=== PATIENT | male | born 1960 | race Caucasian/White ===

== ENCOUNTER 2017-08-16 15:59 | Inpatient (IN) | payer BC, SELFPAY ==
[2017-08-16] MEDS ORDERED: Ondansetron HCl/PF 4 MG/2 ML Vial IVP PRN (16:16)
[2017-08-16] MEDS ORDERED: Ondansetron ODT 4 MG TAB PO PRN (16:16)
[2017-08-16] MEDS ORDERED: Acetaminophen 325 MG TAB PO PRN (16:16)
[2017-08-16] MEDS ORDERED: traMADol HCl 50 MG TAB PO PRN (16:29)
[2017-08-16 16:44] VITALS: BMI 27.8
[2017-08-16] MEDS ORDERED: Allopurinol 300 MG TAB PO SCH (16:45)
[2017-08-16 17:27] LABS: ALT (SGPT) 14 U/L (8-55); AST (SGOT) 11 U/L (5-34); Alkaline Phosphatase 70 U/L (40-150); Anion Gap 10 mmol/L (10-20); BUN (Urea Nitrogen) 19 mg/dL (8.4-25.7); Bilirubin, Total 0.4 mg/dL (0.2-1.2); Calc. Creatinine Clearance 154 mL/min (70-130); Calcium 9.1 mg/dL (7.8-10.44); Carbon Dioxide 24 mmol/L (22-29); Chloride 107 mmol/L (98-107); Estimated GFR-MDRD Greater than 90; Globulin 2.1 g/dL (2.4-3.5); LDH 180 U/L (125-220)
[2017-08-16] MEDS: Dexamethasone 4 mg/ml Vial SLOW IVP SCH ×2 (17:39→23:33)
[2017-08-16] MEDS ORDERED: DOXORUBICIN SLOW IVP SCH (18:45)
[2017-08-16] MEDS ORDERED: Palonosetron HCl 0.25 MG in Sodium Chloride 0.9% 50 ML IVPB SCH (18:45)
[2017-08-16] MEDS ORDERED: diphenhydrAMINE 50 MG/ML VIAL IVP SCH (18:45)
[2017-08-16] MEDS ORDERED: Acetaminophen 500 MG TAB PO SCH (18:45)
[2017-08-16] MEDS ORDERED: VINCRISTINE SULFATE IVP SCH (18:45)
[2017-08-16] MEDS ORDERED: Dexamethasone 10 MG in Sodium Chloride 0.9% 50 ML IVPB SCH (18:45)
[2017-08-16] MEDS ORDERED: SODIUM CHLORIDE 0.9% IVPB SCH ×2 (19:30)
[2017-08-16] MEDS ORDERED: CYCLOPHOSPHAMIDE IVPB SCH (19:30)
[2017-08-16] MEDS ORDERED: RITUXIMAB IVPB SCH (19:30)
[2017-08-16] MEDS ORDERED: vinCRIStine Sulfate 2 MG in Sodium Chloride 0.9% 50 ML IVPB SCH (19:45)
--- NOTE | 2017-08-16 20:15 | HP-2 ---
RESIDENT PHYSICIAN: William Harley MD ATTENDING PHYSICIAN: Elton Griffin M.D. PRIMARY CARE PHYSICIAN: None/City call. DATE OF ADMISSION: 08/16/2017 CHIEF COMPLAINT: Back pain and paresthesias. HISTORY OF PRESENT ILLNESS: Mr. Townsend is a previously healthy 56-year-old male, who initia lly presented to [facility] on 08/13/2017 with back pain and progressive paresth esias of bilateral lower extremities extending into the lower thoracic region for the past week. Th e patient also complained of increasing difficulty walking over the past day prior to admission. Th e patient denies any bowel or bladder incontinence or other neurological symptoms. The patient is n ot a direct transfer to [facility] due to an expansile lesion found on T6 with biopsy by Neurosu rgery confirming diffuse large B cell lymphoma, requiring urgent oncological evaluation and treatmen t to prevent further neurological progression. Oncology service is not available at [facility]. Dr. Rust is aware of the case. PAST MEDICAL HISTORY: Transverse myelitis diagnosed in 2010, which later resolved and hypertension. PAST SURGICAL HISTORY: Unremarkable other than left hand surgery. FAMILY HISTORY: Noncontributory. ALLERGIES: No known drug allergies. MEDICATIONS: 1. Amlodipine 10 mg daily. 2. Aspirin 81 mg daily. SOCIAL HISTORY: The patient is and admits to drinking 2 beers per day for the past 40 years , denies smoking or illicit drug use. REVIEW OF SYSTEMS: Ten point review of systems including general, eyes, ENT, respiratory, CV, GI, G U, skin, musculoskeletal, and neuro all negative except for those pertinent positives listed above i n HPI. PHYSICAL EXAMINATION: VITAL SIGNS: Temperature 98.6, respiratory rate 20, heart rate 73, blood pressure 145/86, oxygen sa turation 94% on room air. Weight was 273 pounds. GENERAL: No acute distress. Awake, alert, and oriented x4. EYES: EOMI, pupils equally round and reactive to light and accommodation, nonicteric. ENT: Mucous membranes moist. Oropharynx is clear. CARDIOVASCULAR: Regular rate and rhythm, no murmurs, gallops or rubs. Pulses equal bilaterally. RESPIRATORY: Clear to auscultation bilaterally, no wheezes, rales or rhonchi, nonlabored. ABDOMEN: Nontender, nondistended. No guarding or rebound. EXTREMITIES: No edema. Equal movements bilaterally. SKIN: No rash or ulcer. No palpable lesions. NEUROLOGIC: Cranial nerves II through XII intact. There was a 4/5 symmetrical weakness in both low er extremities, mild patellar hyperreflexia, bilateral upgoing Babinski, no obvious sensory changes to light touch and pinprick. PSYCHIATRIC: Mood and affect appropriate. Judgment and insight intact. LABORATORY DATA: From 08/16/2017, BMP showed sodium of 139, potassium 2.7, chloride 107, bicarbonat e 25, BUN 18, creatinine 0.9, glucose 136, calcium 8.6. His globulin from previous lab draw several days ago was 2.9. We will repeat CMP. CBC from 08/15/2017 showed a white count 10.3, hemoglobin 1 3.9, hematocrit 40 and platelets 161. IMAGING: CT abdomen and pelvis from [facility] showed mesenteric lymphadenopath y, minimal pelvic lymphadenopathy, multiple splenic masses and splenomegaly, lytic bone lesion of T6 . MRI of the thoracic spine showed an expansile lesion involving the anterior and posterior aspects of T6. MRI of the cervical and lumbar spines were normal and MRI brain was negative. ASSESSMENT AND PLAN: This is a 56-year-old male with: 1. Large B cell lymphoma with spinal cord involvement. Oncology consulted, we will initiate chemot herapy tomorrow. Also, checking SPEP, UPEP, CMP, LDH, and beta 2 microglobulin per Oncology recomme ndations. We will eventually need PET scan and additional tumor markers according to Dr. Rust. Continue high dose steroids and we will also start allopurinol. Tylenol and tramadol for pain reli ef. The patient is currently resting comfortably. 2. Hypertension. Continue amlodipine. 3. Alcohol abuse. ASE protocol. 4. Hyperglycemia, likely secondary to steroids. The patient is overweight. We consider checking A 1c and care versus outpatient. 5. Deep venous thrombosis prophylaxis, Lovenox. 6. Gastrointestinal prophylaxis with PPI. DISPOSITION AND LENGTH OF HOSPITAL STAY: Home; 2 days. Symptomatic medications will be provided. History and physical exam as well as management discussed with Dr. Griffin.
--- NOTE | 2017-08-16 21:06 | CON ---
DATE OF CONSULTATION: 08/16/2017 REASON FOR CONSULTATION: Malignant lymphoma. HISTORY: This is a 56-year-old male, who was in his usual state of health approximately 2 weeks ago. Then, he started to have back pain, which gradually became worse. He developed weaknes s in his lower extremities about a week ago. He was able to go back to work to this week Friday, t rodo being Friday. Subsequently, he was admitted to [facility], where he had CT scan of abdomen and pelv is with IV contrast. It showed marked mesenteric lymphadenopathy also with a small periaortic and a ortocaval lymphadenopathy and minimal lymphadenopathy. The size of mesenteric lymph nodes not menti oned. It also showed questionable lymphadenopathy at the confluence of inferior vena cava and right atrium. The spleen was enlarged, size not given. There were hypodense lesions in the spleen measu ring up to 4.3 cm. These were not felt to be cystic in nature. Cystic lesions were noted in the li bailee. MRI of the thoracic spine without contrast showed an expansile mass involving T6 vertebral bod y extending down both pedicles and into the transverse process. It was causing severe central canal stenosis. There was also expansion of the mass into bilateral T6-T7 neural foramina, causing sever e bilateral neural foraminal stenosis. The patient underwent a biopsy of the T6 mass on 08/14/2017. This has been interpreted as diffuse large B cell lymphoma, positive for CD20. The patient denies night sweats, fever, and weight loss. He gives history of hypertension as starting four years ago. He also gives history of transverse myelitis in the remote past. At the present time, the patient 's main complaint is numbness in both legs and motor weakness, slightly more pronounced on the left. He ambulates with a walker. The bladder and bowel functions are maintained. The patient complain s of a subjective level of sensory loss around T6-T7 segment and below. CURRENT MEDICATIONS: Amlodipine 10 mg p.o. daily and aspirin 81 mg p.o. daily. PAST MEDICAL HISTORY: Positive for hypertension. He also gives history of myelitis in 2010. This was associated with numbness and loss of bladder and bowel function. It was felt to be of viral iris ology. FAMILY HISTORY: Positive for hypertension and CHF. Mother also has rheumatoid arthritis. PERSONAL AND SOCIAL HISTORY: The patient drinks two beers every day for the past 40 years. He does not smoke or does not use recreational drugs. DRUGS WITH ADVERSE EFFECT: None. REVIEW OF SYSTEMS: As mentioned in the history of present illness. PHYSICAL EXAMINATION: GENERAL: The patient appears appropriate for his age and is alert and oriented. VITAL SIGNS: Height 6 feet 1 inch, weight 211 pounds. Body surface area 2.22. Temperature 98.6, p ulse 73, respirations 20, and blood pressure 145/86. HEENT: Unremarkable. LYMPH NODE: Not palpable in cervical, supraclavicular, axillary or inguinal area. CHEST: Clear to percussion and auscultation. HEART: Regular rhythm. S1 and S2. ABDOMEN: No palpable hepatosplenomegaly. No other masses felt. Bowel sounds normal. EXTREMITIES: Without pedal edema. NEUROLOGIC: The patient has some motor weakness involving both lower extremities. Babinski sign is positive. Deep tendon reflexes are diminished. I could not elicit a sensory level objectively, th ough the patient says there is sensory impairment below around T6 level. ASSESSMENT AND RECOMMENDATIONS: This patient has large cell diffuse lymphoma, I believe he will hav e stage IV disease. His CBC and chemistries are acceptable and for the most part within normal limi ts. LDH is normal. I had discussed the case with Dr. García, and for now, we have started to procee d with chemotherapy on an urgent basis, trying to preserve and improve his neurologic function. I a m hoping the molecular studies reports will be back during the next few weeks. However, his treatme nt needs to be started soon. Echocardiogram will be done next week. We will start CHOP reduction t omorrow. I discussed the side effects and benefits of this regimen including the cardiac toxicity, skin extravasation, neuropathy, neutropenic fever, nausea, vomiting, hair loss, etc. Thanks very much for allowing me to participate in this patient's care.
[2017-08-16] MEDS ORDERED: Dexamethasone 20 MG in Sodium Chloride 0.9% 50 ML IVPB SCH (23:15)
[2017-08-17] MEDS: Dexamethasone 4 mg/ml Vial SLOW IVP SCH ×4 (05:46→23:36)
--- NOTE | 2017-08-17 06:33 | PDOC.FM ---
- Subjective Subjective: Patient doing well this AM. No significant overnight events. Patient denies any pain this AM. Pain well controlled with tramadol and tylenol. Answered questions regarding course of action. - Objective MAR Reviewed: Yes Vital Signs & Weight: Vital Signs (12 hours) Temp Pulse Resp BP BP Pulse Ox 08/17/17 05:59 98.0 F 69 16 131/79 08/16/17 23:39 97.8 F 62 18 131/86 98 08/16/17 20:00 98.3 F 70 18 167/91 H 96 Weight Weight 95.708 kg I&O: 08/15/17 08/16/17 08/17/17 06:59 06:59 06:59 Intake Total 240 Output Total 875 Balance -635 Result Diagrams: 08/16/17 16:56 <Shyla Cummins - Last Filed: 08/17/17 07:56> - Objective Vital Signs & Weight: Vital Signs (12 hours) Temp Pulse Resp BP Pulse Ox 08/17/17 08:00 97.4 F L 64 18 08/17/17 07:17 97.4 F L 64 18 138/64 98 08/17/17 05:59 98.0 F 69 16 131/79 08/16/17 23:39 97.8 F 62 18 131/86 98 Weight Weight 211 lb I&O: 08/16/17 08/17/17 08/18/17 06:59 06:59 06:59 Intake Total 240 Output Total 875 Balance -635 Result Diagrams: 08/16/17 16:56 <Elton Griffin - Last Filed: 08/17/17 10:02> Phys Exam - Physical Examination Constitutional: NAD HEENT: moist MMs, sclera anicteric Neck: supple, full ROM Respiratory: no wheezing, no rales, no rhonchi, clear to auscultation bilateral Cardiovascular: RRR, no significant murmur Gastrointestinal: soft, non-tender, no distention, positive bowel sounds Musculoskeletal: no edema, pulses present Weakness in LE's bilaterally. Psychiatric: normal affect, A&O x 3 Skin: no rash, normal turgor, cap refill <2 seconds <Shyla Cummins - Last Filed: 08/17/17 07:56> Dx/Plan (1) Large B-cell lymphoma Code(s): C85.10 - UNSPECIFIED B-CELL LYMPHOMA, UNSPECIFIED SITE Status: Acute (2) Spinal cord compression due to malignant neoplasm metastatic to spine Code(s): G95.20 - UNSPECIFIED CORD COMPRESSION; C79.51 - SECONDARY MALIGNANT NEOPLASM OF BONE Status: Acute (3) Hypertension Code(s): I10 - ESSENTIAL (PRIMARY) HYPERTENSION Status: Acute (4) Overweight (BMI 25.0-29.9) Code(s): E66.3 - OVERWEIGHT Status: Acute (5) H/O ETOH abuse Code(s): Z87.898 - PERSONAL HISTORY OF OTHER SPECIFIED CONDITIONS Status: Acute - Plan Plan: 56 year old male with newly diagnosed large B cell lymphoma (08/13/2017), presents with back pain and difficulty walkin. Newly diagnosed large B cell lymphoma (likely stage IV): CD [address] abdomen/pelvis shows lytic bone lesion of T6, mesenteric lymphadenopathy, minimal pelvis LAD, multiple splenic masses and splenomegaly, and hepatic cysts. Dr. Rust, Oncologist, consulted. He has spoken with Dr. García. Urgent chemotherapy is being initiatedj to improve and preserve neurologic function. Plans for CHOP reduction today. Pending B2 microglobulin, serum electrophoresis, protein electrophoresis per oncology recommendations. Pain control with tramadol and tylenol. Continue high dose steroids and allopurinol. Echo to be performed next week per oncology. 2. T6 lytic lesion with spinal cord compression with neurologic dysfunction: 2/ 2 to B cell lymphoma. Biopsy done on 08/14/2017. Continue high dose steroids and allopurinol. Pain control with tramadol and tylenol. Urgent chemotherapy. Oncology recommendations appreciated. 3. HTN: Continue amlodipine. BP this AM 131/79. Continue to monitor. 4. Hx of EtOH abuse: ASE protocol 5. Overweight: BMI 27.8 6. DVT ppx: lovenox 7. GI ppx: PPI <Shyla Cummins - Last Filed: 08/17/17 07:56> Attending Addendum - Attending Addendum I personally evaluated the patient and discussed the management with Dr. Cummins I agree with the History, Examination, Assessment and Plan documented above with any addition or exceptions noted below. Stable neuro exam overnight. He still has numbness in his legs, mild weakness at the hips and upgoing toe on the right. He starts chemo today <Elton Griffin - Last Filed: 08/17/17 10:02>
[2017-08-17] MEDS ORDERED: Aspirin 81 mg Enteric Coated Tablet PO SCH (09:00)
[2017-08-17] MEDS ORDERED: Allopurinol 300 MG TAB PO SCH (09:00)
[2017-08-17] MEDS: Amlodipine 5 MG TAB PO SCH (10:05)
[2017-08-17] MEDS: Enoxaparin Sodium 40 MG/0.4 ML SYRINGE SC SCH (10:06)
[2017-08-18 04:26] VITALS: TEMP 97.8
[2017-08-18 05:31] LABS: #Lymphocytes 0.3 thou/uL (1.20-3.40); #Monocytes 0.2 thou/uL (0.11-0.59); #Neutrophils 7.7 thou/uL (1.40-6.50); %Eosinophils 0.2 % (0.0-10.0); %Lymphocytes 3.2 % (21.0-51.0); %Monocytes 2.3 % (0.0-10.0); Hematocrit 43.1 % (42.0-52.0); Mean Platelet Volume 7.7 fL (7.4-10.4); Red Blood Cell (RBC) Count 4.65 mill/uL (4.70-6.10); White Blood Cell (WBC) Count 8.1 thou/uL (4.8-10.8)
--- NOTE | 2017-08-18 06:06 | PDOC.FM ---
- Subjective Subjective: Pt feels well today after his first round of chemo yesterday. Reports minimal nausea/vomiting. He has a strong appetite. He denies changes in his lower leg neuro symptoms. There were no acute events over night. - Objective MAR Reviewed: Yes Vital Signs & Weight: Vital Signs (12 hours) Temp Pulse Resp BP Pulse Ox 08/18/17 04:25 97.8 F 61 18 129/60 95 08/18/17 00:00 97.9 F 76 18 136/74 99 08/17/17 20:00 98 F 73 18 95 08/17/17 19:56 98 F 73 18 130/73 95 Weight Weight 95.708 kg I&O: 08/16/17 08/17/17 08/18/17 06:59 06:59 06:59 Intake Total 240 240 Output Total 875 1350 Balance -635 -1110 Result Diagrams: 08/18/17 05:21 08/18/17 05:21 <Bradley Pierson - Last Filed: 08/18/17 06:04> - Objective Vital Signs & Weight: Vital Signs (12 hours) Temp Pulse Resp BP BP Pulse Ox 08/18/17 09:29 65 137/85 08/18/17 08:00 97.8 F 61 18 08/18/17 04:25 97.8 F 61 18 129/60 95 08/18/17 00:00 97.9 F 76 18 136/74 99 Weight Weight 95.708 kg I&O: 08/17/17 08/18/17 08/19/17 06:59 06:59 06:59 Intake Total 240 240 Output Total 875 1350 Balance -635 -1110 Result Diagrams: 08/18/17 05:21 08/18/17 05:21 <Francia Ho - Last Filed: 08/18/17 10:45> Phys Exam - Physical Examination Constitutional: NAD HEENT: moist MMs Neck: full ROM Respiratory: clear to auscultation bilateral Cardiovascular: RRR, no significant murmur Gastrointestinal: soft, non-tender, no distention, positive bowel sounds Musculoskeletal: no edema 4/5 strength in hip flexion b/l Psychiatric: normal affect, A&O x 3 Skin: no rash <Bradley Pierson - Last Filed: 08/18/17 06:04> Dx/Plan (1) Large B-cell lymphoma Code(s): C85.10 - UNSPECIFIED B-CELL LYMPHOMA, UNSPECIFIED SITE Status: Acute (2) Spinal cord compression due to malignant neoplasm metastatic to spine Code(s): G95.20 - UNSPECIFIED CORD COMPRESSION; C79.51 - SECONDARY MALIGNANT NEOPLASM OF BONE Status: Acute (3) Hypertension Code(s): I10 - ESSENTIAL (PRIMARY) HYPERTENSION Status: Chronic Qualifiers: Hypertension type: essential hypertension Qualified Code(s): I10 - Essential (primary) hypertension (4) Overweight (BMI 25.0-29.9) Code(s): E66.3 - OVERWEIGHT Status: Chronic (5) H/O ETOH abuse Code(s): Z87.898 - PERSONAL HISTORY OF OTHER SPECIFIED CONDITIONS Status: Chronic - Plan Plan: 56 year old male with newly diagnosed large B cell lymphoma (08/13/2017), presents with back pain and difficulty walkin. Newly diagnosed large B cell lymphoma (likely stage IV): CD [address] abdomen/pelvis shows lytic bone lesion of T6, mesenteric lymphadenopathy, minimal pelvis LAD, multiple splenic masses and splenomegaly, and hepatic cysts. Dr. Rust, Oncologist, consulted. He has spoken with Dr. García. Urgent chemotherapy was started yesterday improve and preserve neurologic function. Plans for CHOP reduction today. Pending B2 microglobulin, serum electrophoresis, protein electrophoresis per oncology recommendations. Pain control with tramadol and tylenol. Continue high dose steroids and allopurinol. Echo to be performed next week per oncology. Uric acid is currently not concerning for tumor lysis syndrome. Provide n/v control prn 2. T6 lytic lesion with spinal cord compression with neurologic dysfunction: 2/ 2 to B cell lymphoma. Biopsy done on 08/14/2017. Continue high dose steroids and allopurinol. Pain control with tramadol and tylenol. Urgent chemotherapy. No changes in status today. Continue to monitor for symptom progression 3. HTN: Continue amlodipine. BP this AM 131/79. Continue to monitor. 4. Hx of EtOH abuse: ASE protocol 5. Overweight: BMI 27.8 6. DVT ppx: lovenox and SCD 7. GI ppx: PPI <Bradley Pierson - Last Filed: 08/18/17 06:04> Attending Addendum - Attending Addendum I personally evaluated the patient and discussed the management with Dr. Pierson. I agree with the History, Examination, Assessment and Plan documented above with any addition or exceptions noted below. The patient is feeling well this morning. Tolerating chemo so far. We will continue supportive care. Order echo today as pt is being treated with doxarubicin. Will also consult pt. <Francia Ho - Last Filed: 08/18/17 10:45>
[2017-08-18] MEDS ORDERED: Allopurinol 300 MG TAB PO SCH (09:00)
[2017-08-18] MEDS ORDERED: Dexamethasone 10 MG/ML VIAL SLOW IVP SCH (09:00)
[2017-08-18] MEDS: Amlodipine 5 MG TAB PO SCH (09:29)
[2017-08-18 09:32] VITALS: BP 137/85
[2017-08-18] MEDS: Enoxaparin Sodium 40 MG/0.4 ML SYRINGE SC SCH (09:32)
--- NOTE | 2017-08-18 14:26 | CON ---
DATE OF CONSULTATION: 08/18/2017 REASON FOR CONSULTATION: Mr. Townsend is a 56-year-old gentleman, who appears to have been diagnosed wi th at least a stage 3 diffuse large B-cell lymphoma. This was causing spinal cord compression at th e T6 vertebral body. HISTORY OF PRESENT ILLNESS: Mr. Townsend states that he has been having pain in the back and chest for about 2 weeks. He was seen in the [facility] and was placed on prednisone, and actually had imp rovement in his symptoms. However, as the prednisone tapered, the symptoms recurred, and he was sub sequently admitted to [facility]. He had a cardiac workup, which was negative, and he was discharged. About a week ago, this past Friday, he began having some numbness in his l egs. By Friday, he was having difficulty walking. He was subsequently admitted to [facility]. While there, he had workup and evaluation. He had a previous history of transvers e myelitis, and therefore, an MRI of the cervical, thoracic, lumbar spine was obtained. This showed a mass lesion, primarily involving the T6 vertebral body, which appeared to be causing spinal cord compression. He was placed on dexamethasone. He was seen by Dr. Barron in Neurosurgery. The pat ient was felt to be stable. Primarily, he had paresthesias in the lower extremities. He did not haney ve any bowel or bladder problems. Therefore, he underwent a CT-guided biopsy of the T6 vertebral nelly dy. Final pathology returned as a diffuse large B-cell lymphoma. He did have a CT scan of the ches t, abdomen, and pelvis performed. This showed a markedly mesenteric lymphadenopathy. There was als o hypodensities in the liver, which were felt to be cysts. The spleen was enlarged with multiple hy podense lesions, which were not felt to be cysts. There was no pelvic adenopathy. There were some small paraaortic and aortocaval lymph nodes. He did not have any mediastinal adenopathy. Because o f his spinal cord compression and because of not having Oncology services at [facility], he was subsequently transferred to [place] for workup and treatment. He was seen by Dr. Rust. He was started on chemotherapy with R-CHOP with his first cycle of chemotherapy complete d yesterday. I am seeing him today at Dr. Rust's request. He does feel like the numbness is im proving. He is no longer having any back pain. His walking is still fairly shaky and he must walk with assistance. He denies any enlarged lymph nodes. He has no fever, night sweats, or weight loss . He had no difficulties with his chemotherapy. He voices no other complaints. PAST MEDICAL HISTORY: 1. Hypertension. 2. Transverse myelitis in 2010, which subsequently resolved with steroids and antibiotics. 3. Left hand surgery for tendon repair from trauma. 4. He denies other medical or surgical problems. MEDICATIONS: Amlodipine and aspirin. ALLERGIES: No known medical allergies. FAMILY HISTORY: His dad had lung cancer. He also had a sister with lung cancer. There is no other family history of malignancy. There is no family history of lymphoma. SOCIAL HISTORY: He is and his is in the room with him. He has no cigarette or alcohol use. He does drink approximately 2 alcoholic beverages per day. He works for an [employer]. REVIEW OF SYSTEMS: The patient is having no chest pain. He is having no bowel or bladder symptoms. Remainder of 12 system review of system is otherwise negative. PHYSICAL EXAMINATION: VITAL SIGNS: Height 6 feet 1 inch, weight 211 pounds, blood pressure is 137/85, pulse is 65, respir ations are 18, temperature is 97.8, and O2 saturation is 95%. GENERAL: He is alert and oriented and in no apparent distress. He is well-developed and well-ortega shed. Karnofsky performance status is an 80%. HEENT: Pupils are equal, round, and reactive to light. Extraocular movements are intact. ENT: Or al cavity, oropharynx normal without lesion or erythema. Palate elevates symmetrically. Gingiva is intact. There is no enlargement of Waldeyer's ring. NECK: Supple, without preauricular, submandibular, cervical, or supraclavicular adenopathy. No thy romegaly. Larynx is midline. LUNGS: Breathing nonlabored. Clear to auscultation and percussion. HEART: Regular rate and rhythm without murmur. No lower extremity edema. Radial and pedal pulses are good. BACK: No tenderness on fist percussion of the spine. LYMPHATICS: No axillary or inguinal adenopathy. ABDOMEN: Bowel sounds present. Soft, nontender, nondistended, without mass or hepatosplenomegaly. Liver percusses to a normal size. SKIN: Without rash or purpura. NEUROLOGIC: Cranial nerves II-XII grossly intact. Motor strength is 5/5 in both upper and lower ex tremities in all muscle groups tested. Gait was not tested. Sensory exam was not tested. RADIOLOGIC: MRI of the thoracic spine at [facility] was personally reviewed. A gain, he has a contrast-enhancing mass lesion causing spinal cord compression, which is quite tight primarily at the T6 vertebral body level. Chest x-ray showed no lesion. I was unable to review the CT of the chest, abdomen, and pelvis, which showed marked mesenteric adenopathy and multiple small paraaortic lymph nodes. There was no additional evidence of adenopathy. He did have multiple lesio ns in the spleen. LABORATORY DATA: CBC revealed a white blood cell count of 8100 with hemoglobin of 15.1, hematocrit of 43.1, platelet count of 154,000. Chemistry group showed normal electrolytes. Globulin was 2.1. Creatinine was normal. ASSESSMENT: Mr. Townsend is a 56-year-old gentleman with what appears to be at least a clinical stage 3 AE, diffuse large B-cell lymphoma. He has involvement of the T6 vertebral body, spleen, and mesente liz and paraaortic lymph nodes. He has completed his first cycle of chemotherapy with R-CHOP. PLAN: I had a long discussion with Mr. Townsend and his regarding his diagnosis, prognosis, progno stic factors, and treatment options. I have also discussed the case with Dr. Barron. Neurologica lly, he is stable. Primarily, his problem is of paresthesias. This seems to be improving since his chemo was started. His leg strength is quite good. He is able to ambulate with assistance. I hav e discussed the case with Dr. Rust. I am in agreement with him starting chemotherapy. At the p resent time, I would recommend holding off on radiation therapy as his lesion should shrink fairly r apidly with chemotherapy. This should allow him to remain neurologically intact. If the patient we re to decline in neurological status, then we could intervene with radiation therapy. I would recom mend, after he completes his chemotherapy, that he be treated with radiation therapy to the T6 verte bral body area. He informs me that Dr. Rust is planning 6 cycles of chemotherapy. Thus, after his sixth cycle of R-CHOP, I would recommend radiation therapy to the thoracic spine region. It villanueva s seem that lymphomatous lesions involving the bone are better controlled with combined modality the rapy, which is the reason for the recommendation. The logistics of radiation as well as the benefit s and risks of treatment were discussed. Side effects would include but not be limited to skin reac tion, fatigue, lower blood counts, difficulty or pain with swallowing, weight loss, and small risk o f damage to his heart or spinal cord or other structures which receive radiation therapy. Time was taken to answer all of their questions. He is tentatively agreeable to proceed with radiation as re commended to him. I would recommend that the patient return to see me again after his chemotherapy is completed. He will likely be discharged soon. I did inform the patient and his that should he decline neurologically that he go to the emergency room or seek medical attention as soon as pos yue. I do not anticipate this will happen, but strongly advised them to watch for neurological de terioration. Thank you for this interesting consultation.
--- NOTE | 2017-08-18 14:27 | DIS-2 ---
DATE OF ADMISSION: 08/16/2017 DATE OF DISCHARGE: 08/18/2017 RESIDENT: Bradley Pierson D.O. ADMITTING ATTENDING: Elton Griffin M.D. DISCHARGE ATTENDING: Francia Ho M.D. CONSULTATIONS: Dr. Jemima Rust, Oncology. PROCEDURES: None. PRIMARY DIAGNOSIS: Large B cell lymphoma. SECONDARY DIAGNOSES: Spinal cord compression secondary to malignancy, hypertension and a history of alcohol abuse. DISCONTINUED MEDICATIONS: None. DISCHARGE MEDICATIONS: Allopurinol 300 mg p.o. daily, prednisone 100 mg every day, Zofran ODT 8 mg q.8h. p.r.n. nausea, vomiting, Compazine 20 mg p.o. p.r.n. nausea and vomiting. HOSPITAL COURSE: The patient was admitted from outside facility for a newly diagnosed B cell lymphoma that was causing lower extremity neurological symptoms. Specifically, the patient had decreased strength in hip flexion bilaterally with no other neurological symptoms, weakness. Muscle strength in hip flexion was consistently 4/5. This did not improve or worsen during hospitalization. While admitted the patient was started on chemotherapy to include doxorubicin. The patient had an echo done within the last week, therefore another echo was not indicated to establish baseline cardiac function. The patient tolerated the chemotherapy well and did not have significant nausea and vomiting and was able to eat. Per Oncology the patient was good to be discharged. He will follow up outpatient and will continue multiple rounds of chemotherapy as an outpatient. DISPOSITION: Stable. DISCHARGE INSTRUCTIONS: 1. Location: Home. 2. Diet: Regular. 3. Activity p.r.n. 4. Follow up 08/21/2017 with Oncology and within 1 week with primary care physician. LUCIEN
[2017-08-19 14:26] LABS: A/G Ratio 1.3 (0.7-1.7); Albumin 3.5 g/dL (2.9-4.4); Alpha 1 0.2 g/dL (0.0-0.4); Alpha 2 0.8 g/dL (0.4-1.0); Beta 0.9 g/dL (0.7-1.3); Gamma 0.6 g/dL (0.4-1.8); Globulin, Total 2.6 g/dL (2.2-3.9); M-Spike Not Observed g/dL (Not Observed)
[2017-08-21 08:19] LABS: Beta-Ur 26.6 % (.); Protein, Urine 8.2 mg/dL (Not Estab.)
== END 2017-08-18 15:10 | disposition home or self-care (01) | DRG 841 ==
LOC: ONC 15:59
PROVIDERS: ADMIT Internal Medicine; ATTEND Internal Medicine
DX: C85.10 Unspecified B-cell lymphoma, unspecified site (principal); C79.51 Secondary malignant neoplasm of bone; G95.29 Other cord compression; I10 Essential (primary) hypertension; Z79.82 Long term (current) use of aspirin; F10.10 Alcohol abuse, uncomplicated; R73.9 Hyperglycemia, unspecified; T38.0X5A Adverse effect of glucocorticoids and synthetic analogues, initial encounter; R20.2 Paresthesia of skin; E66.3 Overweight; Z68.27 Body mass index [BMI] 27.0-27.9, adult
CPT/HCPCS: 36415; 80053; 82232; 82947; 83615; 84165; 84166; 84550; 85025; A4216; J1100; J1200; J1453; J1650; J2469; J2505; J7050; J9000; J9070; J9310; J9370

== ENCOUNTER 2017-09-02 10:57 | Inpatient (IN) | payer BC ==
[2017-09-02] MEDS ORDERED: Mag-Al 1200 mg/1200 mg/30 ML UDCUP PO PRN (11:14)
[2017-09-02] MEDS ORDERED: Acetaminophen 325 MG TAB PO PRN (11:14)
[2017-09-02] MEDS ORDERED: Ondansetron ODT 4 MG TAB PO PRN (11:14)
[2017-09-02] MEDS ORDERED: Calcium Carbonate 500 MG ChewTAB PO PRN (11:14)
[2017-09-02] MEDS ORDERED: Meropenem 1 GM in Sodium Chloride 0.9% 100 ML IVPB SCH (11:15)
[2017-09-02] MEDS ORDERED: Vancomycin HCl 1 GM in Premix Bag 1 BAG IVPB SCH (11:15)
[2017-09-02] MEDS: Sodium Chloride 0.9% 1,000 ML IV SCH (12:27)
[2017-09-02 12:53] LABS: White Blood Cell (WBC) Count 27.6 thou/uL (4.8-10.8)
[2017-09-02 13:04] LABS: ALT (SGPT) 14 U/L (8-55); AST (SGOT) 7 U/L (5-34); Alkaline Phosphatase 97 U/L (40-150); Anion Gap 17 mmol/L (10-20); BUN (Urea Nitrogen) 23 mg/dL (8.4-25.7); Bilirubin, Total 0.8 mg/dL (0.2-1.2); Calc. Creatinine Clearance 98 mL/min (70-130); Calcium 8.7 mg/dL (7.8-10.44); Carbon Dioxide 21 mmol/L (22-29); Chloride 95 mmol/L (98-107); Estimated GFR-MDRD 70; Globulin 2.6 g/dL (2.4-3.5); Magnesium 2.3 mg/dL (1.6-2.6); Phosphorus 3.7 mg/dL (2.3-4.7); Protein, Total 5.7 g/dL (6.0-8.3)
[2017-09-02 13:07] LABS: Band 33 % (5-11); Mean Platelet Volume 8.4 fL (7.4-10.4); Neutrophil 57 % (42-75); Reactive Lymphocytes 4 % (0-10); Vacuoles SLIGHT
[2017-09-02] MEDS: Vancomycin HCl 1.5 GM in Sodium Chloride 0.9% 250 ML 300 ML IVPB SCH (13:28)
[2017-09-02] MEDS: MEROPENEM 1 GM/50 ML 1 GM in Premix Bag 1 BAG IVPB SCH ×2 (13:53→20:34)
[2017-09-02] MEDS ORDERED: ACYCLOVIR SODIUM IVPB SCH (14:00)
[2017-09-02] MEDS ORDERED: Lidocaine 1% (PF) 30 ML VIAL ONE (14:23)
[2017-09-02] MEDS ORDERED: Lidocaine 1% w/Epinephrine 1:200K 30 ML VIAL FS ONE (14:45)
--- NOTE | 2017-09-02 15:42 | CON ---
DATE OF CONSULTATION: 09/02/2017 REASON FOR CONSULTATION: Skin lesions. HISTORY OF PRESENT ILLNESS: A 57-year-old recently diagnosed with B cell lymphoma with involvement of the spine and abdominal lymphadenopathy, has received 1 course of Rituxan and CHOP and now has developed progressively worsening necrotizing skin lesions and he is admitted for management. Low- grade fever. No headaches, no visual symptoms, sore throat, odynophagia, dysphagia, no dyspnea, no cough, no chest pain, no abdominal pain, no genitourinary symptoms, persisting paresthesias and numbness in lower extremities, which results from the spinal lesion. PAST MEDICAL HISTORY: Transverse myelitis in 2010 which resolved, hypertension and B-cell lymphoma. PAST SURGICAL HISTORY: Left hand surgery. FAMILY HISTORY: Noncontributory. ALLERGIES: None. MEDICATIONS: Norvasc and aspirin and currently on meropenem and vancomycin. SOCIAL HISTORY: , drinks 2 beers per day. Never a smoker. PHYSICAL EXAMINATION: VITAL SIGNS: T-max 99.7, blood pressure 130/80, pulse 125, respirations 20, and O2 sat 97%. SKIN: Shows areas of necrotic ulcerations that ranged from the size of a small pimple to a larger oval-shaped ecthyma gangrenosum-like lesion in the abdominal area with infiltrated borders and erythema. He has 5 or 6 of those lesions spread out in different stages of development as one on the face which is smaller. No lymphadenopathy. HEENT: Ocular movements are conjugate. Sclerae are white. Pupils are equal and reactive. Oral cavity normal. Numerous teeth in place. Oral candidiasis. NECK: Supple, no jugular vein distention. LUNGS: Clear to auscultation and percussion. HEART: S1, S2, regular rate. No S3 or S4. ABDOMEN: Soft, not distended or tender. No ascites, no organomegaly or bladder distention. EXTREMITIES: No joint inflammatory activity. Pulses are 1+ in dorsalis pedis. Moves all extremities equally. Strength is pretty good in lower extremities. NEUROLOGIC: Cognitive function appears to be intact. LABORATORY DATA: We have labs from 08/18/2017 with WBC count 8.1, hemoglobin 15 , the creatinine was 0.89. Liver profile normal. LDH 343. Today's labs are still pending. ASSESSMENT: 1. B-cell lymphoma, undergoing R-CHOP. 2. 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 DISCUSSION: Differential diagnoses includes gram-negative paul infection with bacteremia including Pseudomonas aeruginosa, MRSA, filamentous fungi including Aspergillus, Fusarium or Rhizopus. Finally, herpes simplex can infrequently be associated with ecthyma gangrenosum-like lesions. We will add Voriconazole and acyclovir to current regimen, request for a punch biopsy, submission to pathology and microbiology. The patient has also oral candidiasis which will be managed by the Voriconazole. LUCIEN
--- NOTE | 2017-09-02 16:24 | OP ---
DATE OF PROCEDURE: 09/02/2017 PREOPERATIVE DIAGNOSES: B-cell lymphoma, undergoing CHOP therapy with new gangrenosum-like lesions on the abdomen. POSTOPERATIVE DIAGNOSES: B-cell lymphoma, undergoing CHOP therapy with new gangrenosum-like lesions on the abdomen. PROCEDURE: Skin biopsy punch x2 for pathology and for tissue culture. SURGEON: Pancho Lopez M.D. ANESTHESIA: Local. ESTIMATED BLOOD LOSS: Minimal. COMPLICATIONS: None. SPECIMEN: 1. Punch biopsy sent to path for pathology. 2. Second sent to micro for tissue culture. TECHNIQUE: Abdomen on the lateral edge of one of these large gangrenosum-like lesions, the skin is prepped and draped in a sterile fashion. Local anesthetic was infiltrated under the skin. A full t hickness biopsy of the skin was performed x2 on the edge and one was sent to path for pathology and the other sent to micro for tissue culture. The wounds were closed using a Prolene suture. The pat ient tolerated the procedure well. Sutures will have to be removed in 1 week. They can follow up i n my office for that.
[2017-09-02 16:32] LABS: Bilirubin Negative (Negative); Blood, Urine Moderate (Negative); Glucose, Urine (Dipstick) 500 mg/dL (Negative); Ketone, Urine Negative (Negative); Nitrite Positive (Negative); Protein, Urine (Dipstick) 30 mg/dL (Neg-Trace); Urobilinogen 0.2 mg/dL (0.2-1.0)
[2017-09-02 16:34] LABS: Squamous Epithelial None Seen HPF (0-3); WBC/HPF 21-50 HPF (0-3)
[2017-09-02 16:49] LABS: Bacteria/HPF 2+ HPF (None Seen); Hyaline Casts/LPF 4-6 HYALINE CAST LPF (0-3 Hyaline)
[2017-09-02] MEDS ORDERED: Lorazepam 1 MG TAB PO PRN (17:16)
--- NOTE | 2017-09-02 17:23 | CON ---
DATE OF CONSULTATION: 09/02/2017 REASON FOR CONSULTATION: Diffuse large B cell lymphoma. HISTORY OF PRESENT ILLNESS: Mr. Townsend is a 57-year-old male who was diagnosed with stage I VA diffuse large B cell lymphoma with involvement of the abdominal lymph nodes, spleen and T6. He i nitially presented with weakness and numbness in bilateral lower extremities. The patient received his first round of chemotherapy with R-CHOP on 08/17/2017. He was given Neulasta on 08/18/2017. He presented for followup on 08/28/2017. He was still complaining of numbness and weakness in both hi s lower extremities. He had preserved bowel and bladder function. He did have yeast in his oral ca vity, which was treated with nystatin. He had an area on his lower abdomen, of 2 pimple-like lesion s. He was given Cipro, which he completed. Today he presented to our facility for treatment. His states that his rash has gotten worse. On examination, he had lesions on his abdomen and chest , groin, arm and face with significant erythema. The patient's states that his temperature was as high as 101 this morning. He was admitted to this facility for further evaluation of his skin e ruption. He denies any complaints at this time. No chest pain or shortness of breath. No abdomina l pain or dysuria. He is taking p.o. without any problems. No fever at this time. PAST MEDICAL HISTORY: 1. Recently diagnosed stage IV diffuse large B-cell lymphoma. 2. Hypertension. PAST SURGICAL HISTORY: 1. T6 biopsy. 2. Wrist surgery. ALLERGIES: No known drug allergies. HOME MEDICATIONS: 1. Cipro 500 mg b.i.d. 2. Nystatin 100,000 units q.i.d. 3. Allopurinol 300 mg daily. 4. Amlodipine 10 mg daily. 5. Aspirin 81 mg daily. 6. Prednisone 10 mg daily. FAMILY HISTORY: Noncontributory. SOCIAL HISTORY: , lives with his spouse. No smoker, social drinker. No illicit drug use. REVIEW OF SYSTEMS: A 12 point review of systems negative except for noted in HPI. PHYSICAL EXAMINATION: VITAL SIGNS: Temperature is 99.7, pulse is 125, respiratory rate 20, BP is 131/83, 97% on room air. GENERAL: Well-developed, well-nourished male in no acute distress. HEENT: Normocephalic, atraumatic. Pupils equal and reactive to light. NECK: Supple. CARDIOVASCULAR: Regular rate and rhythm. LUNGS: Clear to auscultation. ABDOMEN: Soft, nontender, bowel sounds are positive. EXTREMITIES: No clubbing, cyanosis or edema. SKIN: He has erythematous rash with areas of necrosis on his abdomen, chest, face, groin and arm. NEUROLOGIC: Left leg weakness. PSYCHIATRIC: The patient is alert and oriented and appropriate. PERTINENT LABORATORY AND X-RAYS: Current WBC is 27.6, hemoglobin 15.5, hematocrit 46, platelet coun t is 99,000. He has got 57% neutrophils, 33% bands, 3% lymphocytes. Sodium 129, potassium 4.1, chlo ride 95, CO2 is 21, BUN is 23, creatinine 1.08. Lactic acid 3.2, calcium 8.7, phosphorus 3.7, magne sium 2.3, total bilirubin is 0.8, AST 7, ALT 14, alkaline phosphatase is 97. C-reactive protein is 26.72, serum total protein 5.7, albumin 3.1, globulin 2.6. IMPRESSION: 1. Diffuse large B cell lymphoma status post chemotherapy with R-CHOP on 08/17/2017. 2. Skin eruptions with areas of erythema and necrosis. DISCUSSION: Dr. Mendez has been consulted and has started him on antifungal medication. His chemoth erapy will be held today. Dr. Lopez has been consulted for a punch biopsy. We will follow his spital course closely, once diagnosis has been made and treatment has been started, he will need a ediPort for chemotherapy and may receive his second cycle of R-CHOP prior to discharge. Thank you for the consult.
[2017-09-02 20:08] LABS: Hemoglobin A1c 5.5 % (4.0-6.0)
--- NOTE | 2017-09-02 20:18 | HP ---
DATE OF ADMISSION: 09/02/2017 PRIMARY CARE PHYSICIAN: The patient follows Dr. Rust for newly diagnosed lymphoma. CHIEF COMPLAINT: Skin rash. HISTORY OF PRESENT ILLNESS: The patient is a 56-year-old male who was diagnosed with lymphoma last month. He underwent MRI of the thoracic spine that showed expansile lesion involving the anterior a nd posterior aspect of the T6 per previous H\T\P. He was placed on high dose of steroids. He was d ischarged on 08/18/2017. He received R-CHOP chemotherapy on 08/17/2017 with Neulasta on the next da y. He followed up by Dr. Rust last week and was still complaining of numbness and weakness in b ilateral lower extremities without any bladder or bowel function problem. He was also started on ny statin for oral candidiasis. The patient had 2 pimple like lesions on the abdomen that progressively got worse over the last 2 we eks. Today, he was seen by Dr. Rust and was noted to have blackish appearance along with new le luz for which he was sent to the hospital as a direct admit. The patient denies any fever or chill s. No trauma or insect bite reported. He denies any nausea, vomiting, diarrhea, constipation, ches t pain, or syncope. PAST MEDICAL HISTORY: 1. Recent diagnosis of large B cell lymphoma with spinal cord compression. 2. Hypertension. 3. History of alcohol abuse. 4. History of transverse myelitis in 2010. PAST SURGICAL HISTORY: Left hand surgery. ALLERGIES: No known drug allergies. FAMILY HISTORY: Negative for premature coronary artery disease or malignancy. CURRENT HOME MEDICATIONS: The patient is currently on ciprofloxacin 500 mg b.i.d. to be completed t . Dexamethasone 4 mg p.o. t.i.d., to be completed today, nystatin mouthwash, Zofran, aspirin 81 mg daily, and amlodipine 10 mg daily. SOCIAL HISTORY: The patient drinks alcohol more or less on a daily basis. Denies any smoking or dr ug use. REVIEW OF SYSTEMS: The following complete review of systems was negative, unless otherwise mentione d in the HPI or below: Constitutional: Weight loss or gain, ability to conduct usual activities. Skin: Rash, itching. Eyes: Double vision, pain. ENT/Mouth: Nose bleeding, neck stiffness, pain, tenderness. Cardiovascular: Palpitations, dyspnea on exertion, orthopnea. Respiratory: Shortness of breath, wheezing, cough, hemoptysis, fever or night sweats. Gastrointestinal: Poor appetite, abdominal pain, heartburn, nausea, vomiting, constipation, or diar billie. Genitourinary: Urgency, frequency, dysuria, nocturia. Musculoskeletal: Pain, swelling. Neurologic/Psychiatric: Anxiety, depression. Allergy/Immunologic: Skin rash, bleeding tendency. PHYSICAL EXAMINATION: VITAL SIGNS: Temperature 99.7 with pulse rate of 125, respiration 20, blood pressure of 131/83 with O2 saturation 97% on room air. GENERAL: A 57-year-old male in no apparent distress. HEENT: Head, atraumatic and normocephalic. Sclerae are anicteric. Moist mucous membrane, no oral lesion. NECK: Supple, no JVD, no carotid bruit. LUNGS: Clear to auscultation bilaterally. HEART: S1, S2 present. Regular rate and rhythm. No murmur, rubs, or gallops appreciated. ABDOMEN: Soft and nontender, bowel sounds present. EXTREMITIES: No edema or calf tenderness. NEUROLOGIC: Grossly nonfocal. No new focal deficit. LYMPH NODES: No palpable lymph nodes in the neck. SKIN EXAMINATION: Showed necrotic ulceration of various sizes. He has two lesions on the abdomen. There is also 1 lesion on his face and right upper chest. He has total of 6-7 lesions overall. Th e lesion on the abdomen has necrotic appearance with dressing present. PSYCHIATRIC: Alert, awake, and oriented x3. LABORATORY AND X-RAY FINDINGS: CBC showed WBC 27.6 with hemoglobin 15.5, hematocrit 46, and platele t 99. Chemistries showed sodium 129, potassium 4.1, chloride 95, bicarbonate 21, BUN 23, creatinine 1.08, glucose of 259, and lactic acid of 3.2. CRP of 26.7, albumin 3.1. Urinalysis showed 21-50 W BCs with 2+ bacteria. IMPRESSION AND PLAN: 1. Sepsis with acute organ dysfunction. 2. Multiple skin lesions of unclear etiology. 3. Urinary tract infection. 4. Lactic acidosis. 5. Hyponatremia. 6. Mild protein-calorie malnutrition. 7. Elevated inflammatory markers. 8. Hyperglycemia, probably secondary to steroids, rule out diabetes mellitus type 2. 9. Thrombocytopenia, probably secondary to chemotherapy. 10. Metabolic acidosis, probably secondary to elevated lactate. 11. History of alcohol use. 12. Hypertension. PLAN: The patient will be monitored in the Oncology unit. Infectious Disease will be consulted. W e will empirically start on vancomycin and meropenem. IV hydration. We will repeat lactic acid in a.m. Thiamine, folic acid, due to history of alcohol use. Blood culture, urine cultures have been sent. We will check hemoglobin A1c. Vancomycin level monitoring. We will consult physical therapy , occupational therapy due to recent spinal cord compression. Plan of care was discussed with the patient. He stated understanding. We will discontinue steroids per Dr. Rust.
[2017-09-02] MEDS: Docusate 100 MG CAP PO SCH (20:41)
[2017-09-02] MEDS: Nystatin 500,000 UNITS/5 ML UDCUP SSW SCH (20:41)
[2017-09-02] MEDS: VORICONAZOLE IVPB SCH (20:45)
[2017-09-02] MEDS: SODIUM CHLORIDE 0.9% IVPB SCH (20:45)
[2017-09-02] MEDS ORDERED: SODIUM CHLORIDE 0.9% IVPB SCH (21:00)
[2017-09-02] MEDS ORDERED: VORICONAZOLE IVPB SCH (21:00)
[2017-09-03] MEDS: Vancomycin HCl 1.5 GM in Sodium Chloride 0.9% 250 ML 300 ML IVPB SCH ×2 (01:14→13:40)
[2017-09-03] MEDS: Sodium Chloride 0.9% 1,000 ML IV SCH ×2 (03:33→14:18)
[2017-09-03] MEDS: MEROPENEM 1 GM/50 ML 1 GM in Premix Bag 1 BAG IVPB SCH ×3 (03:59→21:40)
[2017-09-03 04:25] LABS: ALT (SGPT) 11 U/L (8-55); AST (SGOT) 7 U/L (5-34); Alkaline Phosphatase 76 U/L (40-150); Anion Gap 11 mmol/L (10-20); BUN (Urea Nitrogen) 23 mg/dL (8.4-25.7); Bilirubin, Total 0.6 mg/dL (0.2-1.2); Calc. Creatinine Clearance 98 mL/min (70-130); Calcium 8.1 mg/dL (7.8-10.44); Carbon Dioxide 23 mmol/L (22-29); Chloride 96 mmol/L (98-107); Estimated GFR-MDRD 70; Globulin 2.4 g/dL (2.4-3.5); Protein, Total 4.9 g/dL (6.0-8.3)
[2017-09-03 04:52] LABS: Band 27 % (5-11); Hematocrit 42.6 % (42.0-52.0); Mean Platelet Volume 8.2 fL (7.4-10.4); Neutrophil 64 % (42-75); Red Blood Cell (RBC) Count 4.51 mill/uL (4.70-6.10); White Blood Cell (WBC) Count 22.6 thou/uL (4.8-10.8)
[2017-09-03] MEDS: Ondansetron HCl/PF 4 MG/2 ML Vial IVP PRN (05:37)
[2017-09-03] MEDS: Docusate 100 MG CAP PO SCH ×2 (09:10→21:41)
[2017-09-03] MEDS: Cyanocobalamin (Vitamin B-12) 1,000 MCG TAB PO SCH (09:10)
[2017-09-03] MEDS: Multivit, Therapeutic 1 TAB PO SCH (09:10)
[2017-09-03] MEDS: Nystatin 500,000 UNITS/5 ML UDCUP SSW SCH ×4 (09:10→21:41)
[2017-09-03] MEDS: Folic Acid 1 MG TAB PO SCH (09:10)
[2017-09-03] MEDS: SODIUM CHLORIDE 0.9% IVPB SCH ×2 (10:01→21:41)
[2017-09-03] MEDS: VORICONAZOLE IVPB SCH ×2 (10:01→21:41)
[2017-09-03 14:42] LABS: Anion Gap 12 mmol/L (10-20); BUN (Urea Nitrogen) 27 mg/dL (8.4-25.7); Calc. Creatinine Clearance 89 mL/min (70-130); Calcium 8.2 mg/dL (7.8-10.44); Carbon Dioxide 24 mmol/L (22-29); Chloride 96 mmol/L (98-107); Estimated GFR-MDRD 63
--- NOTE | 2017-09-03 15:23 | PDOC.PN ---
- Subjective Encounter Start Date: 09/03/17 Encounter Start Time: 13:00 Patient seen and examined. No new complaints. No overnight events. Testicular swelling since yesterday. - Objective Resuscitation Status: Resuscitation Status FULL:Full Resuscitation MAR Reviewed: Yes Vital Signs & Weight: Vital Signs (12 hours) Temp Pulse Pulse Pulse Resp BP BP 09/03/17 12:00 98.5 F 105 H 20 09/03/17 07:50 113 H 108 H 122/73 134/82 09/03/17 06:53 97.4 F L 80 20 BP Pulse Ox 09/03/17 12:00 115/74 94 L 09/03/17 07:50 09/03/17 06:53 107/61 94 L Weight Admit Weight 207 lb Weight 207 lb I&O: 09/02/17 09/03/17 09/04/17 06:59 06:59 06:59 Intake Total 3940 Output Total 800 Balance 3140 Result Diagrams: 09/03/17 03:46 09/03/17 14:06 Phys Exam - Physical Examination Constitutional: NAD Respiratory: no wheezing, no rales, no rhonchi Cardiovascular: RRR, no significant murmur, no rub no heaves/pulsations Gastrointestinal: soft, non-tender, no distention, positive bowel sounds testicular swelling, minimal tenderness, no erythema Musculoskeletal: no edema Neurological: moves all 4 limbs Psychiatric: A&O x 3 Dx/Plan - Plan IMPRESSION AND PLAN: 1. Sepsis with acute organ dysfunction. Blood culture negative. 2. Multiple skin lesions of unclear etiology. Staph in culture. 3. Urinary tract infection. E coli 4. Lactic acidosis. 3.1 today 5. Hyponatremia - hypotonic 6. Mild protein-calorie malnutrition. 7. Elevated inflammatory markers. 8. Hyperglycemia. A1c negative. 9. Thrombocytopenia, probably secondary to chemotherapy. 10. Metabolic acidosis due to elevated lactate. 11. History of alcohol use. 12. Hypertension. 13. Testicular swelling PLAN: * Cont wound care/IV Atbx * Cont IVF * AM labs * Cortisol level in AM * Cont PT/OT * Encourage ambulation * Testicular ultrasound Review of Systems - Review of Systems Constitutional: negative: Fever, Chills, Sweats, Weakness, Malaise, Other Respiratory: negative: Cough, Dry, Shortness of Breath, Hemoptysis, SOB with Excertion, Pleuritic Pain, Sputum, Wheezing Cardiovascular: negative: Chest Pain, Palpitations, Orthopnea, Paroxysmal Noc. Dyspnea, Edema, Light Headedness Genitourinary: negative: Dysuria, Frequency, Incontinence, Hematuria, Retention - Medications/Allergies Allergies/Adverse Reactions: Allergies Allergy/AdvReac Type Severity Reaction Status Date / Time No Known Allergies Allergy Verified 09/02/17 12:10 Medications: Current Medications Acetaminophen (Tylenol) 650 mg PO Q4H PRN PRN Reason: Headache/Fever or Pain Hydrocodone Bitart/Acetaminophen (Sartell 5/325) 1 tab PO Q4H PRN PRN Reason: Severe Pain (7-10) Al Hydroxide/Mg Hydroxide (Maalox) 30 ml PO Q6H PRN PRN Reason: Heartburn or Indigestion Calcium Carbonate (Tums) 1,000 mg PO Q4H PRN PRN Reason: Heartburn or Indigestion Cyanocobalamin (Vitamin B-12) 1,000 mcg PO DAILY [facility] Last Admin: 09/03/17 09:10 Dose: 1,000 mcg Docusate Sodium (Colace) 100 mg PO BID [facility] Last Admin: 09/03/17 09:10 Dose: 100 mg Folic Acid (Folvite) 1 mg PO DAILY [facility] Last Admin: 09/03/17 09:10 Dose: 1 mg Sodium Chloride (Normal Saline 0.9%) 1,000 mls @ 70 mls/hr IV .[id number] [facility] Last Admin: 09/03/17 14:18 Dose: 1,000 mls Meropenem 1 gm/ Device 50 mls @ 100 mls/hr IVPB 0400,1200,2000 [facility] Last Admin: 09/03/17 12:30 Dose: 50 mls Vancomycin HCl 1.5 gm/ Sodium (Chloride) 300 mls @ 200 mls/hr IVPB 0100,1300 [facility] Last Admin: 09/03/17 13:40 Dose: 300 mls Voriconazole 400 mg/ Sodium (Chloride) 250 mls @ 125 mls/hr IVPB Q12HR [facility] PRN Reason: Protocol Lorazepam (Ativan) 1 mg PO Q4H PRN PRN Reason: ASE >=9 Magnesium Hydroxide (Milk Of Magnesium) 30 ml PO DAILYPRN PRN PRN Reason: Constipation Miscellaneous Medication (Pharmacy To Dose) 0 each IVPB ASDIR PRN PRN Reason: Pharmacy to Dose VANCOMYCIN Multivitamins (Theragran) 1 tab PO DAILY [facility] Last Admin: 09/03/17 09:10 Dose: 1 tab Nystatin (Mycostatin) 500,000 units SSW QID [facility] Last Admin: 09/03/17 14:18 Dose: 500,000 units Ondansetron HCl (Zofran Odt) 4 mg PO Q6H PRN PRN Reason: Nausea/Vomiting Ondansetron HCl (Zofran) 4 mg IVP Q6H PRN PRN Reason: Nausea/Vomiting Last Admin: 09/03/17 05:37 Dose: 4 mg Pantoprazole Sodium (Protonix) 40 mg PO DAILY [facility] Last Admin: 09/03/17 09:10 Dose: 40 mg Senna (Senokot) 2 tab PO HSPRN PRN PRN Reason: Constipation Thiamine HCl (Thiamine) 100 mg PO DAILY [facility] Last Admin: 09/03/17 09:10 Dose: 100 mg
--- NOTE | 2017-09-03 17:55 | ULT ---
SCROTAL ULTRASOUND 09/03/17 INDICATION: Scrotal swelling with redness and pain. TECHNIQUE: John scale, color doppler and vascular duplex was performed of the scrotum. FINDINGS: The right testicle measures 4.4 x 3.4 x 3.1 cm. The left testicle measures 4.7 x 2.7 x 3 cm. No hydr ocele is evident. The epididymi appear within normal limits. There is bilateral scrotal wall thicken ing with increased hyperemia. IMPRESSION: Findings consistent with scrotal cellulitis. POS: [facility]
[2017-09-03 20:09] LABS: Osmolality, Urine 641 mOsm/kg (300-900)
[2017-09-03 20:17] LABS: Sodium, Urine 27 mmol/L (Not Available)
[2017-09-04 00:28] LABS: Vancomycin, Trough 11.6 ug/mL
[2017-09-04] MEDS: Vancomycin HCl 1.75 GM in Sodium Chloride 0.9% 500 ML IVPB SCH ×2 (01:14→13:18)
[2017-09-04 04:15] LABS: #Lymphocytes 0.8 thou/uL (1.20-3.40); #Neutrophils 14.2 thou/uL (1.40-6.50); %Eosinophils 0.2 % (0.0-10.0); %Lymphocytes 5.2 % (21.0-51.0); %Monocytes 6.2 % (0.0-10.0); Hematocrit 37.7 % (42.0-52.0); Mean Platelet Volume 8.2 fL (7.4-10.4); Red Blood Cell (RBC) Count 3.99 mill/uL (4.70-6.10)
[2017-09-04 04:44] LABS: Anion Gap 13 mmol/L (10-20); BUN (Urea Nitrogen) 22 mg/dL (8.4-25.7); Calc. Creatinine Clearance 111 mL/min (70-130); Calcium 7.9 mg/dL (7.8-10.44); Carbon Dioxide 22 mmol/L (22-29); Chloride 98 mmol/L (98-107); Estimated GFR-MDRD 81
[2017-09-04] MEDS: MEROPENEM 1 GM/50 ML 1 GM in Premix Bag 1 BAG IVPB SCH ×2 (06:02→12:42)
--- NOTE | 2017-09-04 07:01 | PRG ---
DATE OF SERVICE: 09/03/2017 [place] HISTORY: Mr. Townsend is feeling about the same. No headaches, no cough or sputum production, no chest pain, no abdominal pain or diarrhea. Lesions are about the same. Biopsy has been completed. PHYSICAL EXAMINATION: VITAL SIGNS: He has been afebrile. Other vital signs are not remarkable except for O2 sats around 92%. SKIN: Shows the same lesions, about the same appearance as previously except for the biopsy site. LUNGS: Clear. HEART: S1, S2, regular rate. ABDOMEN: Soft, not distended. EXTREMITIES: Moves all extremities equally. Cognitive function appears to be intact. LABORATORY DATA: White cell count is down to 22.6, hemoglobin 14, platelets 110,000 with 27% bands. Chemistry: Sodium 129, glucose 153, cortisol 15. Microbiology with Staphylococcus aureus isolate d from swab sample and abdominal tissue sample. Urine culture with E. coli. ASSESSMENT AND DISCUSSION: B cell lymphoma, undergoing chemotherapy with gangrinosum possibly secon isa to Staphylococcus aureus. Continue current antimicrobials until we have the results of the pat hology and final culture results. Discontinue acyclovir.
[2017-09-04] MEDS: Folic Acid 1 MG TAB PO SCH (09:22)
[2017-09-04] MEDS: Cyanocobalamin (Vitamin B-12) 1,000 MCG TAB PO SCH (09:22)
[2017-09-04] MEDS: SODIUM CHLORIDE 0.9% IVPB SCH (09:22)
[2017-09-04] MEDS: Docusate 100 MG CAP PO SCH ×2 (09:22→19:53)
[2017-09-04] MEDS: Multivit, Therapeutic 1 TAB PO SCH (09:22)
[2017-09-04] MEDS: VORICONAZOLE IVPB SCH (09:22)
[2017-09-04] MEDS: Nystatin 500,000 UNITS/5 ML UDCUP SSW SCH ×4 (09:22→19:53)
[2017-09-04] MEDS: Sodium Chloride 0.9% 1,000 ML IV SCH ×2 (09:29→18:10)
--- NOTE | 2017-09-04 14:16 | PDOC.PN ---
- Subjective Encounter Start Date: 09/04/17 Encounter Start Time: 13:00 Patient seen and examined. Nauseas. No overnight events - Objective Resuscitation Status: Resuscitation Status FULL:Full Resuscitation MAR Reviewed: Yes Vital Signs & Weight: Vital Signs (12 hours) Temp Pulse Resp BP Pulse Ox 09/04/17 12:00 97.8 F 117 H 18 110/65 93 L 09/04/17 08:00 97.7 F 98 20 112/74 92 L Weight Admit Weight 207 lb Weight 207 lb I&O: 09/03/17 09/04/17 09/05/17 06:59 06:59 06:59 Intake Total 3940 1610 400 Output Total 800 1400 325 Balance 3140 210 75 Result Diagrams: 09/04/17 03:28 09/04/17 03:28 Phys Exam - Physical Examination Constitutional: NAD Respiratory: no wheezing, no rhonchi Cardiovascular: RRR, no rub Gastrointestinal: soft, non-tender, positive bowel sounds Musculoskeletal: no edema Dx/Plan - Plan DVT proph w/SCDs IMPRESSION AND PLAN: 1. Sepsis with acute organ dysfunction. Blood culture negative. On Vancomycin/ Meropenem/Voriconazole. Acyclovir dced. 2. Multiple skin lesions of unclear etiology. Staph in culture. on Atbx 3. Urinary tract infection. E coli 4. Lactic acidosis. improved 5. Hyponatremia - hypotonic 6. Mild protein-calorie malnutrition. 7. Elevated inflammatory markers. 8. Hyperglycemia. A1c negative. 9. Thrombocytopenia, probably secondary to chemotherapy. 10. Metabolic acidosis due to elevated lactate. 11. History of alcohol use. 12. Hypertension. 13. Testicular swelling - Ultrasound c/w Scrotal cellulitis PLAN: * Antiemetic PRN * Cont IVF @ 70 ml/hr * AM labs * Cont PT/OT * Encourage ambulation * Cont wound care/IV Atbx * ID following * Cont to monitor Review of Systems - Review of Systems Respiratory: negative: Cough, Dry, Shortness of Breath, Hemoptysis, SOB with Excertion, Pleuritic Pain, Sputum, Wheezing Gastrointestinal: Nausea, Vomiting. negative: Abdominal Pain, Diarrhea, Constipation, Melena, Hematochezia - Medications/Allergies Allergies/Adverse Reactions: Allergies Allergy/AdvReac Type Severity Reaction Status Date / Time No Known Allergies Allergy Verified 09/02/17 12:10 Medications: Current Medications Acetaminophen (Tylenol) 650 mg PO Q4H PRN PRN Reason: Headache/Fever or Pain Hydrocodone Bitart/Acetaminophen (Lithia 5/325) 1 tab PO Q4H PRN PRN Reason: Severe Pain (7-10) Al Hydroxide/Mg Hydroxide (Maalox) 30 ml PO Q6H PRN PRN Reason: Heartburn or Indigestion Calcium Carbonate (Tums) 1,000 mg PO Q4H PRN PRN Reason: Heartburn or Indigestion Cyanocobalamin (Vitamin B-12) 1,000 mcg PO DAILY [facility] Last Admin: 09/04/17 09:22 Dose: 1,000 mcg Docusate Sodium (Colace) 100 mg PO BID [facility] Last Admin: 09/04/17 09:22 Dose: 100 mg Folic Acid (Folvite) 1 mg PO DAILY [facility] Last Admin: 09/04/17 09:22 Dose: 1 mg Sodium Chloride (Normal Saline 0.9%) 1,000 mls @ 70 mls/hr IV .[id number] [facility] Last Admin: 09/04/17 09:29 Dose: Not Given Meropenem 1 gm/ Device 50 mls @ 100 mls/hr IVPB 0400,1200,2000 [facility] Last Admin: 09/04/17 12:42 Dose: 50 mls Voriconazole 400 mg/ Sodium (Chloride) 250 mls @ 125 mls/hr IVPB Q12HR [facility] PRN Reason: Protocol Last Admin: 09/04/17 09:22 Dose: 250 mls Vancomycin HCl 1.75 gm/ Sodium (Chloride) 500 mls @ 250 mls/hr IVPB 0100,1300 [facility] Last Admin: 09/04/17 13:18 Dose: 500 mls Lorazepam (Ativan) 1 mg PO Q4H PRN PRN Reason: ASE >=9 Magnesium Hydroxide (Milk Of Magnesium) 30 ml PO DAILYPRN PRN PRN Reason: Constipation Miscellaneous Medication (Pharmacy To Dose) 0 each IVPB ASDIR PRN PRN Reason: Pharmacy to Dose VANCOMYCIN Multivitamins (Theragran) 1 tab PO DAILY [facility] Last Admin: 09/04/17 09:22 Dose: 1 tab Nystatin (Mycostatin) 500,000 units SSW QID [facility] Last Admin: 09/04/17 12:41 Dose: 500,000 units Ondansetron HCl (Zofran Odt) 4 mg PO Q6H PRN PRN Reason: Nausea/Vomiting Last Admin: 09/04/17 13:49 Dose: 4 mg Ondansetron HCl (Zofran) 4 mg IVP Q6H PRN PRN Reason: Nausea/Vomiting Last Admin: 09/03/17 05:37 Dose: 4 mg Pantoprazole Sodium (Protonix) 40 mg PO DAILY [facility] Last Admin: 09/04/17 09:22 Dose: 40 mg Senna (Senokot) 2 tab PO HSPRN PRN PRN Reason: Constipation Thiamine HCl (Thiamine) 100 mg PO DAILY [facility] Last Admin: 09/04/17 09:22 Dose: 100 mg
[2017-09-04] MEDS ORDERED: Cefepime 2 GM in Sodium Chloride 0.9% 100 ML IVPB SCH (16:00)
[2017-09-04] MEDS: Cefepime 2 GM, Syringe 2.5 ML in Sterile Water 10 ML SLOW IVP SCH (16:45)
[2017-09-04] MEDS ORDERED: Nitroglycerin 0.4 MG TAB (25 Tab Bottle) PO PRN (17:09)
[2017-09-04] MEDS ORDERED: Aspirin 325 MG TAB PO SCH (17:15)
[2017-09-04] MEDS ORDERED: Diltiazem 125 MG in Sodium Chloride 0.9% 100 ML IVPB SCH (17:45)
[2017-09-04 18:02] LABS: Anion Gap 15 mmol/L (10-20); BUN (Urea Nitrogen) 22 mg/dL (8.4-25.7); BUN/Creatinine Ratio 24.44; Calc. Creatinine Clearance 117 mL/min (70-130); Carbon Dioxide 22 mmol/L (22-29); Chloride 98 mmol/L (98-107); Estimated GFR-MDRD 86; Phosphorus 2.6 mg/dL (2.3-4.7)
[2017-09-04 18:08] LABS: Troponin I 0.011 ng/mL (< 0.028)
[2017-09-04] MEDS ORDERED: Dronedarone HCl 400 MG TAB PO SCH (18:30)
--- NOTE | 2017-09-04 18:35 | CON ---
DATE OF SERVICE: 09/04/2017 REASON FOR CONSULTATION: Atrial fibrillation. HISTORY OF PRESENT ILLNESS: Mr. Townesnd is a pleasant 57-year-old white gentleman who comes to the [facility] for possible skin infection. He was diagnosed recently with B cell lymphoma and was started o n R-CHOP chemotherapy on 08/17/2017 with Neulasta on the next day. Follows up with Dr. Rust for this. He comes in as he was about to get a second dose and it was noted he had several areas in hi s body that seemed to be small areas of abscesses or cellulitis, so he was referred to the hospital for this. A biopsy of one of these lesions showed MSSA present on them. He also had a urinary tract infection apparently. He was admitted and placed on IV antibiotics; earlier today, his vital signs were checked and it was noted that his heart rate was irregular in 160 beats per minute, so he had a n EKG done and was found to be in A. fib with RVR, so Cardiology is being consulted for further eval uation of this. Currently, Mr. Townsend does not feel his A. fib or his RVR. He just feels numb all ov er the place since chemotherapy started. PAST MEDICAL HISTORY: 1. Large B cell lymphoma diagnosed recently. There is mild spinal cord compression from this. 2. Hypertension. 3. Alcohol abuse in the past. 4. Transverse myelitis in 2010. PAST SURGICAL HISTORY: Left hand surgery. OUTPATIENT MEDICATIONS: Include, 1. Cipro 500 mg b.i.d. 2. Dexamethasone 4 mg p.o. t.i.d. 3. Nystatin mouthwash. 4. Zofran. 5. Aspirin 81 a day. 6. Amlodipine 10 mg a day. Both dexamethasone and ciprofloxacin were finished on 09/02/2017. ALLERGIES: No known drug allergies. FAMILY HISTORY: Noncontributory. SOCIAL HISTORY: Drinks alcohol on a daily basis. No tobacco or drug use. REVIEW OF SYSTEMS: A 12-point review of systems was done and is all negative unless stated in the h istory of present illness. PHYSICAL EXAMINATION: VITAL SIGNS: Temperature 99.1, pulse 156, respiratory rate 20, satting 94% on 2 liters, blood press ure 127/89. GENERAL: Awake, alert, oriented x3, in no distress. HEENT: Normocephalic, atraumatic. NECK: Supple. LUNGS: Clear. CARDIOVASCULAR: S1, S2. Heart rate is in 160s, irregularly irregular. No murmurs or rubs. ABDOMEN: Soft, positive bowel sounds. There are several skin lesions. EXTREMITIES: No edema. Several skin lesions suggestive of cellulitis. LABORATORY WORK: Reviewed. CBC with a white count of 27 on admission down to 16, hemoglobin of 13, hematocrit of 37, platelet count of 135. Coags: D-dimer was high. Chemistry with a sodium of 130 , potassium is 4.7, normal BUN and creatinine, glucose of 126, lactic acid was 1.4, albumin of 2.4. Cortisol of 115. UA was cloudy with positive nitrite, moderate amount of blood, and 2+ bacteria. Vanc trough has been measured. EKG was reviewed, atrial fibrillation with RVR. ASSESSMENT AND PLAN: Atrial fibrillation with rapid ventricular response, new onset. We will plan on doing full anticoagulation at this time. We will start diltiazem drip and Multaq at 400 mg twice a day. We will get an echocardiogram which is already pending. We will plan on doing a GUERITA cardio version tomorrow if he remains in atrial fibrillation in the morning. I spoke with him at length ab out the risks and benefits of the procedure, both GUERITA and cardioversion, and he agrees to proceed. Thank you for letting us participate in the care of your patient. We will continue to follow.
[2017-09-04] MEDS: Senokot 8.6 MG TAB PO PRN (19:55)
[2017-09-04] MEDS: Enoxaparin Sodium 100 MG/ML SYRINGE SC SCH (19:56)
[2017-09-04 21:38] LABS: Troponin I 0.011 ng/mL (< 0.028)
[2017-09-05] MEDS: Cefepime 2 GM, Syringe 2.5 ML in Sterile Water 10 ML SLOW IVP SCH ×3 (01:49→16:35)
[2017-09-05 05:56] LABS: #Lymphocytes 0.6 thou/uL (1.20-3.40); #Monocytes 1.1 thou/uL (0.11-0.59); #Neutrophils 10.6 thou/uL (1.40-6.50); %Basophils 0.1 % (0.0-1.0); %Eosinophils 0.2 % (0.0-10.0); %Lymphocytes 4.7 % (21.0-51.0); Hematocrit 37.1 % (42.0-52.0); Mean Platelet Volume 7.5 fL (7.4-10.4); Red Blood Cell (RBC) Count 3.92 mill/uL (4.70-6.10); White Blood Cell (WBC) Count 12.4 thou/uL (4.8-10.8)
[2017-09-05 06:27] LABS: ALT (SGPT) 29 U/L (8-55); AST (SGOT) 23 U/L (5-34); Alkaline Phosphatase 78 U/L (40-150); Anion Gap 15 mmol/L (10-20); BUN (Urea Nitrogen) 20 mg/dL (8.4-25.7); Bilirubin, Total 0.5 mg/dL (0.2-1.2); Calc. Creatinine Clearance 129 mL/min (70-130); Calcium 7.9 mg/dL (7.8-10.44); Carbon Dioxide 20 mmol/L (22-29); Chloride 101 mmol/L (98-107); Estimated GFR-MDRD Greater than 90; Globulin 2.5 g/dL (2.4-3.5); Phosphorus 3.3 mg/dL (2.3-4.7); Protein, Total 4.8 g/dL (6.0-8.3)
[2017-09-05] MEDS ORDERED: Dronedarone HCl 400 MG TAB PO SCH (08:00)
[2017-09-05] MEDS: Nystatin 500,000 UNITS/5 ML UDCUP SSW SCH ×4 (08:16→20:19)
[2017-09-05] MEDS: Docusate 100 MG CAP PO SCH ×2 (08:16→20:19)
[2017-09-05] MEDS: Aspirin 325 MG TAB PO SCH (08:16)
[2017-09-05] MEDS: Folic Acid 1 MG TAB PO SCH (08:17)
[2017-09-05] MEDS: Cyanocobalamin (Vitamin B-12) 1,000 MCG TAB PO SCH (08:17)
[2017-09-05] MEDS: Enoxaparin Sodium 100 MG/ML SYRINGE SC SCH ×2 (08:18→20:19)
[2017-09-05] MEDS: Sodium Chloride 0.9% 1,000 ML IV SCH ×2 (08:18→20:40)
[2017-09-05] MEDS: Multivit, Therapeutic 1 TAB PO SCH (08:19)
[2017-09-05] MEDS ORDERED: Propofol 200 MG/20 ML VIAL ONE (10:53)
[2017-09-05] MEDS ORDERED: Diprivan 20 ML ONE (11:10)
[2017-09-05] MEDS: Amiodarone HCl 450 MG in Dextrose 5% in Water 250 ML IVPB SCH ×2 (14:07)
--- NOTE | 2017-09-05 14:19 | OP ---
DATE OF PROCEDURE: 09/05/2017 PROCEDURES PERFORMED: Discontinue cardioversion. SUMMARY: Mr. Gaspar was brought to the tachycardic area for planned cardioversion. After GUERITA was pe rformed and ruled out any thrombus, the pads were positioned. The anesthesiology department provide d sedation for the patient. Please see their notes for details. After adequate sedation was achiev ed, one single 100 joules synchronized shock was delivered successfully converting him from rapid at rial fibrillation into sinus rhythm. Patient tolerated the procedure well. RECOMMENDATIONS: 1. Continue full anticoagulation for at least 6 weeks. 2. Continue Multaq.
--- NOTE | 2017-09-05 14:30 | ECHO ---
TRANSESOPHAGEAL ECHOCARDIOGRAM: DATE OF SERVICE: 09/05/17 Transesophageal echo was performed for preparation of cardioversion. Patient has atrial fibrillation . The anesthesia department provided sedation for the patient. Please see their notes for details. After adequate sedation was achieved, the transesophageal probe was inserted into the patient's mout h and into the esophagus without issues. Multiplanar views were then obtained. FINDINGS: Left ventricle appears to be normal size. Systolic function low normal at 50% with no major regional wall motion abnormalities. Left atrium is mildly dilated. Left atrial appendage is a small appendag e with reduced velocities, but no evidence of thrombus or masses. Right ventricle is normal size with normal systolic function. Right atrium is mildly dilated with no mass or thrombus. Intraatrial septum has a small patent lew en ovale with mostly left to right shunting. Intraatrial septum has lipomatous hypertrophy as well. Mitral valve is structurally normal. There is mild MR. No stenosis. Tricuspid valve is structurally normal. There is moderate TR. No stenosis. Pulmonary valve is structurally normal. There is mild PI. No stenosis. Aortic valve is tricuspid. No stenosis or regurgitation. No vegetations on any of the valvular struc tures. Thoracic aorta is with mild atherosclerotic disease. CONCLUSIONS: 1. Low normal systolic function, ejection fraction of 50%. 2. Biatrial enlargement. 3. Mild MR. 4. Moderate TR. 5. Small patent foramen ovale with mostly left to right shunting. 6. No evidence of mass or thrombus in left atrial appendage.
[2017-09-05 14:58] LABS: ALT (SGPT) 26 U/L (8-55); AST (SGOT) 19 U/L (5-34); Alkaline Phosphatase 75 U/L (40-150); Bilirubin, Direct 0.3 mg/dL (0.1-0.3); Bilirubin, Total 0.5 mg/dL (0.2-1.2); Magnesium 2.3 mg/dL (1.6-2.6); Protein, Total 4.7 g/dL (6.0-8.3)
--- NOTE | 2017-09-05 15:09 | PDOC.PN ---
- Subjective Encounter Start Date: 09/05/17 Encounter Start Time: 15:00 Subjective: f/u for sepsis and necrotic skin lesions on Cefepime 2gm IV q8h. Wound -: cx with staph spp. S/P Cardioversion with return to SR. - Objective Resuscitation Status: Resuscitation Status FULL:Full Resuscitation MAR Reviewed: Yes Vital Signs & Weight: Vital Signs (12 hours) Temp Pulse Resp BP Pulse Ox 09/05/17 12:35 98.2 F 102 H 18 110/72 97 09/05/17 08:00 97.8 F 100 16 96 09/05/17 07:42 97.8 F 100 16 105/66 96 09/05/17 07:02 97 09/05/17 06:03 98.5 F 127 H 16 108/66 97 Weight Admit Weight 207 lb Weight 207 lb I&O: 09/04/17 09/05/17 09/06/17 06:59 06:59 06:59 Intake Total 1610 1670.9 Output Total 1400 1375 Balance 210 295.9 Result Diagrams: 09/05/17 05:16 09/05/17 14:32 Additional Labs: Microbiology 09/02/17 15:50 Abdomen - Wound Bacterial Culture - Final Staphylococcus aureus 09/02/17 15:50 Abdomen - Tissue Bacterial Culture - Final Staphylococcus aureus 09/02/17 15:30 Urine clean catch Urine Culture - Final Escherichia coli 09/02/17 12:33 Venous blood - Left Hand Blood Culture - Preliminary NO GROWTH AT 48 HOURS 09/02/17 12:33 Venous blood - Left Arm Blood Culture - Preliminary NO GROWTH AT 48 HOURS Radiology Reviewed by me: Yes (GUERITA - EF 50%, Mod TR, BETY, small PFO) EKG Reviewed by me: Yes (Tele - SR) Phys Exam - Physical Examination Constitutional: NAD HEENT: PERRLA Neck: no JVD, supple Respiratory: no wheezing Cardiovascular: RRR Gastrointestinal: soft, non-tender, no distention, positive bowel sounds Musculoskeletal: no edema, pulses present Neurological: normal sensation, moves all 4 limbs Psychiatric: A&O x 3 Skin: normal turgor, cap refill <2 seconds Dx/Plan (1) Sepsis with acute organ dysfunction Code(s): A41.9 - SEPSIS, UNSPECIFIED ORGANISM; R65.20 - SEVERE SEPSIS WITHOUT SEPTIC SHOCK Status: Acute Comment: Improved, continue Cefepime 2gm IV q8h (2) Ecthyma gangrenosum Code(s): 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 coli UTI Code(s): N39.0 - URINARY TRACT INFECTION, SITE NOT SPECIFIED; B96.20 - UNSP ESCHERICHIA COLI THE CAUSE OF DISEASES CLASSD ELSWHR Status: Acute Comment: E. coli on Ucx, continue supportive care - Plan continue antibiotics, PT/OT, social media project manager, DVT proph w/SCDs Stable currently -: Continue Cefepime 2gm IV q12h -: Local WCT -: Continue Lovenox 100mg SC BID -: AM lab: CBC, TSH * .
[2017-09-05] MEDS ORDERED: Sodium Chloride 0.9% 10 ML ONE (20:16)
[2017-09-06] MEDS: Amiodarone HCl 450 MG in Dextrose 5% in Water 250 ML IVPB SCH ×6 (00:52→16:52)
[2017-09-06] MEDS: Cefepime 2 GM, Syringe 2.5 ML in Sterile Water 10 ML SLOW IVP SCH ×4 (00:53→23:48)
[2017-09-06] MEDS: Multivit, Therapeutic 1 TAB PO SCH (09:22)
[2017-09-06] MEDS: Enoxaparin Sodium 100 MG/ML SYRINGE SC SCH ×2 (09:22→21:18)
[2017-09-06] MEDS: Aspirin 325 MG TAB PO SCH (09:22)
[2017-09-06] MEDS: Cyanocobalamin (Vitamin B-12) 1,000 MCG TAB PO SCH (09:22)
[2017-09-06] MEDS: Nystatin 500,000 UNITS/5 ML UDCUP SSW SCH ×4 (09:22→21:19)
[2017-09-06] MEDS: Folic Acid 1 MG TAB PO SCH (09:22)
[2017-09-06] MEDS: Docusate 100 MG CAP PO SCH ×2 (09:23→21:19)
[2017-09-06] MEDS: Milk Of Magnesia 30 ML UDCUP PO PRN (09:23)
--- NOTE | 2017-09-06 12:40 | PDOC.CTH ---
Cardiology Progress Note - Objective Vital Signs Temp Pulse Resp BP BP Pulse Ox 09/06/17 10:58 95 09/06/17 07:25 97.6 F 127 H 20 126/65 94 L 09/06/17 04:15 133 H 18 132/78 95 09/06/17 01:09 94 L Admit Weight 207 lb Weight 207 lb 09/05/17 09/06/17 09/07/17 06:59 06:59 06:59 Intake Total 1670.9 3744.5 Output Total 1375 1730 Balance 295.9 2014.5 - Labs Result Diagrams: 09/05/17 05:16 09/05/17 14:32 Troponin/CKMB Troponin I 0.011 ng/mL (< 0.028) 09/04/17 21:04 - Assessment/Plan 1. Afib with RVR - 2. 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 coli UTI Code(s): N39.0 - URINARY TRACT INFECTION, SITE NOT SPECIFIED; B96.20 - UNSP ESCHERICHIA COLI THE CAUSE OF DISEASES CLASSD ELSWHR Status: Acute Comment: E. coli on Ucx, continue supportive care - Plan continue antibiotics, PT/OT, social science teacher, DVT proph w/SCDs Stable currently -: Continue Cefepime 2gm IV q12h -: Local WCT -: Continue Lovenox 100mg SC BID -: AM lab: CBC, TSH
--- NOTE | 2017-09-06 12:48 | PDOC.CTH ---
<Laura Banuelos - Last Filed: 09/06/17 12:42> Cardiology Progress Note - Subjective The Pt was seen and examined. No overnight events. No cardiac complaints. S/ p GUERITA and cardioversion on 09/05/17, converted back to SR during the procedure; however, his HR was back to Afib with HR > 100 when he was back to the floor per Tele record; Now on Amio drip - Objective Vital Signs Temp Pulse Resp BP BP Pulse Ox 09/06/17 10:58 95 09/06/17 07:25 97.6 F 127 H 20 126/65 94 L 09/06/17 04:15 133 H 18 132/78 95 09/06/17 01:09 94 L Admit Weight 207 lb Weight 207 lb 09/05/17 09/06/17 09/07/17 06:59 06:59 06:59 Intake Total 1670.9 3744.5 Output Total 1375 1730 Balance 295.9 2014.5 - Physical Examination General/Neuro: alert & oriented x3 Neck: no JVD present Lungs: CTA Heart: other: (Irregular) Abdomen: soft Extremities: other: (1+ edema in BLE) - Telemetry Telemetry Rhythm: Afib with HR 120-130s - Labs Result Diagrams: 09/05/17 05:16 09/05/17 14:32 Troponin/CKMB Troponin I 0.011 ng/mL (< 0.028) 09/04/17 21:04 - Assessment/Plan 1. Afib with RVR - s/p GUERITA with cardioversion on 09/05/17; However, per Tele record, he has been Afib with HR > 100 since he was back to the floor yesterday ; on Amiodaron 0.5mg/min, ASA and Lovenox 100mg BID; Start Dig IV push 0.5mg now , 0.25mg q6h x2, then 0.125mg PO daily; cont. monitor on tele 2. Sepsis with acute organ dysfunction - on IV antibiotic; managed by PCP 3. HTN - stable with current medication; cont. monitor 4. E. coli UTI - on IV antibiotic; managed by PCP 5. Large B-cell lymphoma - Resume chemotherapy as outpt MAR reviewed Review of Systems - Review of Systems Constitutional: reports: no symptoms reported EENTM: reports: no symptoms reported Respiratory: reports: no symptoms reported Cardiac (ROS): reports: no symptoms reported ABD/GI: reports: no symptoms reported : reports: no symptoms reported Musculoskeletal: reports: no symptoms reported Skin: reports: no symptoms reported Neurological: reports: no symptoms reported <Dominique Earl - Last Filed: 09/06/17 20:35> Cardiology Progress Note - Objective Vital Signs Temp Pulse Resp BP Pulse Ox 09/06/17 19:37 142 H 09/06/17 16:00 98.5 F 111 H 20 105/79 97 09/06/17 12:56 127 H 09/06/17 10:58 95 Admit Weight 207 lb Weight 207 lb 09/05/17 09/06/17 09/07/17 06:59 06:59 06:59 Intake Total 1670.9 3744.5 Output Total 1375 1730 Balance 295.9 2014.5 - Labs Result Diagrams: 09/05/17 05:16 09/05/17 14:32 Troponin/CKMB Troponin I 0.011 ng/mL (< 0.028) 09/04/17 21:04 - Assessment/Plan Pt. was seen and eval. by me. I agree with the A/P by the REAL ESTATE ATTORNEY. he says that the abd. wall cellulitis is improving. He remains in Afib. Exam; irreg./irreg.
[2017-09-06] MEDS: Sodium Chloride 0.9% 1,000 ML IV SCH (12:56)
[2017-09-06] MEDS ORDERED: Digoxin 0.5 MG/2 ML AMP SLOW IVP SCH (13:00)
--- NOTE | 2017-09-06 17:16 | PDOC.PN ---
- Subjective Encounter Start Date: 09/06/17 Encounter Start Time: 17:00 Subjective: f/u for sepsis on Cefepime with multiple skin lesions showing typical -: staph spp. UTI noted with low colony count E. coli but multi-drug -: resistance. Also recurrent A-fib RVR post CV on Amio and Digoxin - Objective Resuscitation Status: Resuscitation Status FULL:Full Resuscitation MAR Reviewed: Yes Vital Signs & Weight: Vital Signs (12 hours) Temp Pulse Resp BP Pulse Ox 09/06/17 12:56 127 H 09/06/17 10:58 95 09/06/17 07:25 97.6 F 127 H 20 126/65 94 L Weight Admit Weight 207 lb Weight 207 lb I&O: 09/05/17 09/06/17 09/07/17 06:59 06:59 06:59 Intake Total 1670.9 3744.5 Output Total 1375 1730 Balance 295.9 2014.5 Result Diagrams: 09/05/17 05:16 09/05/17 14:32 Additional Labs: Microbiology 09/02/17 15:50 Abdomen - Wound Bacterial Culture - Final Staphylococcus aureus 09/02/17 15:50 Abdomen - Tissue Bacterial Culture - Final Staphylococcus aureus 09/02/17 15:30 Urine clean catch Urine Culture - Final Escherichia coli 09/02/17 12:33 Venous blood - Left Hand Blood Culture - Preliminary NO GROWTH AT 48 HOURS 09/02/17 12:33 Venous blood - Left Arm Blood Culture - Preliminary NO GROWTH AT 48 HOURS EKG Reviewed by me: Yes (Tele - A-fib with RVR in 120's) Phys Exam - Physical Examination Constitutional: NAD HEENT: PERRLA, oral pharynx no lesions Neck: no JVD, supple Respiratory: no wheezing Cardiovascular: irregular Gastrointestinal: soft, non-tender, no distention, positive bowel sounds Musculoskeletal: no edema, pulses present Neurological: normal sensation, moves all 4 limbs Psychiatric: A&O x 3 Deviation from normal: multiple erythematous skin lesions Skin: normal turgor, cap refill <2 seconds Dx/Plan (1) Sepsis with acute organ dysfunction Code(s): A41.9 - SEPSIS, UNSPECIFIED ORGANISM; R65.20 - SEVERE SEPSIS WITHOUT SEPTIC SHOCK Status: Acute Comment: Improved, continue Cefepime 2gm IV q8h (2) Ecthyma gangrenosum Code(s): L08.0 - PYODERMA Status: Acute Comment: Staph on wound cx, continue Cefepime (3) Atrial fibrillation Code(s): I48.91 - UNSPECIFIED ATRIAL FIBRILLATION Status: Acute Qualifiers: Atrial fibrillation type: paroxysmal Qualified Code(s): I48.0 - Paroxysmal atrial fibrillation Comment: s/p GUERITA with cardioversion with recurrence of A-fib, Amiodarone gtt and Digoxin for rate control, Lovenox 100mg SC BID (4) Large B-cell lymphoma Code(s): C85.10 - UNSPECIFIED B-CELL LYMPHOMA, UNSPECIFIED SITE Status: Acute Comment: Resume chemotherapy as outpt (5) E. coli UTI Code(s): N39.0 - URINARY TRACT INFECTION, SITE NOT SPECIFIED; B96.20 - UNSP ESCHERICHIA COLI THE CAUSE OF DISEASES CLASSD ELSWHR Status: Acute Comment: E. coli on Ucx but multi-drug resistance, ? carrier state, follow clinically - Plan continue antibiotics, case management social worker, out of bed/ambulate, DVT proph w/SCDs Continue Amiodarone gtt -: Digoxin IV for rate control -: Continue Lovenox 100mg sc BID -: Continue Cefepime 2gm IV q8h -: Continue IVF NS 70ml/h * AM lab: BMP, CBC
[2017-09-06] MEDS: Digoxin 0.5 MG/2 ML AMP SLOW IVP SCH (19:37)
[2017-09-06] MEDS: Senokot 8.6 MG TAB PO PRN (21:19)
[2017-09-07] MEDS: Digoxin 0.5 MG/2 ML AMP SLOW IVP SCH (01:45)
[2017-09-07] MEDS: Sodium Chloride 0.9% 1,000 ML IV SCH ×2 (03:46→21:48)
[2017-09-07 06:19] LABS: Band 9 % (5-11); Hematocrit 34.6 % (42.0-52.0); Mean Platelet Volume 6.8 fL (7.4-10.4); Neutrophil 80 % (42-75); Red Blood Cell (RBC) Count 3.62 mill/uL (4.70-6.10)
[2017-09-07 06:35] LABS: Anion Gap 12 mmol/L (10-20); BUN (Urea Nitrogen) 12 mg/dL (8.4-25.7); Calc. Creatinine Clearance 151 mL/min (70-130); Calcium 7.7 mg/dL (7.8-10.44); Carbon Dioxide 24 mmol/L (22-29); Chloride 101 mmol/L (98-107); Estimated GFR-MDRD Greater than 90
--- NOTE | 2017-09-07 08:09 | PDOC.PN ---
- Subjective Encounter Start Date: 09/07/17 Encounter Start Time: 08:50 Subjective: Patient without complaints. No pain from stomach abscesses. No dysuria. - Objective Resuscitation Status: Resuscitation Status FULL:Full Resuscitation MAR Reviewed: Yes Vital Signs & Weight: Vital Signs (12 hours) Temp Pulse Resp BP Pulse Ox 09/07/17 07:19 98.3 F 118 H 19 127/71 09/07/17 01:45 99 09/07/17 00:00 98 F 99 18 94 L 09/06/17 23:55 98.8 F 120 H 20 137/77 94 L Weight Admit Weight 207 lb Weight 207 lb I&O: 09/06/17 09/07/17 09/08/17 06:59 06:59 06:59 Intake Total 3744.5 1279 Output Total 1730 Balance 2014.5 1279 Result Diagrams: 09/07/17 05:51 09/07/17 05:51 Phys Exam - Physical Examination Constitutional: NAD HEENT: moist MMs Respiratory: no wheezing, no rales, no rhonchi Cardiovascular: irregular mild tachycardia Gastrointestinal: soft, positive bowel sounds new cellulitis covering the entire right flank and up onto chest, indurated ? fluctuance, no drainage/ulceration, area is warm but not tender Neurological: non-focal, moves all 4 limbs Psychiatric: normal affect, A&O x 3 Dx/Plan (1) Sepsis with acute organ dysfunction Code(s): A41.9 - SEPSIS, UNSPECIFIED ORGANISM; R65.20 - SEVERE SEPSIS WITHOUT SEPTIC SHOCK Status: Acute Comment: Improved, continue Cefepime 2gm IV q8h (2) Ecthyma gangrenosum Code(s): L08.0 - PYODERMA Status: Acute Comment: Staph on wound cx- MSSA, continue Cefepime (3) Atrial fibrillation Code(s): I48.91 - UNSPECIFIED ATRIAL FIBRILLATION Status: Acute Qualifiers: Atrial fibrillation type: paroxysmal Qualified Code(s): I48.0 - Paroxysmal atrial fibrillation Comment: s/p GUERITA with cardioversion with recurrence of A-fib, Amiodarone gtt and Digoxin for rate control, Lovenox 100mg SC BID (4) Large B-cell lymphoma Code(s): C85.10 - UNSPECIFIED B-CELL LYMPHOMA, UNSPECIFIED SITE Status: Acute Comment: Resume chemotherapy as outpt (5) E. coli UTI Code(s): N39.0 - URINARY TRACT INFECTION, SITE NOT SPECIFIED; B96.20 - UNSP ESCHERICHIA COLI THE CAUSE OF DISEASES CLASSD ELSWHR Status: Acute Comment: E. coli on Ucx but multi-drug resistance, ? carrier state, follow clinically - Plan cont current plan of care, continue antibiotics, PT/OT Concern with spreading infection on appropriate antibiotics. U/S to -: check for drainable fluid collection. WBC stable and no fever. -: Discussed with Dr. Mendez. With his overall clinical improvement will -: hold on abx expansion for now. Surgical consult if there is a developing -: abscess. * .
[2017-09-07] MEDS: Digoxin 0.125 MG TAB PO SCH (09:26)
[2017-09-07] MEDS: Cefepime 2 GM, Syringe 2.5 ML in Sterile Water 10 ML SLOW IVP SCH ×2 (09:26→16:46)
[2017-09-07] MEDS: Docusate 100 MG CAP PO SCH ×2 (09:27→21:48)
[2017-09-07] MEDS: Aspirin 325 MG TAB PO SCH (09:27)
[2017-09-07] MEDS: Cyanocobalamin (Vitamin B-12) 1,000 MCG TAB PO SCH (09:27)
[2017-09-07] MEDS: Folic Acid 1 MG TAB PO SCH (09:27)
[2017-09-07] MEDS: Enoxaparin Sodium 100 MG/ML SYRINGE SC SCH ×2 (09:27→15:41)
[2017-09-07] MEDS: Nystatin 500,000 UNITS/5 ML UDCUP SSW SCH ×4 (09:27→21:48)
[2017-09-07] MEDS: Multivit, Therapeutic 1 TAB PO SCH (09:30)
[2017-09-07] MEDS: Milk Of Magnesia 30 ML UDCUP PO PRN (09:30)
--- NOTE | 2017-09-07 10:41 | ULT ---
RIGHT FLANK SOFT TISSUE ULTRASOUND: COMPARISON: None. HISTORY: Cellulitis and fluid collection in the right flank. Evaluate for abscess. TECHNIQUE: Multiplanar, dykes scale, and color Doppler images were obtained in a targeted ultrasound of the righ t flank soft tissues. FINDINGS: There is a complex fluid collection in the right flank soft tissues. There is debris moving within this fluid collection. This collection measures approximately 13.8 x 4.2 x 2.0 cm in size. IMPRESSION: Complex fluid collection in the right flank likely represents an abscess. POS: H
[2017-09-07 10:49] LABS: Hematocrit 32.1 % (42.0-52.0)
[2017-09-07] MEDS: Amiodarone HCl 450 MG in Dextrose 5% in Water 250 ML IVPB SCH ×2 (10:56)
--- NOTE | 2017-09-07 14:16 | PDOC.CTH ---
<Laura Banuelos - Last Filed: 09/07/17 14:18> Cardiology Progress Note - Subjective The pt was seen and examined. No overnight events. No cardiac complaints. His HR has been > 100, Asymptomatic - Objective Vital Signs Temp Pulse Resp BP Pulse Ox 09/07/17 12:47 98.3 F 116 H 20 118/75 94 L 09/07/17 07:19 98.3 F 118 H 19 127/71 94 L Admit Weight 207 lb Weight 207 lb 09/06/17 09/07/17 09/08/17 06:59 06:59 06:59 Intake Total 3744.5 1279 Output Total 1730 Balance 2014.5 1279 - Physical Examination General/Neuro: alert & oriented x3 Neck: no JVD present Lungs: CTA (diminished at bases) Heart: other: (Irregular) Abdomen: soft Extremities: other: - Telemetry Telemetry Rhythm: Afib 110-140s - Labs Result Diagrams: 09/07/17 10:13 09/07/17 05:51 Troponin/CKMB Troponin I 0.011 ng/mL (< 0.028) 09/04/17 21:04 - Assessment/Plan 1. Afib with RVR - s/p GUERITA with cardioversion on 09/05/17; However, per Tele record, he has been Afib with HR > 100; on Amiodaron 0.5mg/min, ASA, Lovenox 100mg BID, Dig 0.125mg PO daily; cont. monitor on tele 2. Sepsis with acute organ dysfunction - on IV antibiotic; managed by PCP 3. HTN - stable with current medication; cont. monitor 4. E. coli UTI - on IV antibiotic; managed by PCP 5. Large B-cell lymphoma - Resume chemotherapy as outpt 6. Rt ABD abscess - ABD U/s today showed large debris filled with fluid; General surgery consult by PCP; NPO MAR reviewed Review of Systems - Review of Systems Constitutional: reports: no symptoms reported EENTM: reports: no symptoms reported Respiratory: reports: no symptoms reported Cardiac (ROS): reports: no symptoms reported ABD/GI: reports: no symptoms reported : reports: no symptoms reported Musculoskeletal: reports: no symptoms reported Skin: reports: no symptoms reported Neurological: reports: no symptoms reported <Dominique Earl - Last Filed: 09/07/17 23:25> Cardiology Progress Note - Objective Vital Signs Temp Pulse Resp BP Pulse Ox 09/07/17 16:43 98.5 F 125 H 18 123/80 96 09/07/17 12:47 98.3 F 116 H 20 118/75 94 L Admit Weight 207 lb Weight 207 lb 09/06/17 09/07/17 09/08/17 06:59 06:59 06:59 Intake Total 3744.5 1279 1450 Output Total 1730 Balance 2014.5 1279 1450 - Labs Result Diagrams: 09/07/17 10:13 09/07/17 05:51 Troponin/CKMB Troponin I 0.011 ng/mL (< 0.028) 09/04/17 21:04 - Assessment/Plan Pt. seen and eval. by me. I agree with the A/P by the PRESSURE WASHER. i spoke to Dr. Devine and advised that we stop the lovenox prior to surgical drainage of the abd. wall abcess. The lovenox should be resumed after surgery soon as possible.
--- NOTE | 2017-09-07 17:11 | CON ---
DATE OF CONSULTATION: 09/07/2017 GENERAL SURGERY CONSULTATION CHIEF COMPLAINT: Abdominal wall abscess. HISTORY OF PRESENT ILLNESS: This is a 57-year-old male who is being treated for lymphoma with chemo therapy. He was treated with high dose of steroids for spinal involvement. He developed sepsis as well as atrial fibrillation with rapid ventricular response. He is fully anticoagulated for that. PAST MEDICAL HISTORY: Lymphoma, hypertension, alcohol abuse, history of transverse myelitis. PAST SURGICAL HISTORY: Left hand surgery. ALLERGIES: No known drug allergies. FAMILY HISTORY: Coronary artery disease. MEDICATIONS: Include Cipro, dexamethasone, nystatin, Zofran, aspirin, amlodipine, and vancomycin. SOCIAL HISTORY: Drinks alcohol daily. PHYSICAL EXAMINATION: VITAL SIGNS: Temperature 98.3, pulse 116, blood pressure 118/75. He is a little lethargic, but he is awake. HEENT: Unremarkable. LUNGS: Clear. HEART: Irregularly irregular. His entire right flank is cellulitis with a large 15 cm area of fluc tuance. LABORATORY AND X-RAY FINDINGS: His white count 12, H\T\H 11 and 34, platelet count 290. Electrolyt es are fine. Ultrasound shows a complex fluid mass in this area. ASSESSMENT: Flank abscess. PLAN: Recommend I\T\D, because he is fully anticoagulated. I discussed this case with Dr. Earl in Cardiology. She said that would be fine to go ahead and stopper Lovenox tonight, so we can do it fi rst thing in the morning.
[2017-09-08] MEDS: Cefepime 2 GM, Syringe 2.5 ML in Sterile Water 10 ML SLOW IVP SCH ×3 (01:33→16:18)
[2017-09-08 05:43] LABS: #Lymphocytes 0.5 thou/uL (1.20-3.40); #Monocytes 0.3 thou/uL (0.11-0.59); #Neutrophils 7.9 thou/uL (1.40-6.50); %Eosinophils 0.5 % (0.0-10.0); %Lymphocytes 5.8 % (21.0-51.0); %Monocytes 3.8 % (0.0-10.0); Hematocrit 28.9 % (42.0-52.0); Mean Platelet Volume 6.3 fL (7.4-10.4); Red Blood Cell (RBC) Count 3.05 mill/uL (4.70-6.10); White Blood Cell (WBC) Count 8.7 thou/uL (4.8-10.8)
[2017-09-08 06:12] LABS: Anion Gap 14 mmol/L (10-20); BUN (Urea Nitrogen) 12 mg/dL (8.4-25.7); Calc. Creatinine Clearance 158 mL/min (70-130); Calcium 7.4 mg/dL (7.8-10.44); Carbon Dioxide 21 mmol/L (22-29); Chloride 102 mmol/L (98-107); Estimated GFR-MDRD Greater than 90
[2017-09-08] MEDS: Amiodarone HCl 450 MG in Dextrose 5% in Water 250 ML IVPB SCH ×4 (06:17→21:58)
--- NOTE | 2017-09-08 08:05 | PDOC.PN ---
- Subjective Encounter Start Date: 09/08/17 Encounter Start Time: 11:20 Subjective: Patient had I&D abdominal wall abscess. Doing well since. Pain -: well controlled. On O2 since surgery, but sating well so can d/c. - Objective Resuscitation Status: Resuscitation Status FULL:Full Resuscitation MAR Reviewed: Yes Vital Signs & Weight: Vital Signs (12 hours) Temp Pulse Resp BP Pulse Ox 09/08/17 07:52 100.9 F H 123 H 18 94 L 09/08/17 07:10 100.9 F H 123 H 18 125/65 94 L 09/08/17 04:19 96 09/08/17 04:00 98.0 F 107 H 18 108/55 L 93 L 09/08/17 00:00 128 H 18 122/70 Weight Admit Weight 207 lb Weight 207 lb I&O: 09/07/17 09/08/17 09/09/17 06:59 06:59 06:59 Intake Total 1279 2489 Balance 1279 2489 Result Diagrams: 09/08/17 05:27 09/08/17 05:27 Phys Exam - Physical Examination Constitutional: NAD HEENT: moist MMs Respiratory: no wheezing, no rales, no rhonchi Cardiovascular: no significant murmur, irregular Gastrointestinal: soft, positive bowel sounds Neurological: non-focal, moves all 4 limbs Psychiatric: normal affect, A&O x 3 Deviation from normal: right abd wall with dressing in place, cellulitis surrounding looks slightl -: improved. Dx/Plan (1) Sepsis with acute organ dysfunction Code(s): A41.9 - SEPSIS, UNSPECIFIED ORGANISM; R65.20 - SEVERE SEPSIS WITHOUT SEPTIC SHOCK Status: Acute Comment: Improved, continue Cefepime 2gm IV q8h (2) Ecthyma gangrenosum Code(s): L08.0 - PYODERMA Status: Acute Comment: Staph on wound cx- MSSA, continue Cefepime (3) Atrial fibrillation Code(s): I48.91 - UNSPECIFIED ATRIAL FIBRILLATION Status: Acute Qualifiers: Atrial fibrillation type: paroxysmal Qualified Code(s): I48.0 - Paroxysmal atrial fibrillation Comment: s/p GUERITA with cardioversion with recurrence of A-fib, Amiodarone gtt and Digoxin for rate control, Lovenox 100mg SC BID (4) Large B-cell lymphoma Code(s): C85.10 - UNSPECIFIED B-CELL LYMPHOMA, UNSPECIFIED SITE Status: Acute Comment: Resume chemotherapy as outpt (5) E. coli UTI Code(s): N39.0 - URINARY TRACT INFECTION, SITE NOT SPECIFIED; B96.20 - UNSP ESCHERICHIA COLI THE CAUSE OF DISEASES CLASSD ELSWHR Status: Acute Comment: E. coli on Ucx but multi-drug resistance, ? carrier state, follow clinically (6) Abscess or cellulitis of flank Code(s): BDJ4240 - Status: Acute Comment: Plan for surgery 09/08/2017 - Plan cont current plan of care, continue antibiotics, speech therapy, out of bed/ ambulate Lovenox on hold for surgery * . - Discharge Day Encounter end time: 11:35
[2017-09-08] MEDS ORDERED: Fentanyl 100 MCG/2 ML VIAL ONE (08:36)
[2017-09-08] MEDS ORDERED: Lidocaine 1% PF 5 ML VIAL ONE (08:48)
[2017-09-08] MEDS ORDERED: Propofol 200 MG/20 ML VIAL ONE (08:48)
[2017-09-08] MEDS ORDERED: PHENYLEPHRINE-NS 100 MCG/ML 10 ML SYRINGE ONE (08:48)
[2017-09-08] MEDS ORDERED: Ondansetron HCl/PF 4 MG/2 ML Vial ONE (08:48)
[2017-09-08] MEDS ORDERED: Promethazine HCl 25 MG/ML VIAL SLOW IVP PRN (09:15)
[2017-09-08] MEDS ORDERED: Ondansetron HCl/PF 4 MG/2 ML Vial IVP PRN (09:15)
[2017-09-08] MEDS ORDERED: Promethazine HCl 25 MG/ML VIAL IM PRN (09:15)
--- NOTE | 2017-09-08 11:25 | OP ---
PREOPERATIVE DIAGNOSIS: Abdominal wall abscess. SURGEON: Bradley Devine M.D. PROCEDURE PERFORMED: Incision and drainage of abdominal wall abscess. INDICATIONS: The patient is a 57-year-old male with lymphoma who went into atrial fibrillation, has been on full anticoagulation and developed cellulitis with fluid collection of the right abdominal wall. FINDINGS: Infected hematoma right abdominal wall/flank, approximately 15 x 20 cm. PROCEDURE IN DETAIL: After informed consent was obtained, patient was taken to the operating room a nd given general endotracheal anesthesia. He was placed in the supine position. His abdomen and fl ank were prepped and draped in the usual fashion. A transverse incision was performed with release of cloudy serosanguineous fluid. This was sent for culture. Loculations were broken up digitally. Then, the cavity was irrigated with the pulse slag wheeler. Hemostasis achieved with electrocautery a s well as Tyler powder, packed damp to dry with Betadine gauze. Sterile bandage applied. The una ent tolerated the procedure well and transferred to recovery in good condition. Sponge and needle c ount verified correct x2.
[2017-09-08] MEDS: Multivit, Therapeutic 1 TAB PO SCH (11:36)
[2017-09-08] MEDS: Sodium Chloride 0.9% 1,000 ML IV SCH ×2 (11:36→21:57)
[2017-09-08] MEDS: Folic Acid 1 MG TAB PO SCH (11:36)
[2017-09-08] MEDS: Nystatin 500,000 UNITS/5 ML UDCUP SSW SCH ×4 (11:36→21:58)
[2017-09-08] MEDS: Digoxin 0.125 MG TAB PO SCH (11:36)
[2017-09-08] MEDS: Aspirin 325 MG TAB PO SCH (11:37)
[2017-09-08] MEDS: Docusate 100 MG CAP PO SCH ×2 (11:37→21:58)
[2017-09-08] MEDS: Cyanocobalamin (Vitamin B-12) 1,000 MCG TAB PO SCH (11:37)
[2017-09-08] MEDS: Milk Of Magnesia 30 ML UDCUP PO PRN (11:37)
--- NOTE | 2017-09-08 11:57 | PDOC.CTH ---
Cardiology Progress Note - Subjective He had surgery earlier today. He had draining of his abdominal abscess. he is still in afib HR in the 100-120's. - Objective Vital Signs Temp Pulse Resp BP BP Pulse Ox 09/08/17 11:36 115 H 09/08/17 10:25 97.5 F L 115 H 18 126/72 94 L 09/08/17 07:52 100.9 F H 123 H 18 94 L 09/08/17 07:10 100.9 F H 123 H 18 125/65 94 L 09/08/17 04:19 96 09/08/17 04:00 98.0 F 107 H 18 108/55 L 93 L 09/08/17 00:00 128 H 18 122/70 Admit Weight 207 lb Weight 207 lb 09/07/17 09/08/17 09/09/17 06:59 06:59 06:59 Intake Total 1279 2489 Balance 1279 2489 - Physical Examination General/Neuro: alert & oriented x3, NAD Neck: no JVD present Lungs: unlabored respirations Heart: other: (Irreg) Abdomen: NT/ND Extremities: + edema B (1+) - Telemetry Telemetry Rhythm: Afib HR 100-120 - Labs Result Diagrams: 09/08/17 05:27 09/08/17 05:27 Troponin/CKMB Troponin I 0.011 ng/mL (< 0.028) 09/04/17 21:04 - Assessment/Plan 1. Afib RVR. 2. Multiple Skin abscess 3. Abdominal abscess 4. Sepsis. 5. Large B cell lymphoma. PLAN: - Continue Rate control strategy. - Continue Amio drip and digoxin. - Will start low dose BB. - Continue full dose Lovenox after deemed safe by surgery. Probably later this evening.
[2017-09-08] MEDS ORDERED: ISOVUE-370 76%-LOCM 1 ML ONE (15:46)
--- NOTE | 2017-09-08 17:44 | PRG ---
DATE OF SERVICE: 09/08/2017 SUBJECTIVE: Patient had I\T\D of the lateral aspect, which seem to have consisted of an abscess the pubic area; however, has not been done yet. He denies chest pain. No abdominal pain. No genitourinary symptoms. OBJECTIVE: VITAL SIGNS: His T-max is 100.9, blood pressure 126/72, pulse 115, respiratory rate 18 and O2 sat 94%. GENERAL: Awake a little bit diaphoretic. Ocular movements are conjugate. LUNGS: Clear. CARDIOVASCULAR: S1 and S2, regular rate. No crackles. ABDOMEN: Soft, not distended. The right area packed after the I\T\D procedure. The right side of the pubic area is quite indurated and swollen with erythema extending to the scrotal tissue and he probably has an abscess there as well. Microbiology has been noted with MSSA. LABORATORY DATA: White cell count 8.7, hemoglobin 9.6 and platelets 286. Creatinine 0.67. ASSESSMENT AND DISCUSSION: B cell lymphoma, undergoing chemotherapy with ecthyma gangrinosum secondary to methicillin-sensitive Staphylococcus aureus. Continue cefepime. Scan pubic area, probably it has a fluid collection and needs to be incision and drained there to by surgery as well. MTDD
--- NOTE | 2017-09-08 21:57 | CT ---
CT ABDOMEN AND PELVIS WITH IV AND ORAL CONTRAST: History: Abdominal pain. Large skin wound. Abscess. FINDINGS: A small amount of bilateral pleural fluid and bibasilar atelectasis are apparent. Hyperdense stones are present within the dependent portion of the gallbladder lumen. Lobulated cysts are noted within the liver parenchyma. The spleen measures up to 16.2 cm in length. A very irregular shaded soft tiss ue density mass centered at the central mesentery measures up to 10.1 cm length x 7.6 cm width by 4. 7 cm depth. It is just deep to the superior mesenteric and abuts and partially compresses the duoden um. It is separate from the body of the pancreas but abuts the uncinate process of the pancreas. Sli ghtly enlarged lymph nodes are scattered throughout the central mesentery. Large open skin wound is present at the right lateral abdominal wall. Some inflammation extends mercy g the lower right abdominal wall, although no focal fluid collections are apparent. The swelling ext ends into the right inguinal canal and involves the scrotum. IMPRESSION: 1. Large central mesenteric mass as detailed above. Neoplasm is a primary concern. This could arise from the central abdominal lymph nodes/adenopathy, the uncinate process of the pancreas, or some oth er source of neoplastic process. Its location is not well amendable to percutaneous sampling. If non -invasive evaluation were needed, endoscopic ultrasound could probably visualize the lesion. 2. Cholelithiasis. 3. Moderate splenomegaly. 4. Large skin wound at the right lateral abdomen with inflammation extending inferiorly to the level of the scrotum. No well-defined abscess collection is apparent. POS: [facility]
[2017-09-09] MEDS: Cefepime 2 GM, Syringe 2.5 ML in Sterile Water 10 ML SLOW IVP SCH ×3 (00:24→17:53)
[2017-09-09 05:48] LABS: #Eosinphils 0.1 thou/uL (0.0-0.7); #Lymphocytes 0.4 thou/uL (1.20-3.40); #Monocytes 0.3 thou/uL (0.11-0.59); #Neutrophils 6.3 thou/uL (1.40-6.50); %Basophils 0.5 % (0.0-1.0); %Eosinophils 0.9 % (0.0-10.0); %Lymphocytes 5.9 % (21.0-51.0); %Monocytes 3.9 % (0.0-10.0); Hematocrit 26.9 % (42.0-52.0); Mean Platelet Volume 6.6 fL (7.4-10.4); Red Blood Cell (RBC) Count 2.77 mill/uL (4.70-6.10); White Blood Cell (WBC) Count 7.1 thou/uL (4.8-10.8)
[2017-09-09 05:55] LABS: PTT 25.6 SEC (22.9-36.1); Prothrombin Time 15.5 SEC (12.0-14.7)
[2017-09-09 06:11] LABS: Anion Gap 13 mmol/L (10-20); BUN (Urea Nitrogen) 11 mg/dL (8.4-25.7); Calc. Creatinine Clearance 168 mL/min (70-130); Calcium 7.3 mg/dL (7.8-10.44); Carbon Dioxide 21 mmol/L (22-29); Chloride 104 mmol/L (98-107); Estimated GFR-MDRD Greater than 90
[2017-09-09 08:04] LABS: Hematocrit 27.1 % (42.0-52.0)
[2017-09-09] MEDS: Nystatin 500,000 UNITS/5 ML UDCUP SSW SCH ×4 (09:53→20:46)
[2017-09-09] MEDS: Multivit, Therapeutic 1 TAB PO SCH (09:54)
[2017-09-09] MEDS: Aspirin 325 MG TAB PO SCH (09:54)
[2017-09-09] MEDS: Docusate 100 MG CAP PO SCH ×2 (09:54→20:41)
[2017-09-09] MEDS: Cyanocobalamin (Vitamin B-12) 1,000 MCG TAB PO SCH (09:54)
[2017-09-09] MEDS: Folic Acid 1 MG TAB PO SCH (09:54)
[2017-09-09] MEDS: Digoxin 0.125 MG TAB PO SCH (09:58)
--- NOTE | 2017-09-09 10:17 | PDOC.PN ---
- Subjective Encounter Start Date: 09/09/17 Encounter Start Time: 10:20 Subjective: no fever, no pain, no complaints this AM - Objective Resuscitation Status: Resuscitation Status FULL:Full Resuscitation MAR Reviewed: Yes Vital Signs & Weight: Vital Signs (12 hours) Temp Pulse Resp BP Pulse Ox 09/09/17 09:58 133 H 09/09/17 07:43 97.6 F 105 H 18 93 L 09/09/17 07:34 97.6 F 105 H 18 112/67 93 L 09/09/17 04:00 97.9 F 113 H 18 90/53 L 94 L Weight Admit Weight 207 lb Weight 207 lb I&O: 09/08/17 09/09/17 09/10/17 06:59 06:59 06:59 Intake Total 2489 1173 Balance 2489 1173 Result Diagrams: 09/09/17 07:49 09/09/17 05:36 Phys Exam - Physical Examination Constitutional: NAD HEENT: moist MMs Respiratory: no wheezing, no rales, no rhonchi Cardiovascular: RRR, no significant murmur Gastrointestinal: soft, positive bowel sounds wound vac in place on left flank, suprapubic with red, indurated cellulitis Musculoskeletal: no edema Neurological: non-focal, moves all 4 limbs Psychiatric: normal affect, A&O x 3 Dx/Plan (1) Sepsis with acute organ dysfunction Code(s): A41.9 - SEPSIS, UNSPECIFIED ORGANISM; R65.20 - SEVERE SEPSIS WITHOUT SEPTIC SHOCK Status: Acute Comment: Improved, continue Cefepime 2gm IV q8h (2) Ecthyma gangrenosum Code(s): L08.0 - PYODERMA Status: Acute Comment: Staph on wound cx- MSSA, continue Cefepime (3) Atrial fibrillation Code(s): I48.91 - UNSPECIFIED ATRIAL FIBRILLATION Status: Acute Qualifiers: Atrial fibrillation type: paroxysmal Qualified Code(s): I48.0 - Paroxysmal atrial fibrillation Comment: s/p GUERITA with cardioversion with recurrence of A-fib, Amiodarone gtt and Digoxin for rate control, Lovenox 100mg SC BID (4) Large B-cell lymphoma Code(s): C85.10 - UNSPECIFIED B-CELL LYMPHOMA, UNSPECIFIED SITE Status: Acute Comment: Resume chemotherapy as outpt (5) E. coli UTI Code(s): N39.0 - URINARY TRACT INFECTION, SITE NOT SPECIFIED; B96.20 - UNSP ESCHERICHIA COLI THE CAUSE OF DISEASES CLASSD ELSWHR Status: Acute Comment: E. coli on Ucx but multi-drug resistance, ? carrier state, follow clinically (6) Abscess or cellulitis of flank Code(s): [id number] - Status: Acute Comment: S/P I&D with large abscess cavity washed out and packed - Plan cont current plan of care, continue antibiotics no suprapubic fluid collection on CT * . - Discharge Day Encounter end time: 10:50
[2017-09-09] MEDS: Sodium Chloride 0.9% 1,000 ML IV SCH (13:31)
--- NOTE | 2017-09-09 19:40 | PDOC.CTH ---
Cardiology Progress Note - Subjective No new issues or concerns. HR still in the 110's. - Objective Vital Signs Temp Pulse Resp BP BP Pulse Ox 09/09/17 15:46 98.1 F 106 H 20 122/61 93 L 09/09/17 12:10 98.5 F 125 H 18 117/67 93 L 09/09/17 09:58 133 H 09/09/17 07:43 97.6 F 105 H 18 93 L Admit Weight 207 lb Weight 207 lb 09/08/17 09/09/17 09/10/17 06:59 06:59 06:59 Intake Total 2489 1173 Balance 2489 1173 - Physical Examination General/Neuro: alert & oriented x3, NAD Neck: no JVD present Lungs: unlabored respirations Heart: other: (Irreg) Abdomen: NT/ND Extremities: + edema B (none) - Telemetry Telemetry Rhythm: Afib HR 100-120 - Labs Result Diagrams: 09/09/17 07:49 09/09/17 05:36 Troponin/CKMB Troponin I 0.011 ng/mL (< 0.028) 09/04/17 21:04 - Assessment/Plan 1. Afib RVR. 2. Multiple Skin abscess 3. Abdominal abscess 4. Sepsis. 5. Large B cell lymphoma. PLAN: - Continue Rate control strategy. - Continue Amio drip and digoxin. - BB not goven due to borderline low BP. - Continue full dose Lovenox.
[2017-09-10] MEDS: Cefepime 2 GM, Syringe 2.5 ML in Sterile Water 10 ML SLOW IVP SCH ×3 (00:33→17:07)
[2017-09-10 05:23] LABS: Digoxin 0.51 ng/mL (0.8-2.0)
[2017-09-10] MEDS: Sodium Chloride 0.9% 1,000 ML IV SCH ×2 (06:00→21:27)
--- NOTE | 2017-09-10 08:14 | PDOC.PN ---
- Subjective Encounter Start Date: 09/10/17 Encounter Start Time: 08:40 Subjective: No complaints. No pain from rash. Not gotten out of bed yet. - Objective Resuscitation Status: Resuscitation Status FULL:Full Resuscitation MAR Reviewed: Yes Vital Signs & Weight: Vital Signs (12 hours) Temp Pulse Resp BP Pulse Ox 09/10/17 04:00 98.1 F 96 20 128/71 92 L 09/10/17 00:00 98.0 F 117 H 22 H 130/63 92 L Weight Admit Weight 207 lb Weight 207 lb I&O: 09/09/17 09/10/17 09/11/17 06:59 06:59 06:59 Intake Total 1173 3073 Output Total 200 Balance 1173 2873 Result Diagrams: 09/09/17 07:49 09/09/17 05:36 Phys Exam - Physical Examination Constitutional: NAD HEENT: moist MMs Respiratory: no wheezing, no rales, no rhonchi Cardiovascular: RRR Gastrointestinal: soft, positive bowel sounds wound vac in place, redness of abd skin improved Neurological: non-focal, moves all 4 limbs Psychiatric: normal affect, A&O x 3 Dx/Plan (1) Sepsis with acute organ dysfunction Code(s): A41.9 - SEPSIS, UNSPECIFIED ORGANISM; R65.20 - SEVERE SEPSIS WITHOUT SEPTIC SHOCK Status: Acute Comment: Improved, continue Cefepime 2gm IV q8h (2) Ecthyma gangrenosum Code(s): L08.0 - PYODERMA Status: Acute Comment: Staph on wound cx- MSSA, continue Cefepime (3) Atrial fibrillation Code(s): I48.91 - UNSPECIFIED ATRIAL FIBRILLATION Status: Acute Qualifiers: Atrial fibrillation type: paroxysmal Qualified Code(s): I48.0 - Paroxysmal atrial fibrillation Comment: s/p GUERITA with cardioversion with recurrence of A-fib, Amiodarone gtt and Digoxin for rate control, Lovenox 100mg SC BID (4) Large B-cell lymphoma Code(s): C85.10 - UNSPECIFIED B-CELL LYMPHOMA, UNSPECIFIED SITE Status: Acute Comment: Resume chemotherapy as outpt (5) E. coli UTI Code(s): N39.0 - URINARY TRACT INFECTION, SITE NOT SPECIFIED; B96.20 - UNSP ESCHERICHIA COLI THE CAUSE OF DISEASES CLASSD ELSWHR Status: Acute Comment: E. coli on Ucx but multi-drug resistance, ? carrier state, follow clinically (6) Abscess or cellulitis of flank Code(s): [id number] - Status: Acute Comment: S/P I&D with large abscess cavity washed out and packed, wound vac in place - Plan cont current plan of care, continue antibiotics, PT/OT, DVT proph w/SCDs Resume Lovenox when safe per Surgery and Cards. * . - Discharge Day Encounter end time: 08:55
[2017-09-10] MEDS: Aspirin 325 MG TAB PO SCH (08:55)
[2017-09-10] MEDS: Digoxin 0.125 MG TAB PO SCH (08:55)
[2017-09-10] MEDS: Nystatin 500,000 UNITS/5 ML UDCUP SSW SCH ×4 (08:56→21:26)
[2017-09-10] MEDS: Multivit, Therapeutic 1 TAB PO SCH (08:56)
[2017-09-10] MEDS: Cyanocobalamin (Vitamin B-12) 1,000 MCG TAB PO SCH (08:56)
[2017-09-10] MEDS: Folic Acid 1 MG TAB PO SCH (08:56)
[2017-09-10] MEDS: Docusate 100 MG CAP PO SCH ×2 (08:56→21:26)
--- NOTE | 2017-09-10 17:16 | PDOC.CTH ---
Cardiology Progress Note - Subjective No new issues. He converted to sinus rhythm earlier today. - Objective Vital Signs Temp Pulse Pulse Pulse Resp BP BP 09/10/17 14:30 85 89 135/71 147/75 H 09/10/17 11:40 98.4 F 80 16 09/10/17 08:59 98.7 F 89 16 09/10/17 08:55 96 09/10/17 08:00 98.4 F 80 16 BP BP Pulse Ox 09/10/17 14:30 09/10/17 11:40 133/75 09/10/17 08:59 139/69 93 L 09/10/17 08:55 09/10/17 08:00 Admit Weight 207 lb Weight 207 lb 09/09/17 09/10/17 09/11/17 06:59 06:59 06:59 Intake Total 1173 3073 Output Total 200 Balance 1173 2873 - Physical Examination General/Neuro: alert & oriented x3, NAD Neck: no JVD present Lungs: unlabored respirations Heart: RRR Abdomen: NT/ND Extremities: + edema B (1+) - Telemetry Telemetry Rhythm: NSR - Labs Result Diagrams: 09/09/17 07:49 09/09/17 05:36 Troponin/CKMB Troponin I 0.011 ng/mL (< 0.028) 09/04/17 21:04 - Assessment/Plan 1. Afib RVR, now in sinus. 2. Multiple Skin abscess 3. Abdominal abscess 4. Sepsis. 5. Large B cell lymphoma. PLAN: - Continue Amio drip today and switch to PO in the morning. - Continue full dose Lovenox, will switch to Eliquis 5mg BID before discharge.
[2017-09-10] MEDS: CEFAZOLIN/Water 2 GM/20 ML SYRINGE SLOW IVP SCH (20:07)
[2017-09-10] MEDS: Enoxaparin Sodium 100 MG/ML SYRINGE SC SCH (21:26)
[2017-09-10] MEDS: Amiodarone HCl 450 MG in Dextrose 5% in Water 250 ML IVPB SCH ×2 (21:27)
[2017-09-11] MEDS: CEFAZOLIN/Water 2 GM/20 ML SYRINGE SLOW IVP SCH ×3 (04:49→17:15)
[2017-09-11 05:03] LABS: #Eosinphils 0.2 thou/uL (0.0-0.7); #Lymphocytes 0.4 thou/uL (1.20-3.40); #Monocytes 0.2 thou/uL (0.11-0.59); #Neutrophils 3.9 thou/uL (1.40-6.50); %Basophils 0.4 % (0.0-1.0); %Eosinophils 3.5 % (0.0-10.0); %Monocytes 4.7 % (0.0-10.0); Mean Platelet Volume 6.1 fL (7.4-10.4); Red Blood Cell (RBC) Count 2.67 mill/uL (4.70-6.10); White Blood Cell (WBC) Count 4.7 thou/uL (4.8-10.8)
[2017-09-11 05:15] LABS: Anion Gap 10 mmol/L (10-20); BUN (Urea Nitrogen) 9 mg/dL (8.4-25.7); Calc. Creatinine Clearance 170 mL/min (70-130); Calcium 7.7 mg/dL (7.8-10.44); Carbon Dioxide 25 mmol/L (22-29); Chloride 105 mmol/L (98-107); Estimated GFR-MDRD Greater than 90
--- NOTE | 2017-09-11 07:59 | PRG ---
DATE OF SERVICE: 09/10/2017 HISTORY: Mr. Townsend is feeling better, more alert. No diaphoresis, no chest pain, no abdominal pain. Still with pain on the side along the area of the I&D, i.e. incision and debridement. Voiding witho ut difficulty. He is able to move all extremities with some limitation. PHYSICAL EXAMINATION: VITAL SIGNS: T-max of 98.8, blood pressure 130/70, pulse 84. GENERAL: Awake and alert. LUNGS: Clear. HEART: S1, S2, regular rate. ABDOMEN: The area of lateral I&D, i.e. incision and debridement in the lateral flank region with neg ative pressure dressing and along the lower lateral aspect of the abdomen going towards the groin the re is area of quite prominent inflammatory change. At the center, there is more softening suggestive of its turning to an abscess. He is able to move all extremities equally. Does not have a [place] ca theter. LABORATORY DATA: White cell count 4.7, hemoglobin 8.7, platelets 307 and chemistry which is fairly u nremarkable except for calcium 7.7. All the microbiology with MSSA identified. ASSESSMENT AND DISCUSSION: B cell lymphoma, undergoing chemotherapy with quite severe Methicillin-se nsitive Staphylococcus aureus infection would be in the skin and subcutaneous tissues with abscess fo rmation as well as the ecthyma gangrenosum. Switch him to cefazolin 3 times a day. Discontinue cefe pime. May need further I&D of the groin area on the right side.
[2017-09-11 08:28] LABS: Hematocrit 25.6 % (42.0-52.0)
[2017-09-11] MEDS: Enoxaparin Sodium 100 MG/ML SYRINGE SC SCH ×2 (09:58→21:05)
[2017-09-11] MEDS: Nystatin 500,000 UNITS/5 ML UDCUP SSW SCH ×4 (09:59→21:04)
[2017-09-11] MEDS: Multivit, Therapeutic 1 TAB PO SCH (09:59)
[2017-09-11] MEDS: Cyanocobalamin (Vitamin B-12) 1,000 MCG TAB PO SCH (09:59)
[2017-09-11] MEDS: Digoxin 0.125 MG TAB PO SCH (09:59)
[2017-09-11] MEDS: Amiodarone 200 MG TAB PO SCH ×2 (09:59→21:04)
[2017-09-11] MEDS: Aspirin 325 MG TAB PO SCH (09:59)
[2017-09-11] MEDS: Folic Acid 1 MG TAB PO SCH (10:00)
[2017-09-11] MEDS: Docusate 100 MG CAP PO SCH ×3 (10:00→21:04)
[2017-09-11] MEDS: Sodium Chloride 0.9% 1,000 ML IV SCH ×3 (13:04→17:15)
--- NOTE | 2017-09-11 15:04 | PDOC.PN ---
- Subjective Encounter Start Date: 09/11/17 Encounter Start Time: 14:58 Patient seen and examined. No new complaints. No overnight events. Wound vac +. No new complaints. No fever/chills. - Objective Resuscitation Status: Resuscitation Status FULL:Full Resuscitation MAR Reviewed: Yes Vital Signs & Weight: Vital Signs (12 hours) Temp Pulse Resp BP BP Pulse Ox 09/11/17 11:30 98.3 F 84 18 138/78 95 09/11/17 09:59 86 09/11/17 08:00 98.4 F 84 18 145/78 H 95 09/11/17 04:00 98.2 F 84 18 138/77 90 L Weight Admit Weight 207 lb Weight 207 lb I&O: 09/10/17 09/11/17 09/12/17 06:59 06:59 06:59 Intake Total 3073 1670 Output Total 200 Balance 2873 1670 Result Diagrams: 09/11/17 08:05 09/11/17 04:24 EKG Reviewed by me: Yes (Tele SR) Phys Exam - Physical Examination Constitutional: NAD Respiratory: no wheezing, no rhonchi Cardiovascular: RRR, no rub Gastrointestinal: soft, non-tender, no distention, positive bowel sounds Wound Vac + Musculoskeletal: no edema Neurological: non-focal, moves all 4 limbs Dx/Plan - Plan IMPRESSION AND PLAN: 1. Sepsis with acute organ dysfunction due to skin abscesses. Blood culture negative. 2. Multiple skin lesions of unclear etiology. Staph in culture. on Atbx 3. ?Urinary tract infection. E coli - completed Atbx 4. Afib with RVR - s/p GUERITA CV - on Amiodarone/Anticoagulation 5. Hyponatremia - hypotonic 6. Mild protein-calorie malnutrition. 7. Elevated inflammatory markers. 8. Hyperglycemia. A1c negative. 9. Thrombocytopenia, probably secondary to chemotherapy. 10. Metabolic acidosis due to elevated lactate. 11. History of alcohol use. 12. Hypertension. 13. Testicular swelling - Ultrasound c/w ?Scrotal cellulitis 14. Lactic acidosis. improved 15. h/o Lymphoma PLAN: * Cont IVF @ 30 ml/hr * Cont wound care/IV Atbx * AM labs * Cont PT/OT * Encourage ambulation * ID/Cardio following * Cont to monitor * Change ASA to 81 mg Review of Systems - Review of Systems Constitutional: negative: Fever, Chills, Sweats, Weakness, Malaise, Other Respiratory: negative: Cough, Dry, Shortness of Breath, Hemoptysis, SOB with Excertion, Pleuritic Pain, Sputum, Wheezing Cardiovascular: negative: Chest Pain, Palpitations, Orthopnea, Paroxysmal Noc. Dyspnea, Edema, Light Headedness, Other Gastrointestinal: negative: Nausea, Vomiting, Abdominal Pain, Diarrhea, Constipation, Melena, Hematochezia, Other Genitourinary: negative: Dysuria, Frequency, Incontinence, Hematuria, Retention , Other - Medications/Allergies Allergies/Adverse Reactions: Allergies Allergy/AdvReac Type Severity Reaction Status Date / Time No Known Allergies Allergy Verified 09/02/17 12:10 Medications: Current Medications Acetaminophen (Tylenol) 650 mg PO Q4H PRN PRN Reason: Headache/Fever or Pain Hydrocodone Bitart/Acetaminophen ([place] 5/325) 1 tab PO Q4H PRN PRN Reason: Severe Pain (7-10) Al Hydroxide/Mg Hydroxide (Maalox) 30 ml PO Q6H PRN PRN Reason: Heartburn or Indigestion Amiodarone HCl (Cordarone) 400 mg PO BID [facility] Last Admin: 09/11/17 09:59 Dose: 400 mg Aspirin (Aspirin) 325 mg PO DAILY [facility] Last Admin: 09/11/17 09:59 Dose: 325 mg Calcium Carbonate (Tums) 1,000 mg PO Q4H PRN PRN Reason: Heartburn or Indigestion Cefazolin Sodium (Ancef) 2 gm SLOW IVP 0200,1000,1800 [facility] Last Admin: 09/11/17 10:01 Dose: 2 gm Cyanocobalamin (Vitamin B-12) 1,000 mcg PO DAILY [facility] Last Admin: 09/11/17 09:59 Dose: 1,000 mcg Digoxin (Lanoxin) 0.125 mg PO QAM [facility] Last Admin: 09/11/17 09:59 Dose: 0.125 mg Docusate Sodium (Colace) 100 mg PO BID [facility] Last Admin: 09/11/17 10:03 Dose: 100 mg Enoxaparin Sodium (Lovenox) 100 mg SC 0900,2100 [facility] Last Admin: 09/11/17 09:58 Dose: 100 mg Folic Acid (Folvite) 1 mg PO DAILY [facility] Last Admin: 09/11/17 10:00 Dose: 1 mg Sodium Chloride (Normal Saline 0.9%) 1,000 mls @ 70 mls/hr IV .[id number] [facility] Last Admin: 09/11/17 13:06 Dose: Not Given Lorazepam (Ativan) 1 mg PO Q4H PRN PRN Reason: ASE >=9 Last Admin: 09/06/17 21:19 Dose: 1 mg Magnesium Hydroxide (Milk Of Magnesium) 30 ml PO DAILYPRN PRN PRN Reason: Constipation Last Admin: 09/08/17 11:37 Dose: 30 ml Multivitamins (Theragran) 1 tab PO DAILY [facility] Last Admin: 09/11/17 09:59 Dose: 1 tab Nitroglycerin (Nitrostat) 0.4 mg PO Q5MIN PRN PRN Reason: Chest Pain Nystatin (Mycostatin) 500,000 units SSW QID [facility] Last Admin: 09/11/17 13:05 Dose: 500,000 units Ondansetron HCl (Zofran Odt) 4 mg PO Q6H PRN PRN Reason: Nausea/Vomiting Last Admin: 09/04/17 13:49 Dose: 4 mg Ondansetron HCl (Zofran) 4 mg IVP Q6H PRN PRN Reason: Nausea/Vomiting Last Admin: 09/03/17 05:37 Dose: 4 mg Pantoprazole Sodium (Protonix) 40 mg PO DAILY [facility] Last Admin: 09/11/17 09:59 Dose: 40 mg Senna (Senokot) 2 tab PO HSPRN PRN PRN Reason: Constipation Last Admin: 09/06/17 21:19 Dose: 2 tab Thiamine HCl (Thiamine) 100 mg PO DAILY [facility] Last Admin: 09/11/17 10:01 Dose: 100 mg
[2017-09-12] MEDS: CEFAZOLIN/Water 2 GM/20 ML SYRINGE SLOW IVP SCH ×3 (03:43→18:05)
[2017-09-12] MEDS: Enoxaparin Sodium 100 MG/ML SYRINGE SC SCH ×2 (10:11→21:28)
[2017-09-12] MEDS: Aspirin 81 mg Enteric Coated Tablet PO SCH (10:11)
[2017-09-12] MEDS: Docusate 100 MG CAP PO SCH ×2 (10:11→21:28)
[2017-09-12] MEDS: Folic Acid 1 MG TAB PO SCH (10:11)
[2017-09-12] MEDS: Milk Of Magnesia 30 ML UDCUP PO PRN (10:11)
[2017-09-12] MEDS: Digoxin 0.125 MG TAB PO SCH (10:11)
[2017-09-12] MEDS: Amiodarone 200 MG TAB PO SCH ×2 (10:11→21:28)
[2017-09-12] MEDS: Nystatin 500,000 UNITS/5 ML UDCUP SSW SCH ×4 (10:11→21:28)
[2017-09-12] MEDS: Cyanocobalamin (Vitamin B-12) 1,000 MCG TAB PO SCH (10:12)
[2017-09-12] MEDS: Multivit, Therapeutic 1 TAB PO SCH (10:12)
[2017-09-12] MEDS: Sodium Chloride 0.9% 1,000 ML IV SCH ×2 (15:55→22:36)
--- NOTE | 2017-09-12 16:58 | PDOC.PN ---
- Subjective Encounter Start Date: 09/12/17 Encounter Start Time: 09:00 Patient seen and examined. No new complaints. No overnight events. No new fever/ chills. Appetite ok. - Objective Resuscitation Status: Resuscitation Status FULL:Full Resuscitation MAR Reviewed: Yes Vital Signs & Weight: Vital Signs (12 hours) Temp Pulse Pulse Pulse Resp BP BP 09/12/17 16:00 98.6 F 95 20 09/12/17 14:20 97 97 136/79 138/79 09/12/17 12:00 98.6 F 97 16 09/12/17 08:25 90 89 138/78 144/81 H 09/12/17 08:10 99.0 F 89 18 09/12/17 08:00 99.0 F 89 18 BP Pulse Ox 09/12/17 16:00 138/75 96 09/12/17 14:20 09/12/17 12:00 122/64 93 L 09/12/17 08:25 09/12/17 08:10 93 L 09/12/17 08:00 148/74 H 93 L Weight Admit Weight 207 lb Weight 216 lb 12.8 oz I&O: 09/11/17 09/12/17 09/13/17 06:59 06:59 06:59 Intake Total 1670 2020 Output Total 60 Balance 1670 1960 Result Diagrams: 09/13/17 04:34 09/13/17 04:34 EKG Reviewed by me: Yes (Tele SR) Phys Exam - Physical Examination Constitutional: NAD Respiratory: no wheezing, no rhonchi Cardiovascular: RRR, no rub Gastrointestinal: soft, non-tender, positive bowel sounds Neurological: moves all 4 limbs Dx/Plan - Plan IMPRESSION AND PLAN: 1. Sepsis with acute organ dysfunction due to skin abscesses. Blood culture negative. 2. Multiple skin lesions of unclear etiology. Staph in culture. on Atbx - s/p I & D, ID following 3. ?Urinary tract infection. E coli - completed Atbx 4. Afib with RVR - s/p GUERITA CV - on Amiodarone/Anticoagulation - failed CV with multaq 5. Hyponatremia - hypotonic - improving 6. Mild protein-calorie malnutrition. 7. Elevated inflammatory markers. 8. Hyperglycemia. A1c negative. 9. Thrombocytopenia, probably secondary to chemotherapy. 10. Metabolic acidosis due to elevated lactate. 11. History of alcohol use. 12. Hypertension. 13. Testicular swelling - Ultrasound c/w ?Scrotal cellulitis 14. Lactic acidosis. improved 15. h/o Lymphoma PLAN: * Cont wound care/IV Atbx * AM labs * DC planning - prob C * Cont PT/OT * Encourage ambulation * ID/Cardio/Surg following * Cont current meds as below Review of Systems - Review of Systems Respiratory: negative: Cough, Dry, Shortness of Breath, Hemoptysis, SOB with Excertion, Pleuritic Pain, Sputum, Wheezing Cardiovascular: negative: Chest Pain, Palpitations, Orthopnea, Paroxysmal Noc. Dyspnea, Edema, Light Headedness, Other Gastrointestinal: negative: Nausea, Vomiting, Abdominal Pain, Diarrhea, Constipation, Melena, Hematochezia, Other - Medications/Allergies Allergies/Adverse Reactions: Allergies Allergy/AdvReac Type Severity Reaction Status Date / Time No Known Allergies Allergy Verified 09/02/17 12:10 Medications: Current Medications Acetaminophen (Tylenol) 650 mg PO Q4H PRN PRN Reason: Headache/Fever or Pain Hydrocodone Bitart/Acetaminophen ([place] 5/325) 1 tab PO Q4H PRN PRN Reason: Severe Pain (7-10) Al Hydroxide/Mg Hydroxide (Maalox) 30 ml PO Q6H PRN PRN Reason: Heartburn or Indigestion Amiodarone HCl (Cordarone) 400 mg PO BID [facility] Last Admin: 09/12/17 10:11 Dose: 400 mg Aspirin (Ecotrin) 81 mg PO DAILY [facility] Last Admin: 09/12/17 10:11 Dose: 81 mg Calcium Carbonate (Tums) 1,000 mg PO Q4H PRN PRN Reason: Heartburn or Indigestion Cefazolin Sodium (Ancef) 2 gm SLOW IVP 0200,1000,1800 [facility] Last Admin: 09/12/17 10:11 Dose: 2 gm Cyanocobalamin (Vitamin B-12) 1,000 mcg PO DAILY [facility] Last Admin: 09/12/17 10:12 Dose: 1,000 mcg Digoxin (Lanoxin) 0.125 mg PO QAM [facility] Last Admin: 09/12/17 10:11 Dose: 0.125 mg Docusate Sodium (Colace) 100 mg PO BID [facility] Last Admin: 09/12/17 10:11 Dose: 100 mg Enoxaparin Sodium (Lovenox) 100 mg SC 0900,2100 [facility] Last Admin: 09/12/17 10:11 Dose: 100 mg Folic Acid (Folvite) 1 mg PO DAILY [facility] Last Admin: 09/12/17 10:11 Dose: 1 mg Sodium Chloride (Normal Saline 0.9%) 1,000 mls @ 30 mls/hr IV .Q24H [facility] Last Admin: 09/12/17 15:55 Dose: Not Given Magnesium Hydroxide (Milk Of Magnesium) 30 ml PO DAILYPRN PRN PRN Reason: Constipation Last Admin: 09/12/17 10:11 Dose: 30 ml Multivitamins (Theragran) 1 tab PO DAILY [facility] Last Admin: 09/12/17 10:12 Dose: 1 tab Nitroglycerin (Nitrostat) 0.4 mg PO Q5MIN PRN PRN Reason: Chest Pain Nystatin (Mycostatin) 500,000 units SSW QID [facility] Last Admin: 09/12/17 13:11 Dose: 500,000 units Ondansetron HCl (Zofran Odt) 4 mg PO Q6H PRN PRN Reason: Nausea/Vomiting Last Admin: 09/04/17 13:49 Dose: 4 mg Ondansetron HCl (Zofran) 4 mg IVP Q6H PRN PRN Reason: Nausea/Vomiting Last Admin: 09/03/17 05:37 Dose: 4 mg Pantoprazole Sodium (Protonix) 40 mg PO DAILY [facility] Last Admin: 09/12/17 10:12 Dose: 40 mg Senna (Senokot) 2 tab PO HSPRN PRN PRN Reason: Constipation Last Admin: 09/06/17 21:19 Dose: 2 tab Thiamine HCl (Thiamine) 100 mg PO DAILY [facility] Last Admin: 09/12/17 10:11 Dose: 100 mg
--- NOTE | 2017-09-12 19:00 | ULT ---
ULTRASOUND SOFT TISSUE FOR ABSCESS 09/12/17 HISTORY: Abscess. COMPARISON: Ultrasound from 09/07/17. FINDINGS: There is a complex area of fluid within the right inguinal region. It is not well defined. This is no t encapsulated. IMPRESSION: Complex fluid collection in the right inguinal area which is not well encapsulated and likely represe nts phlegmonous fluid. POS: RODY
[2017-09-13] MEDS: CEFAZOLIN/Water 2 GM/20 ML SYRINGE SLOW IVP SCH ×3 (01:35→17:56)
[2017-09-13 04:52] LABS: #Eosinphils 0.1 thou/uL (0.0-0.7); #Lymphocytes 0.6 thou/uL (1.20-3.40); #Monocytes 0.3 thou/uL (0.11-0.59); #Neutrophils 3.3 thou/uL (1.40-6.50); %Eosinophils 2.1 % (0.0-10.0); %Lymphocytes 13.9 % (21.0-51.0); %Monocytes 5.9 % (0.0-10.0); Mean Platelet Volume 5.8 fL (7.4-10.4); Red Blood Cell (RBC) Count 2.59 mill/uL (4.70-6.10); White Blood Cell (WBC) Count 4.2 thou/uL (4.8-10.8)
[2017-09-13 05:05] LABS: ALT (SGPT) 25 U/L (8-55); AST (SGOT) 36 U/L (5-34); Alkaline Phosphatase 84 U/L (40-150); Anion Gap 10 mmol/L (10-20); BUN (Urea Nitrogen) 10 mg/dL (8.4-25.7); Bilirubin, Total 0.5 mg/dL (0.2-1.2); Calc. Creatinine Clearance 160 mL/min (70-130); Calcium 7.9 mg/dL (7.8-10.44); Carbon Dioxide 24 mmol/L (22-29); Chloride 106 mmol/L (98-107); Estimated GFR-MDRD Greater than 90; Globulin 2.3 g/dL (2.4-3.5); Magnesium 2.1 mg/dL (1.6-2.6); Protein, Total 4.8 g/dL (6.0-8.3)
[2017-09-13] MEDS: Amiodarone 200 MG TAB PO SCH ×2 (09:38→20:41)
[2017-09-13] MEDS: Cyanocobalamin (Vitamin B-12) 1,000 MCG TAB PO SCH (09:38)
[2017-09-13] MEDS: HYDROcodone/Acetaminophen 5/325 mg Tablet PO PRN (09:38)
[2017-09-13] MEDS: Aspirin 81 mg Enteric Coated Tablet PO SCH (09:38)
[2017-09-13] MEDS: Digoxin 0.125 MG TAB PO SCH (09:38)
[2017-09-13] MEDS: Folic Acid 1 MG TAB PO SCH (09:39)
[2017-09-13] MEDS: Enoxaparin Sodium 100 MG/ML SYRINGE SC SCH ×2 (09:39→20:42)
[2017-09-13] MEDS: Docusate 100 MG CAP PO SCH ×2 (09:39→20:41)
[2017-09-13] MEDS: Multivit, Therapeutic 1 TAB PO SCH (09:39)
[2017-09-13] MEDS: Nystatin 500,000 UNITS/5 ML UDCUP SSW SCH ×4 (09:40→20:42)
--- NOTE | 2017-09-13 11:17 | PRG ---
DATE OF SERVICE: 09/13/2017 SUBJECTIVE: Mr. Townsend is feeling okay today. No chest pain or pressure. He is afebrile. PHYSICAL EXAMINATION: VITAL SIGNS: His blood pressure is 128/75, pulse is 87 and it is regular. LUNGS: Clear. CARDIAC: Normal S1, normal S2. ABDOMEN: Soft, nontender. EXTREMITIES: There is no edema. ASSESSMENT: 1. Paroxysmal atrial fibrillation, maintaining sinus rhythm. 2. Staph infection being treated with antibiotics. PLAN: 1. Continue loading with amiodarone. Consider reducing the dose probably Friday. 2. He is on Lovenox, to be changed to Eliquis when he goes home.
--- NOTE | 2017-09-13 19:03 | PDOC.PN ---
- Subjective Encounter Start Date: 09/13/17 Encounter Start Time: 09:30 Patient seen and examined. No new complaints. No overnight events. No fever/ chills. - Objective Resuscitation Status: Resuscitation Status FULL:Full Resuscitation MAR Reviewed: Yes Vital Signs & Weight: Vital Signs (12 hours) Temp Pulse Resp BP Pulse Ox 09/13/17 15:20 97.8 F 82 24 H 127/79 91 L 09/13/17 12:20 96.0 F L 92 18 118/66 94 L 09/13/17 07:45 98.0 F 84 18 128/75 93 L Weight Admit Weight 207 lb Weight 212 lb I&O: 09/12/17 09/13/17 09/14/17 06:59 06:59 06:59 Intake Total 2019 1851 1250 Output Total 60 25 Balance 1959 1826 1250 Result Diagrams: 09/13/17 04:34 09/13/17 04:34 EKG Reviewed by me: Yes (Tele SR) Phys Exam - Physical Examination Constitutional: NAD Respiratory: no wheezing, no rhonchi Cardiovascular: RRR, no rub Gastrointestinal: soft, non-tender, positive bowel sounds wound vac + Musculoskeletal: no edema Neurological: moves all 4 limbs Dx/Plan - Plan IMPRESSION: 1. Sepsis with acute organ dysfunction due to skin abscesses. Blood culture negative. 2. Multiple skin lesions of unclear etiology. Staph in culture. on Atbx - s/p I & D, ID/surgery following 3. ?Urinary tract infection. E coli - completed Atbx 4. Afib with RVR - s/p GUERITA CV - on Amiodarone/Anticoagulation - failed CV with multaq, Cardiology following 5. Hyponatremia - hypotonic - improving 6. Mild protein-calorie malnutrition. 7. Elevated inflammatory markers. 8. Hyperglycemia. A1c negative. 9. Thrombocytopenia, probably secondary to chemotherapy. 10. Metabolic acidosis due to elevated lactate. 11. History of alcohol use. 12. Hypertension. 13. Testicular swelling - Ultrasound c/w ?Scrotal cellulitis (less likely) 14. Lactic acidosis. resolved 15. h/o Lymphoma PLAN: * Cont wound care/IV Atbx * Home Wound Vac arranged * Will d/w Surg if patient needs ?groin abscess drained * DC planning - C * Cont PT/OT * Encourage ambulation * Cont current meds as below Review of Systems - Review of Systems Respiratory: negative: Cough, Dry, Shortness of Breath, Hemoptysis, SOB with Excertion, Pleuritic Pain, Sputum, Wheezing Cardiovascular: negative: Chest Pain, Palpitations, Orthopnea, Paroxysmal Noc. Dyspnea, Edema, Light Headedness - Medications/Allergies Allergies/Adverse Reactions: Allergies Allergy/AdvReac Type Severity Reaction Status Date / Time No Known Allergies Allergy Verified 09/02/17 12:10 Medications: Current Medications Acetaminophen (Tylenol) 650 mg PO Q4H PRN PRN Reason: Headache/Fever or Pain Hydrocodone Bitart/Acetaminophen ([place] 5/325) 1 tab PO Q4H PRN PRN Reason: Severe Pain (7-10) Last Admin: 09/13/17 09:38 Dose: 1 tab Al Hydroxide/Mg Hydroxide (Maalox) 30 ml PO Q6H PRN PRN Reason: Heartburn or Indigestion Amiodarone HCl (Cordarone) 400 mg PO BID [facility] Last Admin: 09/13/17 09:38 Dose: 400 mg Aspirin (Ecotrin) 81 mg PO DAILY [facility] Last Admin: 09/13/17 09:38 Dose: 81 mg Calcium Carbonate (Tums) 1,000 mg PO Q4H PRN PRN Reason: Heartburn or Indigestion Cefazolin Sodium (Ancef) 2 gm SLOW IVP 0200,1000,1800 [facility] Last Admin: 09/13/17 17:56 Dose: 2 gm Cyanocobalamin (Vitamin B-12) 1,000 mcg PO DAILY [facility] Last Admin: 09/13/17 09:38 Dose: 1,000 mcg Digoxin (Lanoxin) 0.125 mg PO QAM [facility] Last Admin: 09/13/17 09:38 Dose: 0.125 mg Docusate Sodium (Colace) 100 mg PO BID [facility] Last Admin: 09/13/17 09:39 Dose: 100 mg Enoxaparin Sodium (Lovenox) 100 mg SC 0900,2100 [facility] Last Admin: 09/13/17 09:39 Dose: 100 mg Folic Acid (Folvite) 1 mg PO DAILY [facility] Last Admin: 09/13/17 09:39 Dose: 1 mg Sodium Chloride (Normal Saline 0.9%) 1,000 mls @ 30 mls/hr IV .Q24H [facility] Last Admin: 09/12/17 22:36 Dose: 1,000 mls Magnesium Hydroxide (Milk Of Magnesium) 30 ml PO DAILYPRN PRN PRN Reason: Constipation Last Admin: 09/12/17 10:11 Dose: 30 ml Multivitamins (Theragran) 1 tab PO DAILY [facility] Last Admin: 09/13/17 09:39 Dose: 1 tab Nitroglycerin (Nitrostat) 0.4 mg PO Q5MIN PRN PRN Reason: Chest Pain Nystatin (Mycostatin) 500,000 units SSW QID [facility] Last Admin: 09/13/17 17:56 Dose: 500,000 units Ondansetron HCl (Zofran Odt) 4 mg PO Q6H PRN PRN Reason: Nausea/Vomiting Last Admin: 09/04/17 13:49 Dose: 4 mg Ondansetron HCl (Zofran) 4 mg IVP Q6H PRN PRN Reason: Nausea/Vomiting Last Admin: 09/03/17 05:37 Dose: 4 mg Pantoprazole Sodium (Protonix) 40 mg PO DAILY [facility] Last Admin: 09/13/17 09:39 Dose: 40 mg Senna (Senokot) 2 tab PO HSPRN PRN PRN Reason: Constipation Last Admin: 09/06/17 21:19 Dose: 2 tab Thiamine HCl (Thiamine) 100 mg PO DAILY [facility] Last Admin: 09/13/17 09:39 Dose: 100 mg
--- NOTE | 2017-09-13 20:01 | PRG ---
DATE OF SERVICE: 09/13/2017 Mr. Townsend states that he is feeling okay. His VAC is in place. He denies any significant pain in slade t area. He has some swelling and induration in his right groin and mons area as well as his upper th igh, but he denies any pain in that area. It is indurated and firm but not fluctuant. There is no si gnificant erythema. An ultrasound was performed at that area. The radiologist feels that this repre sents phlegmon rather than abscess. We are going to continue with antibiotics and observation for no w. If he becomes fluctuance, I and D may be necessary. Currently, however, he is afebrile with norm al white count and he is nontender.
[2017-09-14] MEDS: CEFAZOLIN/Water 2 GM/20 ML SYRINGE SLOW IVP SCH ×3 (02:41→17:43)
[2017-09-14] MEDS: Enoxaparin Sodium 100 MG/ML SYRINGE SC SCH ×3 (09:30→20:46)
[2017-09-14] MEDS: Aspirin 81 mg Enteric Coated Tablet PO SCH (09:30)
[2017-09-14] MEDS: Cyanocobalamin (Vitamin B-12) 1,000 MCG TAB PO SCH (09:30)
[2017-09-14] MEDS: Nystatin 500,000 UNITS/5 ML UDCUP SSW SCH ×4 (09:30→20:33)
[2017-09-14] MEDS: Digoxin 0.125 MG TAB PO SCH (09:31)
[2017-09-14] MEDS: Multivit, Therapeutic 1 TAB PO SCH (09:31)
[2017-09-14] MEDS: Docusate 100 MG CAP PO SCH ×2 (09:31→20:34)
[2017-09-14] MEDS: Amiodarone 200 MG TAB PO SCH ×2 (09:31→20:34)
[2017-09-14] MEDS: Folic Acid 1 MG TAB PO SCH (09:31)
[2017-09-14] MEDS: Milk Of Magnesia 30 ML UDCUP PO PRN (09:37)
--- NOTE | 2017-09-14 10:23 | PDOC.PN ---
- Subjective Encounter Start Date: 09/14/17 Encounter Start Time: 08:15 -: old records requested/rev pt is very weak, no fever, present bedside Patient seen and examined. No overnight events - Objective Resuscitation Status: Resuscitation Status FULL:Full Resuscitation MAR Reviewed: Yes Vital Signs & Weight: Vital Signs (12 hours) Temp Pulse Resp BP Pulse Ox 09/14/17 08:58 97.4 F L 89 20 123/69 94 L 09/14/17 04:00 98.0 F 89 20 123/74 92 L Weight Admit Weight 207 lb Weight 209 lb 1.6 oz I&O: 09/13/17 09/14/17 09/15/17 06:59 06:59 06:59 Intake Total 1851 2041 Output Total 25 Balance 1826 2041 Result Diagrams: 09/13/17 04:34 09/13/17 04:34 EKG Reviewed by me: Yes Phys Exam - Physical Examination Constitutional: NAD HEENT: PERRLA, moist MMs, sclera anicteric Neck: no JVD, supple Respiratory: no wheezing, no rales, no rhonchi Cardiovascular: RRR, no significant murmur, no rub Gastrointestinal: soft, non-tender, no distention, positive bowel sounds dressing and wound vac Musculoskeletal: no edema, pulses present Neurological: non-focal, normal sensation Lymphatic: no nodes Psychiatric: normal affect, A&O x 3 Skin: no rash, normal turgor Dx/Plan (1) Abscess or cellulitis of flank Code(s): [id number] - Status: Acute Comment: (2) Atrial fibrillation Code(s): I48.91 - UNSPECIFIED ATRIAL FIBRILLATION Status: Acute Qualifiers: Atrial fibrillation type: paroxysmal Qualified Code(s): I48.0 - Paroxysmal atrial fibrillation Comment: (3) E. 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 - PYODERMA Status: Acute Comment: Staph on wound cx- MSSA, continue Cefazolin (5) Sepsis with acute organ dysfunction Code(s): A41.9 - SEPSIS, UNSPECIFIED ORGANISM; R65.20 - SEVERE SEPSIS WITHOUT SEPTIC SHOCK Status: Acute Comment: (6) H/O ETOH abuse Code(s): Z87.898 - PERSONAL HISTORY OF OTHER SPECIFIED CONDITIONS Status: Chronic (7) H/O lymphoma Code(s): Z85.79 - [facility], HEMATPOETC & REL TISS Status: Chronic (8) Hypertension Code(s): I10 - ESSENTIAL (PRIMARY) HYPERTENSION Status: Chronic Qualifiers: Hypertension type: essential hypertension Qualified Code(s): I10 - Essential (primary) hypertension (9) Overweight (BMI 25.0-29.9) Code(s): E66.3 - OVERWEIGHT Status: Chronic (10) Protein-calorie malnutrition, mild Code(s): E44.1 - MILD PROTEIN-CALORIE MALNUTRITION Status: Chronic (11) Hyponatremia Code(s): E87.1 - HYPO-OSMOLALITY AND HYPONATREMIA Status: Resolved (12) Lactic acidosis Code(s): E87.2 - ACIDOSIS Status: Resolved (13) Thrombocytopenia Code(s): D69.6 - THROMBOCYTOPENIA, UNSPECIFIED Status: Resolved - Plan cont current plan of care, plan discussed w/ family, continue antibiotics, PT/OT , renal social worker * continue ancef * wound care * social work for discharge planning * may need rehab/snu * continue current medical care * medication reviewed as below * symptomatic treatment * discussed with . Review of Systems - Review of Systems Constitutional: Weakness. negative: Fever, Chills, Sweats, Malaise, Other ENT: negative: Ear Pain, Ear Discharge, Nose Pain, Nose Discharge, Nose Congestion, Mouth Pain, Mouth Swelling, Throat Pain, Throat Swelling, Other Respiratory: negative: Cough, Dry, Shortness of Breath, Hemoptysis, SOB with Excertion, Pleuritic Pain, Sputum, Wheezing Cardiovascular: negative: Chest Pain, Palpitations, Orthopnea, Paroxysmal Noc. Dyspnea, Edema, Light Headedness, Other Gastrointestinal: negative: Nausea, Vomiting, Abdominal Pain, Diarrhea, Constipation, Melena, Hematochezia, Other Genitourinary: negative: Dysuria, Frequency, Incontinence, Hematuria, Retention , Other Musculoskeletal: negative: Neck Pain, Shoulder Pain, Arm Pain, Back Pain, Hand Pain, Leg Pain, Foot Pain, Other Skin: negative: Rash, Lesions, Surya, Bruising, Other - Medications/Allergies Allergies/Adverse Reactions: Allergies Allergy/AdvReac Type Severity Reaction Status Date / Time No Known Allergies Allergy Verified 09/02/17 12:10 Medications: Current Medications Acetaminophen (Tylenol) 650 mg PO Q4H PRN PRN Reason: Headache/Fever or Pain Hydrocodone Bitart/Acetaminophen ([place] 5/325) 1 tab PO Q4H PRN PRN Reason: Severe Pain (7-10) Last Admin: 09/13/17 09:38 Dose: 1 tab Al Hydroxide/Mg Hydroxide (Maalox) 30 ml PO Q6H PRN PRN Reason: Heartburn or Indigestion Amiodarone HCl (Cordarone) 400 mg PO BID [facility] Last Admin: 09/14/17 09:31 Dose: 400 mg Aspirin (Ecotrin) 81 mg PO DAILY [facility] Last Admin: 09/14/17 09:30 Dose: 81 mg Calcium Carbonate (Tums) 1,000 mg PO Q4H PRN PRN Reason: Heartburn or Indigestion Cefazolin Sodium (Ancef) 2 gm SLOW IVP 0200,1000,1800 [facility] Last Admin: 09/14/17 09:30 Dose: 2 gm Cyanocobalamin (Vitamin B-12) 1,000 mcg PO DAILY [facility] Last Admin: 09/14/17 09:30 Dose: 1,000 mcg Digoxin (Lanoxin) 0.125 mg PO QAM [facility] Last Admin: 09/14/17 09:31 Dose: 0.125 mg Docusate Sodium (Colace) 100 mg PO BID [facility] Last Admin: 09/14/17 09:31 Dose: 100 mg Enoxaparin Sodium (Lovenox) 100 mg SC 0900,2100 [facility] Last Admin: 09/14/17 09:30 Dose: 100 mg Folic Acid (Folvite) 1 mg PO DAILY [facility] Last Admin: 09/14/17 09:31 Dose: 1 mg Sodium Chloride (Normal Saline 0.9%) 1,000 mls @ 30 mls/hr IV .Q24H [facility] Last Admin: 09/12/17 22:36 Dose: 1,000 mls Magnesium Hydroxide (Milk Of Magnesium) 30 ml PO DAILYPRN PRN PRN Reason: Constipation Last Admin: 09/14/17 09:37 Dose: 30 ml Multivitamins (Theragran) 1 tab PO DAILY [facility] Last Admin: 09/14/17 09:31 Dose: 1 tab Nitroglycerin (Nitrostat) 0.4 mg PO Q5MIN PRN PRN Reason: Chest Pain Nystatin (Mycostatin) 500,000 units SSW QID [facility] Last Admin: 09/14/17 09:30 Dose: 500,000 units Ondansetron HCl (Zofran Odt) 4 mg PO Q6H PRN PRN Reason: Nausea/Vomiting Last Admin: 09/04/17 13:49 Dose: 4 mg Ondansetron HCl (Zofran) 4 mg IVP Q6H PRN PRN Reason: Nausea/Vomiting Last Admin: 09/03/17 05:37 Dose: 4 mg Pantoprazole Sodium (Protonix) 40 mg PO DAILY [facility] Last Admin: 09/14/17 09:31 Dose: 40 mg Senna (Senokot) 2 tab PO HSPRN PRN PRN Reason: Constipation Last Admin: 09/06/17 21:19 Dose: 2 tab Thiamine HCl (Thiamine) 100 mg PO DAILY [facility] Last Admin: 09/14/17 09:31 Dose: 100 mg
--- NOTE | 2017-09-14 14:50 | EKG ---
Test Reason : Blood Pressure : / mmHG Vent. Rate : 134 BPM Atrial Rate : 125 BPM P-R Int : 000 ms QRS Dur : 084 ms QT Int : 280 ms P-R-T Axes : 000 023 021 degrees QTc Int : 418 ms Atrial fibrillation with rapid ventricular response Nonspecific T wave abnormality Abnormal ECG No previous ECGs available Confirmed by MICAELA ROBERTS (2) on 09/14/2017 2:49:48 PM Referred By: MARY Confirmed By:MICAELA ROBERTS
--- NOTE | 2017-09-14 14:53 | EKG ---
Test Reason : POST CARDIOVERSION Blood Pressure : / mmHG Vent. Rate : 107 BPM Atrial Rate : 092 BPM P-R Int : 000 ms QRS Dur : 088 ms QT Int : 338 ms P-R-T Axes : 000 014 -05 degrees QTc Int : 451 ms Atrial fibrillation with rapid ventricular response Cannot rule out Inferior infarct , age undetermined Abnormal ECG When compared with ECG of 04-SEP-2017 17:13, (Unconfirmed) No significant change was found Confirmed by MICAELA ROBERTS (2) on 09/14/2017 2:53:03 PM Referred By: JEAN-PIERRE Confirmed By:MICAELA ROBERTS
[2017-09-14] MEDS: Sodium Chloride 0.9% 1,000 ML IV SCH (16:31)
[2017-09-15] MEDS: CEFAZOLIN/Water 2 GM/20 ML SYRINGE SLOW IVP SCH ×3 (02:39→17:30)
[2017-09-15 05:08] LABS: #Eosinphils 0.1 thou/uL (0.0-0.7); #Lymphocytes 0.9 thou/uL (1.20-3.40); #Monocytes 0.3 thou/uL (0.11-0.59); #Neutrophils 3.3 thou/uL (1.40-6.50); %Basophils 0.2 % (0.0-1.0); %Eosinophils 1.5 % (0.0-10.0); %Lymphocytes 20.1 % (21.0-51.0); %Monocytes 7.2 % (0.0-10.0); Hematocrit 22.3 % (42.0-52.0); Mean Platelet Volume 6.1 fL (7.4-10.4); Red Blood Cell (RBC) Count 2.41 mill/uL (4.70-6.10); White Blood Cell (WBC) Count 4.6 thou/uL (4.8-10.8)
[2017-09-15 05:17] LABS: ALT (SGPT) 48 U/L (8-55); AST (SGOT) 53 U/L (5-34); Alkaline Phosphatase 86 U/L (40-150); Anion Gap 10 mmol/L (10-20); BUN (Urea Nitrogen) 16 mg/dL (8.4-25.7); Bilirubin, Total 0.5 mg/dL (0.2-1.2); Calc. Creatinine Clearance 155 mL/min (70-130); Carbon Dioxide 25 mmol/L (22-29); Chloride 105 mmol/L (98-107); Estimated GFR-MDRD Greater than 90; Globulin 2.1 g/dL (2.4-3.5); Protein, Total 4.7 g/dL (6.0-8.3)
[2017-09-15] MEDS: Amiodarone 200 MG TAB PO SCH ×2 (09:53→20:52)
[2017-09-15] MEDS: Aspirin 81 mg Enteric Coated Tablet PO SCH (09:53)
[2017-09-15] MEDS: Nystatin 500,000 UNITS/5 ML UDCUP SSW SCH ×4 (09:54→20:53)
[2017-09-15] MEDS: Folic Acid 1 MG TAB PO SCH (09:54)
[2017-09-15] MEDS: Docusate 100 MG CAP PO SCH ×2 (09:54→20:52)
[2017-09-15] MEDS: Cyanocobalamin (Vitamin B-12) 1,000 MCG TAB PO SCH (09:54)
[2017-09-15] MEDS: Multivit, Therapeutic 1 TAB PO SCH (09:54)
[2017-09-15] MEDS: Digoxin 0.125 MG TAB PO SCH (09:54)
[2017-09-15] MEDS: Enoxaparin Sodium 100 MG/ML SYRINGE SC SCH ×2 (09:55→20:53)
--- NOTE | 2017-09-15 10:24 | PDOC.PN ---
- Subjective Encounter Start Date: 09/15/17 Encounter Start Time: 09:00 Patient seen and examined. No new complaints. No overnight events - Objective Resuscitation Status: Resuscitation Status FULL:Full Resuscitation MAR Reviewed: Yes Vital Signs & Weight: Vital Signs (12 hours) Temp Pulse Resp BP Pulse Ox 09/15/17 08:00 96.9 F L 94 20 118/71 93 L 09/15/17 04:00 97.8 F 83 20 120/69 94 L Weight Admit Weight 207 lb Weight 209 lb 9.6 oz I&O: 09/14/17 09/15/17 09/16/17 06:59 06:59 06:59 Intake Total 2041 2075 Balance 2041 2075 Result Diagrams: 09/15/17 04:45 09/15/17 04:45 Phys Exam - Physical Examination Constitutional: NAD HEENT: PERRLA, moist MMs, sclera anicteric Neck: no JVD, supple Respiratory: no wheezing, no rales, no rhonchi Cardiovascular: RRR, no significant murmur, no rub Gastrointestinal: soft, non-tender, no distention, positive bowel sounds Musculoskeletal: no edema, pulses present Neurological: non-focal, normal sensation Lymphatic: no nodes Psychiatric: normal affect Skin: no rash, normal turgor Dx/Plan (1) Abscess or cellulitis of flank Code(s): [id number] - Status: Acute Comment: (2) Atrial fibrillation Code(s): I48.91 - UNSPECIFIED ATRIAL FIBRILLATION Status: Acute Qualifiers: Atrial fibrillation type: paroxysmal Qualified Code(s): I48.0 - Paroxysmal atrial fibrillation Comment: (3) E. 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 - PYODERMA Status: Acute Comment: Staph on wound cx- MSSA, continue Cefazolin (5) Sepsis with acute organ dysfunction Code(s): A41.9 - SEPSIS, UNSPECIFIED ORGANISM; R65.20 - SEVERE SEPSIS WITHOUT SEPTIC SHOCK Status: Acute Comment: (6) H/O ETOH abuse Code(s): Z87.898 - PERSONAL HISTORY OF OTHER SPECIFIED CONDITIONS Status: Chronic (7) H/O lymphoma Code(s): Z85.79 - PRSNL HX OF [facility] OF LYMPHOID, HEMATPOETC & REL TISS Status: Chronic (8) Hypertension Code(s): I10 - ESSENTIAL (PRIMARY) HYPERTENSION Status: Chronic Qualifiers: Hypertension type: essential hypertension Qualified Code(s): I10 - Essential (primary) hypertension (9) Overweight (BMI 25.0-29.9) Code(s): E66.3 - OVERWEIGHT Status: Chronic (10) Protein-calorie malnutrition, mild Code(s): E44.1 - MILD PROTEIN-CALORIE MALNUTRITION Status: Chronic (11) Hyponatremia Code(s): E87.1 - HYPO-OSMOLALITY AND HYPONATREMIA Status: Resolved (12) Lactic acidosis Code(s): E87.2 - ACIDOSIS Status: Resolved (13) Thrombocytopenia Code(s): D69.6 - THROMBOCYTOPENIA, UNSPECIFIED Status: Resolved - Plan cont current plan of care, continue antibiotics, PT/OT, social service agency director * medication reviewed as below * symptomatic treatment. * possible plan for I & D today * pt is interested in SNU placement and agreed * paper work done in chart * continue ancef * wound care * social work for discharge planning * stable Review of Systems - Review of Systems Constitutional: Weakness. negative: Fever, Chills, Sweats, Malaise, Other ENT: negative: Ear Pain, Ear Discharge, Nose Pain, Nose Discharge, Nose Congestion, Mouth Pain, Mouth Swelling, Throat Pain, Throat Swelling, Other Respiratory: negative: Cough, Dry, Shortness of Breath, Hemoptysis, SOB with Excertion, Pleuritic Pain, Sputum, Wheezing Cardiovascular: negative: Chest Pain, Palpitations, Orthopnea, Paroxysmal Noc. Dyspnea, Edema, Light Headedness, Other Gastrointestinal: negative: Nausea, Vomiting, Abdominal Pain, Diarrhea, Constipation, Melena, Hematochezia, Other Genitourinary: negative: Dysuria, Frequency, Incontinence, Hematuria, Retention , Other Musculoskeletal: negative: Neck Pain, Shoulder Pain, Arm Pain, Back Pain, Hand Pain, Leg Pain, Foot Pain, Other Skin: negative: Rash, Lesions, Surya, Bruising, Other - Medications/Allergies Allergies/Adverse Reactions: Allergies Allergy/AdvReac Type Severity Reaction Status Date / Time No Known Allergies Allergy Verified 09/02/17 12:10 Medications: Current Medications Acetaminophen (Tylenol) 650 mg PO Q4H PRN PRN Reason: Headache/Fever or Pain Hydrocodone Bitart/Acetaminophen ([place] 5/325) 1 tab PO Q4H PRN PRN Reason: Severe Pain (7-10) Last Admin: 09/13/17 09:38 Dose: 1 tab Al Hydroxide/Mg Hydroxide (Maalox) 30 ml PO Q6H PRN PRN Reason: Heartburn or Indigestion Amiodarone HCl (Cordarone) 400 mg PO BID [facility] Last Admin: 09/15/17 09:53 Dose: 400 mg Aspirin (Ecotrin) 81 mg PO DAILY [facility] Last Admin: 09/15/17 09:53 Dose: 81 mg Calcium Carbonate (Tums) 1,000 mg PO Q4H PRN PRN Reason: Heartburn or Indigestion Cefazolin Sodium (Ancef) 2 gm SLOW IVP 0200,1000,1800 [facility] Last Admin: 09/15/17 09:54 Dose: 2 gm Cyanocobalamin (Vitamin B-12) 1,000 mcg PO DAILY [facility] Last Admin: 09/15/17 09:54 Dose: 1,000 mcg Digoxin (Lanoxin) 0.125 mg PO QAM [facility] Last Admin: 09/15/17 09:54 Dose: 0.125 mg Docusate Sodium (Colace) 100 mg PO BID [facility] Last Admin: 09/15/17 09:54 Dose: 100 mg Enoxaparin Sodium (Lovenox) 100 mg SC 0900,2100 [facility] Last Admin: 09/15/17 09:55 Dose: Not Given Folic Acid (Folvite) 1 mg PO DAILY [facility] Last Admin: 09/15/17 09:54 Dose: 1 mg Sodium Chloride (Normal Saline 0.9%) 1,000 mls @ 30 mls/hr IV .Q24H [facility] Last Admin: 09/14/17 16:31 Dose: 1,000 mls Magnesium Hydroxide (Milk Of Magnesium) 30 ml PO DAILYPRN PRN PRN Reason: Constipation Last Admin: 09/14/17 09:37 Dose: 30 ml Multivitamins (Theragran) 1 tab PO DAILY [facility] Last Admin: 09/15/17 09:54 Dose: 1 tab Nitroglycerin (Nitrostat) 0.4 mg PO Q5MIN PRN PRN Reason: Chest Pain Nystatin (Mycostatin) 500,000 units SSW QID [facility] Last Admin: 09/15/17 09:54 Dose: 500,000 units Ondansetron HCl (Zofran Odt) 4 mg PO Q6H PRN PRN Reason: Nausea/Vomiting Last Admin: 09/04/17 13:49 Dose: 4 mg Ondansetron HCl (Zofran) 4 mg IVP Q6H PRN PRN Reason: Nausea/Vomiting Last Admin: 09/03/17 05:37 Dose: 4 mg Pantoprazole Sodium (Protonix) 40 mg PO DAILY [facility] Last Admin: 09/15/17 09:54 Dose: 40 mg Senna (Senokot) 2 tab PO HSPRN PRN PRN Reason: Constipation Last Admin: 09/06/17 21:19 Dose: 2 tab Thiamine HCl (Thiamine) 100 mg PO DAILY [facility] Last Admin: 09/15/17 09:54 Dose: 100 mg
[2017-09-15] MEDS ORDERED: Fentanyl 250 MCG/5 ML VIAL ONE (12:33)
[2017-09-15] MEDS ORDERED: Propofol 500 MG/50 ML VIAL ONE (12:35)
[2017-09-15] MEDS ORDERED: Lidocaine 1% PF 5 ML VIAL ONE (12:51)
[2017-09-15] MEDS ORDERED: Propofol 200 MG/20 ML VIAL ONE (12:51)
[2017-09-15] MEDS ORDERED: Morphine Sulfate 2 MG/ML SYRINGE SLOW IVP PRN (13:31)
[2017-09-15] MEDS ORDERED: HYDROmorphone 2 MG/ML VIAL SLOW IVP PRN (13:31)
[2017-09-15] MEDS ORDERED: Promethazine HCl 25 MG/ML VIAL IM PRN (13:31)
[2017-09-15] MEDS ORDERED: Meperidine HCl/PF 25 MG/ML VIAL SLOW IVP PRN (13:31)
[2017-09-15] MEDS ORDERED: Ondansetron HCl/PF 4 MG/2 ML Vial IVP PRN (13:31)
[2017-09-15] MEDS ORDERED: Promethazine HCl 25 MG/ML VIAL SLOW IVP PRN (13:31)
--- NOTE | 2017-09-15 14:08 | OP ---
PREOPERATIVE DIAGNOSIS: Right groin abscess. SURGEON: Bradley Devine M.D. PROCEDURE PERFORMED: Incision and drainage. INDICATIONS: This is a 57-year-old male who is immunosuppressed from cancer, who has had a Staph inf ection of the right flank recently drained, who has developed an increasing induration and swelling o f the right groin. FINDINGS: Quite a bit of old hematoma purulent fluid sent for culture. It communicated to the other incision extended down into his inguinal canal. DESCRIPTION OF PROCEDURE: After informed consent was obtained, the patient was taken to the operatin g room and given general endotracheal anesthesia. His flank and abdomen were prepped and draped in t he usual fashion. A transverse inguinal incision was performed. The subcu divided sharply. There w as old clot. Cultures were obtained. This old clot was removed. The clot extended into the inguina l canal, which was also removed digitally. Then, the wound was thoroughly irrigated with pulse irrig ator. Hemostasis achieved with electrocautery. Then, the wound care folks came in to reinstall the wound VAC. The patient tolerated the procedure well and transferred to recovery in good condition.
[2017-09-15] MEDS: Sodium Chloride 0.9% 1,000 ML IV SCH (15:41)
--- NOTE | 2017-09-15 21:42 | PRG ---
DATE OF SERVICE: 09/15/2017 SUBJECTIVE: The patient has large cell diffuse lymphoma. He had one cycle of chemotherapy with redu ction and CHOP where subsequently he developed cellulitis with ecthyma gangrenosum and abscess. He h ad one of the abscesses drained today. The patient has aggressive lymphoma and he is overdue for the treatment. Today, he says he does not have numbness or tingling in his left lower extremity anymore . I would like to give him at least reduction before he goes home. He cannot receive a chemotherapy that is likely to cause neutropenia. So, chemotherapy will have to be on hold until infection is we ll under control. However, he can receive reduction. So, I will discuss the situation with his othe r physicians tomorrow and if possible transfer him to oncology floor where hopefully I will be able t o give him reduction on Friday. Patient already has atrial fibrillation. Reduction can cause arr hythmia, though it is an uncommon event.
[2017-09-16] MEDS: CEFAZOLIN/Water 2 GM/20 ML SYRINGE SLOW IVP SCH ×3 (02:10→17:17)
[2017-09-16] MEDS: Aspirin 81 mg Enteric Coated Tablet PO SCH (08:51)
[2017-09-16] MEDS: Folic Acid 1 MG TAB PO SCH (08:51)
[2017-09-16] MEDS: Multivit, Therapeutic 1 TAB PO SCH (08:51)
[2017-09-16] MEDS: Amiodarone 200 MG TAB PO SCH ×2 (08:51→20:33)
[2017-09-16] MEDS: Cyanocobalamin (Vitamin B-12) 1,000 MCG TAB PO SCH (08:51)
[2017-09-16] MEDS: Docusate 100 MG CAP PO SCH ×2 (08:51→20:35)
[2017-09-16] MEDS: Digoxin 0.125 MG TAB PO SCH (08:52)
[2017-09-16] MEDS: Nystatin 500,000 UNITS/5 ML UDCUP SSW SCH ×4 (08:52→20:33)
[2017-09-16] MEDS: Enoxaparin Sodium 100 MG/ML SYRINGE SC SCH ×2 (08:52→20:34)
--- NOTE | 2017-09-16 10:19 | PRG ---
DATE OF SERVICE: 09/16/2017 SUBJECTIVE: The patient was seen and examined at bedside. He has not much complaints to offer. His appetite is fair. He visited with Dr. Rust last night and he is going to be moved to oncology [facility] today to get reduction treatment by Dr. Rust. OBJECTIVE: VITAL SIGNS: Blood pressure is 126/75, pulse is 85, temperature 98.4, O2 saturation is 94%, and resp iratory rate is 17. HEENT: Eyes; PERRLA. Conjunctivae pinkish. Oral mucosa is moist. NECK: Supple. LUNGS: Clear. HEART: S1, S2 normal, no S3, no S4, no murmur. ABDOMEN: He has a small area with purulent drainage in the umbilical area and there is a VAC dressin g in the right lower abdomen in place. EXTREMITIES: No clubbing, cyanosis or edema. NEUROLOGIC: He is alert and oriented x4. There is no motor deficits. Cranial nerves are intact. LABORATORY DATA: None today. Bacterial culture of the right groin showed moderate WBCs seen, no epi thelial cells, RBCs present. No organisms seen. IMPRESSION: 1. Methicillin sensitive Staphylococcal abscess and cellulitis of flank, status post incision and dr beth. A vacuum dressing is in place, managed by Dr. Devine. 2. Atrial fibrillation, status post cardioversion and currently on amiodarone in sinus rhythm. 3. Escherichia coli urinary tract infection. 4. Ecthyma gangrenosum. 5. Sepsis with acute organ dysfunction. 6. History of alcohol abuse. 7. History of diffuse large cell lymphoma. 8. Hypertension. PLAN: Move him to Oncology Floor for a reduction therapy by Dr. Rust today. He will be set up f or tomorrow. Will continue his Ancef for now, will continue his wound care. We will contact Dr. Boyd os regarding his further recommendation for IV antibiotic therapy. We will continue his amiodarone a nd digoxin to control his heart rhythm and will continue PUD prophylaxis with Protonix.
[2017-09-16 12:25] VITALS: BMI 26.3
[2017-09-16] MEDS ORDERED: Iopamidol 370 76% 75 ML VIAL FS ONE (14:01)
[2017-09-16] MEDS: Sodium Chloride 0.9% 1,000 ML IV SCH (15:24)
--- NOTE | 2017-09-16 15:47 | SPC ---
LEFT UPPER EXTREMITY PICC LINE: HISTORY: Patient in need of long-term IV antibiotics. RADIATION DOSIMETRY: One minute of fluoroscopy and a DAP of 1.15 uGy*^cm2. TECHNIQUE: Informed consent was obtained from the patient. Through the left arm IV, the left basilic vein was l ocalized using fluoroscopy. The overlying skin was prepped and draped in the usual sterile manner. A 1% Lidocaine solution was used to anesthetize the overlying soft tissues. A small dermatotomy was made. The left basilic vein was accessed. An 0.018 wire was placed. A [place] sheath was placed o bailee the wire. A PICC line was cut to 48 cm, distal tip placed over the wire into the SVC/right atria l junction. IMPRESSION: Successful placement of a left upper extremity PICC line. POS: ENOCH
--- NOTE | 2017-09-16 16:02 | PRG ---
DATE OF SERVICE: 09/16/2017 SUBJECTIVE: Mr. Townsend is finally feeling better. No headaches, no respiratory symptoms, or abdominal pain. [id number] pain in the areas of surgical debridement. OBJECTIVE: Afebrile. Other vital signs not remarkable. The patient has previously noted skin lesion s, which are improving. The extensive area of phlegmon in the right side of the abdomen and groin wi th negative pressure dressing. Moves his all extremities. Trace edema. Cognitive function is intac t. More alert. Better spirits. LABORATORY DATA: White cell count 4.6, hemoglobin 7.7, platelets 282. Neutrophil percentage down to 71%. Sodium 136, creatinine 0.69, albumin 2.6. ASSESSMENT AND DISCUSSION: B-cell lymphoma on chemotherapy with methicillin-sensitive Staphylococcus aureus infection with multiple sites of skin involvement with abscess formation anywhere from small to large areas of phlegmon and abscess formation, status post surgical debridement. The patient to sweetie rubio on IV therapy with either cefazolin or Rocephin for another 2 weeks approximately.
[2017-09-17] MEDS: CEFAZOLIN/Water 2 GM/20 ML SYRINGE SLOW IVP SCH ×3 (02:29→17:00)
[2017-09-17 04:12] LABS: #Eosinphils 0.1 thou/uL (0.0-0.7); #Monocytes 0.3 thou/uL (0.11-0.59); #Neutrophils 2.7 thou/uL (1.40-6.50); %Basophils 0.5 % (0.0-1.0); %Eosinophils 1.5 % (0.0-10.0); %Lymphocytes 24.7 % (21.0-51.0); %Monocytes 8.2 % (0.0-10.0); Hematocrit 21.6 % (42.0-52.0); Mean Platelet Volume 6.4 fL (7.4-10.4); Red Blood Cell (RBC) Count 2.36 mill/uL (4.70-6.10); White Blood Cell (WBC) Count 4.1 thou/uL (4.8-10.8)
[2017-09-17 04:19] LABS: Calc. Creatinine Clearance 150 mL/min (70-130); Estimated GFR-MDRD Greater than 90
[2017-09-17] MEDS: Digoxin 0.125 MG TAB PO SCH (08:32)
[2017-09-17] MEDS: Nystatin 500,000 UNITS/5 ML UDCUP SSW SCH ×4 (08:32→20:39)
[2017-09-17] MEDS: HYDROcodone/Acetaminophen 5/325 mg Tablet PO PRN (08:32)
[2017-09-17] MEDS: Enoxaparin Sodium 100 MG/ML SYRINGE SC SCH ×2 (08:33→20:39)
[2017-09-17] MEDS: Folic Acid 1 MG TAB PO SCH (08:33)
[2017-09-17] MEDS: Docusate 100 MG CAP PO SCH ×2 (08:33→20:38)
[2017-09-17] MEDS: Multivit, Therapeutic 1 TAB PO SCH (08:33)
[2017-09-17] MEDS: Aspirin 81 mg Enteric Coated Tablet PO SCH (08:33)
[2017-09-17] MEDS: Cyanocobalamin (Vitamin B-12) 1,000 MCG TAB PO SCH (08:33)
[2017-09-17] MEDS ORDERED: Acetaminophen 500 MG TAB PO SCH (09:30)
[2017-09-17] MEDS ORDERED: RITUXIMAB IVPB SCH ×2 (09:30→09:45)
[2017-09-17] MEDS ORDERED: SODIUM CHLORIDE IVPB SCH ×2 (09:30→09:45)
[2017-09-17] MEDS ORDERED: diphenhydrAMINE 50 MG, Admixture Fee 1 EACH in Sodium Chloride 0.9% 50 ML IVPB SCH (09:30)
[2017-09-17] MEDS ORDERED: ADMIXTURE FEE IVPB SCH ×2 (09:30→09:45)
--- NOTE | 2017-09-17 11:44 | PDOC.PN ---
- Subjective Encounter Start Date: 09/17/17 Encounter Start Time: 07:00 Patient seen and examined. No new complaints. No overnight events - Objective Resuscitation Status: Resuscitation Status FULL:Full Resuscitation MAR Reviewed: Yes Vital Signs & Weight: Vital Signs (12 hours) Temp Pulse Resp BP Pulse Ox 09/17/17 08:32 87 09/17/17 08:00 97.9 F 87 22 H 97 09/17/17 07:45 97.9 F 87 22 H 122/70 97 09/17/17 04:00 96.1 F L 85 16 120/63 92 L Weight Admit Weight 207 lb Weight 199 lb 6.4 oz I&O: 09/16/17 09/17/17 09/18/17 06:59 06:59 06:59 Intake Total 1320 997 250 Balance 1320 997 250 Result Diagrams: 09/17/17 03:39 09/17/17 03:39 Phys Exam - Physical Examination Constitutional: NAD HEENT: PERRLA, moist MMs, sclera anicteric Neck: no JVD, supple Respiratory: no wheezing, no rales, no rhonchi Cardiovascular: RRR, no significant murmur, no rub Gastrointestinal: soft, non-tender, no distention, positive bowel sounds wound vac in place Musculoskeletal: no edema, pulses present Neurological: non-focal, normal sensation, moves all 4 limbs Psychiatric: normal affect, A&O x 3 Skin: no rash, normal turgor Dx/Plan (1) Abscess or cellulitis of flank Code(s): [id number] - Status: Acute Comment: s/p I & D (2) Atrial fibrillation Code(s): I48.91 - UNSPECIFIED ATRIAL FIBRILLATION Status: Acute Qualifiers: Atrial fibrillation type: paroxysmal Qualified Code(s): I48.0 - Paroxysmal atrial fibrillation Comment: (3) E. 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 - PYODERMA Status: Acute Comment: Staph on wound cx- MSSA, continue Cefazolin (5) Sepsis with acute organ dysfunction Code(s): A41.9 - SEPSIS, UNSPECIFIED ORGANISM; R65.20 - SEVERE SEPSIS WITHOUT SEPTIC SHOCK Status: Acute Comment: (6) H/O ETOH abuse Code(s): Z87.898 - PERSONAL HISTORY OF OTHER SPECIFIED CONDITIONS Status: Chronic (7) H/O lymphoma Code(s): Z85.79 - PRSNL HX OF [facility] NEOPLM OF LYMPHOID, HEMATPOETC & REL TISS Status: Chronic (8) Hypertension Code(s): I10 - ESSENTIAL (PRIMARY) HYPERTENSION Status: Chronic Qualifiers: Hypertension type: essential hypertension Qualified Code(s): I10 - Essential (primary) hypertension (9) Overweight (BMI 25.0-29.9) Code(s): E66.3 - OVERWEIGHT Status: Chronic (10) Protein-calorie malnutrition, mild Code(s): E44.1 - MILD PROTEIN-CALORIE MALNUTRITION Status: Chronic (11) Hyponatremia Code(s): E87.1 - HYPO-OSMOLALITY AND HYPONATREMIA Status: Resolved (12) Lactic acidosis Code(s): E87.2 - ACIDOSIS Status: Resolved (13) Thrombocytopenia Code(s): D69.6 - THROMBOCYTOPENIA, UNSPECIFIED Status: Resolved - Plan cont current plan of care, continue antibiotics, social problems specialist * today plan for reduction chemotherapy, may take 8 hours * today after chemotherapy, will monitor in hospital * pt needs 2 more week iv antibiotics * pt will need placement for that * telephonic nurse case manager is working on that * paper work done for discharge process * medication reviewed as below * symptomatic treatment. * continue cefazolin * wound care Review of Systems - Review of Systems ENT: negative: Ear Pain, Ear Discharge, Nose Pain, Nose Discharge, Nose Congestion, Mouth Pain, Mouth Swelling, Throat Pain, Throat Swelling, Other Respiratory: negative: Cough, Dry, Shortness of Breath, Hemoptysis, SOB with Excertion, Pleuritic Pain, Sputum, Wheezing Cardiovascular: negative: Chest Pain, Palpitations, Orthopnea, Paroxysmal Noc. Dyspnea, Edema, Light Headedness, Other Gastrointestinal: negative: Nausea, Vomiting, Abdominal Pain, Diarrhea, Constipation, Melena, Hematochezia, Other Genitourinary: negative: Dysuria, Frequency, Incontinence, Hematuria, Retention , Other Musculoskeletal: negative: Neck Pain, Shoulder Pain, Arm Pain, Back Pain, Hand Pain, Leg Pain, Foot Pain, Other - Medications/Allergies Allergies/Adverse Reactions: Allergies Allergy/AdvReac Type Severity Reaction Status Date / Time No Known Allergies Allergy Verified 09/02/17 12:10 Medications: Current Medications Acetaminophen (Tylenol) 650 mg PO Q4H PRN PRN Reason: Headache/Fever or Pain Acetaminophen (Tylenol) 1,000 mg PO ASDIR [facility] Stop: 09/17/17 21:00 Last Admin: 09/17/17 10:27 Dose: 1,000 mg Hydrocodone Bitart/Acetaminophen ([place] 5/325) 1 tab PO Q4H PRN PRN Reason: Severe Pain (7-10) Last Admin: 09/17/17 08:32 Dose: 1 tab Al Hydroxide/Mg Hydroxide (Maalox) 30 ml PO Q6H PRN PRN Reason: Heartburn or Indigestion Amiodarone HCl (Cordarone) 400 mg PO BID [facility] Aspirin (Ecotrin) 81 mg PO DAILY [facility] Last Admin: 09/17/17 08:33 Dose: 81 mg Calcium Carbonate (Tums) 1,000 mg PO Q4H PRN PRN Reason: Heartburn or Indigestion Cefazolin Sodium (Ancef) 2 gm SLOW IVP 0200,1000,1800 [facility] Last Admin: 09/17/17 10:26 Dose: 2 gm Cyanocobalamin (Vitamin B-12) 1,000 mcg PO DAILY [facility] Last Admin: 09/17/17 08:33 Dose: 1,000 mcg Digoxin (Lanoxin) 0.125 mg PO QAM [facility] Last Admin: 09/17/17 08:32 Dose: 0.125 mg Docusate Sodium (Colace) 100 mg PO BID [facility] Last Admin: 09/17/17 08:33 Dose: 100 mg Enoxaparin Sodium (Lovenox) 100 mg SC 0900,2100 [facility] Last Admin: 09/17/17 08:33 Dose: 100 mg Folic Acid (Folvite) 1 mg PO DAILY [facility] Last Admin: 09/17/17 08:33 Dose: 1 mg Sodium Chloride (Normal Saline 0.9%) 1,000 mls @ 30 mls/hr IV .Q24H [facility] Last Admin: 09/16/17 15:24 Dose: Not Given Diphenhydramine HCl 50 mg/Miscellaneous Medication 1 each/ Sodium Chloride 51 mls @ 153 mls/hr IVPB ONE [facility] Stop: 09/17/17 21:00 Last Admin: 09/17/17 10:26 Dose: 51 mls Rituximab 850 mg/Miscellaneous Medication 1 each/ Sodium Chloride 585 mls @ 0 mls/hr IVPB ONE MARNI PRN Reason: As Directed Stop: 09/17/17 21:00 Magnesium Hydroxide (Milk Of Magnesium) 30 ml PO DAILYPRN PRN PRN Reason: Constipation Last Admin: 09/14/17 09:37 Dose: 30 ml Multivitamins (Theragran) 1 tab PO DAILY [facility] Last Admin: 09/17/17 08:33 Dose: 1 tab Nitroglycerin (Nitrostat) 0.4 mg PO Q5MIN PRN PRN Reason: Chest Pain Nystatin (Mycostatin) 500,000 units SSW QID [facility] Last Admin: 09/17/17 08:32 Dose: 500,000 units Ondansetron HCl (Zofran Odt) 4 mg PO Q6H PRN PRN Reason: Nausea/Vomiting Last Admin: 09/04/17 13:49 Dose: 4 mg Ondansetron HCl (Zofran) 4 mg IVP Q6H PRN PRN Reason: Nausea/Vomiting Last Admin: 09/03/17 05:37 Dose: 4 mg Pantoprazole Sodium (Protonix) 40 mg PO DAILY [facility] Last Admin: 09/17/17 08:33 Dose: 40 mg Senna (Senokot) 2 tab PO HSPRN PRN PRN Reason: Constipation Last Admin: 09/06/17 21:19 Dose: 2 tab Sodium Chloride (Flush - Normal Saline) 10 ml IVF Q12HR [facility] Last Admin: 09/17/17 08:34 Dose: Not Given Sodium Chloride (Flush - Normal Saline) 10 ml IVF PRN PRN PRN Reason: Saline Flush Thiamine HCl (Thiamine) 100 mg PO DAILY [facility] Last Admin: 09/17/17 08:33 Dose: 100 mg
[2017-09-17] MEDS: Sodium Chloride 0.9% 1,000 ML IV SCH (17:11)
[2017-09-17] MEDS: Amiodarone 200 MG TAB PO SCH (20:39)
[2017-09-18] MEDS: CEFAZOLIN/Water 2 GM/20 ML SYRINGE SLOW IVP SCH ×3 (01:46→17:00)
[2017-09-18 04:27] LABS: #Eosinphils 0.2 thou/uL (0.0-0.7); #Monocytes 0.4 thou/uL (0.11-0.59); #Neutrophils 2.5 thou/uL (1.40-6.50); %Basophils 0.3 % (0.0-1.0); %Eosinophils 3.9 % (0.0-10.0); %Lymphocytes 25.6 % (21.0-51.0); %Monocytes 9.4 % (0.0-10.0); Hematocrit 21.6 % (42.0-52.0); Mean Platelet Volume 6.3 fL (7.4-10.4); Red Blood Cell (RBC) Count 2.34 mill/uL (4.70-6.10); White Blood Cell (WBC) Count 4.1 thou/uL (4.8-10.8)
[2017-09-18] MEDS: Nystatin 500,000 UNITS/5 ML UDCUP SSW SCH ×4 (08:55→21:07)
[2017-09-18] MEDS: Multivit, Therapeutic 1 TAB PO SCH (08:55)
[2017-09-18] MEDS: Cyanocobalamin (Vitamin B-12) 1,000 MCG TAB PO SCH (08:55)
[2017-09-18] MEDS: Digoxin 0.125 MG TAB PO SCH (08:55)
[2017-09-18] MEDS: Folic Acid 1 MG TAB PO SCH (08:55)
[2017-09-18] MEDS: Docusate 100 MG CAP PO SCH ×2 (08:55→20:51)
[2017-09-18] MEDS: Aspirin 81 mg Enteric Coated Tablet PO SCH (08:56)
[2017-09-18] MEDS: Amiodarone 200 MG TAB PO SCH ×2 (08:56→20:50)
[2017-09-18] MEDS: Enoxaparin Sodium 100 MG/ML SYRINGE SC SCH ×2 (08:56→20:57)
--- NOTE | 2017-09-18 10:54 | PDOC.PN ---
- Subjective Encounter Start Date: 09/18/17 Encounter Start Time: 07:10 Patient seen and examined. No new complaints. No overnight events - Objective Resuscitation Status: Resuscitation Status FULL:Full Resuscitation MAR Reviewed: Yes Vital Signs & Weight: Vital Signs (12 hours) Temp Pulse Pulse Resp BP BP BP 09/18/17 08:55 83 09/18/17 07:20 98.3 F 83 20 132/71 09/18/17 03:37 98.1 F 85 16 127/73 09/18/17 01:18 98.1 F 80 80 18 126/66 126/66 Pulse Ox 09/18/17 08:55 09/18/17 07:20 97 09/18/17 03:37 95 09/18/17 01:18 Weight Admit Weight 207 lb Weight 199 lb 6.4 oz I&O: 09/17/17 09/18/17 09/19/17 06:59 06:59 06:59 Intake Total 997 1250 Balance 997 1250 Result Diagrams: 09/18/17 04:00 09/17/17 03:39 Phys Exam - Physical Examination Constitutional: NAD HEENT: PERRLA, moist MMs, sclera anicteric Neck: no JVD, supple Respiratory: no wheezing, no rales, no rhonchi Cardiovascular: RRR, no significant murmur, no rub Gastrointestinal: soft, non-tender, no distention, positive bowel sounds wound vac in place Musculoskeletal: no edema, pulses present Neurological: non-focal, normal sensation Lymphatic: no nodes Psychiatric: normal affect, A&O x 3 Skin: no rash, normal turgor Dx/Plan (1) Abscess or cellulitis of flank Code(s): [id number] - Status: Acute Comment: s/p I & D (2) Atrial fibrillation Code(s): I48.91 - UNSPECIFIED ATRIAL FIBRILLATION Status: Acute Qualifiers: Atrial fibrillation type: paroxysmal Qualified Code(s): I48.0 - Paroxysmal atrial fibrillation Comment: (3) E. 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 - PYODERMA Status: Acute Comment: Staph on wound cx- MSSA, continue Cefazolin (5) Sepsis with acute organ dysfunction Code(s): A41.9 - SEPSIS, UNSPECIFIED ORGANISM; R65.20 - SEVERE SEPSIS WITHOUT SEPTIC SHOCK Status: Acute Comment: (6) H/O ETOH abuse Code(s): Z87.898 - PERSONAL HISTORY OF OTHER SPECIFIED CONDITIONS Status: Chronic (7) H/O lymphoma Code(s): Z85.79 - PRSNL [facility] NEOPLM OF LYMPHOID, HEMATPOETC & REL TISS Status: Chronic (8) Hypertension Code(s): I10 - ESSENTIAL (PRIMARY) HYPERTENSION Status: Chronic Qualifiers: Hypertension type: essential hypertension Qualified Code(s): I10 - Essential (primary) hypertension (9) Overweight (BMI 25.0-29.9) Code(s): E66.3 - OVERWEIGHT Status: Chronic (10) Protein-calorie malnutrition, mild Code(s): E44.1 - MILD PROTEIN-CALORIE MALNUTRITION Status: Chronic (11) Hyponatremia Code(s): E87.1 - HYPO-OSMOLALITY AND HYPONATREMIA Status: Resolved (12) Lactic acidosis Code(s): E87.2 - ACIDOSIS Status: Resolved (13) Thrombocytopenia Code(s): D69.6 - THROMBOCYTOPENIA, UNSPECIFIED Status: Resolved - Plan cont current plan of care, continue antibiotics, PT/OT, social services counselor * continue wound care * continue iv antibiotics * will need swing bed * medication reviewed as below * symptomatic treatment. Review of Systems - Review of Systems ENT: negative: Ear Pain, Ear Discharge, Nose Pain, Nose Discharge, Nose Congestion, Mouth Pain, Mouth Swelling, Throat Pain, Throat Swelling, Other Respiratory: negative: Cough, Dry, Shortness of Breath, Hemoptysis, SOB with Excertion, Pleuritic Pain, Sputum, Wheezing Cardiovascular: negative: Chest Pain, Palpitations, Orthopnea, Paroxysmal Noc. Dyspnea, Edema, Light Headedness, Other Gastrointestinal: negative: Nausea, Vomiting, Abdominal Pain, Diarrhea, Constipation, Melena, Hematochezia, Other Genitourinary: negative: Dysuria, Frequency, Incontinence, Hematuria, Retention , Other Musculoskeletal: negative: Neck Pain, Shoulder Pain, Arm Pain, Back Pain, Hand Pain, Leg Pain, Foot Pain, Other Skin: negative: Rash, Lesions, [place], Bruising, Other - Medications/Allergies Allergies/Adverse Reactions: Allergies Allergy/AdvReac Type Severity Reaction Status Date / Time No Known Allergies Allergy Verified 09/02/17 12:10 Medications: Current Medications Acetaminophen (Tylenol) 650 mg PO Q4H PRN PRN Reason: Headache/Fever or Pain Hydrocodone Bitart/Acetaminophen ([place] 5/325) 1 tab PO Q4H PRN PRN Reason: Severe Pain (7-10) Last Admin: 09/17/17 08:32 Dose: 1 tab Al Hydroxide/Mg Hydroxide (Maalox) 30 ml PO Q6H PRN PRN Reason: Heartburn or Indigestion Amiodarone HCl (Cordarone) 400 mg PO BID [facility] Last Admin: 09/18/17 08:56 Dose: 400 mg Aspirin (Ecotrin) 81 mg PO DAILY [facility] Last Admin: 09/18/17 08:56 Dose: 81 mg Calcium Carbonate (Tums) 1,000 mg PO Q4H PRN PRN Reason: Heartburn or Indigestion Cefazolin Sodium (Ancef) 2 gm SLOW IVP 0200,1000,1800 [facility] Last Admin: 09/18/17 01:46 Dose: 2 gm Cyanocobalamin (Vitamin B-12) 1,000 mcg PO DAILY [facility] Last Admin: 09/18/17 08:55 Dose: 1,000 mcg Digoxin (Lanoxin) 0.125 mg PO QAM [facility] Last Admin: 09/18/17 08:55 Dose: 0.125 mg Docusate Sodium (Colace) 100 mg PO BID [facility] Last Admin: 09/18/17 08:55 Dose: 100 mg Enoxaparin Sodium (Lovenox) 100 mg SC 0900,2100 [facility] Last Admin: 09/18/17 08:56 Dose: 100 mg Folic Acid (Folvite) 1 mg PO DAILY [facility] Last Admin: 09/18/17 08:55 Dose: 1 mg Sodium Chloride (Normal Saline 0.9%) 1,000 mls @ 30 mls/hr IV .Q24H [facility] Last Admin: 09/17/17 17:11 Dose: 1,000 mls Magnesium Hydroxide (Milk Of Magnesium) 30 ml PO DAILYPRN PRN PRN Reason: Constipation Last Admin: 09/14/17 09:37 Dose: 30 ml Multivitamins (Theragran) 1 tab PO DAILY [facility] Last Admin: 09/18/17 08:55 Dose: 1 tab Nitroglycerin (Nitrostat) 0.4 mg PO Q5MIN PRN PRN Reason: Chest Pain Nystatin (Mycostatin) 500,000 units SSW QID [facility] Last Admin: 09/18/17 08:55 Dose: 500,000 units Ondansetron HCl (Zofran Odt) 4 mg PO Q6H PRN PRN Reason: Nausea/Vomiting Last Admin: 09/04/17 13:49 Dose: 4 mg Ondansetron HCl (Zofran) 4 mg IVP Q6H PRN PRN Reason: Nausea/Vomiting Last Admin: 09/03/17 05:37 Dose: 4 mg Pantoprazole Sodium (Protonix) 40 mg PO DAILY [facility] Last Admin: 09/18/17 08:55 Dose: 40 mg Senna (Senokot) 2 tab PO HSPRN PRN PRN Reason: Constipation Last Admin: 09/06/17 21:19 Dose: 2 tab Sodium Chloride (Flush - Normal Saline) 10 ml IVF Q12HR [facility] Last Admin: 09/17/17 21:37 Dose: 10 ml Sodium Chloride (Flush - Normal Saline) 10 ml IVF PRN PRN PRN Reason: Saline Flush Thiamine HCl (Thiamine) 100 mg PO DAILY [facility] Last Admin: 09/18/17 08:55 Dose: 100 mg
[2017-09-18 20:18] LABS: Hematocrit 24.7 % (42.0-52.0)
[2017-09-18] MEDS ORDERED: Lidocaine 1% w/Epinephrine 1:200K 30 ML VIAL FS SCH (20:45)
[2017-09-18] MEDS: Sodium Chloride 0.9% 1,000 ML IV SCH (20:45)
--- NOTE | 2017-09-18 22:57 | HP ---
ROOM: 133 HISTORY OF PRESENT ILLNESS: Dale Townsend is a patient admitted by [facility] for lymphoma, on chemothe rapy with an open wound right groin. Apparently Wound Care saw him early this morning, removed the w ound VAC because of bleeding. They applied Surgicel on the wound. He continued to bleed all day. I was called late in the afternoon early evening to see the patient that he is bleeding. I arrived in the room and removed the dressings from the open wound right groin. There was oozing from the subcu taneous tissues superiorly. A 3-0 Monocryl [id number] suture was placed. In the medial corner, there was some oozing. Silver nitrate was applied. Surgicel applied. Gauze dressings applied. He mostasis gained. Plan would be to reapply the wound VAC in the morning of Friday. Continue wound ca re, call if needed.
[2017-09-19] MEDS: CEFAZOLIN/Water 2 GM/20 ML SYRINGE SLOW IVP SCH ×3 (01:40→16:33)
--- NOTE | 2017-09-19 02:25 | OP ---
DATE OF PROCEDURE: 09/18/2017 PREOPERATIVE DIAGNOSES: Open wound right groin bleeding, wound VAC has been applied, previously nilsa nieto abscess by Dr. Villarreal. POSTOPERATIVE DIAGNOSES: Open wound right groin bleeding, wound VAC has been applied, previously dra fletcher abscess by Dr. Villarreal. PROCEDURE: Suture ligation of bleeding points, right groin wound. SURGEON: Dale Zamudio M.D. ANESTHESIA: None. DESCRIPTION OF PROCEDURE: At the patient's bedside in the oncology floor, the dressings were removed . This wound has been bleeding all day long and I was called late in the afternoon, early evening. There was bleeding from a focus superiorly mid wound in the subcutaneous tissues and a [id number] suture of 3-0 Monocryl was applied. Silver nitrate was applied to the medial corner bleeding point s. Surgicel and gauze dressings applied. The patient tolerated the procedure well.
[2017-09-19 04:38] LABS: #Eosinphils 0.1 thou/uL (0.0-0.7); #Lymphocytes 1.3 thou/uL (1.20-3.40); #Monocytes 0.4 thou/uL (0.11-0.59); #Neutrophils 2.7 thou/uL (1.40-6.50); %Basophils 0.2 % (0.0-1.0); %Eosinophils 1.4 % (0.0-10.0); %Lymphocytes 28.9 % (21.0-51.0); %Monocytes 9.7 % (0.0-10.0); Hematocrit 24.7 % (42.0-52.0); Mean Platelet Volume 6.4 fL (7.4-10.4); Red Blood Cell (RBC) Count 2.68 mill/uL (4.70-6.10); White Blood Cell (WBC) Count 4.5 thou/uL (4.8-10.8)
[2017-09-19 04:56] LABS: Calc. Creatinine Clearance 145 mL/min (70-130); Estimated GFR-MDRD Greater than 90
[2017-09-19] MEDS: Aspirin 81 mg Enteric Coated Tablet PO SCH (09:00)
[2017-09-19] MEDS: Nystatin 500,000 UNITS/5 ML UDCUP SSW SCH ×4 (09:00→22:13)
[2017-09-19] MEDS: Digoxin 0.125 MG TAB PO SCH (09:01)
[2017-09-19] MEDS: Folic Acid 1 MG TAB PO SCH (09:01)
[2017-09-19] MEDS: Docusate 100 MG CAP PO SCH ×2 (09:01→22:12)
[2017-09-19] MEDS: Cyanocobalamin (Vitamin B-12) 1,000 MCG TAB PO SCH (09:01)
[2017-09-19] MEDS: Amiodarone 200 MG TAB PO SCH ×2 (09:01→22:12)
[2017-09-19] MEDS: Multivit, Therapeutic 1 TAB PO SCH (09:01)
[2017-09-19] MEDS: Apixaban 5 MG TAB PO SCH ×2 (09:37→22:14)
--- NOTE | 2017-09-19 11:39 | PDOC.PN ---
- Subjective Encounter Start Date: 09/19/17 Encounter Start Time: 06:45 last night pt had bleeding at wound vac site, required packing, this morning pt has no bleeding - Objective Resuscitation Status: Resuscitation Status FULL:Full Resuscitation MAR Reviewed: Yes Vital Signs & Weight: Vital Signs (12 hours) Temp Pulse Resp BP Pulse Ox 09/19/17 09:01 84 09/19/17 08:00 97.4 F L 84 20 94 L 09/19/17 07:15 97.4 F L 84 20 125/68 94 L 09/19/17 04:00 98.3 F 85 16 127/76 98 Weight Admit Weight 207 lb Weight 199 lb 6.4 oz I&O: 09/18/17 09/19/17 09/20/17 06:59 06:59 06:59 Intake Total 1250 1320 Output Total 275 Balance 1250 1045 Result Diagrams: 09/19/17 04:21 09/19/17 04:21 Phys Exam - Physical Examination Constitutional: NAD HEENT: PERRLA, moist MMs, sclera anicteric Neck: no JVD, supple Respiratory: no wheezing, no rales, no rhonchi Cardiovascular: RRR, no significant murmur, no rub Gastrointestinal: soft, non-tender, no distention, positive bowel sounds Musculoskeletal: no edema, pulses present wound vac in place Neurological: non-focal, normal sensation Lymphatic: no nodes Psychiatric: normal affect, A&O x 3 Skin: no rash, normal turgor Dx/Plan (1) Abscess or cellulitis of flank Code(s): [id number] - Status: Acute Comment: s/p I & D (2) Atrial fibrillation Code(s): I48.91 - UNSPECIFIED ATRIAL FIBRILLATION Status: Acute Qualifiers: Atrial fibrillation type: paroxysmal Qualified Code(s): I48.0 - Paroxysmal atrial fibrillation Comment: (3) E. 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 - PYODERMA Status: Acute Comment: Staph on wound cx- MSSA, continue Cefazolin (5) Sepsis with acute organ dysfunction Code(s): A41.9 - SEPSIS, UNSPECIFIED ORGANISM; R65.20 - SEVERE SEPSIS WITHOUT SEPTIC SHOCK Status: Acute Comment: (6) H/O ETOH abuse Code(s): Z87.898 - PERSONAL HISTORY OF OTHER SPECIFIED CONDITIONS Status: Chronic (7) H/O lymphoma Code(s): Z85.79 - PRSNL HX OF [facility] NEOPLM OF LYMPHOID, HEMATPOETC & REL TISS Status: Chronic (8) Hypertension Code(s): I10 - ESSENTIAL (PRIMARY) HYPERTENSION Status: Chronic Qualifiers: Hypertension type: essential hypertension Qualified Code(s): I10 - Essential (primary) hypertension (9) Overweight (BMI 25.0-29.9) Code(s): E66.3 - OVERWEIGHT Status: Chronic (10) Protein-calorie malnutrition, mild Code(s): E44.1 - MILD PROTEIN-CALORIE MALNUTRITION Status: Chronic (11) Hyponatremia Code(s): E87.1 - HYPO-OSMOLALITY AND HYPONATREMIA Status: Resolved (12) Lactic acidosis Code(s): E87.2 - ACIDOSIS Status: Resolved (13) Thrombocytopenia Code(s): D69.6 - THROMBOCYTOPENIA, UNSPECIFIED Status: Resolved - Plan cont current plan of care, continue antibiotics, PT/OT, manager social work * will recheck H & H at 12 noon * hold anticoagulant due to bleeding * when bleeding stop and stable H & H, will start elliquis * await placement * will monitor today * medication reviewed as below * symptomatic treatment. Review of Systems - Review of Systems Constitutional: negative: Fever, Chills, Sweats, Weakness, Malaise, Other ENT: negative: Ear Pain, Ear Discharge, Nose Pain, Nose Discharge, Nose Congestion, Mouth Pain, Mouth Swelling, Throat Pain, Throat Swelling, Other Respiratory: negative: Cough, Dry, Shortness of Breath, Hemoptysis, SOB with Excertion, Pleuritic Pain, Sputum, Wheezing Cardiovascular: negative: Chest Pain, Palpitations, Orthopnea, Paroxysmal Noc. Dyspnea, Edema, Light Headedness, Other Gastrointestinal: negative: Nausea, Vomiting, Abdominal Pain, Diarrhea, Constipation, Melena, Hematochezia, Other Genitourinary: negative: Dysuria, Frequency, Incontinence, Hematuria, Retention , Other Musculoskeletal: negative: Neck Pain, Shoulder Pain, Arm Pain, Back Pain, Hand Pain, Leg Pain, Foot Pain, Other Skin: negative: Rash, Lesions, [place], Bruising, Other - Medications/Allergies Allergies/Adverse Reactions: Allergies Allergy/AdvReac Type Severity Reaction Status Date / Time No Known Allergies Allergy Verified 09/02/17 12:10 Medications: Current Medications Acetaminophen (Tylenol) 650 mg PO Q4H PRN PRN Reason: Headache/Fever or Pain Hydrocodone Bitart/Acetaminophen ([place] 5/325) 1 tab PO Q4H PRN PRN Reason: Severe Pain (7-10) Last Admin: 09/17/17 08:32 Dose: 1 tab Al Hydroxide/Mg Hydroxide (Maalox) 30 ml PO Q6H PRN PRN Reason: Heartburn or Indigestion Amiodarone HCl (Cordarone) 400 mg PO BID [facility] Last Admin: 09/19/17 09:01 Dose: 400 mg Apixaban (Eliquis) 5 mg PO BID [facility] Last Admin: 09/19/17 09:37 Dose: Not Given Aspirin (Ecotrin) 81 mg PO DAILY [facility] Last Admin: 09/19/17 09:00 Dose: 81 mg Calcium Carbonate (Tums) 1,000 mg PO Q4H PRN PRN Reason: Heartburn or Indigestion Cefazolin Sodium (Ancef) 2 gm SLOW IVP 0200,1000,1800 [facility] Last Admin: 09/19/17 09:00 Dose: 2 gm Cyanocobalamin (Vitamin B-12) 1,000 mcg PO DAILY [facility] Last Admin: 09/19/17 09:01 Dose: 1,000 mcg Digoxin (Lanoxin) 0.125 mg PO QAM [facility] Last Admin: 09/19/17 09:01 Dose: 0.125 mg Docusate Sodium (Colace) 100 mg PO BID [facility] Last Admin: 09/19/17 09:01 Dose: 100 mg Folic Acid (Folvite) 1 mg PO DAILY [facility] Last Admin: 09/19/17 09:01 Dose: 1 mg Sodium Chloride (Normal Saline 0.9%) 1,000 mls @ 30 mls/hr IV .Q24H [facility] Last Admin: 09/18/17 20:45 Dose: 1,000 mls Magnesium Hydroxide (Milk Of Magnesium) 30 ml PO DAILYPRN PRN PRN Reason: Constipation Last Admin: 09/14/17 09:37 Dose: 30 ml Multivitamins (Theragran) 1 tab PO DAILY [facility] Last Admin: 09/19/17 09:01 Dose: 1 tab Nitroglycerin (Nitrostat) 0.4 mg PO Q5MIN PRN PRN Reason: Chest Pain Nystatin (Mycostatin) 500,000 units SSW QID [facility] Last Admin: 09/19/17 09:00 Dose: 500,000 units Ondansetron HCl (Zofran Odt) 4 mg PO Q6H PRN PRN Reason: Nausea/Vomiting Last Admin: 09/04/17 13:49 Dose: 4 mg Ondansetron HCl (Zofran) 4 mg IVP Q6H PRN PRN Reason: Nausea/Vomiting Last Admin: 09/03/17 05:37 Dose: 4 mg Pantoprazole Sodium (Protonix) 40 mg PO DAILY [facility] Last Admin: 09/19/17 09:01 Dose: 40 mg Senna (Senokot) 2 tab PO HSPRN PRN PRN Reason: Constipation Last Admin: 09/06/17 21:19 Dose: 2 tab Sodium Chloride (Flush - Normal Saline) 10 ml IVF Q12HR [facility] Last Admin: 09/18/17 20:58 Dose: Not Given Sodium Chloride (Flush - Normal Saline) 10 ml IVF PRN PRN PRN Reason: Saline Flush Thiamine HCl (Thiamine) 100 mg PO DAILY [facility] Last Admin: 09/19/17 09:01 Dose: 100 mg
[2017-09-19 12:26] LABS: Hematocrit 26.2 % (42.0-52.0)
[2017-09-19] MEDS: Sodium Chloride 0.9% 1,000 ML IV SCH (22:15)
[2017-09-20] MEDS: CEFAZOLIN/Water 2 GM/20 ML SYRINGE SLOW IVP SCH ×3 (02:19→17:40)
[2017-09-20 05:16] LABS: #Eosinphils 0.1 thou/uL (0.0-0.7); #Lymphocytes 1.4 thou/uL (1.20-3.40); #Monocytes 0.5 thou/uL (0.11-0.59); #Neutrophils 2.6 thou/uL (1.40-6.50); %Basophils 0.3 % (0.0-1.0); %Eosinophils 1.7 % (0.0-10.0); %Lymphocytes 30.6 % (21.0-51.0); Hematocrit 23.5 % (42.0-52.0); Mean Platelet Volume 6.3 fL (7.4-10.4); Red Blood Cell (RBC) Count 2.56 mill/uL (4.70-6.10); White Blood Cell (WBC) Count 4.5 thou/uL (4.8-10.8)
[2017-09-20] MEDS: Docusate 100 MG CAP PO SCH ×2 (08:50→20:37)
[2017-09-20] MEDS: Amiodarone 200 MG TAB PO SCH ×3 (08:50→20:36)
[2017-09-20] MEDS: Apixaban 5 MG TAB PO SCH ×2 (08:50→20:35)
[2017-09-20] MEDS: Multivit, Therapeutic 1 TAB PO SCH (08:50)
[2017-09-20] MEDS: Nystatin 500,000 UNITS/5 ML UDCUP SSW SCH ×4 (08:50→20:35)
[2017-09-20] MEDS: Digoxin 0.125 MG TAB PO SCH (08:50)
[2017-09-20] MEDS: Aspirin 81 mg Enteric Coated Tablet PO SCH (08:50)
[2017-09-20] MEDS: Cyanocobalamin (Vitamin B-12) 1,000 MCG TAB PO SCH (08:50)
[2017-09-20] MEDS: Folic Acid 1 MG TAB PO SCH (08:50)
[2017-09-20] MEDS: Ferrous Sulfate 325 MG TAB PO SCH ×2 (09:06→17:40)
--- NOTE | 2017-09-20 11:24 | PDOC.PN ---
- Subjective Encounter Start Date: 09/20/17 Encounter Start Time: 07:20 no further bleeding from wound, H & H stable overall, no fever, weak - Objective Resuscitation Status: Resuscitation Status FULL:Full Resuscitation MAR Reviewed: Yes Vital Signs & Weight: Vital Signs (12 hours) Temp Pulse Resp BP BP Pulse Ox 09/20/17 08:50 98.1 F 78 18 119/75 94 L 09/20/17 05:08 98.0 F 70 16 113/70 Weight Admit Weight 207 lb Weight 199 lb 6.4 oz I&O: 09/19/17 09/20/17 09/21/17 06:59 06:59 06:59 Intake Total 1320 2100 Output Total 275 500 Balance 1045 1600 Result Diagrams: 09/20/17 05:00 09/19/17 04:21 Phys Exam - Physical Examination Constitutional: NAD HEENT: PERRLA, moist MMs, sclera anicteric Neck: no JVD, supple Respiratory: no wheezing, no rales, no rhonchi Cardiovascular: RRR, no significant murmur, no rub Gastrointestinal: soft, non-tender, no distention, positive bowel sounds wound vac in place in groin Musculoskeletal: no edema, pulses present Neurological: non-focal, normal sensation, moves all 4 limbs Lymphatic: no nodes Psychiatric: normal affect Skin: no rash, normal turgor Dx/Plan (1) Abscess or cellulitis of flank Code(s): [id number] - Status: Acute Comment: s/p I & D (2) Atrial fibrillation Code(s): I48.91 - UNSPECIFIED ATRIAL FIBRILLATION Status: Acute Qualifiers: Atrial fibrillation type: paroxysmal Qualified Code(s): I48.0 - Paroxysmal atrial fibrillation Comment: (3) E. 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 - PYODERMA Status: Acute Comment: Staph on wound cx- MSSA, continue Cefazolin (5) Sepsis with acute organ dysfunction Code(s): A41.9 - SEPSIS, UNSPECIFIED ORGANISM; R65.20 - SEVERE SEPSIS WITHOUT SEPTIC SHOCK Status: Acute Comment: (6) H/O ETOH abuse Code(s): Z87.898 - PERSONAL HISTORY OF OTHER SPECIFIED CONDITIONS Status: Chronic (7) H/O lymphoma Code(s): Z85.79 - PRSNL HX OF [facility] OF LYMPHOID, HEMATPOETC & REL TISS Status: Chronic (8) Hypertension Code(s): I10 - ESSENTIAL (PRIMARY) HYPERTENSION Status: Chronic Qualifiers: Hypertension type: essential hypertension Qualified Code(s): I10 - Essential (primary) hypertension (9) Overweight (BMI 25.0-29.9) Code(s): E66.3 - OVERWEIGHT Status: Chronic (10) Protein-calorie malnutrition, mild Code(s): E44.1 - MILD PROTEIN-CALORIE MALNUTRITION Status: Chronic (11) Hyponatremia Code(s): E87.1 - HYPO-OSMOLALITY AND HYPONATREMIA Status: Resolved (12) Lactic acidosis Code(s): E87.2 - ACIDOSIS Status: Resolved (13) Thrombocytopenia Code(s): D69.6 - THROMBOCYTOPENIA, UNSPECIFIED Status: Resolved (14) Anemia due to acute blood loss Code(s): D62 - ACUTE POSTHEMORRHAGIC ANEMIA Status: Acute - Plan cont current plan of care, plan discussed w/ family, continue antibiotics, PT/OT , adoption social worker * continue cefazolin * medication reviewed as below * symptomatic treatment * wound care * H & H stable, may need to restart elliquis * await placement. * add ferrous sulfate Review of Systems - Review of Systems Constitutional: Weakness. negative: Fever, Chills, Sweats, Malaise, Other Respiratory: negative: Cough, Dry, Shortness of Breath, Hemoptysis, SOB with Excertion, Pleuritic Pain, Sputum, Wheezing Cardiovascular: negative: Chest Pain, Palpitations, Orthopnea, Paroxysmal Noc. Dyspnea, Edema, Light Headedness, Other Gastrointestinal: negative: Nausea, Vomiting, Abdominal Pain, Diarrhea, Constipation, Melena, Hematochezia, Other Genitourinary: negative: Dysuria, Frequency, Incontinence, Hematuria, Retention , Other Musculoskeletal: negative: Neck Pain, Shoulder Pain, Arm Pain, Back Pain, Hand Pain, Leg Pain, Foot Pain, Other Skin: negative: Rash, Lesions, Surya, Bruising, Other - Medications/Allergies Allergies/Adverse Reactions: Allergies Allergy/AdvReac Type Severity Reaction Status Date / Time No Known Allergies Allergy Verified 09/02/17 12:10 Medications: Current Medications Acetaminophen (Tylenol) 650 mg PO Q4H PRN PRN Reason: Headache/Fever or Pain Hydrocodone Bitart/Acetaminophen ([place] 5/325) 1 tab PO Q4H PRN PRN Reason: Severe Pain (7-10) Last Admin: 09/17/17 08:32 Dose: 1 tab Al Hydroxide/Mg Hydroxide (Maalox) 30 ml PO Q6H PRN PRN Reason: Heartburn or Indigestion Amiodarone HCl (Cordarone) 400 mg PO BID [facility] Last Admin: 09/20/17 08:50 Dose: 400 mg Apixaban (Eliquis) 5 mg PO BID [facility] Last Admin: 09/20/17 08:50 Dose: 5 mg Aspirin (Ecotrin) 81 mg PO DAILY [facility] Last Admin: 09/20/17 08:50 Dose: 81 mg Calcium Carbonate (Tums) 1,000 mg PO Q4H PRN PRN Reason: Heartburn or Indigestion Cefazolin Sodium (Ancef) 2 gm SLOW IVP 0200,1000,1800 [facility] Last Admin: 09/20/17 08:51 Dose: 2 gm Cyanocobalamin (Vitamin B-12) 1,000 mcg PO DAILY [facility] Last Admin: 09/20/17 08:50 Dose: 1,000 mcg Digoxin (Lanoxin) 0.125 mg PO QAM [facility] Last Admin: 09/20/17 08:50 Dose: 0.125 mg Docusate Sodium (Colace) 100 mg PO BID [facility] Last Admin: 09/20/17 08:50 Dose: 100 mg Ferrous Sulfate (Feosol) 325 mg PO BID-WM [facility] Last Admin: 09/20/17 09:06 Dose: 325 mg Folic Acid (Folvite) 1 mg PO DAILY [facility] Last Admin: 09/20/17 08:50 Dose: 1 mg Sodium Chloride (Normal Saline 0.9%) 1,000 mls @ 30 mls/hr IV .Q24H [facility] Last Admin: 09/19/17 22:15 Dose: 1,000 mls Magnesium Hydroxide (Milk Of Magnesium) 30 ml PO DAILYPRN PRN PRN Reason: Constipation Last Admin: 09/14/17 09:37 Dose: 30 ml Multivitamins (Theragran) 1 tab PO DAILY [facility] Last Admin: 09/20/17 08:50 Dose: 1 tab Nitroglycerin (Nitrostat) 0.4 mg PO Q5MIN PRN PRN Reason: Chest Pain Nystatin (Mycostatin) 500,000 units SSW QID [facility] Last Admin: 09/20/17 08:50 Dose: 500,000 units Ondansetron HCl (Zofran Odt) 4 mg PO Q6H PRN PRN Reason: Nausea/Vomiting Last Admin: 09/04/17 13:49 Dose: 4 mg Ondansetron HCl (Zofran) 4 mg IVP Q6H PRN PRN Reason: Nausea/Vomiting Last Admin: 09/03/17 05:37 Dose: 4 mg Pantoprazole Sodium (Protonix) 40 mg PO DAILY [facility] Last Admin: 09/20/17 08:50 Dose: 40 mg Senna (Senokot) 2 tab PO HSPRN PRN PRN Reason: Constipation Last Admin: 09/06/17 21:19 Dose: 2 tab Sodium Chloride (Flush - Normal Saline) 10 ml IVF Q12HR [facility] Last Admin: 09/20/17 09:06 Dose: 10 ml Sodium Chloride (Flush - Normal Saline) 10 ml IVF PRN PRN PRN Reason: Saline Flush Thiamine HCl (Thiamine) 100 mg PO DAILY [facility] Last Admin: 09/20/17 08:51 Dose: 100 mg
[2017-09-20] MEDS: Sodium Chloride 0.9% 1,000 ML IV SCH (20:38)
[2017-09-21] MEDS: CEFAZOLIN/Water 2 GM/20 ML SYRINGE SLOW IVP SCH ×3 (03:14→18:37)
[2017-09-21] MEDS: Sodium Chloride 0.9% 1,000 ML IV SCH (03:14)
[2017-09-21 04:38] LABS: Hematocrit 23.9 % (42.0-52.0)
[2017-09-21 05:17] LABS: Calc. Creatinine Clearance 141 mL/min (70-130); Estimated GFR-MDRD Greater than 90
[2017-09-21] MEDS: Nystatin 500,000 UNITS/5 ML UDCUP SSW SCH ×4 (08:13→20:32)
[2017-09-21] MEDS: Ferrous Sulfate 325 MG TAB PO SCH ×2 (08:13→16:33)
[2017-09-21] MEDS: Apixaban 5 MG TAB PO SCH ×2 (08:13→20:32)
[2017-09-21] MEDS: Aspirin 81 mg Enteric Coated Tablet PO SCH (08:13)
[2017-09-21] MEDS: Cyanocobalamin (Vitamin B-12) 1,000 MCG TAB PO SCH (08:14)
[2017-09-21] MEDS: Multivit, Therapeutic 1 TAB PO SCH (08:14)
[2017-09-21] MEDS: Amiodarone 200 MG TAB PO SCH ×2 (08:14→20:32)
[2017-09-21] MEDS: Docusate 100 MG CAP PO SCH ×2 (08:14→20:33)
[2017-09-21] MEDS: Digoxin 0.125 MG TAB PO SCH (08:14)
[2017-09-21] MEDS: Folic Acid 1 MG TAB PO SCH (08:14)
--- NOTE | 2017-09-21 11:48 | PDOC.PN ---
- Subjective Encounter Start Date: 09/21/17 Encounter Start Time: 07:10 Patient seen and examined. No new complaints. No overnight events - Objective Resuscitation Status: Resuscitation Status FULL:Full Resuscitation MAR Reviewed: Yes Vital Signs & Weight: Vital Signs (12 hours) Temp Pulse Resp BP BP Pulse Ox 09/21/17 08:47 98.2 F 86 20 95 09/21/17 08:14 86 09/21/17 08:00 98.2 F 86 20 120/67 95 09/21/17 04:00 98 F 84 18 120/68 96 09/21/17 00:35 124/64 09/21/17 00:00 98.5 F 89 18 96 Weight Admit Weight 207 lb Weight 199 lb 6.4 oz I&O: 09/20/17 09/21/17 09/22/17 06:59 06:59 06:59 Intake Total 2100 2440 Output Total 500 550 Balance 1600 1890 Result Diagrams: 09/21/17 04:30 09/21/17 04:30 Phys Exam - Physical Examination Constitutional: NAD HEENT: PERRLA, moist MMs, sclera anicteric Neck: no JVD, supple Respiratory: no wheezing, no rales, no rhonchi Cardiovascular: RRR, no significant murmur, no rub Gastrointestinal: soft, non-tender, no distention wound with dressing Musculoskeletal: no edema, pulses present Neurological: non-focal, normal sensation, moves all 4 limbs Psychiatric: normal affect, A&O x 3 Skin: no rash, normal turgor Dx/Plan (1) Abscess or cellulitis of flank Code(s): [id number] - Status: Acute Comment: s/p I & D (2) Atrial fibrillation Code(s): I48.91 - UNSPECIFIED ATRIAL FIBRILLATION Status: Acute Qualifiers: Atrial fibrillation type: paroxysmal Qualified Code(s): I48.0 - Paroxysmal atrial fibrillation Comment: (3) E. 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 - PYODERMA Status: Acute Comment: Staph on wound cx- MSSA, continue Cefazolin (5) Sepsis with acute organ dysfunction Code(s): A41.9 - SEPSIS, UNSPECIFIED ORGANISM; R65.20 - SEVERE SEPSIS WITHOUT SEPTIC SHOCK Status: Acute Comment: (6) H/O ETOH abuse Code(s): Z87.898 - PERSONAL HISTORY OF OTHER SPECIFIED CONDITIONS Status: Chronic (7) H/O lymphoma Code(s): Z85.79 - PRSNL HX OF [facility] OF LYMPHOID, HEMATPOETC & REL TISS Status: Chronic (8) Hypertension Code(s): I10 - ESSENTIAL (PRIMARY) HYPERTENSION Status: Chronic Qualifiers: Hypertension type: essential hypertension Qualified Code(s): I10 - Essential (primary) hypertension (9) Overweight (BMI 25.0-29.9) Code(s): E66.3 - OVERWEIGHT Status: Chronic (10) Protein-calorie malnutrition, mild Code(s): E44.1 - MILD PROTEIN-CALORIE MALNUTRITION Status: Chronic (11) Hyponatremia Code(s): E87.1 - HYPO-OSMOLALITY AND HYPONATREMIA Status: Resolved (12) Lactic acidosis Code(s): E87.2 - ACIDOSIS Status: Resolved (13) Thrombocytopenia Code(s): D69.6 - THROMBOCYTOPENIA, UNSPECIFIED Status: Resolved - Plan cont current plan of care, continue antibiotics, PT/OT, professor of social work * pt is going to finish iv antibiotics next week * but given wound and weakness, still he will benefit from placement * medication reviewed as below * symptomatic treatment * continue cefazolin * stable medically * he does not have any further bleeding, so we can start elliquis. Review of Systems - Review of Systems ENT: negative: Ear Pain, Ear Discharge, Nose Pain, Nose Discharge, Nose Congestion, Mouth Pain, Mouth Swelling, Throat Pain, Throat Swelling, Other Respiratory: negative: Cough, Dry, Shortness of Breath, Hemoptysis, SOB with Excertion, Pleuritic Pain, Sputum, Wheezing Cardiovascular: negative: Chest Pain, Palpitations, Orthopnea, Paroxysmal Noc. Dyspnea, Edema, Light Headedness, Other Gastrointestinal: negative: Nausea, Vomiting, Abdominal Pain, Diarrhea, Constipation, Melena, Hematochezia, Other Genitourinary: negative: Dysuria, Frequency, Incontinence, Hematuria, Retention , Other Musculoskeletal: negative: Neck Pain, Shoulder Pain, Arm Pain, Back Pain, Hand Pain, Leg Pain, Foot Pain, Other - Medications/Allergies Allergies/Adverse Reactions: Allergies Allergy/AdvReac Type Severity Reaction Status Date / Time No Known Allergies Allergy Verified 09/02/17 12:10 Medications: Current Medications Acetaminophen (Tylenol) 650 mg PO Q4H PRN PRN Reason: Headache/Fever or Pain Hydrocodone Bitart/Acetaminophen ([place] 5/325) 1 tab PO Q4H PRN PRN Reason: Severe Pain (7-10) Last Admin: 09/17/17 08:32 Dose: 1 tab Al Hydroxide/Mg Hydroxide (Maalox) 30 ml PO Q6H PRN PRN Reason: Heartburn or Indigestion Amiodarone HCl (Cordarone) 400 mg PO BID [facility] Last Admin: 09/21/17 08:14 Dose: 400 mg Apixaban (Eliquis) 5 mg PO BID [facility] Last Admin: 09/21/17 08:13 Dose: 5 mg Aspirin (Ecotrin) 81 mg PO DAILY [facility] Last Admin: 09/21/17 08:13 Dose: 81 mg Calcium Carbonate (Tums) 1,000 mg PO Q4H PRN PRN Reason: Heartburn or Indigestion Cefazolin Sodium (Ancef) 2 gm SLOW IVP 0200,1000,1800 [facility] Last Admin: 09/21/17 11:24 Dose: 2 gm Cyanocobalamin (Vitamin B-12) 1,000 mcg PO DAILY [facility] Last Admin: 09/21/17 08:14 Dose: 1,000 mcg Digoxin (Lanoxin) 0.125 mg PO QAM [facility] Last Admin: 09/21/17 08:14 Dose: 0.125 mg Docusate Sodium (Colace) 100 mg PO BID [facility] Last Admin: 09/21/17 08:14 Dose: 100 mg Ferrous Sulfate (Feosol) 325 mg PO BID[facility] Last Admin: 09/21/17 08:13 Dose: 325 mg Folic Acid (Folvite) 1 mg PO DAILY [facility] Last Admin: 09/21/17 08:14 Dose: 1 mg Sodium Chloride (Normal Saline 0.9%) 1,000 mls @ 30 mls/hr IV .Q24H [facility] Last Admin: 09/21/17 03:14 Dose: 1,000 mls Magnesium Hydroxide (Milk Of Magnesium) 30 ml PO DAILYPRN PRN PRN Reason: Constipation Last Admin: 09/14/17 09:37 Dose: 30 ml Multivitamins (Theragran) 1 tab PO DAILY [facility] Last Admin: 09/21/17 08:14 Dose: 1 tab Nitroglycerin (Nitrostat) 0.4 mg PO Q5MIN PRN PRN Reason: Chest Pain Nystatin (Mycostatin) 500,000 units SSW QID [facility] Last Admin: 09/21/17 08:13 Dose: 500,000 units Ondansetron HCl (Zofran Odt) 4 mg PO Q6H PRN PRN Reason: Nausea/Vomiting Last Admin: 09/04/17 13:49 Dose: 4 mg Ondansetron HCl (Zofran) 4 mg IVP Q6H PRN PRN Reason: Nausea/Vomiting Last Admin: 09/03/17 05:37 Dose: 4 mg Pantoprazole Sodium (Protonix) 40 mg PO DAILY [facility] Last Admin: 09/21/17 08:14 Dose: 40 mg Senna (Senokot) 2 tab PO HSPRN PRN PRN Reason: Constipation Last Admin: 09/06/17 21:19 Dose: 2 tab Sodium Chloride (Flush - Normal Saline) 10 ml IVF Q12HR [facility] Last Admin: 09/21/17 08:21 Dose: 10 ml Sodium Chloride (Flush - Normal Saline) 10 ml IVF PRN PRN PRN Reason: Saline Flush Thiamine HCl (Thiamine) 100 mg PO DAILY [facility] Last Admin: 09/21/17 08:14 Dose: 100 mg
[2017-09-22] MEDS: CEFAZOLIN/Water 2 GM/20 ML SYRINGE SLOW IVP SCH ×3 (02:50→17:29)
[2017-09-22] MEDS: Sodium Chloride 0.9% 1,000 ML IV SCH (02:55)
[2017-09-22] MEDS: Aspirin 81 mg Enteric Coated Tablet PO SCH (09:25)
[2017-09-22] MEDS: Apixaban 5 MG TAB PO SCH ×2 (09:25→20:51)
[2017-09-22] MEDS: Docusate 100 MG CAP PO SCH ×2 (09:25→20:51)
[2017-09-22] MEDS: Folic Acid 1 MG TAB PO SCH (09:25)
[2017-09-22] MEDS: Ferrous Sulfate 325 MG TAB PO SCH ×2 (09:25→17:23)
[2017-09-22] MEDS: Multivit, Therapeutic 1 TAB PO SCH (09:25)
[2017-09-22] MEDS: Cyanocobalamin (Vitamin B-12) 1,000 MCG TAB PO SCH (09:25)
[2017-09-22] MEDS: Nystatin 500,000 UNITS/5 ML UDCUP SSW SCH ×4 (09:26→20:50)
[2017-09-22] MEDS: Amiodarone 200 MG TAB PO SCH ×2 (09:26→20:50)
--- NOTE | 2017-09-22 09:39 | PDOC.PN ---
- Subjective Encounter Start Date: 09/22/17 Encounter Start Time: 09:35 Subjective: f/u for abscess of R flank/groin post I&D complicated with bleeding episode -: s/p 2u PRBC's total and H/H stable. Receiving wound care with wound vac. -: Receiving Cefazolin 2gm IV q8h. - Objective Resuscitation Status: Resuscitation Status FULL:Full Resuscitation MAR Reviewed: Yes Vital Signs & Weight: Vital Signs (12 hours) Temp Pulse Resp BP Pulse Ox 09/22/17 04:00 98.1 F 81 16 124/72 94 L 09/21/17 23:33 99.4 F 87 20 118/70 97 Weight Admit Weight 207 lb Weight 199 lb 6.4 oz I&O: 09/21/17 09/22/17 09/23/17 06:59 06:59 06:59 Intake Total 2440 2340 Output Total 550 700 Balance 1890 1640 Result Diagrams: 09/21/17 04:30 09/21/17 04:30 Additional Labs: Microbiology 09/15/17 13:20 Groin - Swab Bacterial Culture - Final 09/15/17 13:20 Groin - Swab Anaerobic Culture - Final Staphylococcus aureus 09/08/17 09:06 Abdomen - Abscess Bacterial Culture - Final 09/08/17 09:06 Abdomen - Abscess Anaerobic Culture - Final Staphylococcus aureus 09/02/17 15:50 Abdomen - Wound Bacterial Culture - Final Staphylococcus aureus 09/02/17 15:50 Abdomen - Tissue Bacterial Culture - Final Staphylococcus aureus 09/02/17 15:30 Urine clean catch Urine Culture - Final Escherichia coli 09/02/17 12:33 Venous blood - Left Hand Blood Culture - Preliminary NO GROWTH AT 48 HOURS 09/02/17 12:33 Venous blood - Left Arm Blood Culture - Preliminary NO GROWTH AT 48 HOURS Laboratory Tests 09/10/17 09/18/17 09/19/17 04:41 20:11 04:21 Hgb 8.3 L 8.0 L Digoxin 0.51 L 09/19/17 09/20/17 11:48 05:00 Hgb 8.7 L 7.8 L Digoxin Phys Exam - Physical Examination Constitutional: NAD HEENT: PERRLA Neck: no JVD, supple Respiratory: no wheezing, clear to auscultation bilateral Cardiovascular: RRR Gastrointestinal: soft, non-tender, no distention, positive bowel sounds Musculoskeletal: no edema, pulses present Neurological: normal sensation, moves all 4 limbs Psychiatric: A&O x 3 Deviation from normal: Large RLQ and groin wound with wound vac in place, minimal erythema, + firmness of margins particularly distal wound Dx/Plan (1) Sepsis with acute organ dysfunction Code(s): A41.9 - SEPSIS, UNSPECIFIED ORGANISM; R65.20 - SEVERE SEPSIS WITHOUT SEPTIC SHOCK Status: Acute Comment: (2) Ecthyma gangrenosum Code(s): L08.0 - PYODERMA Status: Acute Comment: Staph on wound cx- MSSA, continue Cefazolin for about 2 weeks (3) Atrial fibrillation Code(s): I48.91 - UNSPECIFIED ATRIAL FIBRILLATION Status: Acute Qualifiers: Atrial fibrillation type: paroxysmal Qualified Code(s): I48.0 - Paroxysmal atrial fibrillation Comment: SR with current rate control, continue Amiodarone and Digoxin, check Digoxin level today (4) Large B-cell lymphoma Code(s): C85.10 - UNSPECIFIED B-CELL LYMPHOMA, UNSPECIFIED SITE Status: Deleted Comment: reduction therapy per medical oncology (5) E. coli UTI Code(s): N39.0 - URINARY TRACT INFECTION, SITE NOT SPECIFIED; B96.20 - UNSP ESCHERICHIA COLI THE CAUSE OF DISEASES CLASSD ELSWHR Status: Resolved Comment: - Plan plan discussed w/ family, continue antibiotics, PT/OT, social services analyst Stable overall -: Continue local WCT with wound vac -: Continue Cefazolin 2gm IV q8h -: CM assisting with Rehab options -: AM Labs: BMP, H/H * Check Digoxin level today
[2017-09-22 10:45] LABS: Digoxin 0.32 ng/mL (0.8-2.0)
[2017-09-22] MEDS ORDERED: HYDROcodone/Acetaminophen 5/325 mg Tablet PO PRN (14:49)
[2017-09-22] MEDS: Digoxin 0.125 MG TAB PO SCH (17:23)
[2017-09-22] MEDS: Ondansetron HCl/PF 4 MG/2 ML Vial IVP PRN (18:12)
[2017-09-23] MEDS: CEFAZOLIN/Water 2 GM/20 ML SYRINGE SLOW IVP SCH ×3 (01:47→17:24)
[2017-09-23] MEDS: Sodium Chloride 0.9% 1,000 ML IV SCH (02:43)
[2017-09-23 05:05] LABS: Hematocrit 24.8 % (42.0-52.0)
[2017-09-23 05:29] LABS: Calc. Creatinine Clearance 157 mL/min (70-130); Estimated GFR-MDRD Greater than 90
[2017-09-23] MEDS: Digoxin 0.125 MG TAB PO SCH (09:09)
[2017-09-23] MEDS: Amiodarone 200 MG TAB PO SCH ×2 (09:11→21:06)
[2017-09-23] MEDS: Docusate 100 MG CAP PO SCH ×2 (09:11→21:05)
[2017-09-23] MEDS: Aspirin 81 mg Enteric Coated Tablet PO SCH (09:11)
[2017-09-23] MEDS: Folic Acid 1 MG TAB PO SCH (09:11)
[2017-09-23] MEDS: Ferrous Sulfate 325 MG TAB PO SCH ×2 (09:11→17:24)
[2017-09-23] MEDS: Apixaban 5 MG TAB PO SCH ×2 (09:11→21:06)
[2017-09-23] MEDS: Cyanocobalamin (Vitamin B-12) 1,000 MCG TAB PO SCH (09:11)
[2017-09-23] MEDS: Multivit, Therapeutic 1 TAB PO SCH (09:12)
[2017-09-23] MEDS: Nystatin 500,000 UNITS/5 ML UDCUP SSW SCH ×4 (09:12→21:06)
--- NOTE | 2017-09-23 11:28 | PDOC.PN ---
- Subjective Encounter Start Date: 09/23/17 Encounter Start Time: 11:25 Subjective: f/u for R flank abscess s/p I&D with wound vac application. Receiving -: Cefazolin 2gm IV q8h and local wound care. Plan for rehab transfer but -: pending. No new complaints. - Objective Resuscitation Status: Resuscitation Status FULL:Full Resuscitation MAR Reviewed: Yes Vital Signs & Weight: Vital Signs (12 hours) Temp Pulse Resp BP BP Pulse Ox 09/23/17 09:09 78 09/23/17 08:00 98.8 F 78 20 95 09/23/17 07:50 98 F 83 20 131/74 95 09/22/17 23:38 98.6 F 87 16 119/59 L 97 Weight Admit Weight 207 lb Weight 199 lb 6.4 oz I&O: 09/22/17 09/23/17 09/24/17 06:59 06:59 06:59 Intake Total 2340 1800 360 Output Total 700 1140 Balance 1640 660 360 Result Diagrams: 09/23/17 04:45 09/23/17 04:45 Additional Labs: Microbiology 09/15/17 13:20 Groin - Swab Bacterial Culture - Final 09/15/17 13:20 Groin - Swab Anaerobic Culture - Final Staphylococcus aureus 09/08/17 09:06 Abdomen - Abscess Bacterial Culture - Final 09/08/17 09:06 Abdomen - Abscess Anaerobic Culture - Final Staphylococcus aureus 09/02/17 15:50 Abdomen - Wound Bacterial Culture - Final Staphylococcus aureus 09/02/17 15:50 Abdomen - Tissue Bacterial Culture - Final Staphylococcus aureus 09/02/17 15:30 Urine clean catch Urine Culture - Final Escherichia coli 09/02/17 12:33 Venous blood - Left Hand Blood Culture - Preliminary NO GROWTH AT 48 HOURS 09/02/17 12:33 Venous blood - Left Arm Blood Culture - Preliminary NO GROWTH AT 48 HOURS Laboratory Tests 09/10/17 09/18/17 09/19/17 04:41 20:11 04:21 Hgb 8.3 L 8.0 L Digoxin 0.51 L 09/19/17 09/20/17 09/22/17 11:48 05:00 09:46 Hgb 8.7 L 7.8 L Digoxin 0.32 L Phys Exam - Physical Examination Constitutional: NAD HEENT: PERRLA, oral pharynx no lesions Neck: no JVD, supple Respiratory: no wheezing, clear to auscultation bilateral Cardiovascular: RRR Gastrointestinal: soft, non-tender, no distention, positive bowel sounds Musculoskeletal: no edema, pulses present Neurological: normal sensation, moves all 4 limbs Psychiatric: A&O x 3 Deviation from normal: large wound vac of RLQ and groin region, + firmness of margins Skin: cap refill <2 seconds Dx/Plan (1) Sepsis with acute organ dysfunction Code(s): A41.9 - SEPSIS, UNSPECIFIED ORGANISM; R65.20 - SEVERE SEPSIS WITHOUT SEPTIC SHOCK Status: Resolved Comment: (2) Ecthyma gangrenosum Code(s): L08.0 - PYODERMA Status: Acute Comment: Staph on wound cx- MSSA, continue Cefazolin for 2 weeks (3) Atrial fibrillation Code(s): I48.91 - UNSPECIFIED ATRIAL FIBRILLATION Status: Acute Qualifiers: Atrial fibrillation type: paroxysmal Qualified Code(s): I48.0 - Paroxysmal atrial fibrillation Comment: SR with current rate control, continue Amiodarone and Digoxin (4) Large B-cell lymphoma Code(s): C85.10 - UNSPECIFIED B-CELL LYMPHOMA, UNSPECIFIED SITE Status: Deleted Comment: reduction therapy per medical oncology (5) E. coli UTI Code(s): N39.0 - URINARY TRACT INFECTION, SITE NOT SPECIFIED; B96.20 - UNSP ESCHERICHIA COLI THE CAUSE OF DISEASES CLASSD ELSWHR Status: Resolved Comment: (6) Physical deconditioning Code(s): R53.81 - OTHER MALAISE Status: Chronic Comment: Plan for rehab with PT/OT pending approval - Plan continue antibiotics, PT/OT, social work nurse, out of bed/ambulate, DVT proph w/ SCDs Stable overall -: Continue Cefazolin 2gm IV q8h -: Local wound care with wound vac changes 3x's/wk -: PT for mobilization -: CM assisting with rehab options * Saline Lock IVF * AM lab: H/H
[2017-09-24] MEDS: CEFAZOLIN/Water 2 GM/20 ML SYRINGE SLOW IVP SCH ×3 (01:25→18:03)
[2017-09-24] MEDS: Digoxin 0.125 MG TAB PO SCH (08:20)
[2017-09-24] MEDS: Folic Acid 1 MG TAB PO SCH (08:20)
[2017-09-24] MEDS: Ferrous Sulfate 325 MG TAB PO SCH ×2 (08:21→17:55)
[2017-09-24] MEDS: Apixaban 5 MG TAB PO SCH (08:21)
[2017-09-24] MEDS: Cyanocobalamin (Vitamin B-12) 1,000 MCG TAB PO SCH (08:21)
[2017-09-24] MEDS: Docusate 100 MG CAP PO SCH (08:21)
[2017-09-24] MEDS: Amiodarone 200 MG TAB PO SCH (08:21)
[2017-09-24] MEDS: Multivit, Therapeutic 1 TAB PO SCH (08:21)
[2017-09-24] MEDS: Aspirin 81 mg Enteric Coated Tablet PO SCH (08:21)
[2017-09-24] MEDS: Nystatin 500,000 UNITS/5 ML UDCUP SSW SCH ×3 (08:22→17:55)
--- NOTE | 2017-09-24 11:45 | PRG ---
DATE OF SERVICE: 09/23/2017 SUBJECTIVE: Feeling much better. No headaches, no respiratory symptoms. The inflammatory skin proc esses are markedly improved. Afebrile. Other vital signs are normal. Marked improvement in inflamm atory changes particularly in the lateral aspect of his abdominal and groin region. Still with negat amrita pressure dressing in place. OBJECTIVE: LUNGS: Clear. HEART: S1, S2. Regular rate. ABDOMEN: Soft. LABORATORY DATA: White cell count 4.5, hemoglobin 7.8, platelets 265. No new microbiology findings. ASSESSMENT AND DISCUSSION: B cell lymphoma on chemotherapy with methicillin-sensitive Staph aureus i nfection and multiple sites of the skin involvement with ecthyma gangrinosum as well as abscess forma tion, status post extensive surgical intervention on the right side as well as antimicrobial therapy. Patient will be completing treatment shortly and at this point, I would advise transition to oral K eflex 500 mg 3 times daily for another week to 10 days.
[2017-09-24 17:08] VITALS: BP 136/61; TEMP 98.3
--- NOTE | 2017-09-25 01:11 | DIS ---
DATE OF ADMISSION: 09/02/2017 DATE OF DISCHARGE: 09/24/2017 DISCHARGE DIAGNOSES: 1. Sepsis with acute organ dysfunction, resolved. 2. Right abdominal wall abscess with methicillin-sensitive Staphylococcus aureus, status post incisi on and drainage x3. 3. 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 4. Paroxysmal atrial fibrillation, status post direct current cardioversion with current anticoagula tion with Eliquis. 5. Large B cell lymphoma with CHOP therapy. 6. Urinary tract infection with Escherichia coli, multidrug resistant organism. 7. Physical deconditioning. CONSULTATIONS: Dr. Lopez, Dr. Villarreal, and Dr. Zamudio with General Surgery Service. Dr. Arie tobias with Infectious Disease Service. Dr. Rust with Medical Oncology Service. Dr. Antonio and Dr Valery Chisholm with Cardiology Service. PERTINENT LABORATORY AND X-RAY FINDINGS: Sodium ranged between 126-136, hemoglobin A1c 5.5, lactic a hoang level ranged between 1.4-3.2. Magnesium level 2.0. Phosphorus ranged between 2.6-3.3. TSH 0.82 . CBC showed a white blood cell count ranging between 4.1-27.6, hemoglobin ranged between 7.2-15.5. Blood cultures x2 from 09/02/2017 showed no growth at 5 days. Urine culture dated 09/02/2017 showed 10,000-25,000 colonies of E. coli multidrug resistant. Abdominal wall tissue culture showed methici llin-sensitive Staphylococcus aureus. HOSPITAL COURSE: The patient was initially admitted in the context of known large B cell lymphoma wi th current R-CHOP chemotherapy with Neulasta presenting with several lesions on the abdominal wall pr ogressive after receiving high dose steroid therapy. The patient underwent extensive evaluation incl uding punch biopsies of the lesions showing abscess changes with cellulitis. The patient underwent l ocal incision and drainage of the lesions with progression of the lesions along the right flank and a bdominal wall area extending into the groin. The patient needed 3 incision and drainage procedures t hroughout his hospital course secondarily to progression of the phlegmon and infectious process. The patient received broad spectrum IV antibiotic therapy throughout the hospital course and was evaluat ed by the Infectious Disease Service with guidance on antibiotic therapy. The patient was transition ed to Ancef 2 grams IV q.8 hours with recommendations to continue until 09/26/2017, transitioning to Keflex 500 mg t.i.d. for 7-10 days after discharge. The patient's hospital course was complicated du e to paroxysmal atrial fibrillation requiring Cardiology intervention including a direct current card ioversion procedure and placed on antiarrhythmic therapy and anticoagulation with Eliquis. The patie nt received local wound care after multiple incision and drainage procedures as outlined previously a s well as wound VAC therapy and wound care. Due to patient's overall clinical presentation, decondit ioning, and complexity of wound care, the patient was deemed an appropriate candidate for inpatient r ehabilitation. The patient was approved for transfer to [facility] facilit y on 09/24/2017. DISCHARGE MEDICATIONS: 1. Ancef 2 grams IV q.8 hours until 09/26/2017. 2. Keflex 500 mg 1 tablet p.o. t.i.d. x10 days to begin on 09/26/2017. 3. Amiodarone 400 mg p.o. b.i.d. 4. Eliquis 5 mg p.o. b.i.d. 5. Enteric coated aspirin 81 mg 1 tablet p.o. daily. 6. Vitamin B12 of 1000 mcg p.o. daily. 7. Digoxin 0.125 mg p.o. daily. 8. Ferrous sulfate 325 mg p.o. b.i.d. 9. Folic acid 1 mg p.o. daily. 10. Green 5/325 mg 1 tablet p.o. q.4-6 hours p.r.n. pain. 11. Multivitamin 1 tablet p.o. daily. 12. Protonix 40 mg 1 tablet p.o. daily. 13. Thiamine 100 mg p.o. daily. FOLLOWUP: The patient will follow up with his primary care provider, Dr. Dorman after discharge from [facility]. The patient will [facility] weeks after discharge. CONDITION ON DISCHARGE: Fair. ACTIVITY: Ad donna. Rolling walker with ambulation. DIET: Diet is regular. SUPPLEMENTATION: Rafa b.i.d., Ensure t.i.d. SPECIAL INSTRUCTIONS: Wound vacuum changes 3 times per week. CODE STATUS: FULL. DISPOSITION: Discharged to [facility] on 09/24/2017. Total time preparing and coordinating discharge is 35 minutes.
== END 2017-09-24 18:48 | DRG 854 ==
LOC: ONC 11:12 → 2NO 09-04 18:25 → ONC 09-16 23:26 → 3SW 09-20 08:15 → ONC 09-20 16:45
PROVIDERS: ADMIT Internal Medicine Medical Oncology; ATTEND Internal Medicine
PROC: 0HB7XZX Excision of Abdomen Skin, External Approach, Diagnostic (ICD-10-PCS; principal; 2017-09-02)
PROC: B24BZZ4 Ultrasonography of Heart with Aorta, Transesophageal (ICD-10-PCS; 2017-09-05)
PROC: 5A2204Z Restoration of Cardiac Rhythm, Single (ICD-10-PCS; 2017-09-05)
PROC: 0W9F0ZZ Drainage of Abdominal Wall, Open Approach (ICD-10-PCS; 2017-09-08)
PROC: 0Y950ZZ Drainage of Right Inguinal Region, Open Approach (ICD-10-PCS; 2017-09-15)
PROC: 02HV33Z Insertion of Infusion Device into Superior Vena Cava, Percutaneous Approach (ICD-10-PCS; 2017-09-16)
PROC: 30233N1 Transfusion of Nonautologous Red Blood Cells into Peripheral Vein, Percutaneous Approach (ICD-10-PCS; 2017-09-17)
PROC: 07L Lymphatic and Hemic Systems, Occlusion (ICD-10-PCS; 2017-09-18)
DX: A41.9 Sepsis, unspecified organism (principal); E87.2 Acidosis; C83.38 Diffuse large B-cell lymphoma, lymph nodes of multiple sites; B37.0 Candidal stomatitis; E44.1 Mild protein-calorie malnutrition; N39.0 Urinary tract infection, site not specified; E87.1 Hypo-osmolality and hyponatremia; D62 Acute posthemorrhagic anemia; L03.311 Cellulitis of abdominal wall; L02.211 Cutaneous abscess of abdominal wall; L02.214 Cutaneous abscess of groin; L76.22 Postprocedural hemorrhage of skin and subcutaneous tissue following other procedure; B96.20 Unspecified Escherichia coli [E. coli] as the cause of diseases classified elsewhere; D69.59 Other secondary thrombocytopenia; R65.20 Severe sepsis without septic shock; I10 Essential (primary) hypertension; Z68.26 Body mass index [BMI] 26.0-26.9, adult; R73.9 Hyperglycemia, unspecified; T45.1X5A Adverse effect of antineoplastic and immunosuppressive drugs, initial encounter; N50.89 Other specified disorders of the male genital organs; I48.0 Paroxysmal atrial fibrillation; F10.10 Alcohol abuse, uncomplicated; L08.0 Pyoderma; B95.61 Methicillin susceptible Staphylococcus aureus infection as the cause of diseases classified elsewhere; R53.81 Other malaise; E66.3 Overweight; Y83.8 Other surgical procedures as the cause of abnormal reaction of the patient, or of later complication, without mention of misadventure at the time of the procedure
CPT/HCPCS: 36415; 36430; 36569; 72193; 74160; 76705; 76870; 80048; 80053; 80162; 80202; 81001; 82248; 82533; 82565; 83036; 83605; 83615; 83735; 83930; 83935; 84100; 84300; 84443; 84484; 84550; 85007; 85014; 85018; 85025; 85027; 85049; 85379; 85610; 85652; 85730; 86140; 86850; 86900; 86901; 87040; 87070; 87077; 87086; 87186; 87205; 88305; 88312; 92960; 93005; 93010; 93306; 93312; 93976; 94760; A4216; C1751; G8978-GP-CI; G8978-GP-CJ; G8978-GP-CL; G8979-GP-CI; G8979-GP-CJ; G8980-GP-CI; G8987-GO-CI; G8987-GO-CJ; G8988-GO-CH; G8988-GO-CI; G8989-GO-CI; G8996-GN-CI; G8997-GN-CI; J0133; J0282; J0692; J1160; J1200; J1642; J1650; J2001; J2405; J2704; J3010; J3370; J3465; J7050; J7070; J9310; P9016; Q0162

== ENCOUNTER 2017-10-14 05:33 | Day surgery (SDC) | payer BC ==
[2017-10-13 12:04] VITALS: BMI 26.4
[2017-10-14] MEDS ORDERED: Fentanyl 100 MCG/2 ML VIAL ONE ×2 (06:21)
[2017-10-14] MEDS ORDERED: CEFAZOLIN/Water 2 GM/20 ML SYRINGE ONE (06:22)
[2017-10-14] MEDS ORDERED: Bupivacaine/Epinephrine 0.25% 30 ML VIAL ONE (06:32)
[2017-10-14] MEDS ORDERED: Lidocaine 2% PF 5 ML VIAL ONE (06:32)
[2017-10-14] MEDS ORDERED: Midazolam HCl 2 mg/2 ml Vial ONE (07:09)
--- NOTE | 2017-10-14 09:37 | RAD ---
CHEST 1 VIEW: Date: 10/14/17 HISTORY: MediPort placement. COMPARISON: None. FINDINGS: There is port catheter placement with tip at the superior SVC without complication. There is linear o pacity in the left upper lobe, although may be pleural in nature. Heart size is normal. IMPRESSION: Uncomplicated placement of a port catheter. POS: [facility]
[2017-10-14] MEDS ORDERED: PROPOFOL 200 MG/20 ML VIAL ONE (11:07)
[2017-10-14] MEDS ORDERED: Lidocaine 1% PF 5 ML VIAL ONE (11:07)
--- NOTE | 2017-10-14 16:37 | EKG ---
Test Reason : PREOP Blood Pressure : / mmHG Vent. Rate : 076 BPM Atrial Rate : 076 BPM P-R Int : 198 ms QRS Dur : 088 ms QT Int : 384 ms P-R-T Axes : 018 020 015 degrees QTc Int : 432 ms Normal sinus rhythm Nonspecific ST and T wave abnormality Abnormal ECG Confirmed by LYDIA GARCIA ([id number]) on 10/14/2017 4:37:12 PM Referred By: ERICKA Confirmed By:LYDIA GARCIA
--- NOTE | 2017-10-15 10:19 | OP ---
DATE OF SURGERY: 10/14/2017 PREOPERATIVE DIAGNOSIS: Lymphoma. POSTOPERATIVE DIAGNOSIS: Lymphoma. PROCEDURE PERFORMED: Tunneled central line with subcutaneous port (MediPort), CT injectable. SURGEON: Pancho Lopez M.D. ANESTHESIA: General. ESTIMATED BLOOD LOSS: Minimal. COMPLICATIONS: None. SPECIMEN: None. FINDINGS: Tip of the catheter was at the atriocaval junction. PROCEDURE IN DETAIL: The patient was taken to the operating room and placed supine on the table. Af ter sedation was obtained, his bilateral neck and chest was shaved, and draped in a sterile fashion. Local anesthetic infiltrated over the right internal jugular vein. Internal jugular vein was cannul ated using a 22-gauge finder needle followed by a Seldinger needle. Wire was passed under no tension into the superior vena cava under fluoroscopic guidance. A small snehal was made at the wire entrance site. A separate 3-cm incision was made in the right upper chest below the clavicle. Subcutaneous pocket made below the lower incision. Tubing for the MediPort tunneled from the inferior to the supe rior incision. Introducer sheath was placed over the wire into the superior vena cava under fluorosc opic guidance. The dilator and wire were removed. The end of the catheter was threaded into the she ath as the sheath was peeled away. The tip of the catheter was at the atrial caval junction. MediPo rt tubing was cut to fit the MediPort at the lower incision and connected to the MediPort. The MediP ort sewn to the chest wall in the subcutaneous pocket using Prolene. MediPort flushes and draws bloo d without difficulty. It is flushed with a heparin flush. All incisions were irrigated and closed u sing 3-0 Monocryl, 4-0 Monocryl, and Dermabond. The patient was en route to recovery in stable condi tion. All instrument counts, needle counts, and lap counts were correct.
== END 2017-10-14 09:03 | disposition home or self-care (01) ==
LOC: SDC 05:33
PROVIDERS: ATTEND Surgery
PROC: 02HV33Z Insertion of Infusion Device into Superior Vena Cava, Percutaneous Approach (ICD-10-PCS; principal; 2017-10-14)
DX: C85.90 Non-Hodgkin lymphoma, unspecified, unspecified site (principal); L02.91 Cutaneous abscess, unspecified; R03.0 Elevated blood-pressure reading, without diagnosis of hypertension; Z98.890 Other specified postprocedural states
CPT/HCPCS: 71010; 93005; 93010; C1788; J1642; J2001; J2250; J2704; J3010

== ENCOUNTER 2017-10-26 15:55 | Inpatient (IN) | payer BC ==
[2017-10-26] MEDS ORDERED: Piperacillin/Tazobactam 3.375 GM in Sodium Chloride 0.9% 100 ML IVPB SCH ×2 (18:00→23:59)
[2017-10-26] MEDS ORDERED: Acetaminophen 500 MG TAB ONE (18:01)
[2017-10-26 18:28] LABS: Bilirubin Negative (Negative); Blood, Urine Moderate (Negative); Clarity TURBID (Clear); Glucose, Urine (Dipstick) Negative (Negative); Leukocyte Large (Negative); Nitrite Positive (Negative); Protein, Urine (Dipstick) 100 mg/dL (Neg-Trace); Specific Gravity, Urine 1.014 (1.002-1.036)
[2017-10-26 18:29] LABS: Mean Corpuscular Hemoglobin 28.6 pg (27.0-31.0); Mean Corpuscular Volume 86.7 fl (80.0-94.0); Mean Platelet Volume 7.5 fL (7.4-10.4); Platelet Count 157 thou/uL (130-400); RBC Distribution Width 15.2 % (11.5-14.5); White Blood Cell (WBC) Count 6.4 thou/uL (4.8-10.8)
[2017-10-26 18:31] LABS: ALT (SGPT) 11 U/L (8-55); AST (SGOT) 12 U/L (5-34); Albumin 3.4 g/dL (3.5-5.0); Alkaline Phosphatase 70 U/L (40-150); Anion Gap 13 mmol/L (10-20); BUN (Urea Nitrogen) 10 mg/dL (8.4-25.7); Bilirubin, Total 0.6 mg/dL (0.2-1.2); Calc. Creatinine Clearance 0 mL/min (70-130); Calcium 8.9 mg/dL (7.8-10.44); Carbon Dioxide 24 mmol/L (22-29); Chloride 101 mmol/L (98-107); Estimated GFR-MDRD 80; Globulin 2.3 g/dL (2.4-3.5); Glucose 118 mg/dL (70-105); Potassium 3.4 mmol/L (3.5-5.1); Protein, Total 5.7 g/dL (6.0-8.3); Sodium 135 mmol/L (136-145)
[2017-10-26 18:31] LABS: Bacteria/HPF 4+ HPF (None Seen); Hyaline Casts/LPF 0-3 HYALINE CAST LPF (0-3 Hyaline); Pathc Cast-AUWi Flag 0.54 (0-2.49); RBC/HPF 21-50 HPF (0-3); Squamous Epithelial None Seen HPF (0-3)
[2017-10-26 18:34] LABS: Anisocytosis SLIGHT = 6-15 cells (100X) (0-5/hpf); Band 34 % (5-11); Lymphocytes 5 % (21-51); MDiff Complete? YES; Metamyelocyte 3 % (0-0); Monocytes 6 % (0-10); Myelocyte 2 % (0-0); Neutrophil 47 % (42-75); Ovalocytes SLIGHT = 2-5 cells (100X) (0-1/hpf); PLT Morphology Comment Appears Adequate; Polychromasia SLIGHT = 2-3 cells (100X) (0-2/hpf); Reactive Lymphocytes 2 % (0-10); Reflex for Review?? NO; Toxic Granulation MODERATE; Vacuoles SLIGHT
--- NOTE | 2017-10-26 18:34 | RAD ---
TWO AP VIEWS OF THE CHEST: INDICATIONS: Fever with history of cancer. COMPARISON: Prior exam dated 10/14/2017. FINDINGS: Cardiomegaly and right chest wall port is stable. Vascular calcifications of the aortic arch are sim ilar. No confluent air space opacity or pleural effusion is evident. The osseous structures appear similar to the recent comparison. There is a linear density overlying the midline, at the base, whic h may be external to the patient, related to clothing artifact. IMPRESSION: No acute cardiopulmonary abnormality. POS: [facility]
[2017-10-26 20:36] VITALS: BMI 26.1
[2017-10-27] MEDS ORDERED: Ondansetron ODT 4 MG TAB PO PRN (00:44)
[2017-10-27] MEDS ORDERED: HYDROcodone/Acetaminophen 5/325 mg Tablet PO PRN (00:44)
[2017-10-27] MEDS ORDERED: Acetaminophen 325 MG TAB PO PRN (00:44)
[2017-10-27] MEDS ORDERED: HYDROcodone/Acetaminophen 10/325 mg Tablet PO PRN (00:44)
[2017-10-27] MEDS ORDERED: Vancomycin HCl 1 GM in Premix Bag 1 BAG IVPB SCH (06:00)
[2017-10-27 06:14] LABS: Anion Gap 11 mmol/L (10-20); BUN (Urea Nitrogen) 8 mg/dL (8.4-25.7); Calc. Creatinine Clearance 117 mL/min (70-130); Calcium 8.5 mg/dL (7.8-10.44); Carbon Dioxide 26 mmol/L (22-29); Chloride 104 mmol/L (98-107); Estimated GFR-MDRD Greater than 90; Glucose 123 mg/dL (70-105); Potassium 3.3 mmol/L (3.5-5.1); Sodium 138 mmol/L (136-145)
[2017-10-27 06:31] LABS: Band 49 % (5-11); Hemoglobin 8.7 g/dL (14.0-18.0); Lymphocytes 14 % (21-51); MDiff Complete? YES; Mean Corpuscular HGB CONC 33.4 g/dL (32.0-36.0); Mean Corpuscular Hemoglobin 28.9 pg (27.0-31.0); Mean Corpuscular Volume 86.5 fl (80.0-94.0); Mean Platelet Volume 7.6 fL (7.4-10.4); Metamyelocyte 3 % (0-0); Monocytes 3 % (0-10); Neutrophil 29 % (42-75); PLT Morphology Comment Appears Adequate; Platelet Count 146 thou/uL (130-400); RBC Distribution Width 15.1 % (11.5-14.5); Red Blood Cell (RBC) Count 3.01 mill/uL (4.70-6.10); White Blood Cell (WBC) Count 5.2 thou/uL (4.8-10.8)
--- NOTE | 2017-10-27 07:28 | HP ---
DATE OF ADMISSION: 10/26/2017 TIME OF SERVICE: 2245 hours. CHIEF COMPLAINT: Fever. HISTORY OF PRESENT ILLNESS: Mr. Townsend is a pleasant 57-year-old gentleman diagnosed with large B cell lymphoma as starting chemotherapy back in July. With his first round, he received Rituxan, Cytoxan, vincristine, prednisone, Neulasta. He did well. Did not become neutropenic to his knowledge, but he has had intermittent fevers. He saw Dr. Rust in follow up recently and was told if he had any fevers of 101 or higher to come for further evaluation. The has been taking his temperature pretty regularly. He has gotten up in the 102 to 102.9 range. The fevers are very short limited and the patient is completely asymptomatic with it and he does not even know he is having them. After 102.9, they decided to come to the emergency department for evaluation. On arrival, he was afebrile. He has had no nausea, vomiting, or diarrhea, some loose stools, but no diarrhea. No chest pain or shortness of breath, no cough or sputum production. Denies any hematuria or dysuria. When talking about prostate symptoms, he states that he does have urinary urgency and nocturnal urinary frequency. He denies any difficulty starting a stream. In the emergency department, he was found to have a white blood cell count of 6400 with 81% granulocytes, 5% lymphocytes. He was admitted for neutropenic fever, though he is not neutropenic and is not currently having more fever. Remainder of his workup did show signs of urinary tract infection. He received vancomycin and Zosyn in the ER. Currently, he is feeling much better. PAST MEDICAL HISTORY: 1. Large B cell lymphoma, managed by Dr. Rust. 2. Atrial fibrillation, paroxysmal. PAST SURGICAL HISTORY: None. HOME MEDICATIONS: 1. Amiodarone 400 mg p.o. b.i.d. 2. Eliquis 5 mg p.o. b.i.d. 3. Digoxin 0.125 mg daily. 4. Iron sulfate 325 mg b.i.d. 5. Aspirin 81 mg daily. 6. Vitamin B12 of 1000 mcg daily. 7. Folate 1 mg p.o. daily. 8. Thiamine 100 mg daily. ALLERGIES: NKDA. FAMILY HISTORY: Negative for clotting or bleeding disorder. No immune dysfunction, no blood tumors. SOCIAL HISTORY: Negative for habits x3. He is . His accompanies him. Her name is April Townsend phone number is [phone] and she is a surrogate decision maker. We did discuss advance directives. He does wish to be a FULL CODE. REVIEW OF SYSTEMS: A 10-point review of systems was performed, negative for all other systems except stated as per HPI. DATABASE: We did go through his past history recently with cultures. He had a urine culture with E. coli that was resistant to beta-lactam and levofloxacin back in 09/02. He had an abdomen tissue with MSSA, a second abdomen abscess 6 days later with MSSA, and the third one 7 more days later on 09/15 that was MSSA as well. He has not had any MRSA. Flu swab screen tonight was negative. PHYSICAL EXAMINATION: VITAL SIGNS: Temperature 98.1, pulse 74, blood pressure 126/68, respiratory rate 18, satting 99% on room air. GENERAL: He is awake. He is alert. He is oriented x3, well-developed, well- nourished, white male who appears to be in zero distress. HEENT: Normocephalic, atraumatic. Pupils are equal, reactive to light bilaterally, mucous membranes are moist. He had no visible lesion, no thrush, no ulcers. NECK: Supple, without lymphadenopathy, JVD, or thyromegaly. There is no carotid upstrokes without bruits. LUNGS: Clear bilaterally. No wheezes, no rales, no rhonchi. Good air movements with symmetrical chest excursion. CARDIOVASCULAR: Normal S1, S2, no S3, S4. He is regular and normal cardiac. I do not appreciate murmurs. ABDOMEN: Soft, is nontender, nondistended. He has a right groin wound and a right hip nonhealing surgical wound from an abscess I&D back in August. There is still healing. Please see the nurse's documentation. EXTREMITIES: Show no cyanosis, no clubbing, no edema. He has got 2+ peripheral pulses in dorsalis pedis, posterior tibial, and radial arteries bilaterally. SKIN: Warm, moist, and well perfused without any other rashes or lesions. He has no new abscesses. NEUROLOGIC: Cranial nerves II-XII are grossly intact without any focal neurologic deficits. Normal speech and 5/5 strength. MUSCULOSKELETAL: Normal to inspection. There is no inflamed joints and no palpable joint effusions. LABORATORY AND X-RAY FINDINGS: Sodium 135, potassium 3.4, chloride 101, bicarbonate 24, BUN 10, creatinine is 0.96 and calcium of 8.6 with a sugar of 118. Liver functions are normal. Albumin is slightly low at 3.4. White blood cell count is 6.4, 47% granulocytes with 34% bands, 5% lymphocytes, and 2% reactive atypical lymphocytes. Hemoglobin is 10.0, hematocrit 30.3, and platelets 157,000. Flu screen was negative. Lactic acid normal at 0.8. Urinalysis showed 4+ bacteria, moderate blood, positive nitrite, large leukocyte esterase, 21-50 red cells and greater than 50 white blood cells. Chest x-ray showed no acute cardiopulmonary disease. ASSESSMENT AND PLAN: 1. Urinary tract infection. He had Escherichia coli before is fairly resistant. He was given Zosyn in the ER. His next dose is due at midnight. We will use cefepime. Given his E. coli resistance pattern before, and with Cefepime REBECCA of 4, I can get levels much better now in the urine with a renally excreted antibiotics such as cefepime. We will continue cefepime 1 gram q.12 hours and follow up on his cultures. 2. Fever. None here. Certainly it could be an effect of chemotherapy working on the lymphoma cells. Patient is asymptomatic, which is very reassuring to me. White blood cell count is normal. I do not think he has sepsis. Certainly does not have neutropenic fever. 3. Paroxysmal atrial fibrillation, currently in sinus rhythm. He is on amiodarone, digoxin, Eliquis. We will continue. 4. Large B cell lymphoma status post chemotherapy 5 days ago. Per the , she did believe he did get Neulasta with his last treatment. We will ask Dr. Rust [facility]. [facility]
[2017-10-27] MEDS ORDERED: Cefepime 1 GM in Sodium Chloride 0.9% 100 ML IVPB SCH (09:00)
[2017-10-27] MEDS ORDERED: FLU VACC QS2017-18 36 mo. & older 0.5 ML SYRINGE IM ONE (09:00)
[2017-10-27] MEDS: Ferrous Sulfate 325 MG TAB PO SCH ×2 (09:59→17:21)
[2017-10-27] MEDS: Apixaban 5 MG TAB PO SCH ×2 (09:59→21:24)
[2017-10-27] MEDS: Aspirin 81 mg Enteric Coated Tablet PO SCH (09:59)
[2017-10-27] MEDS: Cyanocobalamin (Vitamin B-12) 1,000 MCG TAB PO SCH (09:59)
[2017-10-27] MEDS: Amiodarone 200 MG TAB PO SCH ×2 (10:00→21:24)
[2017-10-27] MEDS: Famotidine 20 MG TAB PO SCH ×2 (10:00→21:24)
[2017-10-27] MEDS: Digoxin 0.125 MG TAB PO SCH (10:00)
[2017-10-27] MEDS: Cefepime 1 GM, Admixture Fee 1 EACH in Sterile Water 10 ML SLOW IVP SCH ×2 (10:01→21:27)
[2017-10-27] MEDS: Folic Acid 1 MG TAB PO SCH (10:01)
--- NOTE | 2017-10-27 13:02 | PDOC.PN ---
- Subjective Encounter Start Date: 10/27/17 Encounter Start Time: 12:00 Subjective: no sob, feels better - Objective Resuscitation Status: Resuscitation Status FULL:Full Resuscitation MAR Reviewed: Yes Vital Signs & Weight: Vital Signs (12 hours) Temp Pulse Resp BP Pulse Ox 10/27/17 10:00 81 10/27/17 07:52 99.5 F 81 20 95 10/27/17 07:15 99.5 F 81 20 119/62 95 Weight Weight 197 lb 15.602 oz Result Diagrams: 10/27/17 05:45 10/27/17 05:45 Phys Exam - Physical Examination HEENT: PERRLA, moist MMs Neck: no JVD, supple Respiratory: no wheezing, no rales Cardiovascular: RRR, no significant murmur Gastrointestinal: soft, non-tender, positive bowel sounds Musculoskeletal: no edema, pulses present Neurological: non-focal, moves all 4 limbs Psychiatric: A&O x 3 Dx/Plan (1) UTI (urinary tract infection) Status: Acute Qualifiers: Urinary tract infection type: acute cystitis Hematuria presence: without hematuria Qualified Code(s): N30.00 - Acute cystitis without hematuria (2) Anemia Code(s): D64.9 - ANEMIA, UNSPECIFIED Status: Chronic Qualifiers: Other causes of anemia: antineoplastic chemotherapy (3) Atrial fibrillation Code(s): I48.91 - UNSPECIFIED ATRIAL FIBRILLATION Status: Chronic Qualifiers: Atrial fibrillation type: paroxysmal Comment: SR with current rate control, continue Amiodarone and eliquis (4) H/O lymphoma Code(s): Z85.79 - [facility], HEMATPOETC & REL TISS Status: Chronic (5) Hypertension Code(s): I10 - ESSENTIAL (PRIMARY) HYPERTENSION Status: Chronic Qualifiers: Hypertension type: essential hypertension - Plan await urine cs -: prelim blood cs are -ve -: is on cefepime -: is amb in room -: at bedside, d/w current plan * . Review of Systems - Medications/Allergies Allergies/Adverse Reactions: Allergies Allergy/AdvReac Type Severity Reaction Status Date / Time No Known Allergies Allergy Verified 10/13/17 12:00 Medications: Current Medications Acetaminophen (Tylenol) 650 mg PO Q4H PRN PRN Reason: Headache/Fever or Pain Hydrocodone Bitart/Acetaminophen ([place]ord 10/325) 1 tab PO Q4H PRN PRN Reason: Severe Pain (7-10) Hydrocodone Bitart/Acetaminophen ([place]ord 5/325) 1 tab PO Q4H PRN PRN Reason: Moderate Pain (4-6) Amiodarone HCl (Cordarone) 400 mg PO BID [facility] Last Admin: 10/27/17 10:00 Dose: 400 mg Apixaban (Eliquis) 5 mg PO BID [facility] Last Admin: 10/27/17 09:59 Dose: 5 mg Aspirin (Ecotrin) 81 mg PO DAILY [facility] Last Admin: 10/27/17 09:59 Dose: 81 mg Cyanocobalamin (Vitamin B-12) 1,000 mcg PO DAILY [facility] Last Admin: 10/27/17 09:59 Dose: 1,000 mcg Digoxin (Lanoxin) 0.125 mg PO QAM [facility] Last Admin: 10/27/17 10:00 Dose: 0.125 mg Famotidine (Pepcid) 20 mg PO BID [facility] Last Admin: 10/27/17 10:00 Dose: 20 mg Ferrous Sulfate (Feosol) 325 mg PO BID[facility] Last Admin: 10/27/17 09:59 Dose: 325 mg Folic Acid (Folvite) 1 mg PO DAILY [facility] Last Admin: 10/27/17 10:01 Dose: 1 mg Cefepime HCl 1 gm/Miscellaneous Medication 1 each/ Sterile Water 10 mls @ 120 mls/hr SLOW IVP Q12HR [facility] Last Admin: 10/27/17 10:01 Dose: 10 mls Ondansetron HCl (Zofran Odt) 4 mg PO Q6H PRN PRN Reason: Nausea/Vomiting Sodium Chloride (Flush - Normal Saline) 10 ml IVF Q12HR [facility] Last Admin: 10/27/17 10:02 Dose: 10 ml Sodium Chloride (Flush - Normal Saline) 10 ml IVF PRN PRN PRN Reason: Saline Flush
[2017-10-28] MEDS ORDERED: Piperacillin/Tazobactam 3.375 GM in Sodium Chloride 0.9% 100 ML IVPB SCH (08:00)
[2017-10-28 08:20] LABS: #Lymphocytes 0.7 thou/uL (1.20-3.40); #Monocytes 0.4 thou/uL (0.11-0.59); #Neutrophils 3.3 thou/uL (1.40-6.50); %Basophils 0.3 % (0.0-1.0); %Eosinophils 0.3 % (0.0-10.0); %Lymphocytes 14.9 % (21.0-51.0); %Monocytes 9.9 % (0.0-10.0); %Neutrophils 74.6 % (42.0-75.0); Mean Corpuscular HGB CONC 34.2 g/dL (32.0-36.0); Mean Corpuscular Hemoglobin 29.4 pg (27.0-31.0); Mean Corpuscular Volume 86.2 fl (80.0-94.0); Mean Platelet Volume 7.8 fL (7.4-10.4); Platelet Count 188 thou/uL (130-400); RBC Distribution Width 15.1 % (11.5-14.5); Red Blood Cell (RBC) Count 3.07 mill/uL (4.70-6.10); White Blood Cell (WBC) Count 4.4 thou/uL (4.8-10.8)
[2017-10-28 08:30] LABS: Anion Gap 13 mmol/L (10-20); BUN (Urea Nitrogen) 8 mg/dL (8.4-25.7); Calc. Creatinine Clearance 128 mL/min (70-130); Calcium 8.8 mg/dL (7.8-10.44); Carbon Dioxide 26 mmol/L (22-29); Chloride 104 mmol/L (98-107); Estimated GFR-MDRD Greater than 90; Glucose 104 mg/dL (70-105); Potassium 3.6 mmol/L (3.5-5.1); Sodium 139 mmol/L (136-145)
[2017-10-28] MEDS: Amiodarone 200 MG TAB PO SCH (09:07)
[2017-10-28] MEDS: Ferrous Sulfate 325 MG TAB PO SCH (09:07)
[2017-10-28] MEDS: Digoxin 0.125 MG TAB PO SCH (09:09)
[2017-10-28] MEDS: Aspirin 81 mg Enteric Coated Tablet PO SCH (09:09)
[2017-10-28] MEDS: Famotidine 20 MG TAB PO SCH (09:09)
[2017-10-28] MEDS: Folic Acid 1 MG TAB PO SCH (09:09)
[2017-10-28] MEDS: Apixaban 5 MG TAB PO SCH (09:09)
[2017-10-28] MEDS: Cyanocobalamin (Vitamin B-12) 1,000 MCG TAB PO SCH (09:10)
--- NOTE | 2017-10-28 11:09 | CON ---
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 I last saw him in August when he presented with ecthyma gangrenosum associated with Staph ylococcus aureus infection. The infection was not bacteremic and the Staphylococcus aureus was methi cillin sensitive. The patient was treated for a protracted period of time and finally resolved. At this time, he comes in because of fever. He did not have any other symptoms, no congestion of nasal area. No cough, no myalgias, no abdominal pain, no dysuria, no headaches, no skin lesions. 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 FAMILY HISTORY: Noncontributory. ALLERGIES: None. CURRENT MEDICATIONS: Rudy, Cordarone, Eliquis, Ecotrin, Lanoxin, Pepcid, Folvite, Zosyn. PHYSICAL EXAMINATION: VITAL SIGNS: Have normalized. SKIN EXAM: Shows marked improvement in the previously noted skin abscesses. The one residual lesion in the abdominal area is getting better. Fully granulating. Peripheral IV access; he has a port ac cessed in the right subclavian location. HEENT: Ocular movements are conjugate. Oral cavity with numerous teeth with significant decay. LUNGS: Clear. HEART EXAM: Normal. ABDOMEN: Soft. Not distended. No bladder distention. GENITAL EXAM: Normal. EXTREMITIES: No joint inflammatory activity. Able to move extremities equally. NEUROLOGIC: Cognitive function appears to be intact. LABORATORY DATA: Urinalysis greater than 50 WBCs. WBC count 4.4, total neutrophil count around 2800 , and platelets are 188, hemoglobin 9, sodium 139, creatinine 0.79. Liver profile normal. Albumin 3 .4. Microbiology with E. coli with ESBL phenotype, although it is susceptible to trimethoprim sulfam ethoxazole. DISCUSSION: B-cell lymphoma with recent methicillin-sensitive Staph aureus skin abscesses and ecthym a gangrenosum, now presents with fever, has abnormal urinalysis, but no urinary tract symptoms. [facility] ultrasound of urinary tract bladder postvoid residual, may have prostatitis, eventually was trans itioned to oral Bactrim for discharge planning. Treat for about 2 weeks approximately. The patient had a negative influenza test. We will add respiratory virus PCR to make sure he did not have influe nza and he is not bacteremic.
--- NOTE | 2017-10-28 11:47 | PDOC.PN ---
- Subjective Encounter Start Date: 10/28/17 Encounter Start Time: 09:00 Subjective: feels better, is amb in room -: no cough or sob - Objective Resuscitation Status: Resuscitation Status FULL:Full Resuscitation MAR Reviewed: Yes Vital Signs & Weight: Vital Signs (12 hours) Temp Pulse Resp BP Pulse Ox 10/28/17 09:09 73 10/28/17 08:00 97.9 F 73 16 97 10/28/17 07:45 97.9 F 73 16 117/70 97 Weight Weight 197 lb 15.602 oz I&O: 10/27/17 10/28/17 10/29/17 06:59 06:59 06:59 Intake Total 955 Balance 955 Result Diagrams: 10/28/17 08:00 10/28/17 08:00 Phys Exam - Physical Examination HEENT: PERRLA, moist MMs Neck: no JVD, supple Respiratory: no wheezing, no rales Cardiovascular: RRR, no significant murmur Gastrointestinal: soft, non-tender, positive bowel sounds Musculoskeletal: no edema, pulses present Neurological: non-focal, moves all 4 limbs Psychiatric: A&O x 3 Dx/Plan (1) UTI (urinary tract infection) Status: Acute Qualifiers: Urinary tract infection type: acute cystitis Hematuria presence: without hematuria Qualified Code(s): N30.00 - Acute cystitis without hematuria (2) Anemia Code(s): D64.9 - ANEMIA, UNSPECIFIED Status: Chronic Qualifiers: Other causes of anemia: antineoplastic chemotherapy (3) Atrial fibrillation Code(s): I48.91 - UNSPECIFIED ATRIAL FIBRILLATION Status: Chronic Qualifiers: Atrial fibrillation type: paroxysmal Comment: SR with current rate control, continue Amiodarone and eliquis (4) H/O lymphoma Code(s): Z85.79 - PRSNL HX OF MALIG NEOPLM OF LYMPHOID, HEMATPOETC & REL TISS Status: Chronic (5) Hypertension Code(s): I10 - ESSENTIAL (PRIMARY) HYPERTENSION Status: Chronic Qualifiers: Hypertension type: essential hypertension - Plan hemostable -: d/w , pablo DS for 10 days -: may dc home if usg renal/bladder is normal * .
[2017-10-28 11:50] VITALS: BP 128/73; TEMP 97.8
--- NOTE | 2017-10-28 13:21 | ULT ---
RENAL ULTRASOUND: Date: 10-28-2017 Comparison: None. History: 57-year-old male undergoing evaluation for hydronephrosis, evaluate post void residual. Technique: Multiplanar grayscale sonographic imaging of the kidneys and urinary bladder obtained. FINDINGS: The right kidney measures 10.7 x 6.2 x 6.6 cm. The left kidney measures 11.9 x 5.8 x 6.2 cm. Pre void urinary bladder volume is 150 cc. Post void urinary bladder volume is 160 cc. The patient wa s unable to void during the exam. The spleen is enlarged, measuring at least 17.5 cm. There is a subtle echogenic focus in the midpole of the right kidney at the junction of the parenchym a and fat in the renal hilum. This could represent a small stone or artifact. No hydronephrosis or ma ss lesion noted on the right. There is a small parapelvic cyst on the left. There is no hydronephrosis, mass lesion, or stone assoc iated with the left kidney. IMPRESSION: 1. No evidence for hydronephrosis is seen on either side. 2. Splenomegaly. 3. The patient is unable to void, with a post void urinary bladder volume of 160 cc. POS: [facility]
--- NOTE | 2017-10-29 13:59 | DIS ---
DATE OF ADMISSION: 10/27/2017 DATE OF DISCHARGE: 10/28/2017 DISCHARGE DISPOSITION: To home. PRIMARY DISCHARGE DIAGNOSES: Urinary tract infection, chronic anemia on chemotherapy, chronic atrial fibrillation, history of lymphoma, history of B cell lymphoma, hypertension. PROCEDURES DONE DURING HOSPITALIZATION: Ultrasound of kidneys were done, which showed no evidence of hydronephrosis. There was splenomegaly. Postvoid urinary bladder volume was 160 mL. Urine culture grew E. coli sensitive to Bactrim and Macrobid, which is also sensitive to Zosyn, meropenem and cefoxitin. Blood cultures x2 no growth. Respiratory virus panel, PCR was negative for all the viruses. Discharge hemoglobin and hematocrit 9 and 26, platelet count 188, and MCV 86, white count of 4.4. Discharge BUN and creatinine is 8 and 0.7. Albumin is 3.4. INPATIENT CONSULT: Dr. Mendez for Infectious Disease. DISCHARGE MEDICATIONS: Eliquis 5 mg twice daily, amiodarone 400 mg twice daily , aspirin 81 mg daily, vitamin B12 1000 mcg daily, digoxin 0.125 mg p.o. daily, ferrous sulfate 325 mg twice daily, folic acid 1 mg daily, Bactrim double strength 1 tablet twice daily for 10 days. ALLERGIES: No known drug allergies. DISCHARGE PLAN: Patient to follow up with outpatient Urology in 2 weeks. He also needs to follow up with primary care physician in 1 week. BRIEF COURSE DURING HOSPITALIZATION: The patient initially got admitted on 10/2017 with complaints of fever. He has been getting chemotherapy for large B cell lymphoma from July. He had fever of 102.9 at home. Patient's UA was positive for urinary tract infection. He was pancultured and was placed on broad-spectrum antibiotics. His urine culture grew E. coli sensitive to sulfa and Macrobid. He has had consultation with Dr. Mendez in view of his E. coli resistant to multiple antibiotics and him being on chemotherapy. Per Dr. Mendez ' advice, he has been placed on Bactrim double strength 1 tab twice daily for period of 10 days. He has post-void residual of 160 mL and has been advised to follow up with Urology at the earliest appointment. He is otherwise hemodynamically stable, ambulating well, and has been wanting to go home from the time he got admitted. Please see a face to face documentation on [facility] for the day of discharge. [facility]
== END 2017-10-28 15:44 | disposition home or self-care (01) | DRG 690 ==
LOC: ERS 15:55 → ONC 20:15
PROVIDERS: ADMIT Internal Medicine; ATTEND Internal Medicine
DX: N39.0 Urinary tract infection, site not specified (principal); C85.20 Mediastinal (thymic) large B-cell lymphoma, unspecified site; I48.0 Paroxysmal atrial fibrillation; I10 Essential (primary) hypertension; D64.9 Anemia, unspecified; R50.9 Fever, unspecified; Z79.01 Long term (current) use of anticoagulants; Z92.21 Personal history of antineoplastic chemotherapy; Z86.19 Personal history of other infectious and parasitic diseases
CPT/HCPCS: 36415; 51701; 71010; 76770; 80048; 80053; 81003; 81015; 83605; 85025; 87040; 87077; 87086; 87186; 87633; 96365; 96367; A4216; J0692; J1642; J2543; J3370; J7050

== ENCOUNTER 2017-11-13 16:45 | Inpatient (IN) | payer BC ==
[2017-11-13 17:15] VITALS: BMI 24.5
[2017-11-13] MEDS ORDERED: hydrALAZINE 20 MG/ML VIAL SLOW IVP PRN (17:39)
[2017-11-13] MEDS ORDERED: Acetaminophen 325 MG TAB PO PRN (17:39)
[2017-11-13] MEDS ORDERED: HYDROcodone/Acetaminophen 5/325 mg Tablet PO PRN (17:39)
[2017-11-13] MEDS ORDERED: Vancomycin HCl 1 GM in Premix Bag 1 BAG IVPB SCH (17:45)
--- NOTE | 2017-11-13 20:24 | HP ---
PRIMARY CARE PHYSICIAN: Dr. Lamont Dorman. CHIEF COMPLAINT: Neutropenic fever. HISTORY OF PRESENT ILLNESS: Mr. Townsend is a pleasant 57-year-old gentleman who has a history of large B-cell lymphoma as well as atrial fibrillation. He was in his usual state of health until today when he went in to see Dr. Rust in routine followup. He was found to have a temperature of 100.5, an d his total white blood cell count was around 800 and due to this, Dr. Rust wants to admit him fo r observation due to neutropenic fever. The patient's only complaint is left knee pain because he sl ipped falling on the ice yesterday and injured his knee. Prior to that, he was feeling fine. He den ies any sore throat, no rhinorrhea, no cough, no congestion, no abdominal pain, no nausea, no vomitin g, no dysuria, etc. REVIEW OF SYSTEMS: Constitutional: Again, he had fever, no chills, no night sweats, no weight loss. HEENT: He denies any headaches, no dizziness, no visual changes, no sore throat, no rhinorrhea, no neck pain, no adenopathy. Pulmonary: No hemoptysis, no cough, no wheezing. Cardiovascular: He de nies any chest pain, no shortness of breath, no PND, no orthopnea. Gastrointestinal: No abdominal p ain, no nausea, no vomiting, no change in bowels. Genitourinary: No urinary frequency, hematuria, n o hesitancy. Neurologic: No focal weakness, numbness, no seizures. Psychiatric: No symptoms of an xiety or depression. Skin And Integument: No skin changes except for his left knee, which is a juan diego le bit red and he does have an area on the right abdomen from previous Staph infection, which is heal ing. PAST MEDICAL HISTORY: Significant for large B-cell lymphoma, atrial fibrillation. PAST SURGICAL HISTORY: He has had a MediPort placed. ALLERGIES: No known drug allergies. SOCIAL HISTORY: He is . He is a non-smoker, nondrinker. CODE STATUS: FULL CODE. FAMILY HISTORY: No history of any inheritable diseases. HOME MEDICATIONS: Include amiodarone 200 mg twice a day, Eliquis 5 mg twice daily, digoxin 0.125 mg daily, aspirin 81 mg daily, multivitamin once a day, cyanocobalamin 1000 mcg every morning, thiamine 100 mg daily, folic acid 1 mg daily. He takes prednisone 50 mg 2 tablets at breakfast starting the d ay after chemo for 4 days and Claritin after chemo and he uses Zofran and prochlorperazine as needed for nausea. PHYSICAL EXAMINATION: GENERAL: He is alert and oriented. He appears to be in no acute distress. He is well-developed, we ll-nourished. HEENT: Pupils are equal, round, and reactive. Extraocular muscles are intact. His sclerae anicteri c. Throat: There is no erythema, no exudates. NECK: No adenopathy, no bruits. LUNGS: Clear to auscultation. There is no wheezing, no rales. CARDIOVASCULAR: He has a normal S1, S2. There is no S3 or S4. No murmurs, clicks, or rubs. ABDOMEN: Soft, it is nontender, nondistended. Positive for bowel sounds. No rebound, no guarding. EXTREMITIES: He has some mild erythema and warmth to the left knee. Mild ballottement of the knee j oint with a very mild effusion on the right abdomen. He has an area of excoriation in the lower righ t abdomen and some scabbing, but no drainage, no redness, no warmth, no induration, and small scrape on the right knee. NEUROLOGICALLY: The exam is nonfocal. LABORATORY DATA: Again, his white blood cell count is reported to be less than 800 and I do not have those results as of yet. ASSESSMENT AND PLAN: This is a 57-year-old gentleman that is being directly admitted for neutropenic fever. He will be placed on empiric broad-spectrum antibiotics. I have been advised by Dr. Arben richter to avoid vancomycin in this gentleman possibly due to previous infections. He does not appear toxi c. Therefore, we will go ahead and place him on cefepime and could likely give a dose of clindamycin as well. We will get a chest x-ray to rule out occult pneumonia and x-ray of the left knee in order to rule out patellar fracture or other gross abnormalities of the knee. For atrial fibrillation, we will continue Eliquis, unless there is evidence of severe hemarthrosis, w hich is not clinically apparent at this time and we will continue to monitor his white blood cell cou nt throughout the course of his hospital stay.
--- NOTE | 2017-11-13 20:37 | RAD ---
PA AND LATERAL CHEST X-RAY 11/13/17 HISTORY: Neutropenic fever. COMPARISON: 10/26/17. FINDINGS: A right internal jugular vein Mediport catheter remains in place. Cardiac silhouette and pulmonary va sculature are within normal limits. The lungs are clear. The most inferior aspect of the posterior co stophrenic angles are excluded from view. No other interval change. IMPRESSION: No acute cardiopulmonary process. POS: [facility]
--- NOTE | 2017-11-13 20:54 | RAD ---
FOUR VIEWS LEFT KNEE 11/13/17 HISTORY: Left knee swelling after a fall. FINDINGS: There is no evidence of a fracture or dislocation. No joint space narrowing is seen. Minimal osteoph ytes are seen at the tibial spines. There is a small joint effusion in the suprapatellar location wit h subcutaneous edema seen anterior to the knee. Vascular calcifications are seen posterior to the kne e. IMPRESSION: 1. No acute osseous abnormality. 2. Small left knee joint effusion as well as subcutaneous edema anterior to the knee. POS: [facility]
[2017-11-13] MEDS: Apixaban 5 MG TAB PO SCH (21:18)
[2017-11-13] MEDS: Cefepime 2 GM, Syringe 2.5 ML in Sterile Water 10 ML SLOW IVP SCH (21:18)
[2017-11-13] MEDS: Amiodarone 200 MG TAB PO SCH (21:18)
[2017-11-13] MEDS: Temazepam 15 MG CAP PO PRN (21:18)
[2017-11-13] MEDS ORDERED: Cefepime 2 GM in Sodium Chloride 0.9% 100 ML IVPB SCH (22:00)
[2017-11-14] MEDS: Cefepime 2 GM, Syringe 2.5 ML in Sterile Water 10 ML SLOW IVP SCH ×3 (06:28→21:47)
[2017-11-14 07:47] LABS: Hemoglobin 7.1 g/dL (14.0-18.0); Mean Corpuscular Hemoglobin 30.7 pg (27.0-31.0); Mean Corpuscular Volume 85.3 fl (80.0-94.0); Mean Platelet Volume 8.9 fL (7.4-10.4); Platelet Count 63 thou/uL (130-400); RBC Distribution Width 17.6 % (11.5-14.5); Red Blood Cell (RBC) Count 2.31 mill/uL (4.70-6.10)
[2017-11-14] MEDS: Apixaban 5 MG TAB PO SCH ×2 (08:29→22:20)
[2017-11-14] MEDS: Aspirin 81 mg Enteric Coated Tablet PO SCH (08:38)
[2017-11-14] MEDS: Folic Acid 1 MG TAB PO SCH (08:38)
[2017-11-14] MEDS: Cyanocobalamin (Vitamin B-12) 1,000 MCG TAB PO SCH (08:38)
[2017-11-14 08:44] LABS: Band 30 % (5-11); Eosinophils 4 % (0-10); Lymphocytes 45 % (21-51); MDiff Complete? YES; Myelocyte 1 % (0-0); Neutrophil 4 % (42-75); Ovalocytes SLIGHT = 2-5 cells (100X) (0-1/hpf); PLT Morphology Comment Appears Decreased; Polychromasia SLIGHT = 2-3 cells (100X) (0-2/hpf); Toxic Granulation SLIGHT
[2017-11-14 08:45] LABS: Reactive Lymphocytes 5 % (0-10)
[2017-11-14 08:46] LABS: Monocytes 10 % (0-10)
[2017-11-14] MEDS: Digoxin 0.125 MG TAB PO SCH (09:00)
[2017-11-14] MEDS: Amiodarone 200 MG TAB PO SCH ×2 (09:00→21:45)
--- NOTE | 2017-11-14 11:56 | CON ---
DATE OF CONSULTATION: 11/14/2017 REASON FOR CONSULTATION: Lymphoma. HISTORY OF PRESENT ILLNESS: Mr. Townsend is a very pleasant 57-year-old gentleman who has diffuse large B cell lymphoma, recently underwent cycle 3 of R-CHOP on 11/04/2017. He did receive Neulasta with th is treatment. He had a fall and landed on his knee. When he presented to the clinic for followup ye , he had a low grade fever of 100.4. His left knee was swollen and erythematous. His white c ount was 0.9. He was admitted for neutropenic fever and started on IV antibiotics. The patient has had a somewhat complicated course of treatment with multiple admissions for pyoderma gangrene, paroxy smal atrial fibrillation. Currently, he is resting comfortably. He denies any complaints. He state s his left knee is feeling better today. PAST MEDICAL HISTORY: 1. Diffuse large B cell lymphoma on R-CHOP chemotherapy. 2. Paroxysmal atrial fibrillation. 3. Pyoderma gangrenosum. 4. Hypertension. PAST SURGICAL HISTORY: MediPort placement, wrist surgery. ALLERGIES: No known drug allergies. HOME MEDICATIONS: 1. Amiodarone 200 mg b.i.d. 2. Aspirin 81 mg daily. 3. B12 1000 mcg daily. 4. Digoxin 125 mcg daily. 5. Eliquis b.i.d. 6. Ferrous sulfate daily. 7. Folic acid 1 mg daily. FAMILY HISTORY: Noncontributory. SOCIAL HISTORY: He is , he lives with his spouse. 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 REVIEW OF SYSTEMS: Ten point review of systems is negative except for noted in HPI. PHYSICAL EXAMINATION: VITAL SIGNS: Temperature is 98.0, his T-max was 98, heart rate is 75, respiratory rate 16, blood pre ssure is 130/84. GENERAL: Well-developed, well-nourished male, in no acute distress. HEENT: Normocephalic, atraumatic. Pupils equal and reactive to light. NECK: Supple. CARDIOVASCULAR: Regular rate and rhythm. LUNGS: Clear. ABDOMEN: Soft, nontender, bowel sounds are positive. EXTREMITIES: No clubbing, cyanosis or edema. SKIN: He has erythema over his left knee. He has a healing excoriation of the right abdomen from pr ior infection. NEUROLOGIC: Nonfocal. PSYCHIATRIC: The patient is alert and oriented and appropriate. PERTINENT LABORATORY DATA AND X-RAY FINDINGS: Current WBC is 1.0, hemoglobin 7.1, hematocrit 19.7, p latelet count 63,000, 4% neutrophils, 30% bands, 45% lymphocytes. Knee x-ray showed a small effusion . Chest x-ray showed no acute process. ASSESSMENT: 1. Diffuse large B cell lymphoma status post cycle 3 of chemotherapy. 2. Neutropenic fever. 3. Left knee effusion. 4. Anemia. 5. Thrombocytopenia. DISCUSSION: The patient has been placed on IV antibiotics and states that his effusion is feeling be tter today. He did receive Neulasta injection with his prior chemotherapy on 11/04. His white count should start to recover. His anemia is mildly worse than yesterday, it may be a function of dilutio n. We will continue to monitor and transfuse p.r.n. Platelets should start to recover as well as he gets further from his treatments. Thank you for the consult. We will follow his hospital course closely. Hopefully, he will be able t o go home in the next 24-36 hours.
--- NOTE | 2017-11-14 18:18 | PDOC.PN ---
- Subjective Encounter Start Date: 11/14/17 Encounter Start Time: 18:16 Subjective: Seen and examined feeling a little bit better - Objective Resuscitation Status: Resuscitation Status FULL:Full Resuscitation Vital Signs & Weight: Vital Signs (12 hours) Temp Pulse Resp BP 11/14/17 12:15 98 F 78 16 108/59 L 11/14/17 09:00 75 11/14/17 08:00 98 F 75 16 Weight Weight 185 lb 8 oz I&O: 11/13/17 11/14/17 11/15/17 06:59 06:59 06:59 Intake Total 480 Output Total 600 Balance -120 Result Diagrams: 11/14/17 07:30 Phys Exam - Physical Examination Constitutional: NAD HEENT: PERRLA, moist MMs, sclera anicteric, TM's clear, oral pharynx no lesions Neck: no nodes, no JVD, supple, full ROM Respiratory: no wheezing, no rales, no rhonchi, clear to auscultation bilateral Cardiovascular: no significant murmur, no rub Gastrointestinal: soft, non-tender, no distention, positive bowel sounds Musculoskeletal: no edema, pulses present Dx/Plan (1) Pancytopenia Code(s): D61.818 - OTHER PANCYTOPENIA Status: Acute (2) Neutropenic fever Code(s): D70.9 - NEUTROPENIA, UNSPECIFIED; R50.81 - FEVER PRESENTING WITH CONDITIONS CLASSIFIED ELSEWHERE Status: Acute (3) Anemia Code(s): D64.9 - ANEMIA, UNSPECIFIED Status: Chronic (4) Atrial fibrillation Code(s): I48.91 - UNSPECIFIED ATRIAL FIBRILLATION Status: Chronic Qualifiers: Comment: SR with current rate control, continue Amiodarone and eliquis (5) H/O lymphoma Code(s): Z85.79 - PRSNL HX OF [facility] OF LYMPHOID, HEMATPOETC & REL TISS Status: Chronic - Plan continue antibiotics, PT/OT, social services designee Given severe anemia ? continued need for anticoagulants * .
[2017-11-14] MEDS: Temazepam 15 MG CAP PO PRN (21:46)
[2017-11-15] MEDS: Cefepime 2 GM, Syringe 2.5 ML in Sterile Water 10 ML SLOW IVP SCH ×3 (06:01→22:19)
[2017-11-15] MEDS: Digoxin 0.125 MG TAB PO SCH (09:14)
[2017-11-15] MEDS: Aspirin 81 mg Enteric Coated Tablet PO SCH (09:15)
[2017-11-15] MEDS: Folic Acid 1 MG TAB PO SCH (09:15)
[2017-11-15] MEDS: Cyanocobalamin (Vitamin B-12) 1,000 MCG TAB PO SCH (09:15)
[2017-11-15] MEDS: Amiodarone 200 MG TAB PO SCH ×2 (09:16→22:26)
[2017-11-15] MEDS: Apixaban 5 MG TAB PO SCH ×2 (09:17→22:26)
[2017-11-16] MEDS: Cefepime 2 GM, Syringe 2.5 ML in Sterile Water 10 ML SLOW IVP SCH ×3 (06:05→21:16)
[2017-11-16 07:34] LABS: Band 28 % (5-11); Lymphocytes 20 % (21-51); MDiff Complete? YES; Mean Corpuscular HGB CONC 33.4 g/dL (32.0-36.0); Mean Corpuscular Hemoglobin 28.4 pg (27.0-31.0); Mean Corpuscular Volume 85.1 fl (80.0-94.0); Mean Platelet Volume 9.3 fL (7.4-10.4); Metamyelocyte 5 % (0-0); Monocytes 7 % (0-10); Myelocyte 1 % (0-0); Neutrophil 39 % (42-75); Nucleated RBC 1 % (0); Platelet Count 78 thou/uL (130-400); RBC Distribution Width 17.2 % (11.5-14.5); Red Blood Cell (RBC) Count 2.81 mill/uL (4.70-6.10); White Blood Cell (WBC) Count 2.5 thou/uL (4.8-10.8)
[2017-11-16] MEDS: Aspirin 81 mg Enteric Coated Tablet PO SCH (08:21)
[2017-11-16] MEDS: Cyanocobalamin (Vitamin B-12) 1,000 MCG TAB PO SCH (08:21)
[2017-11-16] MEDS: Digoxin 0.125 MG TAB PO SCH (08:21)
[2017-11-16] MEDS: Folic Acid 1 MG TAB PO SCH (08:21)
[2017-11-16] MEDS: Apixaban 5 MG TAB PO SCH ×2 (08:24→20:26)
[2017-11-16] MEDS: Amiodarone 200 MG TAB PO SCH ×2 (08:24→20:26)
--- NOTE | 2017-11-16 10:15 | PDOC.PN ---
- Subjective Encounter Start Date: 11/16/17 Encounter Start Time: 10:13 Subjective: Seen and examined feeling better - Objective Resuscitation Status: Resuscitation Status FULL:Full Resuscitation Vital Signs & Weight: Vital Signs (12 hours) Temp Pulse Resp BP Pulse Ox 11/16/17 08:21 67 11/16/17 08:20 98.1 F 67 20 111/68 98 Weight Weight 185 lb 8 oz I&O: 11/15/17 11/16/17 11/17/17 06:59 06:59 06:59 Intake Total 480 600 Output Total 600 600 Balance -120 0 Result Diagrams: 11/16/17 05:45 Phys Exam - Physical Examination Constitutional: NAD HEENT: PERRLA, moist MMs, sclera anicteric, TM's clear Neck: no nodes, no JVD, supple, full ROM Respiratory: no wheezing, no rales, no rhonchi, wheezing present Cardiovascular: RRR, no significant murmur, no rub Gastrointestinal: soft, non-tender, no distention Dx/Plan (1) Pancytopenia Code(s): D61.818 - OTHER PANCYTOPENIA Status: Acute (2) Neutropenic fever Code(s): D70.9 - NEUTROPENIA, UNSPECIFIED; R50.81 - FEVER PRESENTING WITH CONDITIONS CLASSIFIED ELSEWHERE Status: Acute (3) Anemia Code(s): D64.9 - ANEMIA, UNSPECIFIED Status: Chronic (4) Atrial fibrillation Code(s): I48.91 - UNSPECIFIED ATRIAL FIBRILLATION Status: Chronic Qualifiers: Comment: SR with current rate control, continue Amiodarone and eliquis (5) H/O lymphoma Code(s): Z85.79 - PRSNL OF [facility] OF LYMPHOID, HEMATPOETC & REL TISS Status: Chronic - Plan cont current plan of care, continue antibiotics Dispo planning -: Possible D/c in next 24hrs * .
[2017-11-17] MEDS: Cefepime 2 GM, Syringe 2.5 ML in Sterile Water 10 ML SLOW IVP SCH ×2 (05:18→14:45)
[2017-11-17 06:29] LABS: Hemoglobin 7.5 g/dL (14.0-18.0); Mean Corpuscular HGB CONC 33.3 g/dL (32.0-36.0); Mean Corpuscular Hemoglobin 28.5 pg (27.0-31.0); Mean Corpuscular Volume 85.5 fl (80.0-94.0); Mean Platelet Volume 8.3 fL (7.4-10.4); Platelet Count 91 thou/uL (130-400); RBC Distribution Width 17.1 % (11.5-14.5); Red Blood Cell (RBC) Count 2.63 mill/uL (4.70-6.10); White Blood Cell (WBC) Count 3.6 thou/uL (4.8-10.8)
--- NOTE | 2017-11-17 07:35 | PDOC.PN ---
- Subjective Encounter Start Date: 11/17/17 Encounter Start Time: 11:30 Subjective: Patient without complaint. No further fever since in the hospital. - Objective Resuscitation Status: Resuscitation Status FULL:Full Resuscitation MAR Reviewed: Yes Vital Signs & Weight: Vital Signs (12 hours) Temp Pulse Resp Pulse Ox 11/16/17 20:00 98 F 70 18 97 Weight Weight 185 lb 8 oz I&O: 11/16/17 11/17/17 11/18/17 06:59 06:59 06:59 Intake Total 600 1660 Output Total 600 Balance 0 1660 Result Diagrams: 11/17/17 05:24 Phys Exam - Physical Examination Constitutional: NAD HEENT: moist MMs Respiratory: no wheezing, no rales, no rhonchi, clear to auscultation bilateral Cardiovascular: RRR, no significant murmur Gastrointestinal: soft, positive bowel sounds Neurological: non-focal, moves all 4 limbs Psychiatric: normal affect, A&O x 3 Dx/Plan (1) Neutropenic fever Code(s): D70.9 - NEUTROPENIA, UNSPECIFIED; R50.81 - FEVER PRESENTING WITH CONDITIONS CLASSIFIED ELSEWHERE Status: Resolved Comment: no further fever and neutropenia resolving well, blood cultures with only 1/2 coag neg staph which is likely contaminant (2) Anemia Code(s): D64.9 - ANEMIA, UNSPECIFIED Status: Chronic (3) Atrial fibrillation Code(s): I48.91 - UNSPECIFIED ATRIAL FIBRILLATION Status: Chronic Qualifiers: Comment: SR with current rate control, continue Amiodarone and eliquis (4) H/O lymphoma Code(s): Z85.79 - PRSNL HX OF [facility] OF LYMPHOID, HEMATPOETC & REL TISS Status: Chronic - Plan D/C antibiotics and home today * . - Discharge Day Encounter end time: 12:00
[2017-11-17 07:42] VITALS: BP 102/64
[2017-11-17 07:58] VITALS: TEMP 98
[2017-11-17 08:17] LABS: Band 21 % (5-11); Eosinophils 1 % (0-10); Lymphocytes 12 % (21-51); MDiff Complete? YES; Metamyelocyte 3 % (0-0); Monocytes 6 % (0-10); Myelocyte 4 % (0-0); Neutrophil 53 % (42-75); Nucleated RBC 1 % (0); PLT Morphology Comment Appears Decreased; Polychromasia SLIGHT = 2-3 cells (100X) (0-2/hpf); Toxic Granulation SLIGHT
[2017-11-17] MEDS: Amiodarone 200 MG TAB PO SCH (09:21)
[2017-11-17] MEDS: Apixaban 5 MG TAB PO SCH (09:23)
[2017-11-17] MEDS: Digoxin 0.125 MG TAB PO SCH (09:23)
[2017-11-17] MEDS: Folic Acid 1 MG TAB PO SCH (09:24)
[2017-11-17] MEDS: Cyanocobalamin (Vitamin B-12) 1,000 MCG TAB PO SCH (09:25)
[2017-11-17] MEDS: Aspirin 81 mg Enteric Coated Tablet PO SCH (09:25)
--- NOTE | 2017-11-17 14:26 | DIS ---
PRIMARY CARE PHYSICIAN: Dr. Duane Dorman. PRIMARY ONCOLOGIST: Dr. Jemima Rust. DIAGNOSES ON ADMISSION: 1. Neutropenic fever. 2. Atrial fibrillation, on Eliquis. 3. History of lymphoma, on chemotherapy. DIAGNOSES ON DISCHARGE: 1. Neutropenic fever, resolved. 2. Atrial fibrillation, on Eliquis. 3. History of lymphoma. PROCEDURES: 1. Chest x-ray negative for infiltrate. 2. Left knee x-ray showing a small left knee joint effusion with subcutaneous edema anterior to the knee. CONSULTATIONS: Heme/Oncology, Elle Lopez for Dr. Rust. HISTORY OF PRESENT ILLNESS: This is a 57-year-old white man with a history of large B-cell lymphoma, receiving chemotherapy. He saw Dr. Rust in a routine visit and was found to have a temperature of 100.5 with a white blood cell count at 800. Dr. Rust had direct admitted for neutropenic feve r. He was put on broad spectrum antibiotics after blood cultures were drawn. Chest x-ray showed neg ative for infection. Urine culture was done and was negative. One out of 2 blood cultures is coag n egative Staph, which is a contaminant. The patient was afebrile entire hospital course. His white b lood cells came up to 3.6 the day of discharge and he was asymptomatic and is being discharged home. Of note, he had slipped on ice today before admission and had a painful left knee, little swollen, b ut not red or hot. DISCHARGE MANAGEMENT: Discharged home. Follow up with Dr. Rust as his previously scheduled appo intment on 11/26/2017 at 8:30 a.m. ACTIVITY: As tolerated. DIET: Regular diet. MEDICATIONS: The patient is to resume all of his home medications. 1. Thiamine mononitrate 100 mg daily. 2. Folic acid 1 mg daily. 3. Vitamin B12 1000 mcg daily. 4. Aspirin 81 mg daily. 5. Digoxin 0.125 mg daily. 6. Eliquis 5 mg twice a day. 7. Amiodarone 200 mg twice a day.
== END 2017-11-17 17:00 | disposition home or self-care (01) | DRG 809 ==
LOC: ONC 16:45
PROVIDERS: ADMIT Internal Medicine Medical Oncology; ATTEND Internal Medicine Medical Oncology
DX: D70.9 Neutropenia, unspecified (principal); C85.10 Unspecified B-cell lymphoma, unspecified site; D69.6 Thrombocytopenia, unspecified; I48.0 Paroxysmal atrial fibrillation; I48.91 Unspecified atrial fibrillation; R50.81 Fever presenting with conditions classified elsewhere; I10 Essential (primary) hypertension; D64.9 Anemia, unspecified; M25.462 Effusion, left knee; Z79.01 Long term (current) use of anticoagulants; Z92.21 Personal history of antineoplastic chemotherapy
CPT/HCPCS: 36415; 71046; 80053; 82248; 83615; 84100; 84550; 85025; 87040; 87086; 87149; A4216; J0692; J1642

== ENCOUNTER 2017-12-04 10:10 | Inpatient (IN) | payer BC ==
[2017-12-04] MEDS ORDERED: HYDROcodone/Acetaminophen 10/325 mg Tablet PO PRN (11:13)
[2017-12-04] MEDS ORDERED: Ondansetron ODT 4 MG TAB PO PRN (11:13)
[2017-12-04] MEDS ORDERED: HYDROcodone/Acetaminophen 5/325 mg Tablet PO PRN (11:13)
[2017-12-04 12:35] LABS: Hemoglobin 6.5 g/dL (14.0-18.0); Mean Corpuscular HGB CONC 34.3 g/dL (32.0-36.0); Mean Corpuscular Hemoglobin 30.2 pg (27.0-31.0); Mean Platelet Volume 8.3 fL (7.4-10.4); Platelet Count 90 thou/uL (130-400); RBC Distribution Width 18.3 % (11.5-14.5); Red Blood Cell (RBC) Count 2.16 mill/uL (4.70-6.10); White Blood Cell (WBC) Count 0.1 thou/uL (4.8-10.8)
--- NOTE | 2017-12-04 12:41 | RAD ---
CHEST TWO VIEWS: History: Neutropenic fever. Comparison: 11-13-17 FINDINGS: Heart size is within normal limits. The right sided Mediport catheter is present. The lungs are clear of infiltrates. IMPRESSION: No active intrathoracic disease. POS: [facility]
[2017-12-04 12:48] LABS: MDiff Complete? YES; Microcytosis SLIGHT = 6-15 cells (100X) (0-5/hpf); Ovalocytes SLIGHT = 2-5 cells (100X) (0-1/hpf)
[2017-12-04 12:51] LABS: ALT (SGPT) 7 U/L (8-55); AST (SGOT) 5 U/L (5-34); Albumin 3.4 g/dL (3.5-5.0); Alkaline Phosphatase 54 U/L (40-150); Anion Gap 13 mmol/L (10-20); BUN (Urea Nitrogen) 9 mg/dL (8.4-25.7); Bilirubin, Total 0.7 mg/dL (0.2-1.2); Calc. Creatinine Clearance 143 mL/min (70-130); Calcium 8.4 mg/dL (7.8-10.44); Carbon Dioxide 23 mmol/L (22-29); Chloride 104 mmol/L (98-107); Estimated GFR-MDRD Greater than 90; Globulin 1.7 g/dL (2.4-3.5); Glucose 109 mg/dL (70-105); Magnesium 1.9 mg/dL (1.6-2.6); Potassium 3.7 mmol/L (3.5-5.1); Protein, Total 5.1 g/dL (6.0-8.3); Sodium 136 mmol/L (136-145)
[2017-12-04] MEDS: Sodium Chloride 0.9% 1,000 ML IV SCH (14:24)
[2017-12-04] MEDS: Cefepime 2 GM, Syringe 2.5 ML in Sterile Water 10 ML SLOW IVP SCH (14:25)
--- NOTE | 2017-12-04 14:43 | HP ---
DATE OF ADMISSION: 12/04/2017 PRIMARY CARE PHYSICIAN: Lamont Dorman M.D. PRIMARY ONCOLOGIST: Dr. Rust TIME OF SERVICE: The patient was initially seen at 1100 and revisited 1240. CHIEF COMPLAINT: Fever. HISTORY OF PRESENT ILLNESS: Mr. Townsend is a 57-year-old gentleman well known to me from previous admis luz. He has a history of large B cell lymphoma started chemotherapy back in 07/2017. He has been g etting chemotherapy last was about 2 weeks ago. His course has been complicated by neutropenic fever at almost every round. He was receiving Rituxan, Cytoxan, vincristine, prednisone and Neulasta with each treatment. He denies any cough or sputum production. No chills or rigors. No nausea or vomiting. No diarrhea or constipation, no abdominal pain. No skin discomfort or lesions. He did have a temperature of 101. He did contact Dr. Rust and saw him in clinic today. White bl ood cell count was noted to be 300 and so we were called for admission. The patient has no other current complaints. PAST MEDICAL HISTORY: 1. Large B cell lymphoma, managed by Dr. Rust. 2. Paroxysmal atrial fibrillation, on amiodarone. HOME MEDICATIONS: 1. Amiodarone 400 mg p.o. daily. 2. Eliquis 5 mg p.o. b.i.d. 3. Digoxin 0.125 mg daily. 4. Iron sulfate 325 mg p.o. b.i.d. 5. Aspirin 81 mg daily. 6. Vitamin B12 1000 mcg daily. 7. Folate 1 mg daily. 8. Thiamine 100 mg daily. PAST SURGICAL HISTORY: Includes a right chest Port-A-Cath placement. ALLERGIES: NKDA. FAMILY HISTORY: Negative for clotting or bleeding disorders. No immune dysfunction, no blood tumors . SOCIAL HISTORY: Negative for habits x3. He is . His accompanies him today. REVIEW OF SYSTEMS: A 10-point review of systems was performed, negative for all other systems except as stated as per HPI. PHYSICAL EXAMINATION: VITAL SIGNS: Temperature on arrival 99.0, pulse 86, blood pressure 120/62, respiratory rate 16, satt ing 100% on room air. GENERAL: He is awake. He is alert. He is oriented x3. He is a well-developed, well-nourished, whi te male who appears to be in distress. HEENT: Normocephalic, atraumatic. Pupils equal, round, react to light bilaterally, mucous membranes moist. No visible lesion or thrush. NECK: Supple, with no lymphadenopathy, no JVD, no thyromegaly. Normal carotid upstrokes. He has no bruits. LUNGS: Clear. He has no wheezes, no rales, no rhonchi. No prolonged expiratory phase. He has good air movement. Symmetrical chest excursion. CARDIOVASCULAR: Normal S1 and S2. No S3 or S4. Normal cardiac. There are no audible murmurs. ABDOMEN: Soft. It is nontender, nondistended. He has good bowel sounds present in all 4 quadrants. There is no rebound, rigidity or guarding. EXTREMITIES: No cyanosis, no clubbing, no edema. SKIN: Warm, moist, and well perfused. He has no rashes, no lesions. His left chest Port-A-Cath is accessed. It is under Tegaderm. The surrounding skin is nonerythematous and nontender. There is no fluctuance. NEUROLOGIC: Cranial nerves II-XII are grossly intact. He has no focal neurologic deficits. MUSCULOSKELETAL: Normal to inspection. He has no joint inflammation or effusions palpable. LABORATORY DATA: Per Dr. Rust, his total white count was 300. Labs here showed a total white bl ood cell count of 100 with a reportable differential. Hemoglobin 6.5, hematocrit of 19.0, platelet c ount is 90,000. Chemistries were normal. Glucose 109. Liver function within normal limits. Albumin 3.4. Chest x-ray ordered on admission and resulted by now shows no active intrathoracic disease. Blood cu lture x2, urinalysis and urine cultures are currently pending. ASSESSMENT AND PLAN: 1. Neutropenic fever. The patient has known lymphoma. He has neutropenic fever at every treatment. I suspect this is either tumor fever or repopulation of his bone marrow. At this point, we placed him on cefepime for standard neutropenic fever coverage, I will follow up on the cultures and watch. We will keep an eye on his blood count either when the fever resolves, we will determine the source, or if blood counts recover, we can stop the antibiotics and let him go home. 2. Large B cell lymphoma, on chemotherapy, last was about [address] Rust is following. He will see him in the hospital. 3. Paroxysmal atrial fibrillation on digoxin, amiodarone, and Eliquis. We will continue this. 4. 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
[2017-12-04 15:34] LABS: Bilirubin Negative (Negative); Blood, Urine Negative (Negative); Clarity CLEAR (Clear); Glucose, Urine (Dipstick) Negative (Negative); Leukocyte Negative (Negative); Nitrite Negative (Negative); Protein, Urine (Dipstick) Negative (Neg-Trace); Specific Gravity, Urine 1.016 (1.002-1.036); pH, Urine 7.5 (5.0-9.0)
[2017-12-04 15:37] LABS: Bacteria/HPF None Seen HPF (None Seen); Hyaline Casts/LPF 0-3 HYALINE CAST LPF (0-3 Hyaline); Squamous Epithelial None Seen HPF (0-3); WBC/HPF 0-3 HPF (0-3)
[2017-12-04] MEDS: Acetaminophen 325 MG TAB PO PRN (17:04)
--- NOTE | 2017-12-04 17:31 | CON ---
DATE OF CONSULTATION: 12/04/2017 REASON FOR CONSULT: Lymphoma. HISTORY OF PRESENT ILLNESS: Mr. Townsend is a very pleasant 57-year-old gentleman with diffuse large B c ell lymphoma. He underwent cycle 4 of R-CHOP on 11/26/2017. He did receive Neulasta support with tr eatment. He presented today with fever of 101. His CBC showed a white count of 300. He was admitte d to this facility for neutropenic fever. Mr. Townsend has struggled with infection during the course of his treatment requiring frequent antibiotics and admissions. He complains of cough. Denies any sor e throat, congestion, chest pain, or shortness of breath. No abdominal pain, diarrhea, or constipati on. No skin lesions. He has been pancultured, started on empiric antibiotics and Tylenol for his fe bailee. Chest x-ray showed no acute process. PAST MEDICAL HISTORY: 1. Diffuse large B cell lymphoma. 2. Paroxysmal atrial fibrillation. 3. Pyoderma gangrenosum. 4. Hypertension. PAST SURGICAL HISTORY: 1. MediPort placement. 2. Wrist surgery. ALLERGIES: No known drug allergies. HOME MEDICATIONS: 1. Amlodipine 200 mg daily. 2. Eliquis 5 mg b.i.d. 3. Aspirin 81 mg daily. 4. B12 daily. 5. Lanoxin 0.125 mg daily. 5. Folic acid daily. 6. Claritin daily. 7. Zofran p.r.n. 8. Compazine p.r.n. FAMILY HISTORY: Noncontributory. SOCIAL HISTORY: , lives with his spouse. No alcohol, tobacco, or illicit drug use. REVIEW OF SYSTEMS: Twelve point review of systems is negative except for noted in the HPI. PHYSICAL EXAMINATION: VITAL SIGNS: Temperature is 99.0, pulse is 86, respiratory rate 16, BP is 120/62. He is 100% on rosaura m air. GENERAL: Well-developed, well-nourished male in no acute distress. HEENT: Normocephalic, atraumatic. Pupils are equal and reactive to light. NECK: Supple. CARDIOVASCULAR: Regular rate and rhythm. LUNGS: Clear. ABDOMEN: Soft, nontender, bowel sounds are positive. EXTREMITIES: No clubbing, cyanosis, or edema. SKIN: No rash. HEMATOLOGIC: No petechia or purpura. NEUROLOGIC: Nonfocal. PSYCHIATRIC: The patient is alert and oriented and appropriate. PERTINENT LABORATORY AND X-RAYS: Current WBCs are 100, hemoglobin 6.5, hematocrit 19.0, platelet cou nt is 90,000. Sodium 136, potassium 3.7, chloride 104, CO2 is 23, BUN is 9, creatinine is 0.68, calc ium is 8.4, magnesium 1.9, total bilirubin is 0.7, AST is 5, ALT 7, alkaline phosphatase is 54, serum total protein 5.1, albumin 3.9, globulin 1.7. ASSESSMENT: 1. Diffuse large B cell lymphoma status post cycle 4 of chemotherapy with Neulasta support. 2. Neutropenic fever. 3. Anemia. DISCUSSION: Patient has been pancultured, started on empiric antibiotics. We will continue to monit or his anemia with no transfusion at this time. Do expect his white blood cells to improve over the next few days. He will continue his home medications. We will follow his hospital course closely. Thank you for the consult.
[2017-12-04] MEDS: Famotidine 20 MG TAB PO SCH (20:41)
[2017-12-04] MEDS ORDERED: Cefepime 2 GM in Sodium Chloride 0.9% 100 ML IVPB SCH (21:00)
[2017-12-05] MEDS: Sodium Chloride 0.9% 1,000 ML IV SCH ×3 (00:30→15:46)
[2017-12-05] MEDS: Cefepime 2 GM, Syringe 2.5 ML in Sterile Water 10 ML SLOW IVP SCH ×2 (01:45→13:39)
[2017-12-05] MEDS: Acetaminophen 325 MG TAB PO PRN (04:23)
[2017-12-05 05:27] LABS: Hemoglobin 6.2 g/dL (14.0-18.0); Mean Corpuscular HGB CONC 34.8 g/dL (32.0-36.0); Mean Corpuscular Hemoglobin 30.4 pg (27.0-31.0); Mean Corpuscular Volume 87.3 fl (80.0-94.0); Mean Platelet Volume 8.7 fL (7.4-10.4); Platelet Count 78 thou/uL (130-400); RBC Distribution Width 18.4 % (11.5-14.5); Red Blood Cell (RBC) Count 2.03 mill/uL (4.70-6.10); White Blood Cell (WBC) Count 0.3 thou/uL (4.8-10.8)
[2017-12-05 05:41] LABS: Anion Gap 9 mmol/L (10-20); BUN (Urea Nitrogen) 10 mg/dL (8.4-25.7); Calc. Creatinine Clearance 129 mL/min (70-130); Calcium 8.1 mg/dL (7.8-10.44); Carbon Dioxide 25 mmol/L (22-29); Chloride 106 mmol/L (98-107); Estimated GFR-MDRD Greater than 90; Glucose 102 mg/dL (70-105); Magnesium 1.9 mg/dL (1.6-2.6); Potassium 3.8 mmol/L (3.5-5.1); Sodium 136 mmol/L (136-145)
[2017-12-05] MEDS ORDERED: VANC/ABX IVPB PRN (06:41)
--- NOTE | 2017-12-05 06:42 | PDOC.EVN ---
Event Note - Event Note Event Note: RN called with positive blood cultures. Will add Vancomycin to Cefepime.
[2017-12-05] MEDS ORDERED: Vancomycin HCl 1 GM in Premix Bag 1 BAG IVPB SCH (06:45)
[2017-12-05] MEDS: Vancomycin HCl 1.25 GM in Sodium Chloride 0.9% 250 ML 250 ML IVPB SCH ×3 (08:24→23:20)
[2017-12-05] MEDS: Famotidine 20 MG TAB PO SCH ×2 (08:33→19:24)
--- NOTE | 2017-12-05 11:57 | PDOC.PN ---
- Subjective Encounter Start Date: 12/05/17 Encounter Start Time: 09:40 Pt with fever 100.8 last evening, none today. Bcx positive overnight, called at 0635, both PAC and peripheral with GPC and GNR. Vanc started by inspecting supervisor. No n/v/D/c, no hematuria, no dysuria, no cough, sputum, no chills 10 point ROS performed and neg for all systems except as per HPI - Objective Resuscitation Status: Resuscitation Status FULL:Full Resuscitation MAR Reviewed: Yes Vital Signs & Weight: Vital Signs (12 hours) Temp Pulse Pulse Resp BP BP Pulse Ox 12/05/17 11:02 97.9 F 77 12 117/58 L 99 12/05/17 10:47 98.0 F 69 12 105/61 98 12/05/17 08:00 98.2 F 70 20 98 12/05/17 07:24 98.2 F 70 20 100/59 L 98 12/05/17 04:04 100.8 F H 84 16 109/52 L 97 12/05/17 00:59 98 12/05/17 00:02 99.0 F 78 16 103/50 L 98 Weight Weight 190 lb I&O: 12/04/17 12/05/17 12/06/17 06:59 06:59 06:59 Intake Total 0 Output Total 125 Balance -125 0 Result Diagrams: 12/05/17 04:38 12/05/17 04:38 Radiology Reviewed by me: Yes EKG Reviewed by me: Yes Phys Exam - Physical Examination Constitutional: NAD HEENT: PERRLA, moist MMs, sclera anicteric, oral pharynx no lesions Neck: no nodes, no JVD, supple, full ROM Respiratory: no wheezing, no rales, no rhonchi, clear to auscultation bilateral Cardiovascular: RRR, no significant murmur, no rub Gastrointestinal: soft, non-tender, no distention, positive bowel sounds Musculoskeletal: no edema, pulses present Neurological: non-focal, normal sensation, moves all 4 limbs Lymphatic: no nodes Psychiatric: normal affect, A&O x 3 Skin: no rash, normal turgor, cap refill <2 seconds Dx/Plan (1) Gram-negative bacteremia Code(s): R78.81 - BACTEREMIA Status: Acute (2) Gram-positive bacteremia Code(s): R78.81 - BACTEREMIA Status: Acute (3) Pancytopenia Code(s): D61.818 - OTHER PANCYTOPENIA Status: Acute (4) H/O lymphoma Code(s): Z85.79 - PRSNL HX OF MALIG NEOPLM OF LYMPHOID, HEMATPOETC & REL TISS Status: Chronic - Plan cont current plan of care, continue antibiotics, out of bed/ambulate, DVT proph w/SCDs * .
[2017-12-06] MEDS: Cefepime 2 GM, Syringe 2.5 ML in Sterile Water 10 ML SLOW IVP SCH (01:06)
[2017-12-06] MEDS: Sodium Chloride 0.9% 1,000 ML IV SCH ×2 (04:46→15:29)
[2017-12-06 07:31] LABS: Hemoglobin 7.5 g/dL (14.0-18.0); Mean Corpuscular HGB CONC 34.2 g/dL (32.0-36.0); Mean Corpuscular Hemoglobin 29.6 pg (27.0-31.0); Mean Corpuscular Volume 86.5 fl (80.0-94.0); Mean Platelet Volume 8.9 fL (7.4-10.4); Platelet Count 68 thou/uL (130-400); RBC Distribution Width 17.9 % (11.5-14.5); Red Blood Cell (RBC) Count 2.55 mill/uL (4.70-6.10); White Blood Cell (WBC) Count 1.1 thou/uL (4.8-10.8)
[2017-12-06 07:45] LABS: Vancomycin, Trough 15.7 ug/mL
[2017-12-06] MEDS: Vancomycin HCl 1.25 GM in Sodium Chloride 0.9% 250 ML 250 ML IVPB SCH (08:08)
[2017-12-06 09:35] LABS: Anisocytosis SLIGHT = 6-15 cells (100X) (0-5/hpf); Band 26 % (5-11); Lymphocytes 13 % (21-51); MDiff Complete? YES; Metamyelocyte 6 % (0-0); Monocytes 3 % (0-10); Myelocyte 3 % (0-0); Neutrophil 49 % (42-75); Nucleated RBC 1 % (0); PLT Morphology Comment Appears Decreased
[2017-12-06] MEDS: Famotidine 20 MG TAB PO SCH ×2 (10:02→20:07)
[2017-12-06] MEDS: cefTRIAXone\\ROCEPHIN 2 GM in Sodium Chloride 0.9% 100 ML IVPB SCH (11:44)
--- NOTE | 2017-12-06 13:50 | PDOC.PN ---
- Subjective Encounter Start Date: 12/06/17 Encounter Start Time: 09:25 Afebrile, feels fine. Deneis F/C, no N/V/d/C, no Cp ro SOB, no cough or sputum - Objective Resuscitation Status: Resuscitation Status FULL:Full Resuscitation MAR Reviewed: Yes Vital Signs & Weight: Vital Signs (12 hours) Temp Pulse Resp BP Pulse Ox 12/06/17 12:00 98 12/06/17 11:10 98.1 F 62 22 H 134/79 100 12/06/17 08:00 97.5 F L 65 16 12/06/17 07:00 97.5 F L 65 16 125/75 99 12/06/17 03:58 97.6 F 67 16 137/71 99 Weight Weight 190 lb I&O: 12/05/17 12/06/17 12/07/17 06:59 06:59 06:59 Intake Total 4190 500 Output Total 125 2575 500 Balance -125 1615 0 Result Diagrams: 12/06/17 07:15 12/05/17 04:38 Phys Exam - Physical Examination Constitutional: NAD HEENT: PERRLA, moist MMs, sclera anicteric, oral pharynx no lesions Neck: no nodes, no JVD, supple, full ROM Respiratory: no wheezing, no rales, no rhonchi, clear to auscultation bilateral Cardiovascular: RRR, no significant murmur, no rub Gastrointestinal: soft, non-tender, no distention, positive bowel sounds Musculoskeletal: no edema, pulses present Neurological: non-focal, normal sensation, moves all 4 limbs Lymphatic: no nodes Psychiatric: normal affect, A&O x 3 Skin: no rash, normal turgor, cap refill <2 seconds Dx/Plan (1) Gram-negative bacteremia Code(s): R78.81 - BACTEREMIA Status: Acute Comment: E coli, matthews-susceptible and alpha strep, likely v Streptococci. stop vanc, go to Rocephin alone fo rnow. would trnasition to levofloxacin if repeat BCx stay negative and treat for 2 weeks from 1st neg set of blood cultures. Line is not the source, time to positive is the same for line draw and peripheral draw (2) Gram-positive bacteremia Code(s): R78.81 - BACTEREMIA Status: Acute (3) Pancytopenia Code(s): D61.818 - OTHER PANCYTOPENIA Status: Acute (4) H/O lymphoma Code(s): Z85.79 - PRSNL HX OF MALIG NEOPLM OF LYMPHOID, HEMATPOETC & REL TISS Status: Chronic - Plan cont current plan of care, continue antibiotics, out of bed/ambulate * .
[2017-12-07] MEDS: Sodium Chloride 0.9% 1,000 ML IV SCH ×2 (04:04→13:31)
[2017-12-07] MEDS: Famotidine 20 MG TAB PO SCH ×2 (08:46→19:51)
[2017-12-07] MEDS: cefTRIAXone\\ROCEPHIN 2 GM in Sodium Chloride 0.9% 100 ML IVPB SCH (09:52)
--- NOTE | 2017-12-07 14:42 | PDOC.PN ---
- Subjective Encounter Start Date: 12/07/17 Encounter Start Time: 14:35 Subjective: f/u for neutropenic fever with bacteremia including E. coli and Strep -: spp. Currently on Rocephin and overall feeling better. No fever, chills -: SOB. - Objective Resuscitation Status: Resuscitation Status FULL:Full Resuscitation MAR Reviewed: Yes Vital Signs & Weight: Vital Signs (12 hours) Temp Pulse Resp BP Pulse Ox 12/07/17 11:57 97.6 F 12/07/17 08:00 97.5 F L 66 20 97 12/07/17 07:00 97.5 F L 66 20 111/73 97 Weight Weight 190 lb I&O: 12/06/17 12/07/17 12/08/17 06:59 06:59 06:59 Intake Total 4190 5820 Output Total 2575 3850 Balance 1615 1970 Result Diagrams: 12/06/17 07:15 12/05/17 04:38 Additional Labs: Microbiology 12/04/17 12:16 Central Line - Right Subclavian Vein Blood Culture - Final Escherichia coli Streptococcus mitis\oralis 12/06/17 11:40 Central Line - Right Subclavian Vein Blood Culture - Preliminary Specimen has been received and culture in progress. No Growth to date. 12/04/17 15:26 Urine clean catch Urine Culture - Preliminary Yeast species 12/04/17 12:16 Venous blood - Right Arm Blood Culture - Preliminary Escherichia coli Alpha-Hemolytic Streptococcus Laboratory Tests 12/04/17 12/05/17 12/06/17 12:16 04:38 07:15 WBC 0.1 L* 0.3 L* Hgb 6.5 L 6.2 L Plt Count 90 L 78 L Band Neuts % (Manual) 26 H Phys Exam - Physical Examination Constitutional: NAD HEENT: PERRLA, oral pharynx no lesions Neck: no JVD, supple Respiratory: no wheezing Cardiovascular: RRR Gastrointestinal: soft, non-tender, no distention, positive bowel sounds Musculoskeletal: no edema, pulses present Neurological: normal sensation, moves all 4 limbs Psychiatric: A&O x 3 Skin: normal turgor, cap refill <2 seconds Dx/Plan (1) E. coli bacteremia Code(s): R78.81 - BACTEREMIA Status: Acute Comment: Continue Rocephin 2gm IV x 24h more then convert to Levaquin for outpt abx course (2) Bacteremia due to Streptococcus Code(s): R78.81 - BACTEREMIA; B95.5 - UNSP STREPTOCOCCUS THE CAUSE OF DISEASES CLASSD [id number] Status: Acute Comment: See #1 above (3) Pancytopenia Code(s): D61.818 - OTHER PANCYTOPENIA Status: Acute Comment: Secondary to chemotherapy, continue serial monitoring (4) H/O lymphoma Code(s): Z85.79 - PRSNL HX OF [facility] NEOPL OF LYMPHOID, HEMATPOETC & REL TISS Status: Chronic Comment: Current chemotherapy per medical oncology (5) Neutropenic fever Code(s): D70.9 - NEUTROPENIA, UNSPECIFIED; R50.81 - FEVER PRESENTING WITH CONDITIONS CLASSIFIED ELSEWHERE Status: Resolved Comment: Resolving with current abx regimen - Plan continue antibiotics, social media campaign manager, out of bed/ambulate, DVT proph w/SCDs Stable overall -: Continue Rocephin another 24h then convert to Levaquin -: Continue IVF's another 24h -: OOB/ambulate -: AM lab: CBC * Likely home in am 12/08/17
[2017-12-07] MEDS ORDERED: Bisacodyl 5 MG TAB PO PRN (16:55)
[2017-12-07] MEDS: Docusate 100 MG CAP PO SCH (19:52)
[2017-12-08] MEDS: Sodium Chloride 0.9% 1,000 ML IV SCH ×2 (00:30→06:34)
[2017-12-08 06:04] LABS: Hemoglobin 8.1 g/dL (14.0-18.0); Mean Corpuscular HGB CONC 33.7 g/dL (32.0-36.0); Mean Corpuscular Hemoglobin 29.2 pg (27.0-31.0); Mean Corpuscular Volume 86.6 fl (80.0-94.0); Platelet Count 82 thou/uL (130-400); RBC Distribution Width 18.2 % (11.5-14.5); Red Blood Cell (RBC) Count 2.79 mill/uL (4.70-6.10); White Blood Cell (WBC) Count 2.9 thou/uL (4.8-10.8)
[2017-12-08 06:27] LABS: Band 23 % (5-11); Lymphocytes 20 % (21-51); MDiff Complete? YES; Metamyelocyte 3 % (0-0); Monocytes 4 % (0-10); Myelocyte 3 % (0-0); Neutrophil 47 % (42-75); Nucleated RBC 1 % (0)
[2017-12-08 07:48] VITALS: BP 124/76; TEMP 97.7
[2017-12-08] MEDS: Docusate 100 MG CAP PO SCH (10:03)
[2017-12-08] MEDS: Famotidine 20 MG TAB PO SCH (10:04)
[2017-12-08] MEDS: cefTRIAXone\\ROCEPHIN 2 GM in Sodium Chloride 0.9% 100 ML IVPB SCH (10:04)
--- NOTE | 2017-12-08 10:14 | DIS ---
DATE OF ADMISSION: 12/04/2017 DATE OF DISCHARGE: 12/08/2017 DISCHARGE DIAGNOSES: 1. Neutropenic fever secondary to #2 and #3, resolved. 2. Escherichia coli bacteremia, resolving. 3. Bacteremia due to Streptococcus mitis. 4. Pancytopenia secondary to chemotherapy, improved. 5. Acute on chronic normocytic anemia secondary to chemotherapy, status post 1 unit of packed red bl ood cells. 6. Large B cell lymphoma with current chemotherapy. 7. History of paroxysmal atrial fibrillation, stable. CONSULTATIONS: Dr. Rust with Medical Oncology Service. PERTINENT LABORATORY DATA AND X-RAY FINDINGS: Basic metabolic profile within normal limits. Magnesi um level 1.9. CBC showed a white blood cell count ranging between 0.1-2.9. Hemoglobin ranged betwee n 6.2-8.1. Platelet count ranged between 68-90. Blood cultures x2 dated 12/04/2017 positive for E. coli and Streptococcus mitis pansensitive. Urine culture dated 12/04/2017 showed less than 5,000 col onies of yeast species. Blood culture dated 12/06/2017 from central line source showed no growth to date. Portable chest x-ray dated 12/04/2017 showed no acute cardiopulmonary process. HOSPITAL COURSE: Patient was admitted to the medical oncology unit after presenting with fever in th e context of large B cell lymphoma with current chemotherapy. The patient currently receiving Rituxa n, Cytoxan, vincristine, prednisone and Neulasta. Patient presented with fever and pancytopenia, jasbir prateek on IV cefepime and vancomycin per protocol. The patient received 1 unit of packed red blood cell s and overall serial hemoglobin stabilized and improved with supportive measures. The patient was no laurie with positive blood cultures x2 with E. coli and Streptococcus species transitioning from IV cefe pime and vancomycin to Rocephin. Due to the timing of cultures becoming positive from a peripheral s ource and central source, no specific recommendations for removal of current MediPort were recommende d. The patient remained afebrile for the majority of the hospital course starting on 12/05/2017. Ov erall, the patient did remain clinically stable throughout the hospital course. Ambulating without a ssistance or difficulty and tolerating regular oral intake. The patient will transition to Levaquin 750 mg p.o. daily to complete a 2 week course of antibiotic therapy on discharge. Overall, patient i s clinically stable and ready for discharge on 12/08/2017. DISCHARGE MEDICATIONS: 1. Levaquin 750 mg 1 tab p.o. daily until 12/18/2017. 2. Amiodarone 200 mg 1 tab p.o. daily. 3. Eliquis 5 mg p.o. b.i.d. 4. Enteric coated aspirin 81 mg p.o. daily, hold until 12/10/2017. 5. Vitamin B12 1000 mcg p.o. daily. 6. Digoxin 0.125 mg p.o. daily. 7. Folic acid 1 mg p.o. daily. 8. Claritin 10 mg 1 tab p.o. daily. 9. Multivitamin 1 tab p.o. daily. 10. Zofran 8 mg p.o. q.8 hours p.r.n. 11. Prednisone take 2 tablets p.o. q.a.m. starting day after chemotherapy for 4 days. 12. Compazine 10 mg p.o. q.4 hours p.r.n. nausea, vomiting. 13. Thiamine 100 mg 1 tab p.o. daily. FOLLOWUP: Patient will follow up with his primary care provider, Dr. Lamont Dorman within 7 days of dis charge. The patient may follow up with Dr. Rust at [facility] and to call his office for appointment time and date. CONDITION ON DISCHARGE: Stable. ACTIVITY: Ad donna. DIET: Regular. CODE STATUS: FULL. DISPOSITION: Home 12/08/2017. Total time preparing and coordinating discharge is 35 minutes.
[2017-12-08 14:41] VITALS: BMI 25.0
== END 2017-12-08 15:50 | disposition home or self-care (01) | DRG 809 ==
LOC: ONC 10:10
PROVIDERS: ADMIT Internal Medicine Infectious Disease; ATTEND Internal Medicine Infectious Disease
PROC: 30233N1 Transfusion of Nonautologous Red Blood Cells into Peripheral Vein, Percutaneous Approach (ICD-10-PCS; principal; 2017-12-05)
DX: D70.3 Neutropenia due to infection (principal); C83.30 Diffuse large B-cell lymphoma, unspecified site; R78.81 Bacteremia; I48.0 Paroxysmal atrial fibrillation; B95.4 Other streptococcus as the cause of diseases classified elsewhere; D61.810 Antineoplastic chemotherapy induced pancytopenia; Z92.21 Personal history of antineoplastic chemotherapy; Z79.01 Long term (current) use of anticoagulants; Z79.82 Long term (current) use of aspirin; Z95.828 Presence of other vascular implants and grafts; R50.81 Fever presenting with conditions classified elsewhere; D75.9 Disease of blood and blood-forming organs, unspecified; B96.20 Unspecified Escherichia coli [E. coli] as the cause of diseases classified elsewhere; I10 Essential (primary) hypertension
CPT/HCPCS: 36415; 36430; 71046; 80048; 80053; 80202; 81001; 83735; 85025; 86850; 86900; 86901; 87040; 87077; 87086; 87186; A4216; J0692; J0696; J1642; J3370; J7050; P9016

== ENCOUNTER 2017-12-15 08:18 | Outpatient (CLI) | payer BC ==
[2017-12-15] MEDS ORDERED: ISOVUE-370 76%-LOCM 1 ML ONE (13:22)
== END 2017-12-15 08:19 | disposition home or self-care (01) ==
LOC: BICCT 08:18
PROVIDERS: ATTEND Internal Medicine Medical Oncology
DX: C85.90 Non-Hodgkin lymphoma, unspecified, unspecified site (principal); K80.20 Calculus of gallbladder without cholecystitis without obstruction; K57.90 Diverticulosis of intestine, part unspecified, without perforation or abscess without bleeding; I70.90 Unspecified atherosclerosis; R16.1 Splenomegaly, not elsewhere classified
CPT/HCPCS: 71260; 74177

== ENCOUNTER 2017-12-24 19:46 | Inpatient (IN) | payer BC ==
--- NOTE | 2017-12-24 21:40 | RAD ---
CHEST ONE VIEW 12/24/17 HISTORY: Fever. COMPARISON: 10/26/17. FINDINGS: The cardiac silhouette is magnified by projection. Pulmonary vasculature is unremarkable. Mediastinum is midline with aortic calcification and a right internal jugular Mediport. No lobar consolidation o r evidence of pneumothorax. IMPRESSION: Chronic type findings are stable. POS: [facility]
[2017-12-24 22:00] LABS: Lactic Acid 1.1 mmol/L (0.5-2.2)
[2017-12-24 22:03] LABS: Hemoglobin 6.3 g/dL (14.0-18.0); Mean Corpuscular HGB CONC 34.7 g/dL (32.0-36.0); Mean Corpuscular Hemoglobin 30.6 pg (27.0-31.0); RBC Distribution Width 17.9 % (11.5-14.5); Red Blood Cell (RBC) Count 2.05 mill/uL (4.70-6.10); White Blood Cell (WBC) Count 0.2 thou/uL (4.8-10.8)
[2017-12-24 22:12] LABS: ALT (SGPT) 7 U/L (8-55); AST (SGOT) 7 U/L (5-34); Albumin 3.7 g/dL (3.5-5.0); Alkaline Phosphatase 54 U/L (40-150); Anion Gap 13 mmol/L (10-20); BUN (Urea Nitrogen) 12 mg/dL (8.4-25.7); Bilirubin, Total 0.8 mg/dL (0.2-1.2); Calc. Creatinine Clearance 0 mL/min (70-130); Carbon Dioxide 24 mmol/L (22-29); Chloride 104 mmol/L (98-107); Estimated GFR-MDRD Greater than 90; Globulin 1.8 g/dL (2.4-3.5); Glucose 113 mg/dL (70-105); Mean Platelet Volume 8.1 fL (7.4-10.4); PLT Morphology Comment Appears Decreased; Platelet Count 89 thou/uL (130-400); Potassium 4.5 mmol/L (3.5-5.1); Protein, Total 5.5 g/dL (6.0-8.3); Sodium 136 mmol/L (136-145)
[2017-12-24] MEDS ORDERED: Cefepime 2 GM/10 ML SYR ONE (23:04)
[2017-12-25] MEDS ORDERED: Ondansetron ODT 4 MG TAB SL PRN (00:47)
[2017-12-25] MEDS ORDERED: Ondansetron HCl/PF 4 MG/2 ML Vial IVP PRN ×2 (00:47→07:43)
[2017-12-25 02:01] VITALS: BMI 24.7
[2017-12-25] MEDS ORDERED: Milk Of Magnesia 30 ML UDCUP PO PRN (07:43)
[2017-12-25] MEDS ORDERED: traZODone HCl 50 MG TAB PO PRN (07:43)
[2017-12-25] MEDS ORDERED: Lorazepam 1 MG TAB PO PRN (07:43)
[2017-12-25] MEDS ORDERED: Acetaminophen 325 MG TAB PO PRN (07:43)
[2017-12-25] MEDS ORDERED: HYDROcodone/Acetaminophen 5/325 mg Tablet PO PRN (07:43)
[2017-12-25] MEDS ORDERED: hydrALAZINE 20 MG/ML VIAL SLOW IVP PRN (07:43)
[2017-12-25] MEDS ORDERED: Ondansetron ODT 4 MG TAB PO PRN (07:43)
[2017-12-25] MEDS ORDERED: Cefepime 2 GM, Syringe 2.5 ML in Sterile Water 10 ML SLOW IVP SCH (08:00)
--- NOTE | 2017-12-25 08:29 | HP ---
PRIMARY CARE PHYSICIAN: Dr. Dorman. CHIEF COMPLAINT: Fever and low white blood cell count. HISTORY OF PRESENT ILLNESS: Mr. Townsend is a pleasant 57-year-old gentleman who has a history of large B cell lymphoma. He was in his usual state of health until Friday when he noticed a temperature of 99. He says it started gradually going up. Then, on Friday evening, he took his temperature and it was 101.5. He has a history of developing neutropenic fever following chemotherapy and as a resul t, he needed to come to the hospital with regards to the elevated temperature. He had been on Levaqu in in hopes of preventing the neutropenic fever, but unfortunately it happened once again. He states that he does not feel bad. He denies any sore throat, no rhinorrhea. No nasal congestion, no cough or congestion in his chest. No abdominal pain, no nausea, no vomiting, no diarrhea. REVIEW OF SYSTEMS: With regards to the review of systems, it is essentially as the history of presen t illness with: CONSTITUTIONAL: He has had subjective fever, but no chills, no night sweats, no weight loss. HEENT: No headaches, no dizziness, no visual changes, no sore throat, rhinorrhea, neck pain, no pj opathy. PULMONARY: No hemoptysis, no cough, no wheezing. CARDIOVASCULAR: He denies any chest pain, no shortness of breath, no PND, and no orthopnea. GASTROINTESTINAL: No abdominal pain, no nausea, no vomiting, no change in bowels. GENITOURINARY: No urinary frequency, hematuria, no hesitancy. NEUROLOGIC: No focal weakness, numbness, no seizures. SKIN/INTEGUMENT: No skin changes. No rash. PAST MEDICAL HISTORY: Significant for large B cell lymphoma. He is treated by Dr. Rust. He als o has a history of paroxysmal atrial fibrillation and he is on Eliquis. PAST SURGICAL HISTORY: He has had a right Port-A-Cath placed. ALLERGIES: No known drug allergies. SOCIAL HISTORY: He is . He is a nonsmoker, nondrinker. He would like to be a FULL CODE. FAMILY HISTORY: No history of any inheritable diseases. CURRENT MEDICATIONS: Include amiodarone 200 mg daily, Eliquis 5 mg twice a day, prednisone 100 mg wh ich he takes 4 days after chemotherapy, folic acid 1 mg daily, thiamine 100 mg daily, digoxin 0.125 m g daily, aspirin 81 mg a day, multivitamins daily, and B12 of 1000 mcg daily. PHYSICAL EXAMINATION: GENERAL: He is alert and oriented. He appears to be in no acute distress. VITAL SIGNS: Blood pressure was 113/61, heart rate is 89, respiratory rate of 20, temperature is 99. 6. HEENT: Pupils are equal, round, and reactive. Extraocular muscles are intact. Sclerae are anicteri c. Throat: There is no erythema, no exudates. He does have poor dentition, but no obvious signs of any dental abscess or swelling. NECK: There is no adenopathy, no bruits. LUNGS: Clear. There is no wheezing, no rales. CARDIOVASCULAR: He has a normal S1 and S2. I did not appreciate an S3 or S4. No murmurs, clicks, n o rubs. ABDOMEN: Soft, it is nontender, nondistended. Positive for bowel sounds. There is no rebound, no g uarding. EXTREMITIES: There is no edema. NEUROLOGICALLY: The exam is nonfocal. SIGNIFICANT LABORATORY RESULTS: Sodium 136, potassium 4.5, chloride is 104, CO2 is 24, BUN of 12, cr eatinine 0.75, glucose is 113. His white blood cell count was 200. There were no reportable neutrop hils, hemoglobin 6.3, hematocrit is 18, platelet count was 89. Chest x-ray and this is by my reading , there was no evidence of any infiltrate or effusion. Heart size was normal. ASSESSMENT AND PLAN: 1. This is a 57-year-old gentleman that is currently undergoing chemotherapy for large B cell lympho ma. He is about a week post-chemotherapy and has likely reached a cristian with regards to the drop in his blood counts. He is pancytopenic likely as a result of the chemotherapy. He will be admitted, s tarted on the neutropenic protocol on cefepime and likely vancomycin as well. Cultures have been dra hassan from the emergency room. We will continue antibiotics until the culture results become available. 2. For atrial fibrillation, we will continue his usual medications including Eliquis. 3. For the anemia, which is likely chemotherapy-induced, we will transfuse him 1 unit.
[2017-12-25] MEDS ORDERED: Vancomycin HCl 1 GM in Premix Bag 1 BAG IVPB SCH (09:00)
[2017-12-25] MEDS: Cefepime 2 GM, Syringe 2.5 ML in Sterile Water 10 ML SLOW IVP SCH ×2 (09:11→16:14)
[2017-12-25] MEDS: Digoxin 0.125 MG TAB PO SCH (09:12)
[2017-12-25] MEDS: Apixaban 5 MG TAB PO SCH (09:12)
[2017-12-25] MEDS: Docusate 100 MG CAP PO SCH (09:12)
[2017-12-25] MEDS: Aspirin 81 mg Enteric Coated Tablet PO SCH (09:12)
[2017-12-25] MEDS: Folic Acid 1 MG TAB PO SCH (09:13)
[2017-12-25] MEDS: Vancomycin HCl 1.25 GM, Admixture Fee 1 EACH in Sodium Chloride 0.9% 250 ML 250 ML IVPB SCH ×2 (09:13→17:14)
[2017-12-25] MEDS: Amiodarone 200 MG TAB PO SCH (11:13)
[2017-12-25] MEDS ORDERED: Cefepime 2 GM in Sodium Chloride 0.9% 100 ML IVPB SCH (14:00)
--- NOTE | 2017-12-25 16:09 | CON ---
DATE OF CONSULTATION: 12/25/2017 REASON FOR CONSULTATION: Diffuse large B cell lymphoma. HISTORY OF PRESENT ILLNESS: Mr. Townsend is a pleasant 57-year-old gentleman who received cycle 5 of R-CHOP on 12/17/2017 for a diffuse large B cell lymphoma. He has struggled with neutropenic fever and required hospitalization after each cycle. Two days ago, he began to have a low grade fever and presented to the emergency room for evaluation. On arrival, his white count was 200. His hemoglobin was 6.3 and his platelet count was 89,000. He was pancultured and started on empiric antibiotics. The patient was actually taking Levaquin in the outpatient setting in hopes that it would prevent the neutropenic fever. Unfortunately, this did not occur. He has struggled with infection during this process with pyoderma gangrenosum and urinary tract infection. The patient denies any complaints at this time. No headache, chest pain, shortness of breath. No abdominal pain, nausea, vomiting or diarrhea. Denies any new rash. PAST MEDICAL HISTORY: 1. Diffuse large B cell lymphoma, stage EMIR. 2. Paroxysmal atrial fibrillation. 3. Pyoderma gangrenosum. 4. Hypertension. PAST SURGICAL HISTORY: Tendon repair. ALLERGIES: No known drug allergies. HOME MEDICATIONS: 1. Amiodarone 200 mg two tablets b.i.d. 2. Aspirin 81 mg daily. 3. B12 daily. 4. Digoxin 125 mcg daily. 5. Eliquis 5 mg b.i.d. 6. Iron b.i.d. 7. Folic acid daily. 8. Levaquin 500 mg daily. 9. Thiamin daily. FAMILY HISTORY: Noncontributory. SOCIAL HISTORY: , lives with his spouse. No alcohol, tobacco or illicit drug use. REVIEW OF SYSTEMS: Twelve-point review of systems is negative except for noted in HPI. PHYSICAL EXAMINATION: VITAL SIGNS: Temperature is 99.2, heart rate is 76, respiratory rate 20, blood pressure is 106/63, he is 96% on room air. GENERAL: Well-developed, well-nourished male, in no acute distress. HEENT: Normocephalic, atraumatic. Pupils are equal and reactive to light. NECK: Supple. CARDIOVASCULAR: Regular rate and rhythm. LUNGS: Clear to auscultation. ABDOMEN: Soft, nontender, bowel sounds are positive. EXTREMITIES: No clubbing, cyanosis or edema. SKIN: No rash. HEMATOLOGIC: No petechia or purpura. LYMPHATIC: There is no palpable lymphadenopathy. NEUROLOGICAL: Nonfocal. PSYCHIATRIC: The patient is alert and oriented and appropriate. PERTINENT LABORATORY AND X-RAYS: Current WBCs are 200, hemoglobin 6.3, hematocrit 18.0, platelet count 84,000. Sodium is 136, potassium 4.5, chloride 102, CO2 is 24, BUN is 12, creatinine 0.75 and lactic acid is 1.1, calcium 9.0, total bilirubin is 0.8, AST is 7, ALT is 7, alkaline phosphatase is 54, serum total protein is 5.5, albumin 3.7, globulin 1.8. Chest x-ray showed no acute process. IMPRESSION: 1. Neutropenic fever. 2. Diffuse large B cell lymphoma, status post cycle 5 of R-CHOP chemotherapy. DISCUSSION: The patient did receive Neulasta support with his chemotherapy that was approximately 7 days ago. Generally, it starts to work in the 7-10 day range. So, I expect his white count to improve over the next few days. Continue empiric antibiotics and await cultures. He should be able to go home once his white count is trending upward and he has been fever free for 24 hours. Thank you for the consult. LUCIEN
[2017-12-26] MEDS: Cefepime 2 GM, Syringe 2.5 ML in Sterile Water 10 ML SLOW IVP SCH ×3 (00:56→16:09)
[2017-12-26] MEDS: Docusate 100 MG CAP PO SCH ×3 (00:56→22:12)
[2017-12-26] MEDS: Apixaban 5 MG TAB PO SCH ×3 (00:56→22:12)
[2017-12-26] MEDS: Vancomycin HCl 1.25 GM, Admixture Fee 1 EACH in Sodium Chloride 0.9% 250 ML 250 ML IVPB SCH ×3 (00:57→16:10)
[2017-12-26 06:23] LABS: White Blood Cell (WBC) Count 0.4 thou/uL (4.8-10.8)
[2017-12-26 06:38] LABS: Hemoglobin 7.3 g/dL (14.0-18.0); Mean Corpuscular HGB CONC 35.3 g/dL (32.0-36.0); Mean Corpuscular Hemoglobin 30.4 pg (27.0-31.0); Mean Corpuscular Volume 86.1 fl (80.0-94.0); Mean Platelet Volume 8.8 fL (7.4-10.4); Platelet Count 73 thou/uL (130-400); RBC Distribution Width 17.4 % (11.5-14.5)
--- NOTE | 2017-12-26 07:05 | PDOC.PN ---
- Subjective Encounter Start Date: 12/26/17 Encounter Start Time: 07:04 Mr. Townsend was seen today in follow-up. He does not have any complaints. He denies sore throat, cough congestion ect. - Objective Resuscitation Status: Resuscitation Status FULL:Full Resuscitation MAR Reviewed: Yes Vital Signs & Weight: Vital Signs (12 hours) Temp Pulse Resp BP Pulse Ox 12/25/17 20:00 99.4 F 88 22 H 93 L 12/25/17 19:53 99.4 F 88 24 H 115/62 93 L Weight Weight 188 lb 0.869 oz I&O: 12/25/17 12/26/17 12/27/17 06:59 06:59 06:59 Intake Total 1890 Balance 1890 Result Diagrams: 12/26/17 05:50 12/24/17 21:34 Phys Exam - Physical Examination HEENT: PERRLA Respiratory: no wheezing, no rales, no rhonchi, clear to auscultation bilateral Cardiovascular: RRR, no significant murmur, no rub Gastrointestinal: soft, non-tender, positive bowel sounds Musculoskeletal: no edema Dx/Plan (1) Atrial fibrillation Code(s): I48.91 - UNSPECIFIED ATRIAL FIBRILLATION Status: Chronic Qualifiers: Comment: SR with current rate control, continue Amiodarone and eliquis - Plan * Neutropenic Fever- will continue Cefepime and Vancomycin * Blood cultures are negative so far * AFIB- heeart rate is stable- continue Eliquis for CVA prophylaxis * Anemia- chemotherapy induced- better after transfusion.
[2017-12-26 07:31] LABS: MDiff Complete? YES; Ovalocytes SLIGHT = 2-5 cells (100X) (0-1/hpf); PLT Morphology Comment Appears Decreased; Polychromasia SLIGHT = 2-3 cells (100X) (0-2/hpf); Tear Drops SLIGHT = 2-5 cells (100X) (0-1/hpf)
[2017-12-26 08:43] LABS: Vancomycin, Trough 17.4 ug/mL
[2017-12-26] MEDS: Amiodarone 200 MG TAB PO SCH (08:52)
[2017-12-26] MEDS: Digoxin 0.125 MG TAB PO SCH (08:52)
[2017-12-26] MEDS: Aspirin 81 mg Enteric Coated Tablet PO SCH (08:52)
[2017-12-26] MEDS: Folic Acid 1 MG TAB PO SCH (08:52)
[2017-12-27] MEDS: Vancomycin HCl 1.25 GM, Admixture Fee 1 EACH in Sodium Chloride 0.9% 250 ML 250 ML IVPB SCH ×2 (01:05→10:10)
[2017-12-27] MEDS: Cefepime 2 GM, Syringe 2.5 ML in Sterile Water 10 ML SLOW IVP SCH ×2 (01:06→08:50)
[2017-12-27] MEDS: Aspirin 81 mg Enteric Coated Tablet PO SCH (08:51)
[2017-12-27] MEDS: Folic Acid 1 MG TAB PO SCH (08:51)
[2017-12-27] MEDS: Digoxin 0.125 MG TAB PO SCH (08:51)
[2017-12-27] MEDS: Docusate 100 MG CAP PO SCH (08:51)
[2017-12-27] MEDS: Amiodarone 200 MG TAB PO SCH (08:51)
[2017-12-27] MEDS: Apixaban 5 MG TAB PO SCH (08:51)
[2017-12-27 09:40] LABS: Band 21 % (5-11); Hemoglobin 8.1 g/dL (14.0-18.0); Lymphocytes 43 % (21-51); MDiff Complete? YES; Mean Corpuscular HGB CONC 34.8 g/dL (32.0-36.0); Mean Corpuscular Volume 86.2 fl (80.0-94.0); Mean Platelet Volume 8.8 fL (7.4-10.4); Metamyelocyte 2 % (0-0); Monocytes 8 % (0-10); Myelocyte 2 % (0-0); Neutrophil 24 % (42-75); Nucleated RBC 1 % (0); Platelet Count 75 thou/uL (130-400); Polychromasia SLIGHT = 2-3 cells (100X) (0-2/hpf); RBC Distribution Width 17.8 % (11.5-14.5)
--- NOTE | 2017-12-27 10:32 | PDOC.PN ---
- Subjective Encounter Start Date: 12/27/17 Encounter Start Time: 10:31 Mr. Townsend was seen today in follow-up of Neutropenic fever He does not have any complaints. - Objective Resuscitation Status: Resuscitation Status FULL:Full Resuscitation MAR Reviewed: Yes Vital Signs & Weight: Vital Signs (12 hours) Temp Pulse Resp BP Pulse Ox 12/27/17 08:51 74 12/27/17 07:10 97.7 F 74 20 108/70 99 12/27/17 04:01 98.1 F 12/27/17 00:00 98.3 F Weight Weight 188 lb 0.869 oz I&O: 12/26/17 12/27/17 12/28/17 06:59 06:59 06:59 Intake Total 1890 Output Total 475 Balance 1890 -475 Result Diagrams: 12/27/17 08:45 12/24/17 21:34 Phys Exam - Physical Examination HEENT: PERRLA Respiratory: no wheezing, no rales, no rhonchi, clear to auscultation bilateral Cardiovascular: RRR, no significant murmur Gastrointestinal: soft, non-tender Musculoskeletal: no edema Dx/Plan (1) Atrial fibrillation Code(s): I48.91 - UNSPECIFIED ATRIAL FIBRILLATION Status: Chronic Qualifiers: Comment: SR with current rate control, continue Amiodarone and eliquis - Plan * Neutropenic Fever- His WBC count has improved and he has not had fever for several days. All cultures are negative so far * Stable for discharge home..
--- NOTE | 2017-12-27 11:49 | DIS ---
DATE OF ADMISSION: 12/25/2017 DATE OF DISCHARGE: 12/27/2017 PRIMARY CARE PHYSICIAN: Dr. Dorman. DISCHARGE DISPOSITION: Home. PRIMARY DISCHARGE DIAGNOSES: 1. Neutropenic fever. 2. Large B-cell lymphoma. 3. Paroxysmal atrial fibrillation. DISCHARGE MEDICATIONS: Include Levaquin 750 mg p.o. daily, vitamin D 100 mg daily, Compazine 10 mg q .4 hours as needed, prednisone 50 mg daily and this is for the days after chemotherapy, Zofran 8 mg q .8 hours as needed, multivitamin once daily, Claritin 10 mg daily, folic acid 1 mg daily, digoxin 0.1 25 mg daily, vitamin B12 1000 mcg daily, aspirin 81 mg daily, Eliquis 5 mg twice a day, and amiodaron e 200 mg daily. CODE STATUS: FULL CODE. ALLERGIES: No known drug allergies. HOSPITAL COURSE: Mr. Townsend is a pleasant 57-year-old gentleman that has a history of large B-cell lym phoma. He is currently undergoing chemotherapy. He has developed neutropenic fever consistently usu ally between 7-10 days out from his chemotherapy. This time was no different; at approximately 7 day s post-chemotherapy, the patient developed a fever. He came to the emergency room and was found to b e neutropenic. The absolute neutrophil count was around 200. There was no report on the neutrophils and the bands. He was started on the neutropenic admission protocol and was placed on IV cefepime a nd vancomycin. Blood cultures and urine cultures were negative. His white blood cell count began to recover, and at the time of discharge, his absolute neutrophil count was approximately 500, and he h ad been afebrile for at least 24 hours and was subsequently discharged home to continue on Levaquin.
[2017-12-27 11:54] VITALS: BP 118/69; TEMP 97.5
[2017-12-27] MEDS ORDERED: Vancomycin HCl 1 GM in Premix Bag 1 BAG IVPB SCH (12:00)
== END 2017-12-27 14:10 | disposition home or self-care (01) | DRG 809 ==
LOC: ERS 19:46 → ONC 12-25 00:26
PROVIDERS: ADMIT Family Medicine; ATTEND Family Medicine
PROC: 30233N1 Transfusion of Nonautologous Red Blood Cells into Peripheral Vein, Percutaneous Approach (ICD-10-PCS; principal; 2017-12-25)
DX: D70.1 Agranulocytosis secondary to cancer chemotherapy (principal); C83.30 Diffuse large B-cell lymphoma, unspecified site; D61.810 Antineoplastic chemotherapy induced pancytopenia; R50.81 Fever presenting with conditions classified elsewhere; T45.1X5A Adverse effect of antineoplastic and immunosuppressive drugs, initial encounter; I48.0 Paroxysmal atrial fibrillation; I10 Essential (primary) hypertension; Z79.02 Long term (current) use of antithrombotics/antiplatelets
CPT/HCPCS: 36415; 36430; 71045; 80053; 80202; 83605; 85025; 86850; 86900; 86901; 87040; 94760; 96374; A4216; J0692; J1642; J3370; J7050; P9016

== ENCOUNTER 2018-01-13 04:47 | Inpatient (IN) | payer BC ==
[2018-01-13 05:34] LABS: Hemoglobin 8.4 g/dL (14.0-18.0); Mean Corpuscular Hemoglobin 31.5 pg (27.0-31.0); Mean Corpuscular Volume 92.6 fl (80.0-94.0); Mean Platelet Volume 8.4 fL (7.4-10.4); Platelet Count 86 thou/uL (130-400); RBC Distribution Width 17.9 % (11.5-14.5); Red Blood Cell (RBC) Count 2.65 mill/uL (4.70-6.10); White Blood Cell (WBC) Count 0.2 thou/uL (4.8-10.8)
[2018-01-13 05:51] LABS: PLT Morphology Comment Appears Decreased
[2018-01-13 05:58] LABS: ALT (SGPT) 12 U/L (8-55); AST (SGOT) 8 U/L (5-34); Alkaline Phosphatase 58 U/L (40-150); Anion Gap 12 mmol/L (10-20); BUN (Urea Nitrogen) 17 mg/dL (8.4-25.7); Bilirubin, Total 0.7 mg/dL (0.2-1.2); Calc. Creatinine Clearance 0 mL/min (70-130); Calcium 8.9 mg/dL (7.8-10.44); Carbon Dioxide 25 mmol/L (22-29); Chloride 102 mmol/L (98-107); Estimated GFR-MDRD Greater than 90; Globulin 1.7 g/dL (2.4-3.5); Glucose 128 mg/dL (70-105); Protein, Total 5.7 g/dL (6.0-8.3); Sodium 135 mmol/L (136-145)
[2018-01-13] MEDS ORDERED: Cefepime 2 GM/10 ML SYR ONE (06:00)
[2018-01-13 06:08] LABS: Bilirubin Negative (Negative); Blood, Urine Negative (Negative); Clarity CLEAR (Clear); Glucose, Urine (Dipstick) Negative (Negative); Leukocyte Negative (Negative); Nitrite Negative (Negative); Protein, Urine (Dipstick) Negative (Neg-Trace); Specific Gravity, Urine 1.018 (1.002-1.036)
[2018-01-13] MEDS ORDERED: Cefepime 2 GM, Syringe 2.5 ML in Sodium Chloride 0.9% 10 ML SLOW IVP SCH (06:15)
[2018-01-13] MEDS ORDERED: Ibuprofen 200 MG TAB ONE (06:20)
[2018-01-13] MEDS ORDERED: Acetaminophen 325 MG TAB PO PRN (07:38)
[2018-01-13] MEDS ORDERED: Ondansetron HCl/PF 4 MG/2 ML Vial IVP PRN (07:38)
[2018-01-13] MEDS ORDERED: HYDROcodone/Acetaminophen 5/325 mg Tablet PO PRN (07:38)
[2018-01-13] MEDS ORDERED: Ondansetron ODT 4 MG TAB PO PRN (07:38)
[2018-01-13] MEDS ORDERED: Milk Of Magnesia 30 ML UDCUP PO PRN (07:38)
--- NOTE | 2018-01-13 07:49 | RAD ---
PORTABLE CHEST 1 VIEW Date: 01/13/18 Time: 0511 hours HISTORY: Fever. Lymphoma. FINDINGS: Comparison made with exam of 12/24/17. The heart size is normal. Right-sided Port-A-Cath remains in place. The lungs are well expanded witho ut focal areas of consolidation, pneumothorax, or pleural effusions. IMPRESSION: No radiographic evidence of acute cardiopulmonary process. POS: OFF
[2018-01-13 09:23] LABS: Lactic Acid 2.2 mmol/L (0.5-2.2)
[2018-01-13] MEDS ORDERED: Acetaminophen 650 MG Suppository PR PRN (12:15)
[2018-01-13] MEDS: Docusate 100 MG CAP PO SCH ×2 (12:26→21:21)
--- NOTE | 2018-01-13 14:02 | RAD ---
CHEST 2 VIEWS: Date: 01/13/18 HISTORY: Sepsis. COMPARISON: Chest 1 view from same date. FINDINGS: A port catheter is in place with the tip in the superior SVC. No focal air space consolidation, pneum othorax, or effusion. No acute osseous abnormality. There is mild sclerosis in the mid thoracic spine vertebra. IMPRESSION: 1. No acute intrathoracic abnormality. 2. Abnormal sclerosis in the mid thoracic spine, which could be artifactual, less likely metastatic in nature. CT would be beneficial if necessary. POS: ENOCH
--- NOTE | 2018-01-13 14:46 | HP ---
PRIMARY CARE PHYSICIAN: Dr. Duane Dorman. PRESENTING COMPLAINT: Fever. HISTORY OF PRESENT ILLNESS: Mr. Kristian Gann is a 57-year-old male with a past medical histor y of B cell lymphoma on chemotherapy, who presented to the emergency room today after he had high gra de fever. Patient reports that earlier this morning around 3:00 a.m., he felt very febrile and his b lood pressure was checked by his and found to be 103 degree Fahrenheit. He has had previous epi sodes after chemotherapy. Last chemo was on Friday and supposed to be his last session. He has b een admitted at various times in the past due to neutropenic fever following chemotherapy. He denies chest pain, shortness of breath, cough, sputum production. He has no abdominal or urinary symptoms. PAST MEDICAL HISTORY: Large B cell lymphoma, atrial fibrillation. PAST SURGICAL HISTORY: Right chest port for chemo. PSYCHIATRIC HISTORY: None. FAMILY HISTORY: Reviewed and noncontributory. SOCIAL HISTORY: Denies alcohol use or drug use. Does not smoke cigarettes. ALLERGIES: No known drug allergies. HOME MEDICATIONS: Amiodarone 200 mg daily, apixaban 5 mg b.i.d., aspirin 81 mg daily, vitamin B12 of 1000 mcg daily, digoxin 0.125 mg every morning, folic acid 1 mg daily, loratadine 10 mg daily, multi vitamin 1 daily, ondansetron 8 mg every 8 hours p.r.n. for nausea and vomiting, prednisone 50 mg a.m. , prochlorperazine maleate 10 mg q.4 hours, thiamine 100 mg daily, levofloxacin 750 mg daily. REVIEW OF SYSTEMS: Twelve-point review of systems was done and negative apart from as stated in HPI. PHYSICAL EXAMINATION: VITAL SIGNS: Blood pressure 108/58, oxygen saturation 99% on room air, respiratory rate 16, pulse ra te 73, temperature 99.2 degrees Fahrenheit. GENERAL: Not in acute distress, sitting up comfortably in bed, speaking in full sentences. HEENT: Normocephalic, atraumatic. Not pale, anicteric. Moist mucous membranes, PERRLA, EOMI. NECK: Supple, full range of movement. No JVD. RESPIRATORY: Vesicular breath sounds bilaterally. No wheezes, rales or rhonchi. CARDIOVASCULAR: Regular rate and rhythm, S1 and S2 only. No murmurs, rubs or gallops. ABDOMEN: Soft, bowel sounds positive, nontender, no hepatosplenomegaly. MUSCULOSKELETAL: No edema. Moves all extremities spontaneously. NEUROLOGIC: Alert and well oriented to time, place and person. No focal deficits. PSYCHIATRIC: Normal mood and affect. SKIN: Warm, dry, well perfused. No rashes or lesions. LABORATORY DATA: Serum chemistry largely unremarkable apart from initial lactic acid of 3.1. Hemato logy significant for WBC of 0.2, hemoglobin of 8.4 and a platelet count of 86. Chest x-ray showed no radiographic evidence of an acute cardiopulmonary process. ASSESSMENT AND PLAN: 1. Neutropenic fever. This resulted following chemotherapy. We will calculate his ANC. Blood cult ures have been taken and the patient was initially started on IV cefepime and vancomycin in the emerg ency room. We will continue IV cefepime and obtain an infectious disease consult. Monitor vital sig ns closely. 2. Pancytopenia. This is following chemotherapy. We will monitor indices. 3. Atrial fibrillation. It seems the patient has chronic atrial fibrillation, on Eliquis, amiodaron e and aspirin, as well as digoxin on an outpatient basis. We will monitor vital signs closely and re introduce medications gradually. 4. Large B cell lymphoma. Patient is currently on chemotherapy and seems to receive his last chemot herapy treatment this past Friday. We will monitor while in hospital. 5. Code status: FULL CODE. 3. Due to his thrombocytopenia, we will avoid heparin based products.
[2018-01-13 15:39] VITALS: BMI 25.4
[2018-01-13] MEDS: Sodium Chloride 0.9% 1,000 ML IV SCH ×2 (16:13→16:43)
[2018-01-13] MEDS: Vancomycin HCl 1.25 GM in Sodium Chloride 0.9% 250 ML 250 ML IVPB SCH ×2 (16:14→23:57)
--- NOTE | 2018-01-13 16:30 | CON ---
DATE OF CONSULTATION: 01/13/2018 REASON FOR CONSULTATION: Neutropenic fever. HISTORY OF PRESENT ILLNESS: Mr. Townsend is a pleasant 57-year-old gentleman well known to our service, who recently completed cycle 6 of R-CHOP for diffuse large B-cell lymphoma. He presented to the [facility] room yesterday with a temperature of 103. His routine lab showed a white count of 0.2. He was pancultured and admitted for neutropenic fever. This gentleman has received 6 cycles of treatment and unfortunately has been admitted after each cycl e for neutropenic fever. Generally, he responds shortly after admission and is able to go home with no other consequences. He did have Neulasta with his last treatment 7 days ago. Currently, he denie s any complaints of cough, congestion, sore throat. No chest pain or shortness of breath. No GI com plaints. He is urinating without difficulty. PAST MEDICAL HISTORY: 1. Diffuse large B-cell lymphoma. 2. Paroxysmal atrial fibrillation. 3. Pyoderma gangrenosum. 4. Hypertension. PAST SURGICAL HISTORY: 1. Tendon repair 2. MediPort placement. ALLERGIES: No known drug allergies. HOME MEDICATIONS: 1. Amiodarone 200 mg daily. 2. Eliquis 5 mg b.i.d. 3. Aspirin 81 mg daily. 4. B12 daily. 5. Lanoxin 0.125 daily. 6. Folic acid daily. 7. Zofran p.r.n. 8. Compazine p.r.n. FAMILY HISTORY: Noncontributory. SOCIAL HISTORY: , lives with his spouse. No alcohol, tobacco or illicit drug use. REVIEW OF SYSTEMS: Twelve point review of systems is negative except for noted in HPI. PHYSICAL EXAMINATION: VITAL SIGNS: Temperature is 99.2, pulse is 73, respiratory rate 16, BP is 108/58. He is 99% on room air. GENERAL: This is a well-developed, well-nourished male, in no acute distress. HEENT: Normocephalic, atraumatic. Pupils equal and reactive to light. NECK: Supple. CARDIOVASCULAR: Regular rate and rhythm. LUNGS: Clear. ABDOMEN: Soft, nontender, bowel sounds are positive. EXTREMITIES: There is no clubbing, cyanosis or edema. SKIN: There is no rash. HEMATOLOGICAL: There is no petechia or purpura. NEUROLOGIC: Nonfocal. PSYCHIATRIC: The patient is alert and oriented and acting appropriately. PERTINENT LABORATORY AND X-RAYS: Current WBCs are 0.2, hemoglobin 8.4, hematocrit 24.6, platelet cou nt is 86,000. Sodium is 135, potassium 4.0, chloride 102, CO2 is 25, BUN is 17, creatinine 0.75. La ctic acid is 2.2, calcium 8.9, total bilirubin is 0.7, AST is 8, ALT is 12, alkaline phosphatase is 5 8, serum total protein 5.7, albumin 4.0, globulin 1.7. Urine is negative for bacteria. Chest x-ray showed no acute process. ASSESSMENT: 1. Diffuse large B-cell lymphoma, status post cycle 6 of chemotherapy. 2. Neutropenic fever. DISCUSSION: The patient has been pancultured, started on empiric antibiotics. Dr. Mendez is seeing t he patient. He did receive Neulasta. His white count should began to trend upwards in the next day or so. He will have a PET scan in several weeks to restage and follow up in outpatient clinic. Thank you for the consult.
--- NOTE | 2018-01-13 16:49 | CON ---
DATE OF CONSULTATION: 01/13/2018 REASON FOR CONSULTATION: Neutropenic fever. HISTORY OF PRESENT ILLNESS: A 57-year-old, known to us from prior visits, who has a history of trans verse myelitis, hypertension, B-cell lymphoma with spinal cord compression and improvement after jeramy tment with chemotherapy. The patient has finished his sixth course of chemotherapy and this is the l ast one, and unfortunately, developed again fever with the onset of neutropenia. This time, he has n o other symptoms. No headaches, visual symptoms, sore throat, odynophagia, or dysphagia, no cough or sputum production or chest pain, no abdominal pain or diarrhea, no genitourinary symptoms, no joint symptoms, no neurological symptoms. PAST MEDICAL HISTORY: Transverse myelitis, 2010; hypertension; B-cell lymphoma with spinal cord comp ression with improvement; MSSA infection of the skin with ecthyma gangrenosum and the recent episode of fever following chemotherapy. FAMILY HISTORY: Noncontributory. ALLERGIES: None. CURRENT MEDICATIONS: Tylenol, [place], cefepime, lactulose, Colace, ondansetron, Zofran, vancomycin. SOCIAL HISTORY: The patient is a a[place]. He never smoked in his life. No alcoholic beverage use. ALLERGIES: NONE. PHYSICAL EXAMINATION: VITAL SIGNS: T-max 99.2, blood pressure 108/58, pulse 73, respirations 16, O2 sat 99%. SKIN EXAM: With a few areas of excoriation in the right leg. Peripheral IV access. No [place] cathet er. No lymphadenopathy. HEENT: Ocular movements conjugate. Oral cavity with quite a few missing teeth, the remainder ones w ith quite a bit of decay. NECK: Supple, no jugular vein distention. LUNGS: Symmetric clear breath sounds. HEART: S1 and S2, regular rate with no S3 or S4. ABDOMEN: Soft, not distended or tender. CHEST: Port in right subclavian region without inflammatory changes or tenderness. EXTREMITIES: Able to move all extremities equally. Plantar responses are flexor. NEUROLOGIC: Cognitive function appears to be intact. LABORATORY DATA: White cell count 0.2, hemoglobin 8.4, MCV 92, platelets 86,000. Sodium 135 and cre atinine 0.75. Liver profile normal. Albumin 4.0. Serum total protein 5.7. Urinalysis essentially normal. Two sets of blood cultures are pending at this time. IMAGING: We have a chest x-ray with no abnormalities. ASSESSMENT AND PLAN: B-cell lymphoma with another episode of fever following chemotherapy-associated neutropenia. This is the last chemotherapy that this patient is scheduled to receive and this seems to be simple low-risk episode of neutropenia, probably could have been managed in the outpatient set ting. Continue current regimen, and follow up blood cultures. I would expect quick recovery of neut rophil count, which should lead to resolution of temperature and then discharge planning. Evidently, if the blood cultures turn positive, then we will have to consider other possibilities such as a por t colonization.
[2018-01-13] MEDS ORDERED: Cefepime 2 GM in Sodium Chloride 0.9% 100 ML IVPB SCH (21:00)
[2018-01-13] MEDS: Cefepime 2 GM, Syringe 2.5 ML in Sodium Chloride 0.9% 10 ML SLOW IVP SCH (21:12)
[2018-01-14] MEDS: Sodium Chloride 0.9% 1,000 ML IV SCH ×3 (05:28→16:23)
[2018-01-14 06:05] LABS: Hemoglobin 6.7 g/dL (14.0-18.0); Mean Corpuscular HGB CONC 33.7 g/dL (32.0-36.0); Mean Corpuscular Hemoglobin 30.7 pg (27.0-31.0); Mean Platelet Volume 8.5 fL (7.4-10.4); Platelet Count 68 thou/uL (130-400); RBC Distribution Width 17.1 % (11.5-14.5); Red Blood Cell (RBC) Count 2.19 mill/uL (4.70-6.10); White Blood Cell (WBC) Count 0.1 thou/uL (4.8-10.8)
[2018-01-14 06:08] LABS: Anion Gap 6 mmol/L (10-20); BUN (Urea Nitrogen) 10 mg/dL (8.4-25.7); Calc. Creatinine Clearance 141 mL/min (70-130); Calcium 8.4 mg/dL (7.8-10.44); Carbon Dioxide 28 mmol/L (22-29); Chloride 108 mmol/L (98-107); Estimated GFR-MDRD Greater than 90; Glucose 99 mg/dL (70-105); Potassium 4.1 mmol/L (3.5-5.1); Sodium 138 mmol/L (136-145)
[2018-01-14 06:27] LABS: Anisocytosis SLIGHT = 6-15 cells (100X) (0-5/hpf); MDiff Complete? YES; Ovalocytes SLIGHT = 2-5 cells (100X) (0-1/hpf); PLT Morphology Comment Appears Decreased; Tear Drops SLIGHT = 2-5 cells (100X) (0-1/hpf)
[2018-01-14] MEDS ORDERED: Ondansetron ODT 8 MG TAB PO PRN (07:20)
[2018-01-14] MEDS ORDERED: Non-Formulary Item 1 EACH (Prochlorperazine Maleate [Compazine] 10 MG) PO PRN (07:20)
[2018-01-14] MEDS ORDERED: Loratadine 10 MG TAB PO PRN (07:20)
[2018-01-14] MEDS ORDERED: Prochlorperazine Maleate 5 MG TAB PO PRN (07:40)
[2018-01-14] MEDS ORDERED: predniSONE 50 MG TAB PO PRN (08:00)
[2018-01-14] MEDS: Vancomycin HCl 1.25 GM in Sodium Chloride 0.9% 250 ML 250 ML IVPB SCH (08:53)
[2018-01-14] MEDS: Folic Acid 1 MG TAB PO SCH (08:53)
[2018-01-14] MEDS: Amiodarone 200 MG TAB PO SCH (08:53)
[2018-01-14] MEDS: Docusate 100 MG CAP PO SCH ×2 (08:53→20:39)
[2018-01-14] MEDS: Digoxin 0.125 MG TAB PO SCH (08:53)
[2018-01-14] MEDS: Cyanocobalamin (Vitamin B-12) 1,000 MCG TAB PO SCH (08:53)
[2018-01-14] MEDS: Aspirin 81 mg Enteric Coated Tablet PO SCH (08:53)
[2018-01-14] MEDS: Multivit, Therapeutic 1 TAB PO SCH (08:53)
[2018-01-14] MEDS ORDERED: Non-Formulary Item 1 EACH (Multivitamin [Daily Multiple Vitamin] 1 EACH) PO SCH (09:00)
[2018-01-14] MEDS: Apixaban 5 MG TAB PO SCH ×2 (09:03→20:45)
[2018-01-14] MEDS: Cefepime 2 GM, Syringe 2.5 ML in Sodium Chloride 0.9% 10 ML SLOW IVP SCH ×2 (09:03→20:39)
--- NOTE | 2018-01-14 10:02 | PDOC.PN ---
- Subjective Encounter Start Date: 01/14/18 Encounter Start Time: 10:05 Subjective: No complaints. Doing well -: Afebrile overnight. No acute events. - Objective MAR Reviewed: Yes Vital Signs & Weight: Vital Signs (12 hours) Temp Pulse Resp BP Pulse Ox 01/14/18 08:53 72 01/14/18 08:00 98.2 F 72 20 115/67 98 01/14/18 03:02 99.0 F 79 16 111/63 97 01/14/18 00:00 99.1 F 82 12 116/64 96 Weight Weight 193 lb 4.8 oz I&O: 01/13/18 01/14/18 01/15/18 06:59 06:59 06:59 Intake Total 1860 Output Total 1600 Balance 260 Result Diagrams: 01/14/18 05:33 01/14/18 05:33 Phys Exam - Physical Examination Constitutional: NAD HEENT: PERRLA, moist MMs, sclera anicteric Neck: no JVD, supple, full ROM Respiratory: no wheezing, no rales, no rhonchi, clear to auscultation bilateral Cardiovascular: RRR, no significant murmur, no rub Gastrointestinal: soft, non-tender, no distention, positive bowel sounds Musculoskeletal: no edema, pulses present Neurological: non-focal, moves all 4 limbs Psychiatric: normal affect, A&O x 3 Skin: no rash, normal turgor Dx/Plan (1) Neutropenic fever Code(s): D70.9 - NEUTROPENIA, UNSPECIFIED; R50.81 - FEVER PRESENTING WITH CONDITIONS CLASSIFIED ELSEWHERE Status: Resolved Comment: . Bloog cultures grew gram negative rods. Sensitivities pending. Resolving with current abx regimen (2) B-cell lymphoma Code(s): C85.10 - UNSPECIFIED B-CELL LYMPHOMA, UNSPECIFIED SITE Status: Acute Qualifiers: B-cell lymphoma type: diffuse large B-cell Comment: s/p chemotherapy. (3) Gram-negative bacteremia Code(s): R78.81 - BACTEREMIA Status: Acute Comment: f/u sensitivities. (4) Pancytopenia Code(s): D61.818 - OTHER PANCYTOPENIA Status: Acute Comment: Secondary to chemotherapy. Will type, screen and transfuse with 1 unit PRBC (5) Atrial fibrillation Code(s): I48.91 - UNSPECIFIED ATRIAL FIBRILLATION Status: Chronic Qualifiers: Atrial fibrillation type: paroxysmal Comment: SR, rate controlled. Continue Amiodarone and eliquis - Plan cont current plan of care, plan discussed w/ family, continue antibiotics, DVT proph w/SCDs * . Review of Systems - Medications/Allergies Allergies/Adverse Reactions: Allergies Allergy/AdvReac Type Severity Reaction Status Date / Time No Known Allergies Allergy Verified 01/13/18 14:06 Medications: Current Medications Acetaminophen (Tylenol) 650 mg PO Q4H PRN PRN Reason: Headache/Fever or Pain Acetaminophen (Tylenol) 650 mg NC Q4H PRN PRN Reason: .FEVER >101 Hydrocodone Bitart/Acetaminophen ([place] 5/325) 1 tab PO Q4H PRN PRN Reason: Moderate Pain (4-6) Amiodarone HCl (Cordarone) 200 mg PO DAILY [facility] Last Admin: 01/14/18 08:53 Dose: 200 mg Apixaban (Eliquis) 5 mg PO BID [facility] Last Admin: 01/14/18 09:03 Dose: 5 mg Aspirin (Ecotrin) 81 mg PO DAILY [facility] Last Admin: 01/14/18 08:53 Dose: 81 mg Cyanocobalamin (Vitamin B-12) 1,000 mcg PO DAILY [facility] Last Admin: 01/14/18 08:53 Dose: 1,000 mcg Digoxin (Lanoxin) 0.125 mg PO QAM [facility] Last Admin: 01/14/18 08:53 Dose: 0.125 mg Docusate Sodium (Colace) 100 mg PO BID [facility] Last Admin: 01/14/18 08:53 Dose: 100 mg Folic Acid (Folvite) 1 mg PO DAILY [facility] Last Admin: 01/14/18 08:53 Dose: 1 mg Sodium Chloride (Normal Saline 0.9%) 1,000 mls @ 100 mls/hr IV .Q10H [facility] Last Admin: 01/14/18 05:28 Dose: 1,000 mls Cefepime HCl 2 gm/ Syringe 2.5 (ml/ Sodium Chloride) 12.5 mls @ 150 mls/hr SLOW IVP Q12HR [facility] Last Admin: 01/14/18 09:03 Dose: 12.5 mls Vancomycin HCl 1.25 gm/ Sodium (Chloride) 250 mls @ 166.667 mls/hr IVPB 0800, 1600,2359 [facility] Last Admin: 01/14/18 08:53 Dose: 250 mls Lactulose (Lactulose) 20 gm PO DAILYPRN PRN PRN Reason: Constipation Loratadine (Claritin) 10 mg PO DAILY PRN PRN Reason: chemo Magnesium Hydroxide (Milk Of Magnesium) 30 ml PO DAILYPRN PRN PRN Reason: Constipation Miscellaneous Medication (Pharmacy To Dose) 1 each IVPB PRN PRN PRN Reason: . Multivitamins (Theragran) 1 tab PO DAILY [facility] Last Admin: 01/14/18 08:53 Dose: 1 tab Ondansetron HCl (Zofran Odt) 4 mg PO Q6H PRN PRN Reason: Nausea/Vomiting Ondansetron HCl (Zofran) 4 mg IVP Q6H PRN PRN Reason: Nausea/Vomiting Ondansetron HCl (Zofran Odt) 8 mg PO Q8H PRN PRN Reason: Nausea Prednisone (Prednisone) 100 mg PO QAM-WM PRN PRN Reason: chemo Prochlorperazine Maleate (Compazine) 10 mg PO Q4H PRN PRN Reason: Nausea Sodium Chloride (Flush - Normal Saline) 10 ml IVF Q12HR [facility] Last Admin: 01/14/18 09:07 Dose: 10 ml Sodium Chloride (Flush - Normal Saline) 10 ml IVF PRN PRN PRN Reason: Saline Flush Thiamine HCl (Thiamine) 100 mg PO DAILY [facility] Last Admin: 01/14/18 08:53 Dose: 100 mg
[2018-01-14 15:42] LABS: Vancomycin, Trough 15.7 ug/mL
--- NOTE | 2018-01-14 16:14 | PRG ---
DATE OF SERVICE: 01/14/2018 SUBJECTIVE: Feeling well. No headaches. No cough or sputum production. No chest pain, no abdomina l pain. No genitourinary symptoms. PHYSICAL EXAMINATION: VITAL SIGNS: Temperature max 99 and now it is 98.3, blood pressure 120/73, pulse 72, respirations 20 , O2 sat 100% room air, no distress. HEENT: Ocular movements conjugate. Oral cavity normal. NECK: Supple. LUNGS: With symmetric clear breath sounds. HEART: S1 and S2 regular rate. No S3 or S4. ABDOMEN: Soft, not distended or tender. MUSCULOSKELETAL: No joint inflammatory activity. Moves all extremities equally. No bladder disten tion. LABORATORY DATA: White cell count 0.1, hemoglobin 6.7, platelets 60,000. Sodium 138, creatinine 0.7 . Blood cultures with gram-negative paul. The SUPENTA probe did not identify the organism. We will have to wait until the final machine/chemical identification tomorrow. ASSESSMENT AND DISCUSSION: B-cell lymphoma, having finished his 6 courses of chemotherapy few days a go, now with neutropenia and again has developed fever associated with his neutropenia. In view of t he bacteremia, we will have to rule out colonization of the port and therefore we will resubmit blood cultures. If there are still positive, then we will have to ask surgeon to remove the port. Since he is not going to need further chemotherapy, no other devices would need to be inserted in that case . Discontinue vancomycin. Eventually, hopefully transition to oral regimen with quinolone for compl etion of treatment for bacteremia.
[2018-01-15] MEDS: Sodium Chloride 0.9% 1,000 ML IV SCH ×3 (03:31→15:40)
[2018-01-15 04:12] LABS: Hemoglobin 6.6 g/dL (14.0-18.0); Mean Corpuscular HGB CONC 35.3 g/dL (32.0-36.0); Mean Corpuscular Hemoglobin 31.5 pg (27.0-31.0); Mean Corpuscular Volume 89.2 fl (80.0-94.0); Mean Platelet Volume 8.3 fL (7.4-10.4); Platelet Count 69 thou/uL (130-400); RBC Distribution Width 16.6 % (11.5-14.5); Red Blood Cell (RBC) Count 2.09 mill/uL (4.70-6.10); White Blood Cell (WBC) Count 0.1 thou/uL (4.8-10.8)
[2018-01-15 04:15] LABS: Anion Gap 9 mmol/L (10-20); BUN (Urea Nitrogen) 8 mg/dL (8.4-25.7); Calc. Creatinine Clearance 159 mL/min (70-130); Calcium 8.7 mg/dL (7.8-10.44); Carbon Dioxide 26 mmol/L (22-29); Chloride 107 mmol/L (98-107); Estimated GFR-MDRD Greater than 90; Glucose 97 mg/dL (70-105); Potassium 3.9 mmol/L (3.5-5.1); Sodium 138 mmol/L (136-145)
[2018-01-15] MEDS: Cefepime 2 GM, Syringe 2.5 ML in Sodium Chloride 0.9% 10 ML SLOW IVP SCH (09:03)
[2018-01-15] MEDS: Digoxin 0.125 MG TAB PO SCH (09:04)
[2018-01-15] MEDS: Docusate 100 MG CAP PO SCH ×2 (09:04→20:42)
[2018-01-15] MEDS: Apixaban 5 MG TAB PO SCH ×2 (09:04→20:42)
[2018-01-15] MEDS: Aspirin 81 mg Enteric Coated Tablet PO SCH (09:04)
[2018-01-15] MEDS: Cyanocobalamin (Vitamin B-12) 1,000 MCG TAB PO SCH (09:04)
[2018-01-15] MEDS: Multivit, Therapeutic 1 TAB PO SCH (09:04)
[2018-01-15] MEDS: Folic Acid 1 MG TAB PO SCH (09:04)
[2018-01-15] MEDS: Amiodarone 200 MG TAB PO SCH (09:04)
--- NOTE | 2018-01-15 15:45 | PRG ---
DATE OF SERVICE: 01/15/2018 SUBJECTIVE: Feeling well, getting a blood transfusion later today. No headaches. No visual symptom s, sore throat, odynophagia, or dysphagia. No cough or sputum production or chest pain. OBJECTIVE: VITAL SIGNS: Normal. Awake, alert, oriented. LUNGS: Clear. HEART: S1, S2, regular rate. ABDOMEN: Soft. Moves all extremities equally. The repeat blood cultures thus far negative. The organism isolated with Escherichia fergusleei for b road susceptibility profile. ASSESSMENT AND DISCUSSION: B lymphoma status post completion of chemotherapy and now with another ca se of bacteremia associated with E. coli and a neutropenic state following the latest chemotherapy. If the second set of blood cultures is negative, then he would be less likely that the port was invol juliano. The port is not going to be needed anymore and apparently can be removed eventually, and the ot her hand, if the blood cultures turn positive, then I would recommend removal of the port. Transitio n to oral ciprofloxacin. Consider discharge planning after transfusion.
--- NOTE | 2018-01-15 16:04 | DIS ---
DATE OF ADMISSION: 01/13/2018 DATE OF DISCHARGE: 01/16/2018 DISCHARGE DIAGNOSES: Neutropenic fever, pancytopenia, large B-cell lymphoma, gram negative bacteremia, atrial fibrillation, paroxysmal. HISTORY OF PRESENT ILLNESS/HOSPITAL COURSE: Mr. Kristian Gann is a 57- year-old male with a history of B-cell lymphoma, on chemotherapy, who presented to the emergency room after an episode of high grade fever, T-max was reported at 100.3 degrees Fahrenheit. This occurred around 1:00 a.m. in the morning and also at 3:00 a.m. and decided to come to the hospital. He has had episodes of neutropenic fever after his chemotherapy, last chemo was Friday before admission and was supposed to be his last session. He had no other complaints at the emergency room. His vital signs were stable. Physical examination was largely unremarkable. His lab shows a neutrophil count of 0.2, hemoglobin of 8.4 and a platelet count of 86. Serum chemistry largely unremarkable apart from initial lactic acid of 3.1, which resolved with hydration and assessment of neutropenic fever was made. The patient was started on IV cefepime and vancomycin initially. Blood cultures were collected before starting antibiotics. He was seen by Infectious Disease and the recommendation was to continue antibiotics and follow up on the cultures. The cultures eventually revealed Escherichia fergusonii, presumptive E. coli. Repeat blood cultures were negative after 48 hours. The patient was therefore discharged on ceftin. He remained asymptomatic and fever had resolved and vital signs were stable. He , however, required 1 unit of PRBC because his hemoglobin dropped below 7. He also received a dose of Neupogen. His WBC count had remained stable and is expected to start improving. The patient was discharged without incident and was happy with this plan. DISCHARGE MEDICATIONS: Amiodarone 200 mg daily, Ceftin 250 mg BID, apixaban 5 mg b.i.d., aspirin 81 mg daily, vitamin B12 1000 mcg daily, digoxin 0.125 mg q.a.m., folic acid 1 mg daily, loratadine 10 mg daily p.r.n., multivitamin 1 tablet daily, ondansetron 8 mg q.8 hours p.r.n., prednisone 100 mg q.a.m., Compazine 10 mg q.4 hours p.r.n., thiamine 100 mg daily. PHYSICAL EXAMINATION: He was examined on the day of discharge. VITAL SIGNS: Temperature 98.3, pulse 73, respiratory rate 20, oxygen saturation 98% on room air, blood pressure 118/70. GENERAL: Not in acute distress, lying comfortably in bed. HEENT: Normocephalic, atraumatic. Not pale, anicteric. Moist mucous membranes. NECK: Supple, full range of movement. No JVD. RESPIRATORY: No wheezes or rales. Vesicular breath sounds bilaterally. CARDIOVASCULAR: Regular rate and rhythm. S1, S2 only. No murmurs, rubs or gallops. GASTROINTESTINAL: Soft, nontender, nondistended with positive bowel sounds. No organomegaly. MUSCULOSKELETAL: No edema or ulcers present. NEUROLOGIC: Alert and oriented to time, place and person. No focal deficits. PSYCHIATRIC: Normal mood and affect. SKIN: Warm, dry, well-perfused. No rashes or lesions. LABORATORY DATA: WBC 0.5, hemoglobin 7.6, platelet count is 66. Chemistry unremarkable. Chest x-ray showed no acute cardiopulmonary process. CONSULTATIONS: Infectious Disease. PROCEDURES: None. CONDITION AT DISCHARGE: Stable and improved. DIET: His diet while in hospital was a neutropenic diet. Activity to resume as tolerated. CARE GOALS: To follow up with his primary care physician within 1 week of discharge for repeat labs. Discharge time 65 minutes including chart review and documentation. LUCIEN
[2018-01-15 16:26] LABS: Hemoglobin 8.7 g/dL (14.0-18.0)
[2018-01-15] MEDS ORDERED: Cipro 250 MG TAB PO SCH (20:00)
[2018-01-15] MEDS: Ciprofloxacin 500 MG TAB PO SCH (20:42)
[2018-01-16] MEDS: Sodium Chloride 0.9% 1,000 ML IV SCH (01:46)
[2018-01-16 05:51] LABS: Hemoglobin 7.6 g/dL (14.0-18.0); Mean Corpuscular HGB CONC 34.7 g/dL (32.0-36.0); Mean Corpuscular Volume 89.3 fl (80.0-94.0); Mean Platelet Volume 8.6 fL (7.4-10.4); Platelet Count 66 thou/uL (130-400); RBC Distribution Width 16.6 % (11.5-14.5); Red Blood Cell (RBC) Count 2.44 mill/uL (4.70-6.10); White Blood Cell (WBC) Count 0.5 thou/uL (4.8-10.8)
[2018-01-16 05:58] LABS: Anion Gap 8 mmol/L (10-20); BUN (Urea Nitrogen) 8 mg/dL (8.4-25.7); Calc. Creatinine Clearance 143 mL/min (70-130); Calcium 8.8 mg/dL (7.8-10.44); Carbon Dioxide 27 mmol/L (22-29); Chloride 107 mmol/L (98-107); Estimated GFR-MDRD Greater than 90; Glucose 99 mg/dL (70-105); Potassium 4.4 mmol/L (3.5-5.1); Sodium 138 mmol/L (136-145)
[2018-01-16] MEDS: Ciprofloxacin 500 MG TAB PO SCH (06:03)
[2018-01-16] MEDS: Apixaban 5 MG TAB PO SCH (08:45)
[2018-01-16] MEDS: Aspirin 81 mg Enteric Coated Tablet PO SCH (08:45)
[2018-01-16] MEDS: Amiodarone 200 MG TAB PO SCH (08:45)
[2018-01-16] MEDS: Cyanocobalamin (Vitamin B-12) 1,000 MCG TAB PO SCH (08:46)
[2018-01-16] MEDS: Folic Acid 1 MG TAB PO SCH (08:47)
[2018-01-16] MEDS: Digoxin 0.125 MG TAB PO SCH (08:47)
[2018-01-16] MEDS: Multivit, Therapeutic 1 TAB PO SCH (08:47)
[2018-01-16] MEDS: Docusate 100 MG CAP PO SCH (08:47)
[2018-01-16 15:49] VITALS: BP 130/79; TEMP 97.4
== END 2018-01-16 16:55 | disposition home or self-care (01) | DRG 809 ==
LOC: ERS 04:47 → ERHOLD 06:31 → ONC 11:52
PROVIDERS: ADMIT Internal Medicine; ATTEND Internal Medicine
PROC: 30233N1 Transfusion of Nonautologous Red Blood Cells into Peripheral Vein, Percutaneous Approach (ICD-10-PCS; principal; 2018-01-15)
DX: D70.1 Agranulocytosis secondary to cancer chemotherapy (principal); C83.30 Diffuse large B-cell lymphoma, unspecified site; R78.81 Bacteremia; I48.0 Paroxysmal atrial fibrillation; R50.81 Fever presenting with conditions classified elsewhere; D61.810 Antineoplastic chemotherapy induced pancytopenia; I10 Essential (primary) hypertension
CPT/HCPCS: 36415; 36416; 36430; 51701; 71045; 71046; 80048; 80053; 80202; 81003; 83605; 85025; 86850; 86900; 86901; 87040; 87077; 87149; 87186; 87804; 96361; 96365; A4216; J0692; J1642; J3370; J7050; P9016

== ENCOUNTER 2018-02-03 12:05 | Outpatient (CLI) | payer BC ==
--- NOTE | 2018-02-03 15:28 | PET ---
PET CT: HISTORY: A 57-year-old male with lymphoma (B-cell lymphoma). Last chemotherapy was 01/07/18. Exam is requeste d for restaging. TECHNIQUE: PET scanning with CT attenuation correction is performed from the base of the brain through the proxi mal thighs following the intravenous administration of 12.6 mCi [id number] in the right a ntecubital fossa. Imaging was performed after an uptake interval of 45 minutes. COMPARISON: None. CORRELATION: CT chest, abdomen, and pelvis dated 12/15/17 from the [facility]. FINDINGS: No hypermetabolic lymph nodes are seen in the neck, chest, axillae, abdomen, pelvis, or inguinal myrna ons. No abnormal FDG localization is seen in the central mesenteric mass seen on the CT scan. No hypermetabolic pulmonary nodules, liver, spleen, adrenal, or skeletal lesions are identified. There is physiologic activity in the GI and tracts and visualized portions of the brain. The CT scan used for attenuation correction demonstrates no evidence of pleural effusions or ascites. There are gallstones, liver cysts, and splenomegaly. IMPRESSION: No evidence of metabolically active disease (Deauville score 1). POS: [facility]
== END 2018-02-03 12:06 | disposition home or self-care (01) ==
LOC: PET 12:05
PROVIDERS: ATTEND Internal Medicine Medical Oncology
DX: C85.18 Unspecified B-cell lymphoma, lymph nodes of multiple sites (principal)
CPT/HCPCS: 78815; A9552

== ENCOUNTER 2018-08-23 10:03 | Inpatient (IN) | payer BC ==
[2018-08-23 12:05] VITALS: BMI 25.4
--- NOTE | 2018-08-23 12:27 | HP ---
HISTORY OF PRESENT ILLNESS: The patient is a 58-year-old male who underwent a colonoscopy by Dr. Casey on Friday approximately 2 days ago. The patient was on Xarelto and had held it for his colonoscopy. After the colonoscopy, he resumed Xarelto. Findings for the colonoscopy showed a one 6 mm polyp in the sigmoid colon and a likely malignant tumor in the rectosigmoid area, which was biop sied. The patient had no bleeding. Postoperatively, he did well until this morning when he started passing a large amount of bright red blood per rectum. He has had no abdominal pain, no nausea or vo miting. MEDICATIONS: Include amiodarone 200 mg 1 p.o. daily, Xarelto 20 mg 1 p.o. daily, digoxin 125 mcg 1 p .o. daily, aspirin 81 mg 1 p.o. daily, multivitamin 1 p.o. daily, flaxseed oil 1000 mg 1 p.o. daily. ALLERGIES: No known medical allergies. SOCIAL HISTORY: He does not smoke or drink. FAMILY HISTORY: Negative for GI or liver disease. REVIEW OF SYSTEMS: Constitutional: No fever or chills, no weight loss. Eyes: No blurred vision. ENT: No sore throat or earaches. Cardiovascular: No chest pain or palpitation. Pulmonary: No prem rtness of breath, cough or wheezing. Gastrointestinal: See above. Genitourinary: No hematuria or dysuria. Musculoskeletal: No joint pain or muscle weakness. Skin: No rashes. Neurologic: No num bness or seizure activity. PHYSICAL EXAMINATION: GENERAL: Shows a well-developed, well-nourished, white male in no acute distress. VITAL SIGNS: Temperature 98.1, pulse 75, respiratory rate 16, blood pressure 121/78. HEENT: Unremarkable. NECK: Supple. CHEST: Clear. CARDIOVASCULAR: Regular rate and rhythm without murmurs or gallops. ABDOMEN: Soft, nontender, without organomegaly or masses. RECTAL: Deferred. EXTREMITIES: Normal. NEUROLOGIC: Nonfocal. LABORATORY DATA: None as of yet. ASSESSMENT: 1. Gastrointestinal hemorrhage - this patient most likely bleeding from his sigmoid polyp, less like ly would be the biopsied rectal mass. 2. Atrial fibrillation on Xarelto. 3. History of lymphoma. RECOMMENDATIONS: 1. CBC. 2. CEA. 3. Flexible sigmoidoscopy with control of hemorrhage. 4. Stop Xarelto.
[2018-08-23] MEDS: Sodium Chloride 0.9% 1,000 ML IV SCH ×2 (12:38→17:57)
[2018-08-23 12:46] LABS: ALT (SGPT) 14 U/L (8-55); AST (SGOT) 16 U/L (5-34); Albumin 4.2 g/dL (3.5-5.0); Alkaline Phosphatase 68 U/L (40-150); Anion Gap 13 mmol/L (10-20); BUN (Urea Nitrogen) 16 mg/dL (8.4-25.7); Bilirubin, Total 0.7 mg/dL (0.2-1.2); Calc. Creatinine Clearance 112 mL/min (70-130); Calcium 8.9 mg/dL (7.8-10.44); Carbon Dioxide 22 mmol/L (22-29); Chloride 108 mmol/L (98-107); Estimated GFR-MDRD 90; Globulin 1.7 g/dL (2.4-3.5); Glucose 95 mg/dL (70-105); Potassium 4.1 mmol/L (3.5-5.1); Protein, Total 5.9 g/dL (6.0-8.3); Sodium 139 mmol/L (136-145)
[2018-08-23 12:49] LABS: Band 13 % (5-11); Hemoglobin 12.6 g/dL (14.0-18.0); Lymphocytes 25 % (21-51); MDiff Complete? YES; Mean Corpuscular HGB CONC 33.8 g/dL (32.0-36.0); Mean Corpuscular Hemoglobin 31.4 pg (27.0-31.0); Mean Corpuscular Volume 92.9 fL (78.0-98.0); Mean Platelet Volume 7.7 fL (7.4-10.4); Monocytes 8 % (0-10); Neutrophil 51 % (42-75); Platelet Count 121 thou/uL (130-400); RBC Distribution Width 14.2 % (11.5-14.5); Reactive Lymphocytes 1 % (0-10); White Blood Cell (WBC) Count 3.5 thou/uL (4.8-10.8)
[2018-08-23] MEDS ORDERED: PROPOFOL 200 MG/20 ML VIAL ONE (13:59)
[2018-08-23] MEDS ORDERED: Promethazine HCl 25 MG/ML VIAL IM PRN (17:12)
[2018-08-23] MEDS ORDERED: Ondansetron HCl/PF 4 MG/2 ML Vial IVP PRN (17:12)
[2018-08-23] MEDS ORDERED: Promethazine HCl 25 MG/ML VIAL SLOW IVP PRN (17:12)
--- NOTE | 2018-08-23 17:27 | OP ---
DATE OF PROCEDURE: 08/23/2018 PREOPERATIVE DIAGNOSIS: Gastrointestinal hemorrhage. DESCRIPTION OF PROCEDURE: After informed consent was obtained, the patient placed in left lateral de cubitus position. Anesthesia administered per the Anesthesia Department. Forward-viewing upper scop e was inserted in the rectum after perianal inspection and rectal exam were normal and passed to the distal descending. There the effluent was noted to be more brownish in color. The fluid in the sigm oid and rectum was red and appeared dark red. There was an ulcer that was found in the sigmoid. Thi s ulcer had no visible vessel or active bleeding, no treatment was applied to the ulcer. In the rect um, a mass was noted. This mass was not actively bleeding, no stigmata of bleeding was noted. These both areas were washed vigorously with irrigation and no bleeding was noted to be recurrent. Retrof lexion in rectum was normal. ASSESSMENT: 1. Bloody effluent in the rectum and sigmoid of unknown etiology. 2. Sigmoid ulcer secondary to previous polypectomy. 3. Rectal mass. RECOMMENDATIONS: 1. Continue to hold Xarelto. 2. Repeat CBC in the a.m. If stable, may be discharged.
[2018-08-24] MEDS: Sodium Chloride 0.9% 1,000 ML IV SCH (04:54)
[2018-08-24 06:21] LABS: Band 17 % (5-11); Eosinophils 1 % (0-10); Hemoglobin 12.4 g/dL (14.0-18.0); Lymphocytes 9 % (21-51); MDiff Complete? YES; Mean Corpuscular HGB CONC 32.7 g/dL (32.0-36.0); Mean Corpuscular Hemoglobin 30.4 pg (27.0-31.0); Mean Platelet Volume 8.2 fL (7.4-10.4); Monocytes 22 % (0-10); Neutrophil 51 % (42-75); Platelet Count 138 thou/uL (130-400); RBC Distribution Width 14.3 % (11.5-14.5); Red Blood Cell (RBC) Count 4.06 mill/uL (4.70-6.10); White Blood Cell (WBC) Count 4.7 thou/uL (4.8-10.8)
[2018-08-24 07:40] VITALS: BP 121/74; TEMP 97.8
[2018-08-24] MEDS ORDERED: Amiodarone 200 MG TAB PO SCH (09:00)
[2018-08-24] MEDS ORDERED: Prevnar 13-Val Conj/PF 0.5 ML SYRINGE IM ONE (09:00)
[2018-08-24] MEDS ORDERED: Digoxin 0.125 MG TAB PO SCH (09:00)
--- NOTE | 2018-08-24 17:41 | DIS ---
DATE OF ADMISSION: 08/23/2018 DATE OF DISCHARGE: 08/24/2018 Please see admission H&P. HOSPITAL COURSE: The patient was admitted with a GI hemorrhage. He underwent a flexible sigmoidosco py on 08/23/2018 and had some bloody fluid in the rectum and the sigmoid. He has previously noted re ctal mass was there, but it did not seem to be bleeding. Sigmoid ulcer was noted as well from a prev ious polypectomy site, but did not seem to be actively bleeding and had no stigmata of recent hemorrh age. The patient's Xarelto was held and as of today. He has not had any further bleeding. [facility] adrián was followed and his hemoglobin on admission was 12.6, today is 12.4. ASSESSMENT: 1. Lower gastrointestinal hemorrhage -- etiology is unclear, but most likely from sigmoid ulcer or r ectal mass. 2. Atrial fibrillation on Xarelto. 3. Rectal mass. RECOMMENDATIONS: 1. Continue to hold Xarelto. 2. Follow up with Dr. Casey in 3 days as scheduled, hold Xarelto until then. 3. CEA was performed and 1.25.
--- NOTE | 2018-08-26 15:05 | PQF ---
[employer] Senior Security Architect Crystal Reports Winform ViewerBLUM,DEBRA MAYER MD [id number] [id number] [id number] CLINICAL DOCUMENTATION CLARIFICATION FORM: POST DISCHARGE Addendum to original discharge summary date: ____ Late entry note date: __ Please exercise your independent, professional judgment in responding to the clarification form. Clinical indicators are provided on the bottom of this form for your review Please check appropriate box(s): [ ] GI HEMORRHAGE (Condition) is a complication of current/ recent surgery [ ] GI HEMORRHAGE (Condition) is not a complication of current/recent surgery [ ] Other diagnosis [ ] Unable to determine In addition, please specify: Present on Admission (POA): [ ] Yes [ ] No [ ] Unable to determine CLINICAL INDICATORS - SIGNS / SYMPTOMS / LABS GI Bleeding no source of bleeding found in sigmoidoscopy gi bleed, most likely from sigmoid polyp- H&P gi bleed, etiology not clear, most likely from sigmoid ulcer or rectal mass- DS RISK FACTORS Recent surgery TREATMENT: SIGMOIDOSCOPY (This form is maintained as a part of the permanent medical record) 2014 [employer]. All Rights Reserved [email or web address] [phone] [email or web address]
== END 2018-08-24 10:25 | disposition home or self-care (01) | DRG 378 ==
LOC: T4-A 11:31
PROVIDERS: ADMIT Internal Medicine Gastroenterology; ATTEND Internal Medicine Gastroenterology
PROC: 0DJD8ZZ Inspection of Lower Intestinal Tract, Via Natural or Artificial Opening Endoscopic (ICD-10-PCS; principal; 2018-08-23)
DX: K92.2 Gastrointestinal hemorrhage, unspecified (principal); K63.3 Ulcer of intestine; I48.91 Unspecified atrial fibrillation; Z79.01 Long term (current) use of anticoagulants; Z86.010 Personal history of colon polyps
CPT/HCPCS: 36415; 80053; 82378; 85025; J2704

== ENCOUNTER 2018-08-28 08:15 | Outpatient (CLI) | payer BC ==
--- NOTE | 2018-08-28 16:31 | PET ---
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 Last chemotherapy for lymphoma was in December 2017. Exam is requested for restaging. TECHNIQUE: PET scan with CT attenuation correction was performed from the base of the brain to the proximal thig hs following the intravenous administration of 14 millicuries of 15-fludeoxyglucose in the left antec ubital fossa. Imaging was performed after an uptake interval of 49 minutes. COMPARISON: PET CT dated 02/03/18. FINDINGS: No vinayak hypermetabolism is seen in the neck, chest, axillae, abdomen and pelvis or inguinal regions. No abnormal FDG localization is seen in the residual central mesenteric mass noted on the CT scan. No hypermetabolic pulmonary nodules, liver, spleen, adrenals or skeletal lesions are seen. There is physiologic activity in the GI and tracts and the visualized portions of the brain. There is focal increased uptake in the rectosigmoid with an SUV of 7, consistent with a recently diag nosed malignancy. The CT scan used for attenuation correction demonstrates no evidence of pleural effusions or ascites . There are gallstones, liver cysts and splenomegaly. The spleen currently measures 16.6 cm in length compared to 17.6 cm on 02/03/18. IMPRESSION: No evidence of metabolic active disease (Deauville score 1) or metastatic disease. POS: [facility]
== END 2018-08-28 08:16 | disposition home or self-care (01) ==
LOC: PET 08:15
PROVIDERS: ATTEND Internal Medicine Medical Oncology
DX: C20 Malignant neoplasm of rectum (principal); C85.90 Non-Hodgkin lymphoma, unspecified, unspecified site
CPT/HCPCS: 78815; A9552

== ENCOUNTER 2018-09-01 13:59 | Outpatient (CLI) | payer BC ==
[2018-09-01] MEDS ORDERED: Gadobenate Dimeglumine 529 MG/1 ML (20ML VIAL) ONE (16:15)
--- NOTE | 2018-09-03 15:50 | MRI ---
MRI PELVIS WITH AND WITHOUT CONTRAST: Date: 09/01/18 HISTORY: Rectal cancer staging. COMPARISON: PET CT dated 08/28/18. FINDINGS: There is a mass 12.0 cm from the anal verge along the posterior rectal wall at the rectosigmoid junct ion. This mass extends from the mucosa to the submucosa, into the muscularis propria. There is a foca l area of complete loss of normal muscularis propria low T2 signal at the posterior 6-7:00 region. Th is mass measures approximately 6.0 cm in craniocaudad length. Mesorectal Fascia: There is felt to represent tumor infiltration through the muscularis propria 2.0 cm to the mesorectal fascia. The involvement through the muscularis propria is less than 2.0 mm. The mesorectal fascia is not involved. The tumor is on the posterior margin of the rectum and the peritoneal reflection is not involved. This is a high rectal tumor and the internal and external sphincters are not involved. The tumor does not involve the pelvic side rutledge, nor the presacral fascia. There is no evidence of lymphovascular invasion. There are no abnormal enlarged nor round lymph nodes in the mesorectal fat. No obturator adenopathy. Bones: No abnormal enhancing mass to suggest metastatic disease. There is moderate distention of the urinary bladder. Prostate is enlarged. Intrapelvic Soft Tissues: Intact. IMPRESSION: 12.0 cm from the anal verge is a T3A N0 tumor. No evidence of local regional metastatic disease. POS: [facility]
== END 2018-09-01 14:00 | disposition home or self-care (01) ==
LOC: TBSIIMAG 13:59
PROVIDERS: ATTEND Internal Medicine Medical Oncology
DX: C20 Malignant neoplasm of rectum (principal); Z85.72 Personal history of non-Hodgkin lymphomas
CPT/HCPCS: 72197; A9579

== ENCOUNTER 2019-01-08 00:04 | Outpatient (CLI) | payer BC ==
[2019-01-08 11:03] LABS: Mean Corpuscular HGB CONC 34.2 g/dL (32.0-36.0); Mean Corpuscular Hemoglobin 32.3 pg (27.0-31.0); Mean Corpuscular Volume 94.4 fL (78.0-98.0); Mean Platelet Volume 6.9 fL (7.4-10.4); Platelet Count 144 thou/uL (130-400); RBC Distribution Width 14.1 % (11.5-14.5); Red Blood Cell (RBC) Count 4.02 mill/uL (4.70-6.10); White Blood Cell (WBC) Count 3.1 thou/uL (4.8-10.8)
[2019-01-08 11:27] LABS: Anion Gap 11 mmol/L (10-20); BUN (Urea Nitrogen) 17 mg/dL (8.4-25.7); Calc. Creatinine Clearance 0 mL/min (70-130); Calcium 9.2 mg/dL (7.8-10.44); Carbon Dioxide 25 mmol/L (22-29); Chloride 108 mmol/L (98-107); Estimated GFR-MDRD 88; Glucose 99 mg/dL (70-105); Potassium 4.5 mmol/L (3.5-5.1); Sodium 139 mmol/L (136-145)
[2019-01-08 11:32] LABS: Band 7 % (5-11); Eosinophils 3 % (0-10); Lymphocytes 7 % (21-51); MDiff Complete? YES; Monocytes 12 % (0-10); Myelocyte 1 % (0-0); Neutrophil 65 % (42-75); Nucleated RBC 1 % (0); Ovalocytes SLIGHT = 2-5 cells (100X) (0-1/hpf); Platelet Morphology Comment Appears Adequate; Polychromasia SLIGHT = 2-3 cells (100X) (0-2/hpf); Reactive Lymphocytes 2 % (0-10)
== END 2019-01-08 00:05 | disposition home or self-care (01) ==
LOC: LABBT 00:04
PROVIDERS: ATTEND Surgery
DX: Z01.818 Encounter for other preprocedural examination (principal); C20 Malignant neoplasm of rectum
CPT/HCPCS: 80048; 85025; 93005; 93010

== ENCOUNTER 2019-01-08 10:00 | Inpatient (IN) | payer BC ==
[2019-01-08 10:02] VITALS: BMI 29.0
[2019-01-12] MEDS ORDERED: Fentanyl 250 MCG/5 ML VIAL ONE (06:09)
[2019-01-12] MEDS ORDERED: Lidocaine 1% (PF) 30 ML VIAL ONE (06:34)
[2019-01-12] MEDS ORDERED: Fentanyl 100 MCG/2 ML VIAL ONE (06:34)
[2019-01-12] MEDS ORDERED: Dexamethasone 4 mg/ml Vial ONE (06:34)
[2019-01-12] MEDS ORDERED: Midazolam HCl 2 mg/2 ml Vial ONE (06:34)
[2019-01-12 06:47] LABS: Hemoglobin A1c 4.1 % (4.0-6.0)
[2019-01-12] MEDS ORDERED: Promethazine HCl 25 MG/ML VIAL SLOW IVP PRN (06:53)
[2019-01-12] MEDS ORDERED: Promethazine HCl 25 MG/ML VIAL IM PRN ×2 (06:53→12:15)
[2019-01-12] MEDS ORDERED: Ketorolac Tromethamine 30 MG/ML VIAL IVP PRN (06:53)
[2019-01-12] MEDS ORDERED: Ondansetron HCl/PF 4 MG/2 ML Vial IVP PRN (06:53)
[2019-01-12] MEDS ORDERED: cefOXitin Sodium/Dextrose,Iso 2 GM in Premix Bag 1 BAG IVPB SCH (07:15)
[2019-01-12] MEDS ORDERED: Glycopyrrolate 0.2 MG/ML 5 ML SYRINGE ONE (08:13)
[2019-01-12] MEDS ORDERED: Rocuronium Bromide 10 MG/ML (10ML VIAL) ONE (08:13)
[2019-01-12] MEDS ORDERED: PHENYLEPHRINE-NS 100 MCG/ML 10 ML SYRINGE ONE ×2 (08:13→09:01)
[2019-01-12] MEDS ORDERED: Ketorolac Tromethamine 30 MG/ML VIAL ONE (08:13)
[2019-01-12] MEDS ORDERED: PROPOFOL 200 MG/20 ML VIAL ONE (08:13)
[2019-01-12] MEDS ORDERED: Ondansetron PF 4 MG/2 ML Vial ONE (08:13)
[2019-01-12] MEDS ORDERED: Dexamethasone 20 MG/5 ML VIAL ONE (08:13)
[2019-01-12] MEDS ORDERED: Lidocaine 1% PF 5 ML VIAL ONE (08:13)
[2019-01-12] MEDS ORDERED: Metoclopramide HCl 10 MG/2 ML VIAL ONE (08:13)
[2019-01-12] MEDS ORDERED: Rocuronium Bromide 50 MG/5 ML VIAL ONE (09:01)
[2019-01-12] MEDS ORDERED: Indocyanine Green 25 MG/10 ML VIAL ONE (09:09)
[2019-01-12] MEDS ORDERED: Bupivacaine HCl 0.5%/Epinephrine 1:200,000/PF 30 ml Vial ONE (09:44)
[2019-01-12] MEDS ORDERED: ceFOXitin 1 GM VIAL ONE (10:39)
[2019-01-12] MEDS ORDERED: Ondansetron PF 4 MG/2 ML Vial IVP PRN (12:15)
[2019-01-12] MEDS ORDERED: Fentanyl 100 MCG/2 ML VIAL SLOW IVP PRN ×2 (12:15)
[2019-01-12] MEDS ORDERED: hydrALAZINE 20 MG/ML VIAL SLOW IVP PRN (12:15)
[2019-01-12] MEDS ORDERED: traMADol HCl 50 MG TAB PO PRN ×2 (12:15)
[2019-01-12] MEDS: cefOXitin Sodium/Dextrose,Iso 2 GM in Premix Bag 1 BAG IVPB SCH (16:59)
[2019-01-12] MEDS: D5 1/2 NS w/20 mEq KCL 1,000 ML IV SCH (17:03)
[2019-01-12] MEDS: Acetaminophen 1,000 MG in Premix Bag 1 BAG IVPB SCH (18:19)
[2019-01-12] MEDS ORDERED: Prevnar 13-Val Conj/PF 0.5 ML SYRINGE IM ONE (21:00)
[2019-01-12] MEDS: Famotidine/PF 20 mg/2ml Vial SLOW IVP SCH (21:42)
[2019-01-12] MEDS: Famotidine 20 MG TAB PO SCH (21:48)
[2019-01-13] MEDS: Acetaminophen 1,000 MG in Premix Bag 1 BAG IVPB SCH ×3 (00:02→12:07)
[2019-01-13] MEDS: cefOXitin Sodium/Dextrose,Iso 2 GM in Premix Bag 1 BAG IVPB SCH (00:03)
[2019-01-13 06:57] LABS: #Basophils 0.1 thou/uL (0.0-0.2); #Lymphocytes 0.2 thou/uL (1.20-3.40); #Neutrophils 7.9 thou/uL (1.40-6.50); %Basophils 1.3 % (0.0-1.0); %Monocytes 10.8 % (0.0-10.0); %Neutrophils 85.8 % (42.0-75.0); Hemoglobin 11.6 g/dL (14.0-18.0); Mean Corpuscular HGB CONC 33.4 g/dL (32.0-36.0); Mean Corpuscular Hemoglobin 32.1 pg (27.0-31.0); Mean Corpuscular Volume 96.2 fL (78.0-98.0); Mean Platelet Volume 7.5 fL (7.4-10.4); Platelet Count 122 thou/uL (130-400); White Blood Cell (WBC) Count 9.2 thou/uL (4.8-10.8)
[2019-01-13 07:27] LABS: Anion Gap 13 mmol/L (10-20); BUN (Urea Nitrogen) 17 mg/dL (8.4-25.7); Calc. Creatinine Clearance 117 mL/min (70-130); Calcium 8.4 mg/dL (7.8-10.44); Carbon Dioxide 20 mmol/L (22-29); Chloride 106 mmol/L (98-107); Estimated GFR-MDRD 81; Glucose 132 mg/dL (70-105); Potassium 4.4 mmol/L (3.5-5.1); Sodium 135 mmol/L (136-145)
[2019-01-13] MEDS: Famotidine/PF 20 mg/2ml Vial SLOW IVP SCH ×2 (08:48→19:36)
[2019-01-13] MEDS: D5 1/2 NS w/20 mEq KCL 1,000 ML IV SCH (08:50)
[2019-01-13] MEDS: Famotidine 20 MG TAB PO SCH ×2 (08:52→19:34)
[2019-01-13] MEDS ORDERED: Enoxaparin Sodium 40 MG/0.4 ML SYRINGE SC SCH ×2 (10:40→11:00)
--- NOTE | 2019-01-13 10:45 | PDOC.GSPN ---
Surgery Progress Note: Subj - Subjective Narrative: POD 1 colectomy with ileostomy. Pain controlled. No nausea with clear liquids Surgery Progress Note: Obj - Vital signs Vital signs: Vital Signs - Most Recent Temp Pulse Resp BP Pulse Ox 97.7 F 78 16 138/84 96 01/13/19 08:00 01/13/19 08:00 01/13/19 08:00 01/13/19 08:00 01/13/19 08:48 - Physical Exam General: no distress Abdomen: soft, appropriately tender, distended Wound: healing well, ostomy/colostomy (with stool present) Surgery Progress Note: Results - Labs Result Diagrams: 01/13/19 06:21 01/13/19 06:21 Lab results: Laboratory Results - last 24 hr 01/13/19 01/13/19 06:21 06:21 WBC 9.2 RBC 3.60 L Hgb 11.6 L Hct 34.7 L MCV 96.2 MCH 32.1 H MCHC 33.4 RDW 14.0 Plt Count 122 L MPV 7.5 Neutrophils % 85.8 H Lymphocytes % 2.0 L Monocytes % 10.8 H Eosinophils % 0.0 Basophils % 1.3 H Neutrophils # 7.9 H Lymphocytes # 0.2 L Monocytes # 1.0 H Eosinophils # 0.0 Basophils # 0.1 Sodium 135 L Potassium 4.4 Chloride 106 Carbon Dioxide 20 L Anion Gap 13 BUN 17 Creatinine 0.95 Estimated GFR (MDRD) 81 Glucose 132 H Calcium 8.4 Surgery Progress Note: A/P - Problem (1) Rectal cancer Current Visit: Yes Code(s): C20 - MALIGNANT NEOPLASM OF RECTUM Status: Acute - Plan Plan: Advance to full liquids. Oral pain control -ostomy teaching -possible home tomorrow
[2019-01-13] MEDS ORDERED: Amiodarone 200 MG TAB PO SCH (11:15)
[2019-01-13] MEDS ORDERED: Digoxin 0.125 MG TAB PO SCH (11:15)
[2019-01-14] MEDS: Famotidine 20 MG TAB PO SCH ×2 (08:37→20:16)
[2019-01-14] MEDS: Digoxin 0.125 MG TAB PO SCH (08:37)
[2019-01-14] MEDS: Amiodarone 200 MG TAB PO SCH (08:37)
[2019-01-14] MEDS: Enoxaparin Sodium 40 MG/0.4 ML SYRINGE SC SCH (08:38)
[2019-01-14] MEDS: Famotidine/PF 20 mg/2ml Vial SLOW IVP SCH ×2 (10:25→22:26)
[2019-01-14] MEDS: Sodium Chloride 0.9% 1,000 ML IV SCH (20:17)
[2019-01-15] MEDS: Enoxaparin Sodium 40 MG/0.4 ML SYRINGE SC SCH (08:44)
[2019-01-15] MEDS: Digoxin 0.125 MG TAB PO SCH (08:45)
[2019-01-15] MEDS: Amiodarone 200 MG TAB PO SCH (08:45)
[2019-01-15] MEDS: Famotidine 20 MG TAB PO SCH (08:45)
[2019-01-15] MEDS: Sodium Chloride 0.9% 1,000 ML IV SCH (08:48)
[2019-01-15] MEDS: Famotidine/PF 20 mg/2ml Vial SLOW IVP SCH (09:00)
[2019-01-15 12:18] VITALS: BP 122/80; TEMP 97.7
--- NOTE | 2019-01-15 13:10 | DIS ---
DATE OF ADMISSION: 01/12/2019 DATE OF DISCHARGE: 01/15/2019 ADMITTING DIAGNOSIS: Rectal cancer, status post neoadjuvant chemoradiation. PROCEDURES DURING HOSPITALIZATION: Laparoscopic low anterior with diverting ileostomy by Dr. Lopez without complication. CONDITION AT DISCHARGE: Improved. STAFF: Pancho Lopez MD HOSPITAL COURSE: On hospital day #2, the patient was ready for discharge, had an episode of vomiting and not feeling well. His bloating is now improved. On postop day #3, the patient is doing well. He is ambulatory. He is afebrile. Vital signs are stable. He is being discharged. Prescriptions were already sent to his Pharmacy. He will follow up with me in 2 weeks. Job ID: [id number]
--- NOTE | 2019-01-15 19:08 | OP ---
DATE OF PROCEDURE: 01/12/2019 PREOPERATIVE DIAGNOSIS: Rectal cancer, status post neoadjuvant chemoradiation. POSTOPERATIVE DIAGNOSIS: Rectal cancer, status post neoadjuvant chemoradiation. PROCEDURES PERFORMED: 1. Laparoscopic low anterior resection with low pelvic anastomosis. 2. Diverting ileostomy, loop. ANESTHESIA: General. ESTIMATED BLOOD LOSS: Minimal. COMPLICATIONS: None. SPECIMEN: Left colon. DESCRIPTION OF PROCEDURE: The patient was taken to the operating room and laid supine on the operating room table. After general anesthetic was obtained, a Everett was placed, the patient was placed in lithotomy position. His abdomen was shaved, prepped, and draped in a sterile fashion. Left subcostal 5 mm Optiview trocar was placed in the usual fashion. High-flow pneumoperitoneum was obtained. Right lower quadrant robot port, right subcostal robot stapler port, and left lower quadrant robot port were all placed under direct visualization. The camera, 11 mm port was just placed to the right of the umbilicus. An 11 mm assist port was placed in the right lower lateral abdomen. The patient was placed in Trendelenburg position. The small bowel was able to be brought out of the pelvis. The peritoneum was incised on the medial aspect of the left colon and sigmoid colon. The base of the inferior mesenteric artery was skeletonized. A medial to lateral dissection was performed, showing the left ureter, which was excluded from the dissection. The inferior mesenteric artery was taken near its base using the robot vessel sealer. Dissection was taken down into the mesorectal plane in the pelvis, lateral stalks were taken as well. A full circumferential dissection of the upper and mid third of the rectum was then performed. There was enough adequacy of left colon to not have to mobilize splenic flexure. Robot stapler was fired across the mid rectum, below the area of previous rectal tumor. Muscle-splitting incision was made in the left lower quadrant and the Abhishek wound retractor was placed, pneumoperitoneum was let down, and the proximal colon was able to be brought up through this incision, and location was found for anastomosis proximal to the takeoff of the inferior mesenteric artery. Here, a colotomy was made and the anvil with the sharp pin was passed proximally with sharp pin brought on the antimesenteric surface of the colon. The resultant colon was stapled off just distal to this. The specimen was opened on the back table to reveal what appears to be the ulcer bed from the tumor and this was very near the staple line, so a laparoscopic stapling device was used to obtain approximately 3 more centimeters of the rectum below. This was all sent as the distal margin. The anvil colon proximally was dropped back into the abdomen. The Abhishek wound retractor was spun and held using a clamp to regain pneumo insufflation. The base with the 31 EEA was brought up through the anus and its sharp pin brought down on the antimesenteric surface of the colon below, connected to the anvil from above and the anastomosis was fired forming the low anterior anastomosis. Care was taken to void there was no twist to the anastomosis. There was no bleeding in the abdomen. The abdomen was irrigated. Decision was made to perform loop ileostomy. The final distal doughnut on the stapler was sent as the final distal margin. Ellipse of skin was taken out in the right lower quadrant and a muscle-splitting incision was made with cruciate incision in the fascia and the loop of ileum was brought up in this location and held in place using a Austin. All other port sites were infiltrated using local anesthetic and removed. The robot stapler port fascial defect was closed using GraNee needle and 0 Vicryl tie. The muscle-splitting incision in the left lower quadrant was closed anteriorly and posteriorly using PDS suture. All incisions were irrigated and closed using 4-0 Monocryl and Dermabond. The ileostomy was then matured in the usual fashion using 3-0 Vicryl. An ostomy device was placed. The patient was sent to Recovery in stable condition. All instrument counts, needle counts, and lap counts were correct. Job ID: [id number]
== END 2019-01-15 16:23 | disposition home or self-care (01) | DRG 331 ==
LOC: SURG A 01-12 05:49
PROVIDERS: ADMIT Surgery; ATTEND Surgery
PROC: 0DTP4ZZ Resection of Rectum, Percutaneous Endoscopic Approach (ICD-10-PCS; principal; 2019-01-12)
PROC: 0D1B4Z4 Bypass Ileum to Cutaneous, Percutaneous Endoscopic Approach (ICD-10-PCS; 2019-01-12)
PROC: 8E0W4CZ Robotic Assisted Procedure of Trunk Region, Percutaneous Endoscopic Approach (ICD-10-PCS; 2019-01-12)
DX: C20 Malignant neoplasm of rectum (principal); Z92.21 Personal history of antineoplastic chemotherapy; Z92.3 Personal history of irradiation
CPT/HCPCS: 36415; 36416; 80048; 83036; 85025; 88305; 88309; J0131; J0670; J0694; J1100; J1650; J1885; J2001; J2250; J2405; J2704; J2765; J3010; S0028

== ENCOUNTER 2019-02-16 08:13 | Outpatient (CLI) | payer BC ==
--- NOTE | 2019-02-16 15:55 | RAD ---
EXAM: XR Barium Enema A/C STANDARD PROVIDED CLINICAL HISTORY: Nephrostomy malfunction. History of prior surgery with anastomosis seen within the rectum. Evaluation of rectal colonic anastomosis was requested. COMPARISON: None FINDINGS: A small amount of barium was administered which demonstrated free flow through the region of the anas tomosis within the rectum. As result, additional barium was administered with contrast extending to the level of the proximal descending colon. Patient experienced no discomfort or pain upon injection of the barium, and there is no extravasation of contrast seen. There is slight irregularity at the anastomosis, but this is likely attributable to postsurgical change. There is narrowing at the level of the anastomosis, but contrast extends proximal to this region freely and without significant holdup. IMPRESSION: 1. Rectal anastomosis demonstrates narrowing and irregularity likely related to the postsurgical thomas ges, but there is no extravasation of contrast or holdup of barium, and barium does extend to the level of the proximal descending colon. Additional contrast was not administered to reflux the entire colon.
== END 2019-02-16 08:14 | disposition home or self-care (01) ==
LOC: RAD 08:13
PROVIDERS: ATTEND Surgery
DX: K94.13 Enterostomy malfunction (principal); K62.89 Other specified diseases of anus and rectum
CPT/HCPCS: 74280

== ENCOUNTER 2019-04-30 12:59 | Outpatient (CLI) | payer BC ==
--- NOTE | 2019-04-30 13:16 | RAD ---
EXAM: Chest 2 views: HISTORY: Paroxysmal atrial fibrillation COMPARISON: 01/13/2018 FINDINGS: There is a normal-sized cardiomediastinal silhouette. A Mediport is seen with its tip in the superio r vena cava. There is no evidence of consolidation, mass, or pleural effusion. Degenerative changes are seen in the spine. IMPRESSION: No evidence of acute cardiopulmonary disease
== END 2019-04-30 13:00 | disposition home or self-care (01) ==
LOC: BICRAD 12:59
PROVIDERS: ATTEND Internal Medicine Cardiovascular Disease
DX: I48.0 Paroxysmal atrial fibrillation (principal)
CPT/HCPCS: 71046

== ENCOUNTER 2019-07-02 07:04 | Outpatient (CLI) | payer BC ==
[2019-07-02 10:05] LABS: #Eosinphils 0.1 thou/uL (0.0-0.7); #Lymphocytes 0.4 thou/uL (1.20-3.40); #Monocytes 0.5 thou/uL (0.11-0.59); #Neutrophils 2.5 thou/uL (1.40-6.50); %Basophils 0.3 % (0.0-1.0); %Eosinophils 2.1 % (0.0-10.0); %Lymphocytes 11.4 % (21.0-51.0); %Monocytes 14.3 % (0.0-10.0); %Neutrophils 71.9 % (42.0-75.0); Hemoglobin 12.2 g/dL (14.0-18.0); Mean Corpuscular HGB CONC 34.8 g/dL (32.0-36.0); Mean Corpuscular Hemoglobin 35.2 pg (27.0-31.0); Mean Platelet Volume 6.4 fL (7.4-10.4); Platelet Count 133 thou/uL (130-400); RBC Distribution Width 14.5 % (11.5-14.5); Red Blood Cell (RBC) Count 3.46 mill/uL (4.70-6.10); White Blood Cell (WBC) Count 3.5 thou/uL (4.8-10.8)
[2019-07-02 10:27] LABS: Anion Gap 11 mmol/L (10-20); BUN (Urea Nitrogen) 12 mg/dL (8.4-25.7); Calc. Creatinine Clearance 0 mL/min (70-130); Calcium 9.3 mg/dL (7.8-10.44); Carbon Dioxide 25 mmol/L (22-29); Chloride 109 mmol/L (98-107); Estimated GFR-MDRD 90; Glucose 91 mg/dL (70-105); Potassium 4.8 mmol/L (3.5-5.1); Sodium 140 mmol/L (136-145)
== END 2019-07-02 07:05 | disposition home or self-care (01) ==
LOC: LABBT 07:04
PROVIDERS: ATTEND Surgery
DX: Z01.812 Encounter for preprocedural laboratory examination (principal); C20 Malignant neoplasm of rectum; K94.13 Enterostomy malfunction
CPT/HCPCS: 80048; 85025

== ENCOUNTER 2019-07-02 09:30 | Inpatient (IN) | payer BC ==
[2019-07-06] MEDS ORDERED: cefOXitin 2 GM VIAL ONE (06:26)
[2019-07-06] MEDS ORDERED: Sodium Chloride 0.9% 100 ML ONE (06:26)
[2019-07-06] MEDS ORDERED: Fentanyl 100 MCG/2 ML VIAL ONE (07:06)
[2019-07-06] MEDS ORDERED: Ondansetron PF 4 MG/2 ML Vial IVP PRN (08:44)
[2019-07-06] MEDS ORDERED: Promethazine HCl 25 MG/ML VIAL IM PRN ×2 (08:44→08:55)
[2019-07-06] MEDS ORDERED: hydrALAZINE 20 MG/ML VIAL SLOW IVP PRN (08:44)
[2019-07-06] MEDS ORDERED: traMADol HCl 50 MG TAB PO PRN ×2 (08:44)
[2019-07-06] MEDS ORDERED: Fentanyl 100 MCG/2 ML VIAL SLOW IVP PRN ×2 (08:44)
[2019-07-06] MEDS ORDERED: Ondansetron HCl/PF 4 MG/2 ML Vial IVP PRN (08:55)
[2019-07-06] MEDS ORDERED: Promethazine HCl 25 MG/ML VIAL SLOW IVP PRN (08:55)
[2019-07-06] MEDS: Digoxin 0.125 MG TAB PO SCH (10:12)
[2019-07-06] MEDS: Famotidine/PF 20 mg/2ml Vial SLOW IVP SCH ×2 (10:12→20:29)
[2019-07-06] MEDS: Amiodarone 200 MG TAB PO SCH (10:12)
[2019-07-06 10:46] VITALS: BMI 26.2
[2019-07-06] MEDS: Famotidine 20 MG TAB PO SCH ×2 (11:00→20:29)
[2019-07-06] MEDS: Sodium Chloride 0.9% 1,000 ML IV SCH ×2 (11:01→22:17)
[2019-07-06] MEDS ORDERED: Acetaminophen 1,000 MG in Premix Bag 1 BAG IVPB SCH (12:00)
[2019-07-06] MEDS: cefOXitin 2 GM in Sodium Chloride 0.9% 100 ML IVPB SCH ×2 (13:55→22:18)
[2019-07-06] MEDS: Acetaminophen 1,000 MG in Premix Bag 1 BAG IVPB SCH ×2 (13:55→20:28)
[2019-07-06] MEDS ORDERED: Rocuronium Bromide 10 MG/ML (10ML VIAL) ONE (15:08)
[2019-07-06] MEDS ORDERED: PROPOFOL 200 MG/20 ML VIAL ONE (15:08)
[2019-07-06] MEDS ORDERED: Lidocaine 1% PF 5 ML VIAL ONE (15:08)
[2019-07-06] MEDS ORDERED: Dexamethasone 20 MG/5 ML VIAL ONE (15:08)
[2019-07-06] MEDS ORDERED: Ondansetron PF 4 MG/2 ML Vial ONE (15:08)
[2019-07-06] MEDS ORDERED: PHENYLEPHRINE-NS 100 MCG/ML 10 ML SYRINGE ONE (15:08)
[2019-07-06] MEDS ORDERED: Glycopyrrolate 0.2 MG/ML 5 ML SYRINGE ONE (15:08)
--- NOTE | 2019-07-06 15:17 | OP ---
DATE OF PROCEDURE: 07/06/2019 PREOPERATIVE DIAGNOSIS: Rectal cancer. POSTOPERATIVE DIAGNOSIS: Rectal cancer. PROCEDURES PERFORMED: Ileostomy, reversal with small-bowel resection anastomosis. ANESTHESIA: General. ESTIMATED BLOOD LOSS: Minimal. COMPLICATIONS: None. SPECIMEN: None. FINDINGS: Rectal cancer. DESCRIPTION OF PROCEDURE: The patient was taken to the operating room and laid supine on the operating room table. After general anesthetic was obtained, the abdomen was prepped and draped in a sterile fashion. The ileostomy mucosa was ellipsed down in the right lower quadrant and dissected all the way back down into the abdominal cavity without injury. The two small bowel ends were brought up and a MICHELE 75 stapler was used to fire across proximal and distal to the ostomy segment, removing the skin ostomy segment. The mesentery was taken using Luz Marina clamp and silk ties. A xivu-xr-vgui anastomosis was performed using MICHELE 75 stapler. The common enterotomy was closed using Vicryl suture. Crotch stitch was placed with silk. The mesenteric defect was closed using silk. The segments placed back down into the abdominal cavity. The posterior fascia closed using PDS. Anterior fascia closed using PDS. The wound was irrigated and closed using pursestring of Prolene. [place] was left in the middle of the wound. Sterile dressings were placed. The patient was sent to Recovery in stable condition. All instrument counts, needle counts, and lap counts were correct. Job ID: [id number]
[2019-07-06] MEDS: Enoxaparin Sodium 40 MG/0.4 ML SYRINGE SC SCH (20:29)
[2019-07-07] MEDS: Acetaminophen 1,000 MG in Premix Bag 1 BAG IVPB SCH ×2 (02:08→08:28)
[2019-07-07 04:38] LABS: #Lymphocytes 0.5 thou/uL (1.20-3.40); #Monocytes 0.9 thou/uL (0.11-0.59); #Neutrophils 7.2 thou/uL (1.40-6.50); %Lymphocytes 5.7 % (21.0-51.0); %Monocytes 10.4 % (0.0-10.0); %Neutrophils 83.9 % (42.0-75.0); Hemoglobin 11.7 g/dL (14.0-18.0); Mean Corpuscular HGB CONC 34.9 g/dL (32.0-36.0); Mean Corpuscular Hemoglobin 35.3 pg (27.0-31.0); Mean Platelet Volume 6.6 fL (7.4-10.4); Platelet Count 122 thou/uL (130-400); RBC Distribution Width 13.8 % (11.5-14.5); Red Blood Cell (RBC) Count 3.32 mill/uL (4.70-6.10); White Blood Cell (WBC) Count 8.5 thou/uL (4.8-10.8)
[2019-07-07 05:00] LABS: Anion Gap 15 mmol/L (10-20); BUN (Urea Nitrogen) 10 mg/dL (8.4-25.7); Calc. Creatinine Clearance 114 mL/min (70-130); Calcium 9.4 mg/dL (7.8-10.44); Carbon Dioxide 24 mmol/L (22-29); Chloride 107 mmol/L (98-107); Estimated GFR-MDRD 88; Glucose 117 mg/dL (70-105); Potassium 4.5 mmol/L (3.5-5.1); Sodium 141 mmol/L (136-145)
--- NOTE | 2019-07-07 07:17 | PDOC.GSPN ---
Surgery Progress Note: Subj - Subjective Patient reports: no new complaints, pain well controlled Narrative: Doing well s/p ileostomy reversal yesterday. States pain is well-controlled. Up & walking this am without problems. Has not passed gas yet. No BM yet. Denies n/ v. No concerns or complaints. Surgery Progress Note: Obj - Vital signs Vital signs: Vital Signs - Most Recent Temp Pulse Resp BP Pulse Ox 97.9 F 85 16 147/81 H 96 07/07/19 04:00 07/07/19 04:00 07/07/19 04:00 07/07/19 04:00 07/07/19 04:00 - Physical Exam General: no distress, well developed, well nourished Cardiovascular: regular rate and rhythm, no murmur Respiratory: clear to auscultation, normal expansion, normal respiratory effort Abdomen: nondistended, positive bowel sounds, appropriately tender (Mild, appropriate TTP.) Musculoskeletal: normal gait, normal posture Psychiatric: other (Mood euthymic. Affect congruent with mood.) Wound: dressing clean,dry,intact, drainage (Jeni in place at ostomy reversal site. Moderate amount bloody drainage noted on gauze over drain site. Pt reports nsg staff placed new gauze over top of 1st layer of gauze covering drain site last night. Top dsg is clean, dry, intact; bloody drainage noted above is to gauze directly over drain. Anita-wound skin is without erythema.) Surgery Progress Note: Results - Labs Result Diagrams: 07/07/19 04:01 07/07/19 04:01 Lab results: Laboratory Results - last 24 hr 07/07/19 07/07/19 04:01 04:01 WBC 8.5 RBC 3.32 L Hgb 11.7 L Hct 33.5 L MCV 101.0 H MCH 35.3 H MCHC 34.9 RDW 13.8 Plt Count 122 L MPV 6.6 L Neutrophils % 83.9 H Lymphocytes % 5.7 L Monocytes % 10.4 H Eosinophils % 0.0 Basophils % 0.0 Neutrophils # 7.2 H Lymphocytes # 0.5 L Monocytes # 0.9 H Eosinophils # 0.0 Basophils # 0.0 Sodium 141 Potassium 4.5 Chloride 107 Carbon Dioxide 24 Anion Gap 15 BUN 10 Creatinine 0.88 Estimated GFR (MDRD) 88 Glucose 117 H Calcium 9.4 Surgery Progress Note: A/P - Problem (1) Status post reversal of ileostomy Current Visit: Yes Code(s): Z98.890 - OTHER SPECIFIED POSTPROCEDURAL STATES Status: Acute - Plan Plan: Doing well s/p ileostomy reversal. Encourage continued ambulation. Consider advancing diet later today. Should be able to go home soon barring further complications. Addendum - Physician - Physician Attestation Date/Time: 07/07/19 1242 I personally performed or re-performed the physical examination and medical decision making. I have verified all student documentation or findings, including history, physical exam and/or medical decision making. advance to fulls, HL fluids. anticipate DC tomorrow
[2019-07-07] MEDS: Amiodarone 200 MG TAB PO SCH (08:29)
[2019-07-07] MEDS: Digoxin 0.125 MG TAB PO SCH (08:29)
[2019-07-07] MEDS: Famotidine 20 MG TAB PO SCH ×2 (08:29→21:14)
[2019-07-07] MEDS: Famotidine/PF 20 mg/2ml Vial SLOW IVP SCH ×2 (08:30→21:14)
[2019-07-07] MEDS ORDERED: Prevnar 13-Val Conj/PF 0.5 ML SYRINGE IM ONE (11:15)
[2019-07-07] MEDS ORDERED: HYDROcodone/Acetaminophen 7.5/325 mg Tablet PO PRN (12:41)
[2019-07-07] MEDS: Enoxaparin Sodium 40 MG/0.4 ML SYRINGE SC SCH (21:14)
--- NOTE | 2019-07-08 07:00 | PDOC.GSPN ---
Surgery Progress Note: Subj - Subjective Patient reports: no new complaints, no bowel movement, no flatus Narrative: Mr. Townsend is a 58 year old male with a history of colorectal cancer who is post- op day 2 for ileostomy reversal. He has no new complaints today. Feeling well and tolerating full liquids without issues. He is not passed flatus or had a bowel movement yet. Still ambulating/walking during the day and using spirometer. Patient denies nausea, vomiting, fevers, chills, edema, and pain. Surgery Progress Note: Obj - Vital signs Vital signs: Vital Signs - Most Recent Temp Pulse Resp BP Pulse Ox 98.9 F 79 16 117/76 95 07/08/19 03:31 07/08/19 03:31 07/08/19 03:31 07/08/19 03:07/08/19 03:31 - Physical Exam General: no distress, no pain ENT: normal mucosa Neck: no lymphadectomy, no masses Cardiovascular: irregular rate, no murmur Respiratory: normal expansion, breath sounds present Abdomen: soft, nondistended, positive bowel sounds, appropriately tender Musculoskeletal: other (No LE or UE edema. 2+ pedal pulses bilaterally.) Psychiatric: oriented to time, oriented to person, oriented to place Wound: dressing clean,dry,intact, healing well Surgery Progress Note: Results - Labs Result Diagrams: 07/07/19 04:01 07/07/19 04:01 Surgery Progress Note: A/P - Plan Plan: Mr. Townsend is a 58 year old male with a history of colorectal cancer is post-op day 2 for ileostomy reversal. Ileostomy Reversal -Advance diet to soft foods. -Will continue to watch for passing of flatus/bowel movement. -Continue ambulation and use of spirometer. -Plan to discharge today or tomorrow Atrial Fibrillation -Stable. Currently on Amiodarone, Digoxin, and Enoxaparin. Addendum - Physician - Physician Attestation Date/Time: 07/08/19 1002 I personally performed or re-performed the physical examination and medical decision making. I have verified all student documentation or findings, including history, physical exam and/or medical decision making.
[2019-07-08] MEDS: Amiodarone 200 MG TAB PO SCH (08:34)
[2019-07-08] MEDS: Famotidine 20 MG TAB PO SCH (08:34)
[2019-07-08] MEDS: Digoxin 0.125 MG TAB PO SCH (08:34)
[2019-07-08] MEDS: Famotidine/PF 20 mg/2ml Vial SLOW IVP SCH (08:36)
[2019-07-08 10:49] VITALS: BP 151/90; TEMP 98.1
--- NOTE | 2019-07-09 02:53 | DIS ---
DATE OF ADMISSION: 07/06/2019 DATE OF DISCHARGE: 07/08/2019 ADMISSION DIAGNOSES: Rectal cancer, history of ileostomy. DISCHARGE DIAGNOSES: Rectal cancer, history of ileostomy. PROCEDURE: Ileostomy reversal by Dr. oLpez without complication. CONDITION ON DISCHARGE: Improved. STAFF: Pancho Lopez MD. FOLLOWUP: He will follow up in 2 weeks. HOSPITAL COURSE: The patient's postop course was uneventful. He was on a liquid diet immediately after surgery, which he tolerated. On postop day 2, he is being discharged to home. He will return to see me in 2 weeks. Job ID: [id number]
== END 2019-07-08 13:17 | disposition home or self-care (01) | DRG 331 ==
LOC: SURG A 07-06 05:45
PROVIDERS: ADMIT Surgery; ATTEND Surgery
PROC: 0DBB0ZZ Excision of Ileum, Open Approach (ICD-10-PCS; principal; 2019-07-06)
DX: C20 Malignant neoplasm of rectum (principal); I48.91 Unspecified atrial fibrillation; Z90.89 Acquired absence of other organs; Z98.890 Other specified postprocedural states
CPT/HCPCS: 36415; 80048; 85025; J0131; J0694; J1100; J1650; J2001; J2405; J2704; J3010; J3490; S0028

== ENCOUNTER 2019-07-30 18:52 | Inpatient (IN) | payer BC ==
[2019-07-30 20:42] LABS: Hemoglobin 8.8 g/dL (14.0-18.0); Lymphocytes 26 % (21-51); MDiff Complete? YES; Mean Corpuscular HGB CONC 34.2 g/dL (32.0-36.0); Mean Corpuscular Hemoglobin 33.5 pg (27.0-31.0); Mean Corpuscular Volume 98.1 fL (78.0-98.0); Mean Platelet Volume 6.6 fL (7.4-10.4); Monocytes 12 % (0-10); Neutrophil 60 % (42-75); Platelet Count 126 thou/uL (130-400); Platelet Morphology Comment Appears Adequate; Red Blood Cell (RBC) Count 2.63 mill/uL (4.70-6.10); White Blood Cell (WBC) Count 2.3 thou/uL (4.8-10.8)
[2019-07-30 20:47] LABS: ALT (SGPT) 15 U/L (8-55); AST (SGOT) 17 U/L (5-34); Albumin 3.8 g/dL (3.5-5.0); Alkaline Phosphatase 71 U/L (40-110); Anion Gap 12 mmol/L (10-20); BUN (Urea Nitrogen) 14 mg/dL (8.4-25.7); Bilirubin, Total 0.7 mg/dL (0.2-1.2); Calc. Creatinine Clearance 0 mL/min (70-130); Calcium 8.3 mg/dL (7.8-10.44); Carbon Dioxide 26 mmol/L (22-29); Chloride 106 mmol/L (98-107); Estimated GFR-MDRD 70; Globulin 1.8 g/dL (2.4-3.5); Glucose 110 mg/dL (70-105); Potassium 3.2 mmol/L (3.5-5.1); Protein, Total 5.6 g/dL (6.0-8.3); Sodium 141 mmol/L (136-145)
[2019-07-30 21:23] LABS: INR-International Normal Ratio 1.2; PTT 35.1 SEC (22.9-36.1); Prothrombin Time 15.4 SEC (12.0-14.7)
[2019-07-31] MEDS ORDERED: Acetaminophen 325 MG TAB PO PRN (00:44)
[2019-07-31] MEDS ORDERED: Lactated Ringer's 1,000 ML IV SCH (00:45)
[2019-07-31] MEDS ORDERED: Ondansetron ODT 4 MG TAB PO PRN (01:33)
[2019-07-31] MEDS ORDERED: Ondansetron PF 4 MG/2 ML Vial IVP PRN (01:33)
[2019-07-31 03:57] VITALS: BMI 26.1
[2019-07-31 05:35] LABS: Band 10 % (5-11); Eosinophils 7 % (0-10); Lymphocytes 17 % (21-51); MDiff Complete? YES; Mean Corpuscular HGB CONC 34.3 g/dL (32.0-36.0); Mean Corpuscular Hemoglobin 33.5 pg (27.0-31.0); Mean Corpuscular Volume 97.8 fL (78.0-98.0); Mean Platelet Volume 6.9 fL (7.4-10.4); Metamyelocyte 1 % (0-0); Monocytes 16 % (0-10); Neutrophil 48 % (42-75); Platelet Count 119 thou/uL (130-400); Platelet Morphology Comment Appears Decreased; RBC Distribution Width 13.7 % (11.5-14.5); RBC Morphology Normal; Red Blood Cell (RBC) Count 2.67 mill/uL (4.70-6.10); White Blood Cell (WBC) Count 2.1 thou/uL (4.8-10.8)
[2019-07-31 05:40] LABS: Anion Gap 11 mmol/L (10-20); BUN (Urea Nitrogen) 11 mg/dL (8.4-25.7); Calc. Creatinine Clearance 122 mL/min (70-130); Calcium 8.3 mg/dL (7.8-10.44); Carbon Dioxide 25 mmol/L (22-29); Chloride 106 mmol/L (98-107); Estimated GFR-MDRD Greater than 90; Glucose 98 mg/dL (70-105); Potassium 3.8 mmol/L (3.5-5.1); Sodium 138 mmol/L (136-145)
--- NOTE | 2019-07-31 07:41 | HP ---
CODE STATUS: Full code. TIME OF EVALUATION: 10:40 p.m. CHIEF COMPLAINT: "I saw red blood per rectum." HISTORY OF PRESENT ILLNESS: This is a 58-year-old male patient, recently diagnosed and treated with chemo, radiation, and surgery for colon cancer. As per the patient, in the last testing done, he was clean from cancer. Also, he has a history of lymphoma in the past, does not seem to be very clear at this point. The patient came to the hospital after having an episode of seeing blood in the stools. This is the first time and this happened three times a day with no clear triggers, no alleviating factors. He denies any black stool. Symptoms were mild to moderate. No clear triggers, no alleviating factors. REVIEW OF SYSTEMS: CONSTITUTIONAL: No fever, chills, or generalized weakness. RESPIRATORY: No cough, sputum production, or shortness of breath. CARDIOVASCULAR: No chest pain or palpitation. GASTROINTESTINAL: No nausea, vomiting, diarrhea, or abdominal pain. The patient saw blood in the stool. EVIDENCE SPECIALIST: No dizziness, headache, or feeling lightheaded. GENITOURINARY: No burning on urination. EXTREMITIES: No leg swelling. All other systems were reviewed and negative except for the findings mentioned above. PAST MEDICAL HISTORY: Large B-cell lymphoma, atrial fibrillation, and history of colon cancer. PAST SURGICAL HISTORY: Abscess around the stoma, right groin. FAMILY HISTORY: Reviewed, noncontributory for current presentation. PSYCHIATRIC HISTORY: No previous psych history. SOCIAL HISTORY: No alcohol. No drugs. No smoking history. KNOWN ALLERGIES: No known drug allergies. REPORTED MEDICATIONS: 1. Xarelto. 2. Amiodarone. 3. Digoxin. 4. Aspirin. 5. Vitamin B12. 6. Folic acid. 7. Flaxseed. PHYSICAL EXAMINATION: VITAL SIGNS: On presentation, the patient has blood pressure 137/65 with heart rate 86, respiratory rate was 18, temperature 99.3, oxygen saturation 98% on room air. GENERAL APPEARANCE: The patient is alert, oriented, in no acute distress. HEENT: Eyes, normal conjunctivae. Moist oral mucosa. Anicteric. No JVD. RESPIRATORY: Bilateral air entry. No rales. No wheezes. Symmetric expansion. CARDIOVASCULAR: Normal rate. Regular rhythm. No murmurs. No gallops. No edema. ABDOMEN: Soft. Normal bowel sounds. MUSCULOSKELETAL: Baseline range of motion and strength. SKIN: Warm and intact. No pallor. No rash. No redness. Capillary refill seems to be intact. NEURO: No evidence of any new focal weakness. Cranial nerves seem to be intact. PSYCH: The patient is in good mood. No anxiety. Optimal judgment. LABORATORY DATA: Reviewed. The patient has a white count of 2.3, hemoglobin 8.8, MCV 98.1, platelet count 226. Coagulation, PT 15.4, INR 1.2, PTT 35.1. Chemistry, sodium 141, potassium 3.2, chloride 106, carbon dioxide 26, anion gap 12, BUN 14 , creatinine 1.07, GFR 70. Glucose 110, calcium 8.3, total bilirubin 0.7. LFTs were negative. Serum total protein 5.6, globulin 1.8, and albumin 3.8. ASSESSMENT AND PLAN: The patient will be placed in the hospital with following medical problems. 1. Gastrointestinal bleeding. Likely, his bp is stable. We will follow hemoglobin. We will consult GI. We will transfuse as needed. 2. Pancytopenia, may be related to recent chemotherapy. 3. Deep venous thrombosis prophylaxis. Job ID: [id number] MTDD
[2019-07-31] MEDS ORDERED: GoLYTELY 4,000 ml Bottle PO SCH (09:30)
[2019-07-31 09:52] LABS: Hemoglobin 9.2 g/dL (14.0-18.0)
--- NOTE | 2019-07-31 10:36 | CON ---
DATE OF CONSULTATION: 07/31/2019 REQUESTING PHYSICIAN: Dr. Enamorado. REASON FOR CONSULTATION: Blood per rectum. HISTORY OF PRESENT ILLNESS: Dale Townsend is a 58-year-old man, a patient of my GI colleague, Dr. Mook Casey. A year ago on July 2018, Dr. Casey diagnosed rectal cancer, this was adenocarcinoma on biopsies. He had another polyp in the sigmoid colon, which was removed at that time and it was an otherwise normal exam. The patient underwent neoadjuvant chemotherapy and radiation and then in December of 2018, underwent laparoscopic low anterior resection with ileostomy, 32 cm of colon were removed. Notably, there was no residual cancer cells in the tumor bed at the time of surgery and 5/5 lymph nodes were negative. The patient did undergo further chemotherapy postsurgery, which he completed in May; then, less than a month ago on 07/06/2019, he underwent ileostomy reversal. This was uncomplicated. The patient states that he has been doing very well since then, still having some ongoing tendency towards diarrhea, but no abdominal pain. No nausea or vomiting. Yesterday, he had three episodes of passing a significant amount of tiffanie red blood per rectum. This happened throughout the course of the day and was alarming to him. He presented to the hospital, where hemoglobin was found to be 8.8 down from a baseline of 11 to 12 last month. Hemoglobin has been stable, this morning it is 9.0. He has had no further bloody bowel movements since yesterday evening. His other labs are stable as well and he is otherwise asymptomatic. Notably, he is on Xarelto and aspirin. REVIEW OF SYSTEMS: Full review of systems including constitutional, head, eyes, ears, nose, throat, GI, , cardiovascular, respiratory, musculoskeletal, and neurologic systems, negative except as noted in the HPI. PAST MEDICAL HISTORY: Large B-cell lymphoma; atrial fibrillation, on Xarelto; history of rectal cancer, status post chemotherapy, radiation, and low anterior resection; and ileostomy reversal on 07/06/2019. SOCIAL HISTORY: No smoking, alcohol, or drug use. FAMILY HISTORY: Noncontributory. ALLERGIES: NO KNOWN DRUG ALLERGIES. OUTPATIENT MEDICATIONS: Xarelto, amiodarone, digoxin, aspirin, vitamin B12, folic acid, and flaxseed. PHYSICAL EXAMINATION: VITAL SIGNS: Temperature 97.9, pulse 69, blood pressure 123/73, and 97% oxygen saturation on room air. GENERAL: A 58-year-old man, in no acute distress, lying in bed comfortably. SKIN: No jaundice. No rashes were palpable. HEENT: Eyes, no scleral icterus. Extraocular movements intact. ENT; mucous membranes moist. No oral lesions. LYMPHATIC: No submandibular or supraclavicular lymphadenopathy. THYROID: Nontender to palpation. HEART: Regular rate and rhythm. LUNGS: Clear to auscultation bilaterally. ABDOMEN: Bowel sounds present. Soft and nontender to palpation. EXTREMITIES: No peripheral edema. VESSELS: Radial pulses 2+ bilaterally. NEUROLOGIC: Cranial nerves II through XII intact bilaterally. No focal deficits. LABORATORY STUDIES: Hemoglobin 9.0, MCV 97.8, WBC 2.1, platelets are 119. Sodium 138, potassium 3.8, BUN 11, creatinine 0.82. INR 1.2, total bilirubin 0.7, alkaline phosphatase 71, AST 17, ALT 15, and albumin 3.8. ASSESSMENT/PLAN: 1. Lower gastrointestinal bleeding. 2. Acute blood loss anemia. 3. History of rectal cancer, status post low anterior resection with subsequent ileostomy reversal. Mr. Townesnd is hemodynamically stable, but he has had significant drop in hemoglobin since ileostomy reversal last month. He is otherwise asymptomatic. I suspect that he may have bleeding from the site of his new anastomosis. Dr. Lopez has been consulted as well. I will discuss the case with Dr. Lopez. I think it would be reasonable to perform lower endoscopy if okay from a postoperative perspective. If we decide to proceed, I would probably recommend holding the Xarelto, administering bowel preparation this evening, and performing full colonoscopy tomorrow. Thank you for the consultation. Please call anytime with questions or concerns. Job ID: [id number]
[2019-07-31 13:36] LABS: Hemoglobin 9.3 g/dL (14.0-18.0)
--- NOTE | 2019-07-31 17:11 | PDOC.HOSPP ---
- Subjective Encounter Date: 07/31/19 Encounter Time: 14:00 Subjective: Mr. Townsend was seen today in follow-up of hematochezia. He says he has not noted any blood in his stool today. He denies abdominal pain. - Objective Vital Signs & Weight: Vital Signs (12 hours) Temp Pulse Resp BP Pulse Ox 07/31/19 15:28 97.7 F 69 16 124/76 95 07/31/19 11:54 97.6 F 68 16 140/78 95 07/31/19 07:46 97.9 F 69 16 123/73 97 Weight Weight 198 lb Result Diagrams: 07/31/19 13:12 07/31/19 05:01 Hospitalist ROS - Medication Medications: Active Medications Generic Name Dose Route Start Last Admin Trade Name Freq PRN Reason Stop Dose Admin Sodium Chloride 10 ml 07/31/19 09:00 07/31/19 08:57 Flush - Normal Saline IVF 10 ml Q12HR MARNI Administration - Exam Eye: PERRL, anicteric sclera Heart: RRR, no murmur, no gallops, no rubs, normal peripheral pulses Respiratory: CTAB, no wheezes, no rales, no ronchi, normal chest expansion, no tachypnea, normal percussion Gastrointestinal: soft, non-tender, non-distended, normal bowel sounds, no palpable masses, no hepatomegaly, no splenomegaly Extremities: no cyanosis, no clubbing, no edema Skin: normal turgor, no lesions, no rashes Hosp A/P (1) Hematochezia Code(s): K92.1 - MELENA Status: Acute (2) B-cell lymphoma Code(s): C85.10 - UNSPECIFIED B-CELL LYMPHOMA, UNSPECIFIED SITE Status: Acute Qualifiers: B-cell lymphoma type: diffuse large B-cell (3) Pancytopenia Code(s): D61.818 - OTHER PANCYTOPENIA Status: Acute (4) Rectal cancer Code(s): C20 - MALIGNANT NEOPLASM OF RECTUM Status: Acute - Plan * Hematochezia- patient has had a recent ileostomy take-down, and it is noted from Dr. Quinones that there is concern this may be due to a bleed from the anastomotic site * Plan is for colonoscopy tomorrow * AFIB- his heart rate is stable- will give his dose of Amiodarone, and digoxin tonight, since it was held this morning. Xarelto is on hold * Pancytopenia- chronic - possibly related to B-Cell Lymphoma
[2019-07-31] MEDS ORDERED: Amiodarone 200 MG TAB PO SCH (18:15)
[2019-07-31] MEDS ORDERED: Digoxin 0.125 MG TAB PO SCH (18:15)
[2019-07-31 19:42] LABS: Hemoglobin 10.5 g/dL (14.0-18.0)
[2019-07-31] MEDS ORDERED: Prevnar 13-Val Conj/PF 0.5 ML SYRINGE IM ONE (21:00)
[2019-07-31] MEDS ORDERED: FLU VACC QS2019-20(6MOS UP)/PF 60 MCG/0.5 ML SYRINGE IM ONE (21:00)
[2019-08-01] MEDS ORDERED: Promethazine HCl 25 MG/ML VIAL SLOW IVP PRN (08:50)
[2019-08-01] MEDS ORDERED: Ondansetron HCl/PF 4 MG/2 ML Vial IVP PRN (08:50)
[2019-08-01] MEDS ORDERED: Promethazine HCl 25 MG/ML VIAL IM PRN (08:50)
[2019-08-01] MEDS ORDERED: Digoxin 0.125 MG TAB PO SCH (09:00)
[2019-08-01] MEDS ORDERED: Amiodarone 200 MG TAB PO SCH (09:00)
[2019-08-01] MEDS ORDERED: PROPOFOL 200 MG/20 ML VIAL ONE (10:31)
[2019-08-01] MEDS ORDERED: Lidocaine 1% PF 5 ML VIAL ONE (10:31)
--- NOTE | 2019-08-01 10:57 | OP ---
DATE OF PROCEDURE: 08/01/2019 CLERICAL GRADER SURGEON: None. PROCEDURE PERFORMED: Colonoscopy, incomplete due to rectal stricture, beyond which the scope could not be advanced. INDICATION: Rectal bleeding in the context of prior low anterior resection for colon cancer. MEDICATIONS: See Anesthesia record. FINDINGS: After discussion of the risks, benefits, and alternatives of the procedure, informed consent was obtained and witnessed. Pre-endoscopic cardiopulmonary examination was satisfactory. Time-out was performed before sedation was achieved. Sedation was achieved with Anesthesia assistance in the endoscopy unit. Digital rectal exam was performed, which was unremarkable. A Pentax adult colonoscope was inserted into the anus and passed forward in the usual fashion. The rectal mucosa appeared normal. Retroflexion in the rectum demonstrated nonbleeding internal hemorrhoids. There is an anastomosis in the rectum at 10 cm from the anal verge. This anastomotic area is friable, edematous, and stenotic. There are multiple exposed pito in the area. There is some mild oozing with minimal contact of the endoscope. I was unable to advance the colonoscope beyond this area. We then switched out equipment and utilized a smaller caliber upper endoscope, but this smaller caliber scope was also unable to be advanced beyond the anastomosis. I obtained multiple biopsies of the anastomotic area to rule out recurrence of malignancy, versus just ischemic changes. Following this, the endoscope was completely withdrawn and the patient allowed to recover. The patient tolerated the procedure well. There were no immediate postprocedure complications. IMPRESSION: 1. Friable stenotic edematous rectal anastomosis at 10 cm with exposed pito. Unable to advance the colonoscope or smaller caliber upper endoscope beyond this area. Multiple biopsies obtained. 2. Internal hemorrhoids, nonbleeding. RECOMMENDATIONS: 1. Advance diet. 2. Follow up biopsy results. 3. Consider stopping anticoagulation if okay from a cardiac perspective. 4. Follow up with Dr. Lopez. Job ID: [id number]
--- NOTE | 2019-08-01 10:58 | PRG ---
DATE OF SERVICE: 08/01/2019 SUBJECTIVE: No more bleeding. He had colonoscopy this morning. Discussed with Dr. Quinones. He has a tight rectal stricture at 10 cm with exposed granulation tissue and pito. He is hemodynamically stable as his hemoglobin is fine. He is asymptomatic. ASSESSMENT: Low rectal stricture, status post neoadjuvant chemoradiation for rectal cancer, now with ileostomy takedown. PLAN: He can be discharged today. We will obtain outpatient referral to Dr. Tompkins in [place] for dilation plus or minus stent placement, but my office will arrange for that. Job ID: [id number]
[2019-08-01 12:19] VITALS: BP 118/73; TEMP 97.9
--- NOTE | 2019-08-01 19:19 | DIS ---
DATE OF ADMISSION: 07/31/2019 DATE OF DISCHARGE: 08/01/2019 DISCHARGE DISPOSITION: Home. PRIMARY DISCHARGE DIAGNOSES: 1. Hematochezia. 2. Bleed from anastomotic site. 3. History of large B-cell lymphoma. 4. Atrial fibrillation on chronic anticoagulation. 5. History of colon cancer. DISCHARGE MEDICATIONS: Include; 1. Digoxin 0.125 mg daily. 2. Multivitamin once a day. 3. Vascepa 1 mg twice daily. 4. Folic acid 1 mg daily. 5. Flaxseed p.o. daily. 6. Ferrous sulfate 325 mg twice daily. 7. Vitamin B12 of 1000 mcg p.o. daily. 8. Ascorbate with calcium 500/200 one tablet twice daily. 9. Amiodarone 200 mg daily. His anticoagulation with Xarelto is being held due to the bleeding. CODE STATUS: Full code. ALLERGIES: NO KNOWN DRUG ALLERGIES. PROCEDURES DONE DURING THIS ADMISSION: The patient had a colonoscopy, which was incomplete due to rectal stricture and it demonstrated internal hemorrhoids, which were nonbleeding. There was a friable, stenotic, edematous rectal anastomosis at 10 cm with exposed pito. HOSPITAL COURSE: Mr. Townsend is a 58-year-old gentleman, who came to the emergency room after he was noted to have rectal bleeding. He had recently had an ileostomy takedown. He was admitted to the hospital and seen by both gastroenterology as well as General Surgery. A colonoscopy was performed and demonstrated an area of friable mucosa at the anastomotic site in an area of stenosis just beyond this. After he had been in the hospital, the bleeding had stopped. He has been taken off Xarelto and the plan is for him to be discharged and referred to see Dr. Tompkins in [place] for possible dilation or stent placement, which will be arranged by Dr. Lopez via his office. The patient was stable at the time of discharge. His H and H had remained stable without transfusion during his hospital course and he is being discharged home today. Job ID: [id number]
--- NOTE | 2019-08-03 06:29 | PQF ---
SAP Head Waiter Crystal Reports Winform ViewerBLFRANDY ANTHONY ZAINAB SELF [id number] CLINICAL DOCUMENTATION CLARIFICATION FORM: POST DISCHARGE Addendum to original discharge summary date: ____ Late entry note date: __ DATE: ATTN: ZAINAB SELF Please exercise your independent, professional judgment in responding to the clarification form. Clinical indicators are provided on the bottom of this form for your review Please check appropriate box(s): Pancytopenia due to: [ x] Chemotherapy/antineoplastic drugs [ ] Other drug-induced (please specify if known): [ ] B cell Lymphoma [ ] Other diagnosis [ ] Unable to determine In addition, please specify: Present on Admission (POA): [ ] Yes [ ] No [ ] Unable to determine For continuity of documentation, please document condition throughout progress notes and discharge summary. Thank You. CLINICAL INDICATORS - SIGNS / SYMPTOMS / LABS WBC level 2.3 on 07/30 and 2.1 on 07/31 - Documented in Laboratory results RBC 2.63 on and 2.67 on 07/31 - Documented in Laboratory results HGB 8.8 - Documented in Laboratory results Pancytopenia may br related to recent chemotherapy - Documented in H&P on 07/31 by Zainab Self MD ABLA - Documented in Consultatition Case Reinaldo RISK FACTORS Hx of colon cancer- Documented in H&P on 07/31 by Zainab Self MD Recently treated Chemo and radiation - Documented in H&P on 07/31 by Zainab Self MD GI bleeding - Documented in H&P on 07/31 by Zainab Self MD TREATMENT: Blood Transfusion - Documented in H&P on 07/31 by Zainab Self MD Colonoscopy Vitamin B 12 on daily SAP Head Waiter Crystal Reports Winform Viewer (This form is maintained as a part of the permanent medical record) 2014 [employer]. All Rights Reserved [email or web address] [not provided] MTDD
== END 2019-08-01 13:06 | disposition home or self-care (01) | DRG 919 ==
LOC: ERS 18:52 → ONC 07-31 00:18
PROVIDERS: ADMIT Hospitalist; ATTEND Hospitalist
PROC: 0DBE8ZX Excision of Large Intestine, Via Natural or Artificial Opening Endoscopic, Diagnostic (ICD-10-PCS; principal; 2019-08-01)
DX: K91.840 Postprocedural hemorrhage of a digestive system organ or structure following a digestive system procedure (principal); D61.810 Antineoplastic chemotherapy induced pancytopenia; D62 Acute posthemorrhagic anemia; C85.10 Unspecified B-cell lymphoma, unspecified site; I48.91 Unspecified atrial fibrillation; Y83.2 Surgical operation with anastomosis, bypass or graft as the cause of abnormal reaction of the patient, or of later complication, without mention of misadventure at the time of the procedure; K64.8 Other hemorrhoids; Z79.01 Long term (current) use of anticoagulants; Z85.038 Personal history of other malignant neoplasm of large intestine; Z79.82 Long term (current) use of aspirin; T45.1X5A Adverse effect of antineoplastic and immunosuppressive drugs, initial encounter
CPT/HCPCS: 36415; 80048; 80053; 85014; 85018; 85025; 85610; 85730; 88305; 99285; J2001; J2704

== ENCOUNTER 2020-11-24 05:53 | Day surgery (SDC) | payer BC ==
[2020-11-24] MEDS ORDERED: Midazolam HCl 2 mg/2 ml Vial ONE (07:18)
[2020-11-24] MEDS ORDERED: Fentanyl 100 MCG/2 ML VIAL ONE (07:18)
[2020-11-24] MEDS ORDERED: Iopamidol 370 76% 100 ML VIAL ONE (13:06)
[2020-11-24 13:13] LABS: SARS-CoV-2 PCR by NAA Not Detected (NotDetected)
== END 2020-11-24 11:44 | disposition home or self-care (01) ==
LOC: CCL 05:53
PROVIDERS: ATTEND Internal Medicine Cardiovascular Disease
PROC: 4A023N7 Measurement of Cardiac Sampling and Pressure, Left Heart, Percutaneous Approach (ICD-10-PCS; principal; 2020-11-24)
DX: I42.0 Dilated cardiomyopathy (principal); I48.0 Paroxysmal atrial fibrillation; I10 Essential (primary) hypertension; C83.30 Diffuse large B-cell lymphoma, unspecified site; Z79.01 Long term (current) use of anticoagulants; Z79.82 Long term (current) use of aspirin; Z79.899 Other long term (current) drug therapy
CPT/HCPCS: 36415; 80061; 87635; 93458; 99152; J1644; J2250; J3010; Q9967; U0003; U0005

== ENCOUNTER 2020-11-27 06:38 | Day surgery (SDC) | payer BC ==
[2020-11-24 13:58] VITALS: BMI 29.5
[2020-11-27] MEDS ORDERED: Lidocaine 1% PF 5 ML VIAL ONE (09:16)
[2020-11-27] MEDS ORDERED: PROPOFOL 200 MG/20 ML VIAL ONE (09:16)
[2020-11-27] MEDS ORDERED: Hydrocortisone 1% Cream 30 GM TUBE ONE (09:30)
--- NOTE | 2020-11-30 14:55 | ECHO ---
PROCEDURE: Transesophageal echo. The Anesthesiology Department provided with sedation for the patient, please see their notes for details. After adequate sedation was achieved, transesophageal probe was inserted into the mouth and into the esophagus. Multiplanar views were then obtained. Left ventricle was dilated with reduced ejection fraction estimated about 20% to 25% Left atrium is dilated. Right atrium is dilated. Right ventricle is normal size with mildly reduced systolic function. Aortic valve is sclerotic with mild aortic insufficiency. Mitral valve is structurally normal. There is moderate MR. Tricuspid valve is structurally normal. There is mild TR. Pulmonary valve is structurally normal. No stenosis. Mild regurgitation. Left atrial appendage is a large appendage with reduced velocities but no evidence of mass or thrombus. There is spontaneous echo contrast. CONCLUSIONS: 1. Reduced EF at 20% to 25%. 2. Biatrial enlargement. 3. Left atrial appendage with reduced velocities and no mass or thrombus, but only spontaneous echo contrast. Job ID: [id number]
--- NOTE | 2020-11-30 14:55 | CCLSPC ---
PROCEDURE PERFORMED: Synchronized direct current cardioversion. PRE-PROCEDURE DIAGNOSIS: Atrial fibrillation. SUMMARY: Mr. Townsend is 60-year-old white gentleman, who comes to the outpatient area for a planned cardioversion. He had a GUERITA prior that showed no thrombus in any of the cardiac chambers, so we proceeded with cardioversion. The Anesthesiology Department provided with sedation for the patient. Please see their notes for details. After adequate sedation was achieved, one shock was delivered, 200 joules synchronized, converting him to sinus rhythm for about five beats and then he went back into atrial fibrillation. He had a total of four shocks. The second one was back up to 360 synchronized converting him every time to sinus just for a few beats, and then coming back into atrial fibrillation. Decision was made to continue to treat medically for now and refer to electrophysiology for atrial fibrillation ablation as he was not maintaining sinus rhythm. CONCLUSIONS: 1. Unsuccessful cardioversion. 2. Evaluation by electrophysiology for consideration of atrial fibrillation ablation. 3. Most likely the cause of his cardiomyopathy is atrial fibrillation. Job ID: [id number]
== END 2020-11-27 10:25 | disposition home or self-care (01) ==
LOC: SDC 06:38
PROVIDERS: ATTEND Internal Medicine Cardiovascular Disease
PROC: B246ZZ4 Ultrasonography of Right and Left Heart, Transesophageal (ICD-10-PCS; principal; 2020-11-27)
DX: I48.0 Paroxysmal atrial fibrillation (principal); I42.0 Dilated cardiomyopathy; I10 Essential (primary) hypertension; G37.3 Acute transverse myelitis in demyelinating disease of central nervous system; Z79.01 Long term (current) use of anticoagulants; Z79.82 Long term (current) use of aspirin; Z79.899 Other long term (current) drug therapy; Z88.8 Allergy status to other drugs, medicaments and biological substances
CPT/HCPCS: 92960; 93312; J2704

== ENCOUNTER 2020-12-18 05:17 | Observation (INO) | payer BC ==
[2020-12-18] MEDS ORDERED: Heparin 10,000 UNITS/ 10 ML VIAL ONE ×3 (06:57→09:49)
[2020-12-18] MEDS ORDERED: Lidocaine 1% (PF) 30 ML VIAL ONE (06:58)
[2020-12-18] MEDS ORDERED: Fentanyl 100 MCG/2 ML VIAL ONE (07:36)
[2020-12-18] MEDS ORDERED: Heparin 25,000 units/D5W 500 ML ONE (07:52)
[2020-12-18] MEDS ORDERED: Phenylephrine 10 MG/ML VIAL ONE (08:45)
[2020-12-18] MEDS ORDERED: Rocuronium Bromide 10 MG/ML (10ML VIAL) ONE (09:55)
[2020-12-18] MEDS ORDERED: ePHEDrine 50 MG/ML VIAL ONE (09:55)
[2020-12-18] MEDS ORDERED: Lidocaine 1% PF 5 ML VIAL ONE (09:55)
[2020-12-18] MEDS ORDERED: PHENYLEPHRINE-NS 100 MCG/ML 10 ML SYRINGE ONE (09:55)
[2020-12-18] MEDS ORDERED: Ondansetron PF 4 MG/2 ML Vial ONE (09:55)
[2020-12-18] MEDS ORDERED: Dexamethasone 20 MG/5 ML VIAL ONE (09:55)
[2020-12-18] MEDS ORDERED: PROPOFOL 200 MG/20 ML VIAL ONE (09:55)
[2020-12-18] MEDS ORDERED: Isoproterenol 0.2 MG/1 ML AMP ONE (10:06)
[2020-12-18] MEDS ORDERED: SUGAMMADEX SODIUM 200 MG/2 ML VIAL ONE (10:34)
[2020-12-18] MEDS ORDERED: Protamine Sulfate 50 MG/5 ML VIAL ONE ×2 (10:46→10:48)
[2020-12-18] MEDS ORDERED: Ketorolac Tromethamine 30 MG/ML VIAL IVP PRN (11:59)
[2020-12-18] MEDS ORDERED: Acetaminophen/Codeine 30-300mg Tablet PO PRN ×2 (12:00)
--- NOTE | 2020-12-18 13:54 | OP ---
DATE OF PROCEDURE: 12/18/2020 PROCEDURES PERFORMED: Electrophysiology study and radiofrequency ablation. REASON FOR PROCEDURE: Mr. Townsend is a 60-year-old man with history of lymphoma in remission, cardiomyopathy, wearing a LifeVest, requiring also amiodarone for ventricular rate control with atrial fibrillation persisting with rapid rate. He is here for pulmonary venous isolation procedure. He has been adequately anticoagulated with Xarelto without fail. DESCRIPTION OF PROCEDURE: The patient received propofol and general anesthesia by Anesthesia specialist. After adequate level of sedation achieved, the left and right femoral venous area was prepped, draped, and anesthetized using subcutaneous lidocaine. Under ultrasound guidance, both femoral veins were cannulated. On the left side, an 8 and 11-Estonian sheaths were used to advance a Decanav and intracardiac echocardiogram probe into the right atrium. 3D map of the right atrium was obtained and pacing sensing locations were also obtained from the His bundle, right ventricle, for right atrium, and the coronary sinus. Pacing, mapping, recording were performed at each location including pacing the left atrium via the CS. The intracardiac echocardiogram probe was used to monitor the transseptal puncture, and then the catheter manipulation throughout the procedure. From the right femoral veins, two 8-Estonian short sheaths, it was exchanged to two SL1 sheaths. After IV heparin was initiated with a bolus and drip fashion, which was adjusted throughout the procedure to keep ACT over 350. We were able to perform double transseptal puncture using an ICE using the powered [place] needle under fluoroscopic and intracardiac echocardiogram guidance. Through the SL1 sheath, a ThermoCool SFST ablation as well as a 20-pole Lasso catheter was advanced in the left atrium. 3D map for left atrium was obtained delineating marked enlargement of the left atrium and 4 separate pulmonary veins. Standard pulmonary venous isolation was performed using total of 100 lesion. Total duration was 26 minutes and 53 seconds. A superior roof line and inferoposterior line were also ablated and posterior wall isolation was achieved with these. During the posterior wall oliva, careful attention was paid to the esophageal temperatures and any heating was met with high-flow irrigation at that spot. Despite these efforts, the patient remained in atrial fibrillation. Additional lesions were placed in the inferior left atrium over the CS roof. Eventually, cardioversion was performed to restore sinus rhythm. The ablation catheter was advanced to the left ventricle and LV pacing was performed to rule out accessory pathway. The retrograde Wenckebach cycle was 400 msec and central retrograde VA conduction was seen. Anterograde Wenckebach cycle length was 280 msec. Atrial access to my testing was performed with the AV ERP was measured at 600/320 msec. No definite dual AV vinayak physiology was noted. No evidence of accessory pathway was seen. Isuprel was administered and mapping rpeeated , any reconnection reablated. Burst atrial pacing down to 200 msec from the CS did not reinduce atrial fibrillation. Catheter was withdrawn from the left side and IV heparin was stopped and later reversed with protamine. The long sheaths were exchanged for short sheaths and with ultrasound guidance, Vascade closure was performed for all four femoral venous access sites. At the end of the case, intracardiac echo and fluoroscopy did not reveal evidence of pericardial effusion. The total duration of ablation was 26 minutes and total number of lesions 100 lesions placed at 40 hernandez. CONCLUSION: 1. Markedly enlarged left atrium with significant scar burden at baseline and four separate pulmonary veins noted. 2. Successful isolation of all four pulmonary veins and the posterior wall was achieved. 3. Additional lesions in the inferior left atrium over the CS roof as well as inferoposterior area were placed at high fractionated areas also on Isuprel. Non-pulmonary vein PACs were also targeted and ablated in the inferior-posterior area. 4. No evidence of reconnection at the end of the case on Isuprel noted which was administered up to 20 mcg. 5. No evidence of accessory pathway or dual AV vinayak physiology present. 6. No atrial fibrillation or additional SVT or reinducible at the end of the case. PLAN: Continue oral anticoagulation for now. Continue amiodarone intermediate term until 2D echo is performed to re-evaluate his LV function. Should LVEF remains less than or equal to 35%, he may be considered for ICD implantation. Continue LifeVest for now. Job ID: [id number] [facility]
[2020-12-18] MEDS: Icosapent Ethyl 1 GM CAPSULE PO SCH (21:00)
[2020-12-18] MEDS ORDERED: Rivaroxaban 10 MG TAB PO SCH (21:00)
[2020-12-19 04:07] VITALS: BMI 27.6
[2020-12-19] MEDS ORDERED: Multivit, Therapeutic 1 TAB PO SCH (09:00)
[2020-12-19] MEDS ORDERED: Amiodarone 200 MG TAB PO SCH (09:00)
[2020-12-19] MEDS ORDERED: Aspirin Chewable 81 MG TAB PO SCH (09:00)
[2020-12-19 11:44] VITALS: BP 111/75; TEMP 97.3
[2020-12-19] MEDS: Icosapent Ethyl 1 GM CAPSULE PO SCH (12:29)
--- NOTE | 2020-12-19 16:20 | PDOC.DS.DS ---
Provider Date of Admission: 12/18/20 11:41 Date of Discharge: 12/19/20 Admitting Provider: Maulik Barrera MD Consultations: None Primary Care Physician: Duane Dorman Jr, MD Course Hospital Course: Mr. Townsend is a pleasant 60-year-old man with a prior history of lymphoma and rectal carcinoma, both requiring chemotherapy and radiation, as well as surgical resection of his colon, performed last year. He has had a history of atrial fibrillation about three years ago, but this was adequately suppressed with amiodarone, which was stopped about one year ago and he was recently found back in atrial fibrillation of unclear duration. He adequately anticoagulated on Xarelto. He underwent pulmonary venous isolation with posterior wall isolation on 12/18/2020. His left atrium was foudn to be severely dilated. He has had no post ablation complications and has remained in sinus rhythm overnight. He voices no concerns and is eager to discharge home Vitals: Vital Signs (12 hours) Temp Pulse Resp BP Pulse Ox 12/19/20 11:30 97.3 F L 95 18 111/75 95 12/19/20 07:35 97.9 F 95 20 122/80 95 12/19/20 06:00 98.1 F 84 18 124/74 96 Weight Weight 209 lb Physical Exam: The patient was seen and examined on the day of discharge. General Appearance: NAD, awake alert Eye: PERRL, anicteric sclera ENT: normocephalic atraumatic, no oropharyngeal lesions, moist mucosa Neck: supple, symmetric, no JVD, no thyromegaly, no lymphadenopathy, no carotid bruit Respiratory: CTAB, no wheezes, no rales, no ronchi, normal chest expansion, no tachypnea, normal percussion Cardiovascular: RRR, no murmur, no gallops, no rubs, normal peripheral pulses, irregular Gastrointestinal: soft, non-tender, no palpable masses Extremities: no cyanosis, no clubbing, no edema Extremities - other findings: BL groin site stable Neurological: cranial nerve grossly intact, normal sensation to touch, no focal deficits Musculoskeletal: normal tone, normal strength, no muscle wasting PSYCH: normal affect, normal behavior, A&O x 3 Problem Assessment: 1. persistent atrial fibrillation status post pulmonary venous isolation with posterior wall isolation Plan of Treatment: continue amiodarone at least until repeat echocardiogram with Cardiology. Continue oral anticoagulation. Follow-up with [facility] 6 weeks contact our office with any post ablation questions or concerns as needed Time Spent in discharge related activities (mins): 20 Plan Prescriptions: Sucralfate [Carafate] 1 gm PO QID #56 tab Potassium Chloride [K-Dur] 20 meq PO DAILY PRN #7 tab PRN Reason: Edema Furosemide [Lasix] 40 mg PO DAILY PRN #7 tab PRN Reason: Edema Pantoprazole [Protonix] 40 mg PO DAILY #30 tab Home Medications: Medication Instructions Recorded Confirmed Type Multivitamin [Daily Multiple 1 each PO QAM 12/04/17 12/18/20 History Vitamin] Flaxseed Oil 1,000 mg PO DAILY 08/23/18 12/18/20 History Icosapent Ethyl [Vascepa] 2 gm PO BID 07/02/19 12/18/20 History Ascorbate Calcium/Bioflavonoid 1 tablet PO BID 11/21/20 12/18/20 History [Nikky-C 500 mg Tablet] Aspirin [Ecotrin Low Strength] 81 mg PO DAILY 11/21/20 12/18/20 History Metoprolol Succinate [Toprol XL] 25 mg PO DAILY 11/21/20 12/18/20 History Rivaroxaban [Xarelto] 20 mg PO DAILY 11/21/20 12/18/20 History Sacubitril/Valsartan 49/51 1 each PO BID 11/21/20 12/18/20 History [Entresto 49 mg-51 mg Tablet] Amiodarone HCl 200 mg PO DAILY 11/24/20 12/18/20 History Furosemide [Lasix] 40 mg PO DAILY PRN #7 tab 12/19/20 Rx Pantoprazole [Protonix] 40 mg PO DAILY #30 tab 12/19/20 Rx Potassium Chloride [K-Dur] 20 meq PO DAILY PRN #7 tab 12/19/20 Rx Sucralfate [Carafate] 1 gm PO QID #56 tab 12/19/20 Rx Allergies: No Known Allergies Allergy (Verified 12/15/20 11:14) Discharge Instructions:: See [facility] post ablation DC packet provided by your Nurse. Contact [facility] with post ablation concerns or questions. Do not stop your blood thinner. Activity:: Activity Restrictions Referrals: Duane Dorman Jr, MD [Primary Care Provider] - Maulik Barrera MD [Radiation Oncology Therapist] - ([phone]) Disposition: HOME Quality CORE MEASURES:: N/A Did you prescribe anticoagulant for A Fib/Flutter?: Yes
--- NOTE | 2020-12-19 22:12 | EKG ---
Test Reason : POST ABLATION Blood Pressure : / mmHG Vent. Rate : 102 BPM Atrial Rate : 102 BPM P-R Int : 176 ms QRS Dur : 098 ms QT Int : 370 ms P-R-T Axes : 068 021 056 degrees QTc Int : 482 ms Sinus tachycardia with Premature supraventricular complexes T wave abnormality, consider lateral ischemia Abnormal ECG When compared with ECG of 15-DEC-2020 11:45, Sinus rhythm has replaced Atrial fibrillation T wave inversion now evident in Lateral leads Confirmed by Diane FRANK ([id number]) on 12/19/2020 10:11:42 PM Referred By: KENNEDI Confirmed By:Diane FRANK
== END 2020-12-19 13:12 | disposition home or self-care (01) ==
LOC: CCL 05:17 → 2NO 11:41
PROVIDERS: ADMIT Internal Medicine Cardiovascular Disease; ATTEND Internal Medicine Cardiovascular Disease
PROC: 02583ZZ Destruction of Conduction Mechanism, Percutaneous Approach (ICD-10-PCS; principal; 2020-12-18)
PROC: 02K83ZZ Map Conduction Mechanism, Percutaneous Approach (ICD-10-PCS; 2020-12-18)
PROC: 4A023FZ Measurement of Cardiac Rhythm, Percutaneous Approach (ICD-10-PCS; 2020-12-18)
PROC: 4A0234Z Measurement of Cardiac Electrical Activity, Percutaneous Approach (ICD-10-PCS; 2020-12-18)
DX: I48.19 Other persistent atrial fibrillation (principal); I42.0 Dilated cardiomyopathy; I11.0 Hypertensive heart disease with heart failure; I50.20 Unspecified systolic (congestive) heart failure; Z85.038 Personal history of other malignant neoplasm of large intestine; Z85.72 Personal history of non-Hodgkin lymphomas; Z79.01 Long term (current) use of anticoagulants; Z79.82 Long term (current) use of aspirin; Z79.899 Other long term (current) drug therapy; Z95.810 Presence of automatic (implantable) cardiac defibrillator; Z90.49 Acquired absence of other specified parts of digestive tract
CPT/HCPCS: 76942; 85347; 92960; 93005; 93613; 93622; 93623; 93655; 93656; 93657; 93662; C1732; C1759; G0378; J1100; J1644; J2001; J2370; J2405; J2704; J2720; J3010; J3490

== ENCOUNTER 2021-01-22 15:35 | Outpatient (CLI) | payer BC ==
[2020-11-20 13:34] LABS: #Eosinphils 0.1 10x3/uL (0.0-0.5); #Monocytes 0.6 10x3/uL (0.0-1.1); #Neutrophils 3.2 10x3/uL (1.5-8.4); %Basophils 0.8 % (0.0-2.0); %Eosinophils 2.1 % (0.0-6.0); %Lymphocytes 18.3 % (18.0-47.0); %Monocytes 12.2 % (0.0-10.0); %Neutrophils 66.4 % (40.0-75.0); Hemoglobin 16.3 g/dL (14.0-18.0); Mean Corpuscular HGB CONC 33.2 G/DL (32.0-36.0); Mean Corpuscular Hemoglobin 31.4 PG (27.0-33.0); Mean Corpuscular Volume 94.6 fl (80.0-100.0); Mean Platelet Volume 10.1 fl (7.4-10.4); Platelet Count 170 10x3/uL (130-400); RBC Distribution Width 13.7 % (11.5-14.5); Red Blood Cell (RBC) Count 5.19 10x6/uL (4.40-5.80); White Blood Cell (WBC) Count 4.8 10x3/uL (4.5-11.0)
[2020-11-20 13:42] LABS: INR-International Normal Ratio 1.1; PTT 31.1 sec (22.0-33.0); Prothrombin Time 11.2 sec (9.5-12.1)
[2020-11-20 14:07] LABS: ALT (SGPT) 29 U/L (8-55); AST (SGOT) 24 U/L (5-34); Albumin 4.3 g/dL (3.4-4.8); Alkaline Phosphatase 84 U/L (40-110); Anion Gap 17 mmol/L (10-20); BUN (Urea Nitrogen) 18 mg/dL (8.4-25.7); Bilirubin, Total 0.8 mg/dL (0.2-1.2); Calc. Creatinine Clearance 0 mL/min (70-130); Calcium 9.3 mg/dL (7.8-10.44); Carbon Dioxide 21 mmol/L (23-31); Chloride 107 mmol/L (98-107); Glucose 106 mg/dL (80-115); Potassium 4.8 mmol/L (3.5-5.1); Protein, Total 6.3 g/dL (5.8-8.1); Sodium 140 mmol/L (136-145)
[2020-11-20 23:45] LABS: SARS-CoV-2 PCR by NAA Not Detected (NotDetected)
[2020-12-15 12:19] LABS: Anion Gap 17 mmol/L (10-20); BUN (Urea Nitrogen) 21 mg/dL (8.4-25.7); Calc. Creatinine Clearance 0 mL/min (70-130); Calcium 9.4 mg/dL (7.8-10.44); Carbon Dioxide 21 mmol/L (23-31); Chloride 108 mmol/L (98-107); Glucose 97 mg/dL (80-115); Potassium 4.5 mmol/L (3.5-5.1); Sodium 141 mmol/L (136-145)
[2020-12-15 12:28] LABS: Hemoglobin 17.2 g/dL (13.5-17.5); Mean Corpuscular Hemoglobin 31.3 pg (27.0-33.0); Mean Corpuscular Volume 94.7 fl (81.2-95.1); Mean Platelet Volume 10.6 fl (7.4-10.4); Platelet Count 178 10x3/uL (150-450); RBC Distribution Width 13.8 % (11.5-14.5); White Blood Cell (WBC) Count 5.9 10x3/uL (3.5-10.5)
[2020-12-15 12:37] LABS: INR-International Normal Ratio 1.3; PTT 42.1 sec (22.0-33.0); Prothrombin Time 13.4 sec (9.5-12.1)
[2020-12-15 22:13] LABS: SARS-CoV-2 PCR by NAA Not Detected (NotDetected)
[2021-01-22 16:46] LABS: Hemoglobin 14.9 g/dL (13.5-17.5); Mean Corpuscular HGB CONC 33.6 g/dL (32.0-36.0); Mean Corpuscular Hemoglobin 31.4 pg (27.0-33.0); Mean Corpuscular Volume 93.3 fl (81.2-95.1); Mean Platelet Volume 10.2 fl (7.4-10.4); Platelet Count 148 10x3/uL (150-450); RBC Distribution Width 14.2 % (11.5-14.5); Red Blood Cell (RBC) Count 4.75 10x6/uL (4.32-5.72)
[2021-01-22 16:49] LABS: Anion Gap 16 mmol/L (10-20); BUN (Urea Nitrogen) 23 mg/dL (8.4-25.7); Calc. Creatinine Clearance 0 mL/min (70-130); Carbon Dioxide 20 mmol/L (23-31); Chloride 108 mmol/L (98-107); Glucose 83 mg/dL (80-115); Potassium 4.7 mmol/L (3.5-5.1); Sodium 139 mmol/L (136-145)
[2021-01-22 17:06] LABS: INR-International Normal Ratio 1.3; PTT 38.5 sec (22.0-33.0); Prothrombin Time 13.8 sec (9.5-12.1)
[2021-01-23 04:03] LABS: SARS-CoV-2 PCR by NAA Not Detected (NotDetected)
== END 2021-01-22 15:36 | disposition home or self-care (01) ==
LOC: LABBT 15:35
PROVIDERS: ATTEND Internal Medicine Cardiovascular Disease
DX: Z01.818 Encounter for other preprocedural examination (principal); I48.91 Unspecified atrial fibrillation; Z20.822 Contact with and (suspected) exposure to COVID-19
CPT/HCPCS: 80048; 80053; 85025; 85027; 85610; 85730; 87635; 93005; 93010; U0003; U0005

== ENCOUNTER 2021-01-24 11:45 | Day surgery (SDC) | payer BC ==
[2021-01-23 09:09] VITALS: BMI 27.0
[2021-01-24] MEDS ORDERED: Propofol 1,000 MG/100 ML VIAL IV ONE (13:27)
== END 2021-01-24 15:58 | disposition home or self-care (01) ==
LOC: CCL 11:45
PROVIDERS: ATTEND Internal Medicine Cardiovascular Disease
PROC: 5A2204Z Restoration of Cardiac Rhythm, Single (ICD-10-PCS; principal; 2021-01-24)
DX: I48.19 Other persistent atrial fibrillation (principal); I48.4 Atypical atrial flutter; I42.0 Dilated cardiomyopathy; Z79.01 Long term (current) use of anticoagulants; Z79.82 Long term (current) use of aspirin; Z79.899 Other long term (current) drug therapy
CPT/HCPCS: 92960; 93005; 93010; J2704

== ENCOUNTER 2021-03-16 16:06 | Outpatient (CLI) | payer BC ==
[2021-03-16 16:30] LABS: Hemoglobin 13.6 g/dL (13.5-17.5); Mean Corpuscular HGB CONC 33.7 g/dL (32.0-36.0); Mean Corpuscular Hemoglobin 31.9 pg (27.0-33.0); Mean Corpuscular Volume 94.8 fl (81.2-95.1); Mean Platelet Volume 9.9 fl (7.4-10.4); Platelet Count 138 10x3/uL (150-450); RBC Distribution Width 14.1 % (11.5-14.5); Red Blood Cell (RBC) Count 4.26 10x6/uL (4.32-5.72)
[2021-03-16 16:53] LABS: Anion Gap 14 mmol/L (10-20); BUN (Urea Nitrogen) 22 mg/dL (8.4-25.7); Calc. Creatinine Clearance 0 mL/min (70-130); Carbon Dioxide 22 mmol/L (23-31); Chloride 109 mmol/L (98-107); Glucose 95 mg/dL (80-115); Potassium 3.9 mmol/L (3.5-5.1); Sodium 141 mmol/L (136-145)
[2021-03-16 16:55] LABS: INR-International Normal Ratio 1.2; PTT 32.5 sec (22.0-33.0); Prothrombin Time 13.4 sec (9.5-12.1)
[2021-03-17 00:43] LABS: SARS-CoV-2 PCR by NAA Not Detected (NotDetected)
== END 2021-03-16 16:07 | disposition home or self-care (01) ==
LOC: LABBT 16:06
PROVIDERS: ATTEND Internal Medicine Cardiovascular Disease
DX: Z01.818 Encounter for other preprocedural examination (principal); I48.91 Unspecified atrial fibrillation; Z20.822 Contact with and (suspected) exposure to COVID-19
CPT/HCPCS: 80048; 85027; 85610; 85730; 87635; 93005; 93010; U0003; U0005

== ENCOUNTER 2021-03-21 07:30 | Observation (INO) | payer BC ==
[2021-03-20 10:16] VITALS: BMI 27.0
[2021-03-21] MEDS ORDERED: Heparin 10,000 UNITS/ 10 ML VIAL ONE ×3 (08:12→14:56)
[2021-03-21] MEDS ORDERED: Isoproterenol 0.2 MG/1 ML AMP ONE ×2 (08:13→11:10)
[2021-03-21] MEDS ORDERED: Heparin 25,000 units/D5W 500 ML ONE ×2 (08:13→12:14)
[2021-03-21] MEDS ORDERED: Fentanyl 100 MCG/2 ML VIAL ONE (10:22)
[2021-03-21] MEDS ORDERED: Vecuronium 10 MG VIAL ONE (10:47)
[2021-03-21] MEDS ORDERED: PHENYLEPHRINE-NS 100 MCG/ML 10 ML SYRINGE ONE (10:47)
[2021-03-21] MEDS ORDERED: ePHEDrine Sulfate 50 MG/10 ML VIAL ONE (10:47)
[2021-03-21] MEDS ORDERED: PROPOFOL 200 MG/20 ML VIAL ONE (10:47)
[2021-03-21] MEDS ORDERED: Dexamethasone 20 MG/5 ML VIAL ONE (10:47)
[2021-03-21] MEDS ORDERED: Lidocaine 1% PF 5 ML VIAL ONE (10:47)
[2021-03-21] MEDS ORDERED: Rocuronium Bromide 10 MG/ML (10ML VIAL) ONE (10:47)
[2021-03-21] MEDS ORDERED: Phenylephrine 10 MG/ML VIAL ONE (12:45)
[2021-03-21] MEDS ORDERED: Rocuronium Bromide 50 MG/5 ML VIAL ONE (15:26)
[2021-03-21] MEDS ORDERED: Protamine Sulfate 50 MG/5 ML VIAL ONE (15:57)
[2021-03-21] MEDS ORDERED: SUGAMMADEX SODIUM 200 MG/2 ML VIAL ONE (16:02)
[2021-03-21] MEDS ORDERED: Ketorolac Tromethamine 30 MG/ML VIAL IVP PRN (18:22)
[2021-03-21] MEDS ORDERED: Rivaroxaban 10 MG TAB PO SCH (18:30)
[2021-03-21] MEDS: Ascorbic Acid 500 mg Chewable Tablet PO SCH (22:10)
[2021-03-21] MEDS: Icosapent Ethyl 1 GM CAPSULE PO SCH (22:10)
[2021-03-22] MEDS: Sucralfate 1 GM TAB PO SCH ×3 (00:18→13:04)
[2021-03-22] MEDS ORDERED: Spironolactone 25 MG TAB PO SCH (08:00)
[2021-03-22] MEDS: Icosapent Ethyl 1 GM CAPSULE PO SCH (08:05)
[2021-03-22] MEDS: Ascorbic Acid 500 mg Chewable Tablet PO SCH (08:05)
[2021-03-22] MEDS ORDERED: Aspirin 81 mg Enteric Coated Tablet PO SCH (09:00)
[2021-03-22] MEDS ORDERED: Multivit, Therapeutic 1 TAB PO SCH (09:00)
[2021-03-22 12:53] VITALS: BP 118/74; TEMP 97.7
[2021-03-22] MEDS ORDERED: Rivaroxaban 10 MG TAB PO SCH (17:00)
[2021-03-22] MEDS ORDERED: Sacubitril 49 MG/Valsartan 51 MG TABLET PO SCH (21:00)
== END 2021-03-22 13:10 | disposition home or self-care (01) ==
LOC: CCL 07:30 → 2SW 08:27
PROVIDERS: ADMIT Internal Medicine Cardiovascular Disease; ATTEND Internal Medicine Cardiovascular Disease
PROC: 02583ZZ Destruction of Conduction Mechanism, Percutaneous Approach (ICD-10-PCS; principal; 2021-03-21)
PROC: 02K83ZZ Map Conduction Mechanism, Percutaneous Approach (ICD-10-PCS; 2021-03-21)
PROC: 4A023FZ Measurement of Cardiac Rhythm, Percutaneous Approach (ICD-10-PCS; 2021-03-21)
PROC: 4A0234Z Measurement of Cardiac Electrical Activity, Percutaneous Approach (ICD-10-PCS; 2021-03-21)
DX: I48.19 Other persistent atrial fibrillation (principal); I48.4 Atypical atrial flutter; I25.10 Atherosclerotic heart disease of native coronary artery without angina pectoris; Z85.72 Personal history of non-Hodgkin lymphomas; Z79.01 Long term (current) use of anticoagulants; Z79.82 Long term (current) use of aspirin; Z79.899 Other long term (current) drug therapy
CPT/HCPCS: 36415; 76942; 80053; 82248; 82378; 82728; 83615; 84100; 84165; 84550; 85046; 85347; 92960; 93613; 93623; 93655; 93656; 93657; 93662; C1732; C1759; C1884; G0378; J1100; J1644; J2370; J2704; J2720; J3010

== ENCOUNTER 2021-04-12 15:40 | Outpatient (CLI) | payer BC ==
[2021-04-12 17:05] LABS: Hemoglobin 13.8 g/dL (13.5-17.5); Mean Corpuscular HGB CONC 33.9 g/dL (32.0-36.0); Mean Corpuscular Hemoglobin 32.1 pg (27.0-33.0); Mean Corpuscular Volume 94.7 fl (81.2-95.1); Mean Platelet Volume 10.5 fl (7.4-10.4); Platelet Count 179 10x3/uL (150-450); RBC Distribution Width 13.7 % (11.5-14.5); White Blood Cell (WBC) Count 5.1 10x3/uL (3.5-10.5)
[2021-04-12 17:30] LABS: Anion Gap 16 mmol/L (10-20); BUN (Urea Nitrogen) 56 mg/dL (8.4-25.7); Calc. Creatinine Clearance 0 mL/min (70-130); Calcium 9.4 mg/dL (7.8-10.44); Carbon Dioxide 22 mmol/L (23-31); Chloride 103 mmol/L (98-107); Glucose 98 mg/dL (80-115); Potassium 4.4 mmol/L (3.5-5.1); Sodium 137 mmol/L (136-145)
[2021-04-12 17:50] LABS: INR-International Normal Ratio 1.3; PTT 35.3 sec (22.0-33.0); Prothrombin Time 13.7 sec (9.5-12.1)
== END 2021-04-12 15:41 | disposition home or self-care (01) ==
LOC: LABBT 15:40
PROVIDERS: ATTEND Internal Medicine Cardiovascular Disease
DX: Z01.818 Encounter for other preprocedural examination (principal); I48.91 Unspecified atrial fibrillation
CPT/HCPCS: 80048; 85027; 85610; 85730; 93005; 93010

== ENCOUNTER 2021-04-13 10:43 | Day surgery (SDC) | payer BC ==
[2021-04-12 08:47] VITALS: BMI 28.2
== END 2021-04-13 15:11 | disposition home or self-care (01) ==
LOC: CCL 10:43
PROVIDERS: ATTEND Internal Medicine Cardiovascular Disease
PROC: 5A2204Z Restoration of Cardiac Rhythm, Single (ICD-10-PCS; principal; 2021-04-13)
DX: I48.19 Other persistent atrial fibrillation (principal); I42.0 Dilated cardiomyopathy; I10 Essential (primary) hypertension; Z85.048 Personal history of other malignant neoplasm of rectum, rectosigmoid junction, and anus; Z85.72 Personal history of non-Hodgkin lymphomas; Z79.01 Long term (current) use of anticoagulants; Z79.82 Long term (current) use of aspirin; Z79.899 Other long term (current) drug therapy; Z95.810 Presence of automatic (implantable) cardiac defibrillator; Z98.890 Other specified postprocedural states
CPT/HCPCS: 92960; 93005; 93010

== ENCOUNTER 2021-06-13 16:56 | Emergency (ER) | payer BC, OTHER ==
[2021-06-13 18:11] LABS: #Eosinphils 0.1 thou/uL (0.0-0.7); #Lymphocytes 0.7 thou/uL (1.20-3.40); #Monocytes 0.5 thou/uL (0.11-0.59); #Neutrophils 2.7 thou/uL (1.40-6.50); %Basophils 0.8 % (0.0-1.0); %Eosinophils 2.8 % (0.0-10.0); %Lymphocytes 17.7 % (21.0-51.0); %Neutrophils 65.7 % (42.0-75.0); Hemoglobin 11.4 g/dL (14.0-18.0); Mean Corpuscular HGB CONC 34.9 g/dL (32.0-36.0); Mean Corpuscular Hemoglobin 33.7 pg (27.0-31.0); Mean Corpuscular Volume 96.5 fL (78.0-98.0); Platelet Count 135 thou/uL (130-400); RBC Distribution Width 13.3 % (11.5-14.5); Red Blood Cell (RBC) Count 3.38 mill/uL (4.70-6.10); White Blood Cell (WBC) Count 4.1 thou/uL (4.8-10.8)
[2021-06-13 18:34] LABS: ALT (SGPT) 12 U/L (8-55); AST (SGOT) 12 U/L (5-34); Albumin 4.4 g/dL (3.4-4.8); Alkaline Phosphatase 68 U/L (40-110); Anion Gap 13 mmol/L (10-20); BUN (Urea Nitrogen) 45 mg/dL (8.4-25.7); Bilirubin, Total 0.9 mg/dL (0.2-1.2); Calc. Creatinine Clearance 0 mL/min (70-130); Carbon Dioxide 24 mmol/L (23-31); Chloride 104 mmol/L (98-107); Globulin 1.9 g/dL (2.4-3.5); Glucose 91 mg/dL (80-115); Potassium 3.8 mmol/L (3.5-5.1); Protein, Total 6.3 g/dL (5.8-8.1); Sodium 137 mmol/L (136-145)
[2021-06-13] MEDS ORDERED: Bacitracin 1 PK ONE (19:25)
== END 2021-06-13 20:19 | disposition home or self-care (01) ==
LOC: ERS 16:56
DX: S01.01XA Laceration without foreign body of scalp, initial encounter (principal); I48.91 Unspecified atrial fibrillation; W18.30XA Fall on same level, unspecified, initial encounter; Y92.69 Other specified industrial and construction area as the place of occurrence of the external cause
CPT/HCPCS: 12001; 36415; 70450; 80053; 83880; 84484; 85025; 93005

== ENCOUNTER 2021-07-14 10:43 | Emergency (ER) | payer BC ==
[2021-07-14] MEDS ORDERED: Magnesium 2 GM/50 ML BAG (IN WATER) ONE (13:32)
[2021-07-14] MEDS ORDERED: Propofol 500 MG/50 ML VIAL ONE (13:32)
[2021-07-14 13:34] LABS: #Eosinphils 0.1 thou/uL (0.0-0.7); #Lymphocytes 0.9 thou/uL (1.20-3.40); #Monocytes 0.6 thou/uL (0.11-0.59); #Neutrophils 3.5 thou/uL (1.40-6.50); %Eosinophils 1.2 % (0.0-10.0); %Lymphocytes 17.8 % (21.0-51.0); %Monocytes 11.5 % (0.0-10.0); %Neutrophils 69.5 % (42.0-75.0); Mean Corpuscular HGB CONC 34.8 g/dL (32.0-36.0); Mean Corpuscular Hemoglobin 33.7 pg (27.0-31.0); Mean Platelet Volume 8.2 fL (7.4-10.4); Platelet Count 152 thou/uL (130-400); RBC Distribution Width 12.8 % (11.5-14.5); Red Blood Cell (RBC) Count 4.46 mill/uL (4.70-6.10); White Blood Cell (WBC) Count 5.1 thou/uL (4.8-10.8)
[2021-07-14 13:54] LABS: ALT (SGPT) 15 U/L (8-55); AST (SGOT) 18 U/L (5-34); Albumin 4.4 g/dL (3.4-4.8); Alkaline Phosphatase 73 U/L (40-110); Anion Gap 16 mmol/L (10-20); BUN (Urea Nitrogen) 18 mg/dL (8.4-25.7); Bilirubin, Total 0.9 mg/dL (0.2-1.2); Calc. Creatinine Clearance 0 mL/min (70-130); Calcium 9.2 mg/dL (7.8-10.44); Carbon Dioxide 20 mmol/L (23-31); Chloride 108 mmol/L (98-107); Globulin 2.1 g/dL (2.4-3.5); Glucose 90 mg/dL (80-115); Potassium 4.3 mmol/L (3.5-5.1); Protein, Total 6.5 g/dL (5.8-8.1); Sodium 140 mmol/L (136-145)
== END 2021-07-14 15:26 | disposition home or self-care (01) ==
LOC: ERS 10:43
DX: I48.91 Unspecified atrial fibrillation (principal); Z79.82 Long term (current) use of aspirin; Z79.899 Other long term (current) drug therapy
CPT/HCPCS: 71045; 80053; 84484; 85025; 93005; 96365; 96375; J2704; J3475

== ENCOUNTER 2023-01-29 12:35 | Outpatient (CLI) | payer BC ==
[2023-01-29] MEDS ORDERED: Iopamidol 370 76% 100 ML VIAL ONE (12:39)
== END 2023-01-29 12:36 | disposition home or self-care (01) ==
LOC: CT 12:35
PROVIDERS: ATTEND Internal Medicine Medical Oncology
DX: C85.90 Non-Hodgkin lymphoma, unspecified, unspecified site (principal); D69.6 Thrombocytopenia, unspecified; R59.0 Localized enlarged lymph nodes; K80.20 Calculus of gallbladder without cholecystitis without obstruction; K59.00 Constipation, unspecified; R16.1 Splenomegaly, not elsewhere classified; Z98.890 Other specified postprocedural states
CPT/HCPCS: 71260; 74177; Q9967

== ENCOUNTER 2024-04-23 06:16 | Observation (INO) | payer BC, MEDICARE ==
[2024-04-23 07:50] LABS: #Basophils Less than 0.03 10x3/uL (0.0-0.2); %Basophils 0.6 % (0.0-1.0); %Lymphocytes 13.4 % (21.0-51.0); %Monocytes 17.4 % (0.0-10.0); %Neutrophils 64.3 % (42.0-75.0); Hemoglobin 15.2 g/dL (14.0-18.0); Mean Corpuscular HGB CONC 35.3 g/dL (32.0-36.0); Mean Corpuscular Hemoglobin 32.3 pg (27.0-31.0); Mean Corpuscular Volume 91.5 fL (78.0-98.0); Mean Platelet Volume 9.2 fL (7.4-10.4); Platelet Count 190 10x3/uL (130-400); RBC Distribution Width 13.3 % (11.5-14.5)
[2024-04-23 08:18] LABS: ALT (SGPT) 12 U/L (8-55); AST (SGOT) 13 U/L (5-34); Albumin 4.7 g/dL (3.4-4.8); Alkaline Phosphatase 70 U/L (40-110); Anion Gap 18 mmol/L (10-20); BUN (Urea Nitrogen) 59 mg/dL (8.4-25.7); Bilirubin, Total 1.2 mg/dL (0.2-1.2); Calc. Creatinine Clearance 0 mL/min (70-130); Calcium 8.2 mg/dL (7.8-10.44); Carbon Dioxide 20 mmol/L (23-31); Chloride 97 mmol/L (98-107); Estimated GFR 30; Globulin 2.5 g/dL (2.4-3.5); Glucose 99 mg/dL (80-115); Protein, Total 7.2 g/dL (5.8-8.1); Sodium 132 mmol/L (136-145)
[2024-04-23] MEDS ORDERED: Acetaminophen 325 MG TAB PO PRN (09:39)
[2024-04-23] MEDS ORDERED: Acetaminophen 650 MG Suppository PR PRN (09:39)
[2024-04-23] MEDS ORDERED: Senokot S 8.6-50 MG TAB PO PRN (09:39)
[2024-04-23 10:05] LABS: Magnesium 2.7 mg/dL (1.6-2.6)
[2024-04-23 10:35] VITALS: BMI 26.0
[2024-04-23] MEDS: Potassium Chloride 20 MEQ TAB PO SCH (10:55)
[2024-04-23] MEDS: Sodium Chloride 0.9% 1,000 ML IV SCH (10:55)
[2024-04-23] MEDS: Famotidine 20 MG TAB PO SCH (21:00)
[2024-04-23] MEDS: Sacubitril 24MG/Valsartan 26 MG TAB PO SCH (21:01)
[2024-04-24 04:19] LABS: #Basophils Less than 0.03 10x3/uL (0.0-0.2); %Basophils 0.7 % (0.0-1.0); %Eosinophils 3.7 % (0.0-10.0); %Lymphocytes 15.4 % (21.0-51.0); %Monocytes 14.7 % (0.0-10.0); %Neutrophils 65.5 % (42.0-75.0); Hematocrit 42.2 % (42.0-52.0); Hemoglobin 14.8 g/dL (14.0-18.0); Mean Corpuscular HGB CONC 35.1 g/dL (32.0-36.0); Mean Corpuscular Hemoglobin 32.5 pg (27.0-31.0); Mean Corpuscular Volume 92.5 fL (78.0-98.0); Mean Platelet Volume 9.5 fL (7.4-10.4); Platelet Count 173 10x3/uL (130-400); RBC Distribution Width 13.2 % (11.5-14.5); Red Blood Cell (RBC) Count 4.56 mill/uL (4.70-6.10)
[2024-04-24 04:21] VITALS: TEMP 97.4
[2024-04-24 08:24] VITALS: BP 120/77
[2024-04-24 10:29] LABS: Anion Gap 11 mmol/L (10-20); BUN (Urea Nitrogen) 34 mg/dL (8.4-25.7); Calc. Creatinine Clearance 106 mL/min (70-130); Calcium 8.6 mg/dL (7.8-10.44); Carbon Dioxide 21 mmol/L (23-31); Chloride 112 mmol/L (98-107); Estimated GFR 95; Glucose 105 mg/dL (80-115); Magnesium 2.7 mg/dL (1.6-2.6); Potassium 4.3 mmol/L (3.5-5.1); Sodium 140 mmol/L (136-145)
== END 2024-04-24 11:31 | disposition home or self-care (01) ==
LOC: ERS 06:16 → 2SW 08:51
PROVIDERS: ADMIT Internal Medicine; ATTEND Family Medicine
DX: R42 Dizziness and giddiness (principal); E86.0 Dehydration; I10 Essential (primary) hypertension; I42.0 Dilated cardiomyopathy; C83.30 Diffuse large B-cell lymphoma, unspecified site; C85.90 Non-Hodgkin lymphoma, unspecified, unspecified site; I48.91 Unspecified atrial fibrillation; N17.9 Acute kidney failure, unspecified; I95.9 Hypotension, unspecified; E87.6 Hypokalemia; Z98.890 Other specified postprocedural states; Z79.82 Long term (current) use of aspirin; Z79.899 Other long term (current) drug therapy; Z95.5 Presence of coronary angioplasty implant and graft
CPT/HCPCS: 36415; 80048; 80053; 83735; 85025; 93005; 93010; G0378; J7050